=== PATIENT | female | born 1960 | race Caucasian/White ===

== ENCOUNTER 2018-09-04 11:23 | Outpatient (REF) | payer MEDICAID, SELFPAY ==
[2018-09-04 20:59] LABS: HCT 41.3 % (36.0-46.0); HGB 12.7 g/dL (12.0-15.5); Mean Corp. HGB Concentration 30.8 g/dL (32.0-36.0); Mean Corpuscular Hemoglobin 24.8 pg (27.0-33.0); Mean Corpuscular Volume 80.5 fL (80-95); Mean Platelet Volume 10.6 fL (8.0-11.0); Platelet Count 243 x1000/uL (130-400); RBC 5.13 m/cumm (4.00-5.20); White Blood Cell Count 7.07 k/cumm (4.4-10.8)
[2018-09-04 21:29] LABS: ALT 27 U/L (12-78); AST 23 U/L (15-37); Albumin 3.4 g/dL (3.4-5.0); Alkaline Phosphatase 137 U/L (46-116); Anion Gap 7.7 mmol/L (3-11); BUN 14 mg/dL (7-18); Bilirubin, Total 0.5 mg/dL (0.2-1.0); CO2 30.3 mmol/L (21.0-32.0); CREATININE 1.01 mg/dL (0.55-1.02); Calcium 8.6 mg/dL (8.5-10.1); Chloride 106 mmol/L (98-107); Glucose 94 mg/dL (70-100); Potassium 3.5 mmol/L (3.5-5.1); Sodium 144 mmol/L (136-145); TSH 2.97 uIU/mL (0.358-3.74); Total Protein 6.7 g/dL (6.4-8.2)
== END 2018-09-04 11:43 ==
LOC: NCHCN 11:23
PROVIDERS: PCP Internal Medicine; Visit Provider Physician Assistant Medical
DX: R53.83 Other fatigue (principal)
CPT/HCPCS: 80053; 85027; 84443

== ENCOUNTER 2020-08-18 14:42 | Outpatient (REF) | payer MEDICAID, SELFPAY ==
[2020-08-18 20:51] LABS: HCT 41.3 % (36.0-46.0); HGB 12.5 g/dL (11.2-15.7); MCH 23.4 pg (27.0-33.0); MCHC 30.3 % (32.0-36.0); MCV 77.3 fL (80-95); Platelet Count 284 10^3/uL (130-400); RBC 5.34 10^6/uL (3.93-5.22); RDW 17.2 % (11.7-14.6); WBC 8.24 10^3/uL (4.4-10.8)
[2020-08-18 21:44] LABS: Anion Gap 9.9 mmol/L (3-11); BUN 20 mg/dL (7-18); CO2 26.1 mmol/L (21.0-32.0); CREATININE 1.1 mg/dL (0.55-1.02); Calcium 9.1 mg/dL (8.5-10.1); Chloride 105 mmol/L (98-107); Estimated GFR 51.02 (mL/min/1.73m2); Glucose 95 mg/dL (74-106); Potassium 3.8 mmol/L (3.5-5.1); Sodium 141 mmol/L (136-145)
[2020-08-18 21:47] LABS: Hemoglobin A1C 5.2 % (<5.7)
[2020-08-18 22:13] LABS: Iron 29 ug/dL (50-170); Total Iron Binding Capacity 342 ug/dL (250-450); Transferrin Sat 8 % (15-50)
[2020-08-18 22:25] LABS: Ferritin 28 ng/mL (8-252); TSH 1.71 uIU/mL (0.36-3.74)
== END 2020-08-18 14:43 | disposition home or self-care (01) ==
LOC: NCHCN 14:42
PROVIDERS: PCP Internal Medicine; Visit Provider Internal Medicine
DX: D64.9 Anemia, unspecified (principal); R73.9 Hyperglycemia, unspecified
CPT/HCPCS: 80048; 85027; 82728; 83036; 83540; 83550; 84443

== ENCOUNTER 2020-11-02 17:15 | Outpatient (REF) | payer MEDICAID, SELFPAY ==
[2020-11-02 18:46] LABS: Iron 27 ug/dL (50-170); Total Iron Binding Capacity 327 ug/dL (250-450); Transferrin Sat 8 % (15-50)
[2020-11-02 18:59] LABS: ALT 19 U/L (14-59); AST 22 U/L (15-37); Albumin 3.4 g/dL (3.4-5.0); Alkaline Phosphatase 146 U/L (46-116); BUN 13 mg/dL (7-18); Bilirubin, Total 0.5 mg/dL (0.2-1.0); CREATININE 1.1 mg/dL (0.55-1.02); Calcium 8.6 mg/dL (8.5-10.1); Chloride 108 mmol/L (98-107); Estimated GFR 51.02 (mL/min/1.73m2); Ferritin 24 ng/mL (8-252); Glucose 90 mg/dL (74-106); Potassium 3.5 mmol/L (3.5-5.1); Sodium 144 mmol/L (136-145); Total Protein 6.8 g/dL (6.4-8.2)
[2020-11-02 19:11] LABS: Abs Immature Grans 0.05 10^3/uL (0.0-0.06); Absolute Basophil Count 0.08 10^3/uL (0.0-0.2); Absolute Lymphocyte Count 2.28 10^3/uL (1.2-3.4); Absolute Monocyte Count 0.51 10^3/uL (0.1-0.8); Absolute Neutrophil Count 4.85 10^3/uL (1.2-6.7); Eosinophils % 3.7; HCT 41.9 % (36.0-46.0); HGB 12.4 g/dL (11.2-15.7); Immature Grans % 0.6; Lymphocytes % 28.3; MCH 23.5 pg (27.0-33.0); MCHC 29.6 % (32.0-36.0); MCV 79.5 fL (80-95); MPV 10.2 fL (8.0-11.0); Monocytes % 6.3; Neutrophils % 60.1; Nucleated RBC 0 %; Platelet Count 242 10^3/uL (130-400); RBC 5.27 10^6/uL (3.93-5.22); RDW 16.8 % (11.7-14.6); WBC 8.07 10^3/uL (4.4-10.8)
== END 2020-11-02 17:16 | disposition home or self-care (01) ==
LOC: NCHCN 17:15
PROVIDERS: PCP Internal Medicine; Visit Provider Physician Assistant
DX: D64.9 Anemia, unspecified (principal); R11.0 Nausea
CPT/HCPCS: 80053; 82728; 83540; 83550; 85025

== ENCOUNTER 2022-05-10 17:09 | Outpatient (REF) | payer MEDICAID, SELFPAY ==
[2022-05-10 21:48] LABS: Abs Immature Grans 0.06 10^3/uL (0.0-0.06); Absolute Basophil Count 0.08 10^3/uL (0.0-0.2); Absolute Eosinophil Count 0.54 10^3/uL (0.0-0.7); Absolute Lymphocyte Count 1.54 10^3/uL (1.2-3.4); Absolute Monocyte Count 0.42 10^3/uL (0.1-0.8); Absolute Neutrophil Count 4.55 10^3/uL (1.2-6.7); Basophils % 1.1; Eosinophils % 7.5; HCT 40.7 % (36.0-46.0); HGB 12.5 g/dL (11.2-15.7); Immature Grans % 0.8; Lymphocytes % 21.4; MCH 24.8 pg (27.0-33.0); MCHC 30.7 % (32.0-36.0); MCV 81 fL (80-95); MPV 11.1 fL (8.0-11.0); Monocytes % 5.8; Neutrophils % 63.4; Platelet Count 210 10^3/uL (130-400); RBC 5.05 10^6/uL (3.93-5.22); RDW 20.4 % (11.7-14.6); RDW-SD 59.5 fL; WBC 7.19 10^3/uL (4.4-10.8)
[2022-05-10 21:52] LABS: Bilirubin Large (Negative); Blood Negative (Negative); Clarity Turbid (Clear); Glucose 100 mg/dL (Negative); Ketones Trace mg/dL (Negative); Leukocyte Esterase Negative (Negative); Nitrite Negative (Negative); Specific Gravity >= 1.030 (1.005-1.025)
[2022-05-10 21:59] LABS: ALT 349 U/L (14-59); AST 414 U/L (15-37); Albumin 3.3 g/dL (3.4-5.0); Alkaline Phosphatase 1986 U/L (46-116); Anion Gap 6.5 mmol/L (3-11); BUN 18 mg/dL (7-18); Bilirubin, Total 4.3 mg/dL (0.2-1.0); CO2 30.5 mmol/L (21.0-32.0); Calcium 9.1 mg/dL (8.5-10.1); Chloride 106 mmol/L (98-107); Creatine Kinase 59 U/L (26-192); Estimated GFR 64.49 (mL/min/1.73m2); GGT 802 U/L (5-55); Glucose 106 mg/dL (74-106); Potassium 3.3 mmol/L (3.5-5.1); Sodium 143 mmol/L (136-145); Total Protein 7.4 g/dL (6.4-8.2)
[2022-05-10 22:03] LABS: C & S Indicated? C&S Done As Ordered; Crystals Many Amorphous HPF (Negative)
[2022-05-10 22:51] LABS: Diff Comment RBC Morph Reviewed
[2022-05-10 22:52] LABS: Anisocytosis 2+
== END 2022-05-10 17:10 | disposition home or self-care (01) ==
LOC: NCHCN 17:09
PROVIDERS: PCP Internal Medicine; Visit Provider Physician Assistant
DX: R10.9 Unspecified abdominal pain (principal); R39.89 Other symptoms and signs involving the genitourinary system; R74.8 Abnormal levels of other serum enzymes; R82.998 Other abnormal findings in urine
CPT/HCPCS: 80053; 82550; 81003; 81015; 82977; 85025; 87086

== ENCOUNTER 2022-06-11 | Outpatient (RCR) | payer MEDICAID, SELFPAY ==
[2022-06-09] MEDS: Normal Saline Flush 10 ML SYR IVP (07:59)
[2022-06-09 08:27] LABS: Abs Immature Grans 0.04 10^3/uL (0.0-0.06); Absolute Basophil Count 0.06 10^3/uL (0.0-0.2); Absolute Eosinophil Count 0.27 10^3/uL (0.0-0.7); Absolute Lymphocyte Count 1.78 10^3/uL (1.2-3.4); Absolute Monocyte Count 0.53 10^3/uL (0.1-0.8); Absolute Neutrophil Count 4.97 10^3/uL (1.2-6.7); Basophils % 0.8; Eosinophils % 3.5; HCT 40.5 % (36.0-46.0); HGB 12.4 g/dL (11.2-15.7); Immature Grans % 0.5; Lymphocytes % 23.3; MCH 25.8 pg (27.0-33.0); MCHC 30.6 % (32.0-36.0); MCV 84 fL (80-95); MPV 10.2 fL (8.0-11.0); Monocytes % 6.9; Platelet Count 181 10^3/uL (130-400); RBC 4.81 10^6/uL (3.93-5.22); RDW-SD 55.8 fL; WBC 7.65 10^3/uL (4.4-10.8)
[2022-06-09 08:44] LABS: ALT 19 U/L (14-59); AST 19 U/L (15-37); Albumin 3.1 g/dL (3.4-5.0); Alkaline Phosphatase 282 U/L (46-116); Anion Gap 5.8 mmol/L (3-11); BUN 17 mg/dL (7-18); Bilirubin, Total 1.3 mg/dL (0.2-1.0); CO2 30.2 mmol/L (21.0-32.0); CREATININE 0.9 mg/dL (0.55-1.02); Calcium 8.9 mg/dL (8.5-10.1); Chloride 106 mmol/L (98-107); Estimated GFR 73.19 (mL/min/1.73m2); Glucose 115 mg/dL (74-106); Potassium 3.8 mmol/L (3.5-5.1); Sodium 142 mmol/L (136-145); Total Protein 6.8 g/dL (6.4-8.2)
[2022-06-12 11:36] LABS: CA 19-9 1420 U/mL (<35)
== END 2022-06-13 23:59 | disposition home or self-care (01) ==
LOC: INF
PROVIDERS: PCP Internal Medicine; Visit Provider Internal Medicine Hematology & Oncology
DX: Z45.2 Encounter for adjustment and management of vascular access device (principal); C25.0 Malignant neoplasm of head of pancreas
CPT/HCPCS: 36591; 80053; 85025; 86301

== ENCOUNTER 2022-07-14 01:19 | Outpatient (RCR) | payer MEDICAID, SELFPAY ==
[2022-06-23] MEDS: Normal Saline Flush 10 ML SYR IVP (07:41)
[2022-06-23 07:56] LABS: Abs Immature Grans 0.04 10^3/uL (0.0-0.06); Absolute Basophil Count 0.07 10^3/uL (0.0-0.2); Absolute Eosinophil Count 0.32 10^3/uL (0.0-0.7); Absolute Lymphocyte Count 1.74 10^3/uL (1.2-3.4); Basophils % 1.1; Eosinophils % 4.9; HGB 12.7 g/dL (11.2-15.7); Immature Grans % 0.6; Lymphocytes % 26.9; MCH 26.2 pg (27.0-33.0); MCHC 33.4 % (32.0-36.0); MCV 79 fL (80-95); MPV 9.8 fL (8.0-11.0); Monocytes % 12.4; Neutrophils % 54.1; Platelet Count 208 10^3/uL (130-400); RBC 4.84 10^6/uL (3.93-5.22); RDW 16.3 % (11.7-14.6); RDW-SD 46.1 fL; WBC 6.47 10^3/uL (4.4-10.8)
[2022-06-23 08:14] LABS: ALT 33 U/L (14-59); AST 19 U/L (15-37); Albumin 2.9 g/dL (3.4-5.0); Alkaline Phosphatase 164 U/L (46-116); Anion Gap 11.8 mmol/L (3-11); BUN 8 mg/dL (7-18); Bilirubin, Total 0.8 mg/dL (0.2-1.0); CO2 27.2 mmol/L (21.0-32.0); CREATININE 0.9 mg/dL (0.55-1.02); Calcium 8.1 mg/dL (8.5-10.1); Chloride 103 mmol/L (98-107); Estimated GFR 73.19 (mL/min/1.73m2); Glucose 113 mg/dL (74-106); Sodium 142 mmol/L (136-145); Total Protein 6.6 g/dL (6.4-8.2)
[2022-06-23 08:23] LABS: Potassium 2.2 mmol/L (3.5-5.1)
[2022-06-26 10:59] LABS: CA 19-9 1434 U/mL (<35)
[2022-06-30] MEDS: Normal Saline Flush 10 ML SYR IVP (08:42)
[2022-06-30 09:00] LABS: Abs Immature Grans 0.11 10^3/uL (0.0-0.06); Absolute Basophil Count 0.06 10^3/uL (0.0-0.2); Absolute Eosinophil Count 0.21 10^3/uL (0.0-0.7); Absolute Monocyte Count 0.61 10^3/uL (0.1-0.8); Absolute Neutrophil Count 2.61 10^3/uL (1.2-6.7); Basophils % 1.2; HCT 37.7 % (36.0-46.0); HGB 11.9 g/dL (11.2-15.7); Immature Grans % 2.1; Lymphocytes % 30.8; MCH 25.8 pg (27.0-33.0); MCHC 31.6 % (32.0-36.0); MCV 82 fL (80-95); MPV 9.3 fL (8.0-11.0); Monocytes % 11.7; Neutrophils % 50.2; Platelet Count 159 10^3/uL (130-400); RBC 4.62 10^6/uL (3.93-5.22); RDW 16.7 % (11.7-14.6); RDW-SD 49.8 fL
[2022-06-30 09:17] LABS: ALT 21 U/L (14-59); AST 23 U/L (15-37); Albumin 2.7 g/dL (3.4-5.0); Alkaline Phosphatase 152 U/L (46-116); Anion Gap 4.3 mmol/L (3-11); BUN 12 mg/dL (7-18); Bilirubin, Total 0.5 mg/dL (0.2-1.0); CO2 29.7 mmol/L (21.0-32.0); CREATININE 0.8 mg/dL (0.55-1.02); Calcium 8.3 mg/dL (8.5-10.1); Chloride 106 mmol/L (98-107); Glucose 100 mg/dL (74-106); Potassium 3.6 mmol/L (3.5-5.1); Sodium 140 mmol/L (136-145); Total Protein 5.9 g/dL (6.4-8.2)
[2022-07-03 12:38] LABS: CA 19-9 1584 U/mL (<35)
[2022-07-14] MEDS: Normal Saline Flush 10 ML SYR IVP (12:28)
[2022-07-14 12:37] LABS: Abs Immature Grans 0.07 10^3/uL (0.0-0.06); Absolute Eosinophil Count 0.45 10^3/uL (0.0-0.7); Absolute Lymphocyte Count 1.99 10^3/uL (1.2-3.4); Absolute Monocyte Count 0.85 10^3/uL (0.1-0.8); Absolute Neutrophil Count 4.18 10^3/uL (1.2-6.7); Basophils % 1.3; Eosinophils % 5.9; HCT 38.2 % (36.0-46.0); Immature Grans % 0.9; MCH 25.2 pg (27.0-33.0); MCHC 31.4 % (32.0-36.0); MCV 80 fL (80-95); MPV 9.8 fL (8.0-11.0); Monocytes % 11.1; Neutrophils % 54.8; Platelet Count 261 10^3/uL (130-400); RBC 4.77 10^6/uL (3.93-5.22); RDW 16.4 % (11.7-14.6); RDW-SD 47.8 fL; WBC 7.64 10^3/uL (4.4-10.8)
[2022-07-14 13:02] LABS: ALT 25 U/L (14-59); AST 23 U/L (15-37); Albumin 3.1 g/dL (3.4-5.0); Alkaline Phosphatase 163 U/L (46-116); Anion Gap 6.9 mmol/L (3-11); BUN 5 mg/dL (7-18); Bilirubin, Total 0.6 mg/dL (0.2-1.0); CO2 28.1 mmol/L (21.0-32.0); CREATININE 0.8 mg/dL (0.55-1.02); Calcium 9.2 mg/dL (8.5-10.1); Chloride 105 mmol/L (98-107); Glucose 102 mg/dL (74-106); Potassium 3.7 mmol/L (3.5-5.1); Sodium 140 mmol/L (136-145)
[2022-07-14 13:37] LABS: Magnesium 1.4 mg/dL (1.8-2.4)
[2022-07-17 13:07] LABS: CA 19-9 1387 U/mL (<35)
== END 2022-07-14 23:59 | disposition home or self-care (01) ==
LOC: INF 01:19
PROVIDERS: PCP Internal Medicine; Visit Provider Internal Medicine Hematology & Oncology
DX: Z45.2 Encounter for adjustment and management of vascular access device (principal); K52.1 Toxic gastroenteritis and colitis; T45.1X5A Adverse effect of antineoplastic and immunosuppressive drugs, initial encounter
CPT/HCPCS: 36415; 36591; 80053; 96523; 83735; 85025; 86301

== ENCOUNTER 2022-08-02 02:31 | Outpatient (RCR) | payer MEDICAID, SELFPAY ==
[2022-08-02] MEDS: Normal Saline Flush 10 ML SYR IVP (08:13)
[2022-08-02 08:38] LABS: Abs Immature Grans 0.03 10^3/uL (0.0-0.06); Absolute Basophil Count 0.04 10^3/uL (0.0-0.2); Absolute Eosinophil Count 0.19 10^3/uL (0.0-0.7); Absolute Lymphocyte Count 1.59 10^3/uL (1.2-3.4); Absolute Monocyte Count 0.63 10^3/uL (0.1-0.8); Absolute Neutrophil Count 1.74 10^3/uL (1.2-6.7); Basophils % 0.9; Eosinophils % 4.5; HCT 37.4 % (36.0-46.0); HGB 11.7 g/dL (11.2-15.7); Immature Grans % 0.7; Lymphocytes % 37.7; MCH 24.6 pg (27.0-33.0); MCHC 31.3 % (32.0-36.0); MCV 79 fL (80-95); MPV 9.9 fL (8.0-11.0); Monocytes % 14.9; Neutrophils % 41.3; Platelet Count 168 10^3/uL (130-400); RBC 4.75 10^6/uL (3.93-5.22); RDW 16.8 % (11.7-14.6); RDW-SD 47.3 fL; WBC 4.22 10^3/uL (4.4-10.8)
[2022-08-02 08:59] LABS: ALT 68 U/L (14-59); AST 43 U/L (15-37); Albumin 2.9 g/dL (3.4-5.0); Alkaline Phosphatase 201 U/L (46-116); Anion Gap 9.6 mmol/L (3-11); BUN 11 mg/dL (7-18); Bilirubin, Total 0.4 mg/dL (0.2-1.0); CO2 27.4 mmol/L (21.0-32.0); CREATININE 0.8 mg/dL (0.55-1.02); Calcium 8.3 mg/dL (8.5-10.1); Chloride 108 mmol/L (98-107); Glucose 100 mg/dL (74-106); Sodium 145 mmol/L (136-145); Total Protein 6.4 g/dL (6.4-8.2)
[2022-08-02 09:05] LABS: Potassium 2.8 mmol/L (3.5-5.1)
[2022-08-04 12:28] LABS: CA 19-9 1509 U/mL (<35)
== END 2022-08-13 23:59 | disposition home or self-care (01) ==
LOC: INF 02:31
PROVIDERS: PCP Internal Medicine; Visit Provider Internal Medicine Hematology & Oncology
DX: Z45.2 Encounter for adjustment and management of vascular access device (principal); C25.0 Malignant neoplasm of head of pancreas
CPT/HCPCS: 36591; 80053; 85025; 86301

== ENCOUNTER 2022-09-01 14:46 | Outpatient (CLI) | payer MEDICAID, SELFPAY ==
--- NOTE | 2022-09-01 15:07 | DI.RAD_ITS ---
Exam(s) RF CATHETER PATENCY CHECK W EXAM: RF CATHETER PATENCY CHECK W CLINICAL HISTORY: MEDIPORT DOES NOT DRAW BLOOD,CHECK FOR PATENCY,POSITION,Z45.2. TECHNIQUE: 2D and realtime digital imaging was performed. CONTRAST MATERIAL: Iodinated contrast was administered via the MediPort. COMPARISON: DX XR CHEST ONE VIEW from 06/02/2022 FINDINGS: The proximal catheter now appears smoothly coiled proximally. The tip of the catheter now lies withi n the right brachiocephalic vein. There is flow of contrast away from the tip of the catheter. IMPRESSION: 1. Change in the position of the MediPort. The proximal catheter is smoothly coiled. The tip of the catheter is retracted somewhat and now lies within the right brachiocephalic vein. 2. Free flow of contrast from the tip of the catheter. 3. Findings were discussed with Dr. Johnson at 4 p.m. on 09/01/2022. RADIATION DOSE DELIVERED: morelia Coker=6.34mGy
[2022-09-01] MEDS: Omnipaque 350 MG/ML 50 ML BTL IJ (15:18)
[2022-09-01] MEDS: Normal Saline Flush 10 ML SYR IVP (15:20)
== END 2022-09-01 15:06 ==
LOC: DI 14:46
PROVIDERS: PCP Internal Medicine; Visit Provider Internal Medicine Hematology & Oncology
DX: Z45.2 Encounter for adjustment and management of vascular access device (principal)
CPT/HCPCS: 76000; Q9967

== ENCOUNTER 2022-09-09 00:20 | Outpatient (RCR) | payer MEDICAID, SELFPAY ==
[2022-08-18] MEDS: Normal Saline Flush 10 ML SYR IVP (07:38)
[2022-08-18 07:46] LABS: Abs Immature Grans 0.04 10^3/uL (0.0-0.06); Absolute Basophil Count 0.05 10^3/uL (0.0-0.2); Absolute Eosinophil Count 0.13 10^3/uL (0.0-0.7); Basophils % 1.3; Eosinophils % 3.4; HCT 37.9 % (36.0-46.0); HGB 11.5 g/dL (11.2-15.7); Lymphocytes % 31.4; MCH 24.6 pg (27.0-33.0); MCHC 30.3 % (32.0-36.0); MCV 81 fL (80-95); MPV 10.6 fL (8.0-11.0); Monocytes % 18.3; Neutrophils % 44.6; Platelet Count 150 10^3/uL (130-400); RBC 4.67 10^6/uL (3.93-5.22); RDW 17.9 % (11.7-14.6); RDW-SD 51.7 fL; WBC 3.82 10^3/uL (4.4-10.8)
[2022-08-18 08:01] LABS: ALT 36 U/L (14-59); AST 30 U/L (15-37); Alkaline Phosphatase 185 U/L (46-116); Anion Gap 6.4 mmol/L (3-11); BUN 13 mg/dL (7-18); Bilirubin, Total 0.4 mg/dL (0.2-1.0); CO2 27.6 mmol/L (21.0-32.0); CREATININE 0.7 mg/dL (0.55-1.02); Chloride 108 mmol/L (98-107); Estimated GFR 98.95 (mL/min/1.73m2); Glucose 107 mg/dL (74-106); Potassium 3.5 mmol/L (3.5-5.1); Sodium 142 mmol/L (136-145); Total Protein 6.4 g/dL (6.4-8.2)
[2022-08-18 09:20] LABS: Magnesium 0.8 mg/dL (1.8-2.4)
[2022-08-20] MEDS: Normal Saline Flush 10 ML SYR IVP (13:01)
[2022-08-20] MEDS: Heparin 500 UNITS/5 ML SYRINGE IV (13:01)
[2022-08-21 12:07] LABS: CA 19-9 1441 U/mL (<35)
[2022-09-01] MEDS: Normal Saline Flush 10 ML SYR IVP (08:13)
[2022-09-01 08:24] LABS: Abs Immature Grans 0.03 10^3/uL (0.0-0.06); Absolute Basophil Count 0.04 10^3/uL (0.0-0.2); Absolute Eosinophil Count 0.11 10^3/uL (0.0-0.7); Absolute Lymphocyte Count 1.32 10^3/uL (1.2-3.4); Absolute Monocyte Count 0.63 10^3/uL (0.1-0.8); Absolute Neutrophil Count 2.36 10^3/uL (1.2-6.7); Basophils % 0.9; Eosinophils % 2.4; HCT 36.9 % (36.0-46.0); HGB 11.5 g/dL (11.2-15.7); Immature Grans % 0.7; Lymphocytes % 29.4; MCH 24.8 pg (27.0-33.0); MCHC 31.2 % (32.0-36.0); MCV 80 fL (80-95); MPV 9.7 fL (8.0-11.0); Neutrophils % 52.6; Platelet Count 138 10^3/uL (130-400); RBC 4.63 10^6/uL (3.93-5.22); RDW 18.6 % (11.7-14.6); RDW-SD 53.1 fL; WBC 4.49 10^3/uL (4.4-10.8)
[2022-09-01 08:41] LABS: ALT 50 U/L (14-59); AST 37 U/L (15-37); Alkaline Phosphatase 229 U/L (46-116); Anion Gap 8.3 mmol/L (3-11); BUN 9 mg/dL (7-18); Bilirubin, Total 0.4 mg/dL (0.2-1.0); CO2 26.7 mmol/L (21.0-32.0); CREATININE 0.8 mg/dL (0.55-1.02); Calcium 8.7 mg/dL (8.5-10.1); Chloride 109 mmol/L (98-107); Glucose 112 mg/dL (74-106); Potassium 3.2 mmol/L (3.5-5.1); Sodium 144 mmol/L (136-145); Total Protein 6.4 g/dL (6.4-8.2)
[2022-09-01 10:27] LABS: Magnesium 1.4 mg/dL (1.8-2.4)
[2022-09-04 13:13] LABS: CA 19-9 1420 U/mL (<35)
[2022-09-07] MEDS: Normal Saline Flush 10 ML SYR IVP (08:00)
[2022-09-07 08:24] LABS: Abs Immature Grans 0.12 10^3/uL (0.0-0.06); Absolute Basophil Count 0.07 10^3/uL (0.0-0.2); Absolute Eosinophil Count 0.21 10^3/uL (0.0-0.7); Absolute Lymphocyte Count 1.69 10^3/uL (1.2-3.4); Absolute Monocyte Count 1.11 10^3/uL (0.1-0.8); Absolute Neutrophil Count 3.14 10^3/uL (1.2-6.7); Basophils % 1.1; Eosinophils % 3.3; HCT 40.5 % (36.0-46.0); HGB 12.3 g/dL (11.2-15.7); Immature Grans % 1.9; Lymphocytes % 26.7; MCH 24.6 pg (27.0-33.0); MCHC 30.4 % (32.0-36.0); MCV 81 fL (80-95); MPV 9.8 fL (8.0-11.0); Monocytes % 17.5; Neutrophils % 49.5; Platelet Count 177 10^3/uL (130-400); RBC 5.01 10^6/uL (3.93-5.22); RDW 19.9 % (11.7-14.6); RDW-SD 57.8 fL; WBC 6.34 10^3/uL (4.4-10.8)
[2022-09-07 08:45] LABS: ALT 38 U/L (14-59); AST 28 U/L (15-37); Albumin 3.1 g/dL (3.4-5.0); Alkaline Phosphatase 236 U/L (46-116); Anion Gap 5.5 mmol/L (3-11); BUN 12 mg/dL (7-18); Bilirubin, Total 0.4 mg/dL (0.2-1.0); CO2 29.5 mmol/L (21.0-32.0); Calcium 8.8 mg/dL (8.5-10.1); Chloride 106 mmol/L (98-107); Estimated GFR 64.49 (mL/min/1.73m2); Glucose 111 mg/dL (74-106); Magnesium 1.6 mg/dL (1.8-2.4); Potassium 4.2 mmol/L (3.5-5.1); Sodium 141 mmol/L (136-145); Total Protein 6.6 g/dL (6.4-8.2)
[2022-09-08 09:30] LABS: CA 19-9 1553 U/mL (<35)
[2022-09-09] MEDS: Heparin 500 UNITS/5 ML SYRINGE IV (12:50)
[2022-09-09] MEDS: Normal Saline Flush 10 ML SYR IVP (12:51)
== END 2022-09-13 23:59 | disposition home or self-care (01) ==
LOC: INF 00:20
PROVIDERS: PCP Internal Medicine; Visit Provider Internal Medicine Hematology & Oncology
DX: C25.0 Malignant neoplasm of head of pancreas (principal); K52.1 Toxic gastroenteritis and colitis; T45.1X5A Adverse effect of antineoplastic and immunosuppressive drugs, initial encounter; Z45.2 Encounter for adjustment and management of vascular access device
CPT/HCPCS: 36415; 36591; 80053; 96523; 83735; 85025; 86301

== ENCOUNTER 2022-09-29 10:35 | Observation (INO) | payer MEDICAID, SELFPAY ==
[2022-09-29] VITALS (30 sets, daily range): BP systolic 121–138; BP diastolic 67–84; PULSE 56–88; RESP 10–20; TEMP 36.2–36.8; O2SAT 96–100
--- NOTE | 2022-09-29 11:00 | DI.CT_ITS ---
Exam(s) CT ABDOMEN PELVIS W EXAM: CT ABDOMEN PELVIS W CLINICAL HISTORY: pain rlq 2 days, h/o pancreatic CA on chemo. TECHNIQUE: Imaging Protocol: Axial computed tomography images with coronal and sagittal reformatted images were created and reviewed CONTRAST MATERIAL: Intravenous: Omnipaque-350 100cc Oral: None COMPARISON: No exams were available for comparison FINDINGS: VISUALIZED LUNG BASES: No nodules nor pleural effusions evident. ABDOMEN: There is a small amount of ascites in the dependent aspect pelvis. BILIARY/STENT: There is a self expanding-type stent in the CBD in good position and not occluded. Pn eumobilia is seen, as expected. Gallbladder is not seen and presumed to be surgically absent. PANCREAS: The entire pancreas somewhat hypodense implying an element of gland edema-probable element of pancreatitis. There is no peripancreatic streaking nor peripancreatic fluid collection. Pancreat ic head appears slightly prominent. LIVER: Liver is hypodense implying steatosis. There is a single lesion in the right hepatic lobe whi ch measures 7 x 7 mm, possibly significant. Pneumobilia evident in the left lobe. SPLEEN: Mild splenomegaly (13.5 cm). No splenic lesions evident. Splenic and portal veins are paten t. Splenic vein is patent. There is in case mint of the superior mesenteric vein at the portal veno us confluence level. ADRENALS: There are no significant adrenal masses. KIDNEYS:No cysts evident. No solid renal masses. No calculi nor hydronephrosis.. ABDOMINAL AORTA: Abdominal aorta is not enlarged. LYMPH NODES:There is no retroperitoneal nor paraaortic adenopathy. ABDOMINAL WALL: No evidence of significant anterior abdominal wall nor inguinal hernia. GI: There densities consistent with probable undigested pills in the cecum below the ileocecal valve. Appendix is short. Slightly prominent diameter 7 mm. Small amount of fluid noted in the dependent aspect of the pelvis right side. PELVIS: GI: Colon is filled with fluid such as diarrhea state. No evidence of small-bowel obstruction. LYMPH NODES: There is no intrapelvic nor inguinal adenopathy. REPRODUCTIVE: Uterus size is age-appropriate. No abnormal adnexal masses noted. Small cyst in left ovary measuring 8 millimeters noted URINARY BLADDER: Right ovary not identified. OSSEOUS: No fractures and no significant osseous lesions. Chronic advanced disc space narrowing at L4-5 level. IMPRESSION: 1. CBD stent in place which appears to be in good position and without obvious obstruction. There is pneumobilia, as expected. 2. Pancreatic head mass is noted to in case the superior mesenteric vein. Probably thrombosed. Ther e is no thrombosis of these splenic and portal veins although there is significant narrowing of kavitha l venous confluence which appears to be encased. The superior mesenteric artery is not encased. 3. Pancreas appears hypodense implying gland edema-probable element of pancreatitis. There is no per ipancreatic fluid evident 4. Mild splenomegaly. 5. Short but slightly prominent diameter appendix. Small amount of free fluid in the right-side of the pelvis below this level. Cannot exclude early appendicitis here. RADIATION DOSE DELIVERED: 1,837.96mGy.cm Total DLP DATA REPOSITORY: All CT scans at this facility are submitted to the National Radiology Data Registry (NRDR) Dose Index Registry (DIR) with the [employer] (ACR). RADIATION OPTIMIZATION: All CT scans at this facility use at least one of these dose optimization te chniques: automated exposure control; mA and/or kV adjustment per patient size (includes targeted exa ms where dose is matched to clinical indication); or iterative reconstruction.
--- NOTE | 2022-09-29 11:11 | W.ED.GENAD ---
Discharge Plan Discharge Details Chief Complaint: Abd Prob Primary Care Provider: Sid Rubio ED Provider: Colby Ford Home Meds and New Rx's Prescriptions: No Action loperamide 2 mg capsule 2 mg PO PRN PRN Patient Comments: TAKE TWO CAPSULES BY MOUTH EVERY 6 HOURS NEEDED ondansetron HCl 8 mg tablet 8 mg PO PRN PRN Patient Comments: TAKE ONE TABLET BY MOUTH EVERY 8 HOURS NEEDED FOR NAUSEA potassium chloride 10 mEq tablet extended release 20 meq PO BID Patient Comments: TAKE TWO TABLETS BY MOUTH TWICE A DAY prochlorperazine maleate [Compazine] 10 mg tablet 10 mg PO PRN PRN Patient Comments: Take 1 tablet by mouth every six hours as needed for dry heaves, nausea, vomiting. acetaminophen 500 mg tablet 1,000 mg PO PRN PRN Patient Comments: Take 2 tablet by mouth every six hours as needed for pain citalopram 20 mg tablet 20 mg PO DAILY Patient Comments: TAKE ONE TABLET BY MOUTH EVERY DAY magnesium oxide 400 mg (241.3 mg magnesium) tablet 400 mg PO DAILY Patient Comments: TAKE ONE TABLET BY MOUTH TWICE A DAY pantoprazole 40 mg tablet,delayed release (DR/EC) 40 mg PO DAILY Patient Comments: TAKE ONE TABLET BY MOUTH EVERY DAY nitroglycerin [Nitrostat] 0.4 mg tablet, sublingual 0.4 mg sublingual PRN PRN Patient Comments: Place 1 tablet under tongue as directed Take every 5 mins x3 as needed for chest pain. If no relief call 911. oxycodone 5 mg tablet 5 mg PO PRN PRN (Reason: Moderate Pain (Scale Score 5-6)) Patient Comments: TAKE ONE TABLET BY MOUTH EVERY 4 HOURS NEEDED FOR MODERATE PAIN Creon 24,000-76,000 -120,000 unit capsule,delayed release(DR/EC) 3 cap PO 5X/DAY Patient Comments: TAKE 3 CAPSULES BY MOUTH PER MEAL AND 2 CAPSULES BY MOUTH PER SNACK (12 CAPSULES PER DAY) Eliquis 5 mg tablet 5 mg PO BID Patient Comments: TAKE ONE TABLET BY MOUTH TWICE A DAY Medical Decision Making 1113??61-year-old female with history of pancreatic cancer, on chemotherapy, here with right lower quadrant abdominal pain for the past 2 days. Patient is focally tender in her right lower quadrant. No hernia appreciated. Concern for acute surgical process including acute appendicitis. Plan to obtain CT of the abdomen pelvis. -- CT abdomen pelvis was interpreted by radiology: No definite acute appendicitis, unable to visualize appendix clearly, recommend repeat CT with oral contrast. 1. CBD stent in place which appears to be in good position and without obvious obstruction.? There is pneumobilia, as expected. 2. Pancreatic head mass is noted to in case the superior mesenteric vein.? Probably thrombosed.? There is no thrombosis of these splenic and portal veins although there is significant narrowing of portal venous confluence which appears to be encased.? The superior mesenteric artery is not encased. 3. Pancreas appears hypodense implying gland edema-probable element of pancreatitis.? There is no peripancreatic fluid evident 4. Mild splenomegaly. 5.? Short but slightly prominent diameter appendix.? Small amount of free fluid in the right-side of the pelvis below this level.? Cannot exclude early appendicitis here. Plan to repeat CT. Lab Data Lab results reviewed: Yes I reviewed the patient's lab results. Labs: Laboratory Tests Range/Units 09/29/22 09/29/22 09/29/22 11:27 11:27 13:45 WBC (4.4-10.8) 10^3/uL 5.26 RBC (3.93-5.22) 10^6/uL 4.46 Hgb (11.2-15.7) g/dL 10.9 L Hct (36.0-46.0) % 35.9 L MCV (80-95) fL 81 MCH (27.0-33.0) pg 24.4 L MCHC (32.0-36.0) % 30.4 L RDW (11.7-14.6) % 20.3 H Plt Count (130-400) 10^3/uL 121 L MPV (8.0-11.0) fL 10.1 Immature Gran % 1.7 Neutrophils % 56.6 Lymphocytes % 29.7 Monocytes % 8.0 Eosinophils % 3.2 Basophils % 0.8 Nucleated RBC % (0.0-0.3) % 0.0 Absolute Neutrophils (1.2-6.7) 10^3/uL 2.98 Absolute Lymphocytes (1.2-3.4) 10^3/uL 1.56 Absolute Monocytes (0.1-0.8) 10^3/uL 0.42 Absolute Eosinophils (0.0-0.7) 10^3/uL 0.17 Absolute Basophils (0.0-0.2) 10^3/uL 0.04 RBC Morphology See Below Polychromasia Present Poikilocytosis 1+ Anisocytosis 2+ Sodium (136-145) mmol/L 143 Potassium (3.5-5.1) mmol/L 3.9 Chloride (98-107) mmol/L 107 Carbon Dioxide (21.0-32.0) mmol/L 27.3 Anion Gap (3-11) mmol/L 8.7 BUN (7-18) mg/dL 11 Creatinine (0.55-1.02) mg/dL 0.8 Est GFR (CKD-EPI 2020) (mL/min/1.73m2) 84.30 Glucose (74-106) mg/dL 85 Calcium (8.5-10.1) mg/dL 8.6 Total Bilirubin (0.2-1.0) mg/dL 0.5 AST (15-37) U/L 69 H ALT (14-59) U/L 72 H Alkaline Phosphatase (46-116) U/L 222 H Total Protein (6.4-8.2) g/dL 6.5 Albumin (3.4-5.0) g/dL 3.0 L Lipase (16-77) U/L 13 L Urine Color (Yellow) Yellow Urine Clarity (Clear) Clear Urine pH (5-8) 5.0 Ur Specific [place] (1.005-1.025) 1.010 Urine Protein (Negative) mg/dL Negative Urine Ketones (Negative) mg/dL 15 H Urine Blood (Negative) Negative Urine Nitrite (Negative) Negative Urine Bilirubin (Negative) Negative Urine Urobilinogen (Up to 0.2) mg/dL 0.2 Ur Leukocyte Esterase (Negative) Negative Urine Glucose (Negative) mg/dL Negative HPI General Mode of arrival: ambulatory. Date/Time Provider Initiated Documentation: 09/29/22 10:48. Limitations to Documentation: no limitations. Information obtained by: patient. HPI Narrative: 61-year-old female with history of pancreatic cancer, actively on chemotherapy, here with chief complaint of abdominal pain. Patient notes right lower quadrant abdominal pain that started 2 days ago and has been persistent. Pain is moderate to severe. She has some mild associated nausea. She notes chronic diarrhea on chemotherapy. Related Data Home Medications Medication Instructions Recorded Confirmed acetaminophen 500 mg tablet 1,000 mg PO PRN PRN 09/29/22 09/29/22 apixaban 5 mg tablet (Eliquis) 5 mg PO BID 09/29/22 09/29/22 citalopram 20 mg tablet 20 mg PO DAILY 09/29/22 09/29/22 [id number] 3 cap PO 5X/DAY 09/29/22 09/29/22 24,000-76,000-120,000 unit capsule,delayed rel (Creon) loperamide 2 mg capsule 2 mg PO PRN PRN 09/29/22 09/29/22 magnesium oxide 400 mg (241.3 mg 400 mg PO DAILY 09/29/22 09/29/22 magnesium) tablet nitroglycerin 0.4 mg sublingual 0.4 mg sublingual PRN PRN 09/29/22 09/29/22 tablet (Nitrostat) ondansetron HCl 8 mg tablet 8 mg PO PRN PRN 09/29/22 09/29/22 oxycodone 5 mg tablet 5 mg PO PRN PRN Moderate Pain 09/29/22 09/29/22 (Scale Score 5-6) pantoprazole 40 mg tablet,delayed 40 mg PO DAILY 09/29/22 09/29/22 release potassium chloride 10 mEq 20 meq PO BID 09/29/22 09/29/22 tablet,extended release prochlorperazine maleate 10 mg 10 mg PO PRN PRN 09/29/22 09/29/22 tablet (Compazine) Allergies Allergy/AdvReac Type Severity Reaction Status Date / Time ibuprofen AdvReac Nausea Unverified 09/29/22 10:45 Penicillins AdvReac Hives Unverified 09/29/22 10:45 Sulfa (Sulfonamide AdvReac Hives Unverified 09/29/22 10:45 Antibiotics) topiramate [From Topamax] AdvReac Dizziness/L Unverified 09/29/22 10:45 ighthead General Stated Complaint: Abd Prob ILEANA: 3 Review of Systems All systems reviewed & are unremarkable except as noted in HPI and below Constitutional Constitutional: Denies fever(s) Gastrointestinal Gastrointestinal: Reports as per HPI PFSH Social History Smoking/Tobacco Use Status: Never Smoking risk assessment performed?: Yes Alcohol Intake: former Drug use: Never Substance use type: does not use Do you feel safe at home: Yes Do you feel safe in your relationship?: Yes Exam Const General: cooperative and no acute distress HENMT Mouth: moist mucous membranes Eyes Conjunctivae: normal conjunctivae Sclera: normal sclerae Resp Auscultation: clear to auscultation bilaterally, no rales, no rhonchi and no wheezes Cardio Rate: regular rate and not tachycardic Rhythm: regular rhythm GI Palpation: soft, not firm, no guarding, no masses, not rigid and tender in the RLQ Skin General skin exam: no rashes or lesions noted Neuro General: patient alert, patient awake, patient oriented x3 and tone normal Course Vital Signs Vital signs: Vital Signs Temperature 36.8 C 09/29/22 10:40 Pulse 88 09/29/22 10:40 Respiratory Rate 16 09/29/22 10:40 Blood Pressure 124/67 09/29/22 10:40 Pulse Oximetry 97 09/29/22 10:40 Temperature 36.8 C 09/29/22 10:40 Temperature Source Tympanic 09/29/22 10:40 Pulse 88 09/29/22 10:40 Respiratory Rate 16 09/29/22 10:40 Respiratory Effort Normal, Non-Labored 09/29/22 10:53 Blood Pressure 124/67 09/29/22 10:40 Blood Pressure Position Supine 09/29/22 10:40 Pulse Oximetry 97 09/29/22 10:40 Pain Level 8 09/29/22 10:53
--- NOTE | 2022-09-29 11:11 | NUR.NOTE ---
Nursing Note: patient provided this nurse with documentation card of her having a Vaccess CT Power- injectable implantable Port that was place by DR Wetzel at [facility] on 09/06/22 in right chest
[2022-09-29 11:41] LABS: Abs Immature Grans 0.09 10^3/uL (0.0-0.06); Absolute Basophil Count 0.04 10^3/uL (0.0-0.2); Absolute Eosinophil Count 0.17 10^3/uL (0.0-0.7); Absolute Lymphocyte Count 1.56 10^3/uL (1.2-3.4); Absolute Monocyte Count 0.42 10^3/uL (0.1-0.8); Absolute Neutrophil Count 2.98 10^3/uL (1.2-6.7); Basophils % 0.8; Eosinophils % 3.2; HCT 35.9 % (36.0-46.0); HGB 10.9 g/dL (11.2-15.7); Immature Grans % 1.7; Lymphocytes % 29.7; MCH 24.4 pg (27.0-33.0); MCHC 30.4 % (32.0-36.0); MCV 81 fL (80-95); MPV 10.1 fL (8.0-11.0); Neutrophils % 56.6; Platelet Count 121 10^3/uL (130-400); RBC 4.46 10^6/uL (3.93-5.22); RDW 20.3 % (11.7-14.6); RDW-SD 58.2 fL; WBC 5.26 10^3/uL (4.4-10.8)
[2022-09-29 11:58] LABS: AST 69 U/L (15-37); Alkaline Phosphatase 222 U/L (46-116); Anion Gap 8.7 mmol/L (3-11); BUN 11 mg/dL (7-18); Bilirubin, Total 0.5 mg/dL (0.2-1.0); CO2 27.3 mmol/L (21.0-32.0); CREATININE 0.8 mg/dL (0.55-1.02); Calcium 8.6 mg/dL (8.5-10.1); Chloride 107 mmol/L (98-107); Glucose 85 mg/dL (74-106); Lipase 13 U/L (16-77); Potassium 3.9 mmol/L (3.5-5.1); Sodium 143 mmol/L (136-145); Total Protein 6.5 g/dL (6.4-8.2)
[2022-09-29 12:03] LABS: Anisocytosis 2+; Diff Comment RBC Morph Reviewed; Polychromasia Present
[2022-09-29 12:04] LABS: Poikilocytes 1+
[2022-09-29 12:10] LABS: ALT 72 U/L (14-59)
[2022-09-29] MEDS: Omnipaque 350 MG/ML 500 ML BTL-Imaging package IJ (12:12)
[2022-09-29] MEDS: Normal Saline - Diluent 50 ML VIAL IJ (12:13)
--- NOTE | 2022-09-29 13:30 | DI.CT_ITS ---
Exam(s) CT ABDOMEN PELVIS WO EXAM: CT ABDOMEN PELVIS WO CLINICAL HISTORY: repeat per radiology. pain. TECHNIQUE: Imaging Protocol: Axial computed tomography images with coronal and sagittal reformatted images were created and reviewed CONTRAST MATERIAL: Intravenous: none Oral: Yes. Oral contrast was administered for bowel opacification. COMPARISON: CT CT ABDOMEN PELVIS W from 09/29/2022 FINDINGS: VISUALIZED LUNG BASES: No nodules nor pleural effusions evident. ABDOMEN: There is no ascites. LIVER: There are no obvious focal hepatic lesions evident of this noninfused study. Pneumobilia rela geetha to the CBD stent noted. GALLBLADDER/BILIARY: None gallbladder not seen and presumed to be surgically absent. CBD stent in pl sadiq. PANCREAS: Pancreas is hypodense which is probably a combination gland edema dilatation of the entire length of the duct. SPLEEN: Splenomegaly again noted. ADRENALS: There are no significant adrenal masses. KIDNEYS:No cysts evident. No solid renal masses. No calculi nor hydronephrosis. . ABDOMINAL AORTA: Abdominal aorta is not enlarged. LYMPH NODES: There is no retroperitoneal nor paraaortic adenopathy. ABDOMINAL WALL: No evidence of significant anterior abdominal wall nor inguinal hernia. GI: No evidence of bowel obstruction. The oral contrast has progressed into the colon. PELVIS: LYMPH NODES: There is no intrapelvic nor inguinal adenopathy. GI: No evidence of obvious appendicitis.No evidence of sigmoid diverticulitis. URINARY BLADDER: No calculi nor obvious masses evident REPRODUCTIVE: Unremarkable OSSEOUS: No significant osseous lesions. IMPRESSION: 1. This scan was repeated head the appendix. There does not appear to be obvious acute appendicitis. 2. Other findings as discussed on the IV contrast infused study performed earlier today. Discussed with ER provider RADIATION DOSE DELIVERED: 1,349.79mGy.cm Total DLP DATA REPOSITORY: All CT scans at this facility are submitted to the National Radiology Data Registry (NRDR) Dose Index Registry (DIR) with the [employer] (ACR). RADIATION OPTIMIZATION: All CT scans at this facility use at least one of these dose optimization te chniques: automated exposure control; mA and/or kV adjustment per patient size (includes targeted exa ms where dose is matched to clinical indication); or iterative reconstruction.
[2022-09-29 14:01] LABS: Bilirubin Negative (Negative); Blood Negative (Negative); Clarity Clear (Clear); Glucose Negative (Negative); Ketones 15 mg/dL (Negative); Leukocyte Esterase Negative (Negative); Nitrite Negative (Negative); Urobilinogen 0.2 mg/dL (Up to 0.2)
[2022-09-29] MEDS: Breeza Beverage 473 ML BTL 900 ML PO (14:04)
[2022-09-29] MEDS: Omnipaque 350 MG/ML 50 ML BTL PO (14:05)
--- NOTE | 2022-09-29 18:07 | HPE_ITS ---
Date of service: 09/29/22 Time of Service: 18:07 Assessment and Plan Assessment and plan (1) Primary pancreatic cancer : Status: Acute Assessment and plan: Most likely nausea vomiting diarrhea and abdominal pain are due to her chemotherapeutic agents. I do not see any sign of acute infection and see no need for antibiotics at this point. we will do stool cultures and C. difficile. There does not appear to be signs of colitis associated with the chemotherapeutic agents that would require steroids. hydration Replace magnesium Antiemetics DVT and GI prophylaxis And monitor for any continued signs of infection. -I did personally review all her labs and CTs. I did review her oncology notes from [facility]. 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 She received her last chemo on September 22. It is 5 out of 6 cycles of 5-FU/leucovorin/[employer] can/and a [place] based therapy. She has had problems with chronic diarrhea since she h as been on chemo. She takes Imodium daily. Today she woke up and had an episode of nausea and vomiting. She is not currently nauseated. She has been keeping water down since she has been in the ER. She has had no fever or chills. She has no chest pain or shortness of breath. Her diarrhea is no worse than it normally has been. She has had 2 liquid bowel movements today with no blood. She denies any pain or swelling in her legs. She denies any pain or burning with urination. She is not jaundiced. The pain is isolated to actually of the right upper quadrant. It is in the area of her previous open cholecystectomy scar. She has never had bowel obstructions before. She has normal bowel sounds and is passing gas. Labs and CT scans were reviewed by myself. She has had nausea/vomiting/diarrhea with her chemo. She has never had abdominal pain before. This is a new finding. There was concern for acute appendicitis-. This is there are no signs of bowel obstruction. There is no thickening of the bowel wall or indication of colitis. This is not seen on the contrast CT scan. Her stent appears to be in good position. Her bilirubin is normal. There is no signs of expansion of the tumor or bleeding. There are no portal blood clots noted. At this time I am not finding any source for acute infection Review of Systems All systems reviewed & are unremarkable except as noted in HPI and below PFSH All Active Problems (Updated 09/29/22 @ 21:33 by Carol Ann Bennett DO) Hypoalbuminemia due to protein-calorie malnutrition (Acute) Hypomagnesemia (Acute) Anemia (Chronic) Basic learning disability, reading (Acute) Immunosuppression due to drug therapy (Acute) 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) Port-A-Cath in place (Acute) Depression (Chronic) Multiple sclerosis (Chronic) Chronic GERD (Acute) Chemotherapy induced diarrhea (Acute) Intractable nausea and vomiting (Acute) Primary pancreatic cancer (Acute) Encasement of the SMV and local lymphadenopathy stage II-currently unresectable Medical History (Updated 09/29/22 @ 21:33 by Carol Ann Bennett DO) History of biliary stent insertion Surgical History (Updated 09/29/22 @ 18:15 by Carol Ann Bennett DO) S/P cholecystectomy Open cholecystectomy S/P laparoscopy Diagnostic laparoscopy for staging of pancreatic cancer Social History Smoking/Tobacco Use Status: Never Smoking risk assessment performed?: Yes Alcohol Intake: former Drug use: Never Substance use type: does not use Do you feel safe at home: Yes Do you feel safe in your relationship?: Yes Meds Allergies and Home Medications Allergies Allergy/AdvReac Type Severity Reaction Status Date / Time ibuprofen AdvReac Nausea Unverified 09/29/22 18:49 Penicillins AdvReac Hives Unverified 09/29/22 18:49 Sulfa (Sulfonamide AdvReac Hives Unverified 09/29/22 18:49 Antibiotics) topiramate [From Topamax] AdvReac Dizziness/L Unverified 09/29/22 18:49 ighthead Home Medications Medication Instructions Recorded Confirmed Type acetaminophen 500 mg tablet 1,000 mg PO PRN PRN 09/29/22 09/29/22 History apixaban 5 mg tablet (Eliquis) 5 mg PO BID 09/29/22 09/29/22 History citalopram 20 mg tablet 20 mg PO DAILY 09/29/22 09/29/22 History dqlnuv-mkphxibm-hlxwkwy 3 cap PO 5X/DAY 09/29/22 09/29/22 History 24,000-76,000-120,000 unit capsule,delayed rel (Creon) loperamide 2 mg capsule 2 mg PO PRN PRN 09/29/22 09/29/22 History magnesium oxide 400 mg (241.3 mg 400 mg PO DAILY 09/29/22 09/29/22 History magnesium) tablet nitroglycerin 0.4 mg sublingual 0.4 mg sublingual PRN PRN 09/29/22 09/29/22 History tablet (Nitrostat) ondansetron HCl 8 mg tablet 8 mg PO PRN PRN 09/29/22 09/29/22 History oxycodone 5 mg tablet 5 mg PO PRN PRN Moderate Pain 09/29/22 09/29/22 History (Scale Score 5-6) pantoprazole 40 mg tablet,delayed 40 mg PO DAILY 09/29/22 09/29/22 History release potassium chloride 10 mEq 20 meq PO BID 09/29/22 09/29/22 History tablet,extended release prochlorperazine maleate 10 mg 10 mg PO PRN PRN 09/29/22 09/29/22 History tablet (Compazine) Exam Resp Effort & Inspection: normal respiratory effort and able to speak in complete sen tences Auscultation: clear to auscultation bilaterally Cardio Rate: regular rate Rhythm: regular rhythm GI Other: She has a scar in the right upper quadrant from the previous open cholecystectomy. She is tender along the scar. I do not palpate any hernias. She does not have diffuse peritonitis. There is no rebound or guarding. She has good bowel sounds. She has no pain at McBurney's point Results Labs 09/29/22 11:27 09/29/22 11:27 Labs: Laboratory Results - last 24 hr 09/29/22 09/29/22 09/29/22 11:27 11:27 13:45 WBC 5.26 RBC 4.46 Hgb 10.9 L Hct 35.9 L MCV 81 MCH 24.4 L MCHC 30.4 L RDW 20.3 H Plt Count 121 L MPV 10.1 Immature Gran % 1.7 Neutrophils % 56.6 Lymphocytes % 29.7 Monocytes % 8.0 Eosinophils % 3.2 Basophils % 0.8 Nucleated RBC % 0.0 Absolute Neutrophils 2.98 Absolute Lymphocytes 1.56 Absolute Monocytes 0.42 Absolute Eosinophils 0.17 Absolute Basophils 0.04 RBC Morphology See Below Polychromasia Present Poikilocytosis 1+ Anisocytosis 2+ Sodium 143 Potassium 3.9 Chloride 107 Carbon Dioxide 27.3 Anion Gap 8.7 BUN 11 Creatinine 0.8 Est GFR (CKD-EPI 2020) 84.30 Glucose 85 Calcium 8.6 Total Bilirubin 0.5 AST 69 H ALT 72 H Alkaline Phosphatase 222 H Total Protein 6.5 Albumin 3.0 L Lipase 13 L Urine Color Yellow Urine Clarity Clear Urine pH 5.0 Ur Specific [place] 1.010 Urine Protein Negative Urine Ketones 15 H Urine Blood Negative Urine Nitrite Negative Urine Bilirubin Negative Urine Urobilinogen 0.2 Ur Leukocyte Esterase Negative Urine Glucose Negative Last Vital Signs Temp 36.8 C 09/29/22 10:40 Pulse 88 09/29/22 10:40 Resp 16 09/29/22 10:40 BP 124/67 09/29/22 10:40 Pulse Ox 97 09/29/22 10:40 Time Spent Time spent with Patient: 55-74 minutes Time was spent: preparing to see the patient(eg.review tests), obtaining and/or reviewing separately otained hiistory, ordering medications,tests, procedures, referring, communicating with other health pet care worker, indepentently interpreting results, counseling the patient, care coordination and other
--- NOTE | 2022-09-29 18:14 | ED.PROG_ITS ---
Date of service: 09/29/22 Time of Service: 18:14 Medical Decision Making Patient signed out to me pending repeat CT scan with oral contrast. Per radiology, Dr. Josue, repeat scan still not convincing for acute appendicitis. Patient discussed with surgery, Dr. Bennett. Patient evaluated by Dr. Bennett here in the ED. Patient will be admitted to her service overnight for observation. Patient is stable and aware of plan for admission overnight. I did discuss CODE STATUS with her and she is requesting full code at this time. Sign Out Sign Out Data: Sign Out Comment: followup repeat CT and discuss with gen surgery Last updated by Colby Ford MD at 09/29/22 16:09 Discharge Plan Disposition Patient Disposition: Admit to [facility] Discharge Details Clinical Impression: Abdominal pain, RLQ Primary Care Provider: Sid Rubio [facility] Prescriptions: No Action loperamide 2 mg capsule 2 mg PO PRN PRN Patient Comments: TAKE TWO CAPSULES BY MOUTH EVERY 6 HOURS NEEDED ondansetron HCl 8 mg tablet 8 mg PO PRN PRN Patient Comments: TAKE ONE TABLET BY MOUTH EVERY 8 HOURS NEEDED FOR NAUSEA potassium chloride 10 mEq tablet extended release 20 meq PO BID Patient Comments: TAKE TWO TABLETS BY MOUTH TWICE A DAY prochlorperazine maleate [Compazine] 10 mg tablet 10 mg PO PRN PRN Patient Comments: Take 1 tablet by mouth every six hours as needed for dry heaves, nausea, vomiting. acetaminophen 500 mg tablet 1,000 mg PO PRN PRN Patient Comments: Take 2 tablet by mouth every six hours as needed for pain citalopram 20 mg tablet 20 mg PO DAILY Patient Comments: TAKE ONE TABLET BY MOUTH EVERY DAY magnesium oxide 400 mg (241.3 mg magnesium) tablet 400 mg PO DAILY Patient Comments: TAKE ONE TABLET BY MOUTH TWICE A DAY pantoprazole 40 mg tablet,delayed release (DR/EC) 40 mg PO DAILY Patient Comments: TAKE ONE TABLET BY MOUTH EVERY DAY nitroglycerin [Nitrostat] 0.4 mg tablet, sublingual 0.4 mg sublingual PRN PRN Patient Comments: Place 1 tablet under tongue as directed Take every 5 mins x3 as needed for chest pain. If no relief call 911. oxycodone 5 mg tablet 5 mg PO PRN PRN (Reason: Moderate Pain (Scale Score 5-6)) Patient Comments: TAKE ONE TABLET BY MOUTH EVERY 4 HOURS NEEDED FOR MODERATE PAIN Creon 24,000-76,000 -120,000 unit capsule,delayed release(DR/EC) 3 cap PO 5X/DAY Patient Comments: TAKE 3 CAPSULES BY MOUTH PER MEAL AND 2 CAPSULES BY MOUTH PER SNACK (12 CAPSULES PER DAY) Eliquis 5 mg tablet 5 mg PO BID Patient Comments: TAKE ONE TABLET BY MOUTH TWICE A DAY
[2022-09-29 18:26] LABS: Lab Add On Test DONE
[2022-09-29 18:38] LABS: Magnesium 1.3 mg/dL (1.8-2.4)
[2022-09-29 18:40] LABS: C-Reactive Protein 0.31 mg/dL (0.0-0.3)
[2022-09-29] MEDS: Apixaban 5 MG TAB PO (20:55)
[2022-09-29] MEDS: Potassium Chloride 10 MEQ TABCR 20 MEQ PO (20:55)
[2022-09-29] MEDS: DEXTROSE 5%-0.45% SALINE 1,000 ML 75 ML IV (20:57)
[2022-09-29] MEDS: MAGNESIUM SULFATE 2 GM/50 ML BAG IVPB (22:22)
[2022-09-30 01:19] LABS: C Diff PCR Negative (Negative)
[2022-09-30 06:03] LABS: Abs Immature Grans 0.07 10^3/uL (0.0-0.06); Absolute Basophil Count 0.04 10^3/uL (0.0-0.2); Absolute Eosinophil Count 0.18 10^3/uL (0.0-0.7); Absolute Lymphocyte Count 1.28 10^3/uL (1.2-3.4); Absolute Monocyte Count 0.45 10^3/uL (0.1-0.8); Basophils % 0.9; Eosinophils % 4.1; HCT 35.4 % (36.0-46.0); Immature Grans % 1.6; MCH 24.8 pg (27.0-33.0); MCHC 31.1 % (32.0-36.0); MCV 80 fL (80-95); Monocytes % 10.2; Neutrophils % 54.2; Platelet Count 122 10^3/uL (130-400); RBC 4.43 10^6/uL (3.93-5.22); RDW-SD 57.7 fL; WBC 4.42 10^3/uL (4.4-10.8)
[2022-09-30 06:13] VITALS: BP 113/76; PULSE 70; RESP 16; TEMP 36.1; O2SAT 97
[2022-09-30 06:17] LABS: Lipase 12 U/L (16-77)
[2022-09-30 06:20] LABS: ALT 75 U/L (14-59); AST 61 U/L (15-37); Alkaline Phosphatase 232 U/L (46-116); Anion Gap 12.1 mmol/L (3-11); BUN 7 mg/dL (7-18); Bilirubin, Total 0.6 mg/dL (0.2-1.0); CO2 25.9 mmol/L (21.0-32.0); CREATININE 0.8 mg/dL (0.55-1.02); Calcium 8.7 mg/dL (8.5-10.1); Chloride 106 mmol/L (98-107); Glucose 98 mg/dL (74-106); Potassium 3.4 mmol/L (3.5-5.1); Sodium 144 mmol/L (136-145); Total Protein 6.5 g/dL (6.4-8.2)
--- NOTE | 2022-09-30 07:50 | PDOC.CMIN ---
Date of service: 09/30/22 Time of Service: 07:50 Care Management Initial Assmt Initial Assessment REASON FOR HOSPITALIZATION:: Primary pancreatic cancer, Intractable nausea and vomiting, Chemotherapy induced diarrhea PREVIOUS FUNCTIONAL STATUS/SOCIAL/FAMILY SUPPORTS:: Valeria lives in [place], [place] with her mother Tracie. She is disabled due to chronic medical issues. Valeria has no children. She has a brother Reg from [place], but the two are 8 years apart and not close. Valeria is independent at baseline and drives occasionally. Her mom is supportive and takes her to her appointments. Valeria is currently receiving treatment for pancreatic cancer at [facility]. CURRENT FUNCTIONAL STATUS:: Valeria is sitting up in bed, smiling and pleasant when CM met with her. She is awake and easily engages in conversation. Valeria sees Dr. Johnson for Pancreatic Cancer, and feels the treatment is going ok. Valeria advises that she has Adv. Directive paperwork at home, but hasn't filled them out due to difficulty reading. CM offered assistance with forms, but she opts to fill them out at home with her mom. ADVANCE DIRECTIVES:: None on file, CM will review and offer forms Has patient been provided with info about the portal/API?: Yes Did the patient sign up for the portal?: No CODE STATUS:: Full Code INSURANCE COVERAGE / FINANCIAL ISSUES:: Medicaid CURRENT HOME/COMMUNITY SERVICES/EQUIPMENT:: SSDI PRIMARY CARE PHYSICIAN:: Sid Rubio POTENTIAL DISCHARGE NEEDS:: Follow up with oncology, PCP, Inpt vs. outpt Palliative consult may be beneficial. PATIENT/FAMILY EDUCATION NEEDS:: Review discharge instructions, limitations, medications and plan to follow up with community providers. Discuss ask me three. ANTICIPATED BARRIERS TO DISCHARGE:: None identified at this time. TRANSPORTATION:: Via private vehicle with family PLAN:: Anticipate, Valeria will discharge home with New services through [facility] (if indicated). She will follow up with community providers and discharge plan of care as instructed. CM will continue to follow. PFSH All Active Problems (Updated 09/29/22 @ 21:33 by Carol Ann Bennett DO) Hypoalbuminemia due to protein-calorie malnutrition (Acute) Hypomagnesemia (Acute) Anemia (Chronic) Basic learning disability, reading (Acute) Immunosuppression due to drug therapy (Acute) 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) Port-A-Cath in place (Acute) Depression (Chronic) Multiple sclerosis (Chronic) Chronic GERD (Acute) Chemotherapy induced diarrhea (Acute) Intractable nausea and vomiting (Acute) Primary pancreatic cancer (Acute) Encasement of the SMV and local lymphadenopathy stage II-currently unresectable Medical History (Updated 09/29/22 @ 21:33 by Carol Ann Bennett DO) History of biliary stent insertion Surgical History (Updated 09/29/22 @ 18:15 by Carol Ann Bennett DO) S/P cholecystectomy Open cholecystectomy S/P laparoscopy Diagnostic laparoscopy for staging of pancreatic cancer Social History Smoking/Tobacco Use Status: Never Smoking risk assessment performed?: Yes Alcohol Intake: former Drug use: Never Substance use type: does not use Do you feel safe at home: Yes Do you feel safe in your relationship?: Yes
[2022-09-30] MEDS: Apixaban 5 MG TAB PO (09:12)
[2022-09-30] MEDS: Potassium Chloride 10 MEQ TABCR 20 MEQ PO (09:12)
[2022-09-30] MEDS: Pantoprazole 40 MG TABCR PO (09:12)
[2022-09-30] MEDS: Citalopram 20 MG TAB PO (09:12)
[2022-09-30] MEDS: Magnesium Oxide 400 MG TAB PO (10:05)
--- NOTE | 2022-09-30 11:53 | DSE_ITS ---
Date of service: 09/30/22 Time of Service: 11:53 DS: Diagnosis Discharge Diagnosis (1) Primary pancreatic cancer : Status: Acute (2) Intractable nausea and vomiting: Status: Acute (3) Chemotherapy induced diarrhea: Status: Acute (4) Chronic GERD: Status: Acute (5) Multiple sclerosis: Status: Chronic (6) Depression: Status: Chronic (7) Port-A-Cath in place: Status: Acute (8) S/P laparoscopy: (9) S/P cholecystectomy: (10) Peripheral neuropathy due to chemotherapy: Status: Acute (11) Immunosuppression due to drug therapy: Status: Acute (12) History of biliary stent insertion: (13) Basic learning disability, reading: Status: Acute (14) Anemia: Status: Chronic (15) Hypomagnesemia: Status: Acute (16) Hypoalbuminemia due to protein-calorie malnutrition: Status: Acute Discharge Plan Disposition Patient Disposition: Home Condition: Improving Discharge Details Reason For Visit: RLQ Pain Admit Date/Time: 09/29/22 17:57 Admit Provider: Carol Ann Bennett Attending Provider: Carol Ann Bennett Primary Care Provider: Sid Rubio [facility] Hospital Course: Patient has pancreatic cancer and is currently undergoing chemotherapy regimen. This regimen was reviewed in her notes in [facility]. She is at 5 out of 6 treatments. Her last chemo regimen was 6 9. Since Sunday she has been having some right upper quadrant abdominal pain since September 27. She does have a history of pancreatic cancer and has a stent in place in her common bile duct. She also has a history of portal vein thrombosis both of these conditions are stable on CT scan. She has not had a fever or white count. She did have some isolated nausea /vomiting. She does have chronic diarrhea, from pancreatic insufficiency as well as chemotherapy. Today she has no pain or nausea. She is able to tolerate a regular diet. Her labs are stable. She will be discharged home. She has medication for nausea and diarrhea. She can resume regular diet. Minimal activities over the weekend. And follow-up with her oncology team as previously prescribed. No changes in her medication regimen. If the abdominal pain or nausea and vomiting persist, she should return to the ER. Home Meds and New Rx's Prescriptions: No Action loperamide 2 mg capsule 2 mg PO PRN PRN Patient Comments: TAKE TWO CAPSULES BY MOUTH EVERY 6 HOURS NEEDED ondansetron HCl 8 mg tablet 8 mg PO PRN PRN Patient Comments: TAKE ONE TABLET BY MOUTH EVERY 8 HOURS NEEDED FOR NAUSEA potassium chloride 10 mEq tablet extended release 20 meq PO BID Patient Comments: TAKE TWO TABLETS BY MOUTH TWICE A DAY prochlorperazine maleate [Compazine] 10 mg tablet 10 mg PO PRN PRN Patient Comments: Take 1 tablet by mouth every six hours as needed for dry heaves, nausea, vomiting. acetaminophen 500 mg tablet 1,000 mg PO PRN PRN Patient Comments: Take 2 tablet by mouth every six hours as needed for pain citalopram 20 mg tablet 20 mg PO DAILY Patient Comments: TAKE ONE TABLET BY MOUTH EVERY DAY magnesium oxide 400 mg (241.3 mg magnesium) tablet 400 mg PO DAILY Patient Comments: TAKE ONE TABLET BY MOUTH TWICE A DAY pantoprazole 40 mg tablet,delayed release (DR/EC) 40 mg PO DAILY Patient Comments: TAKE ONE TABLET BY MOUTH EVERY DAY nitroglycerin [Nitrostat] 0.4 mg tablet, sublingual 0.4 mg sublingual PRN PRN Patient Comments: Place 1 tablet under tongue as directed Take every 5 mins x3 as needed for chest pain. If no relief call 911. oxycodone 5 mg tablet 5 mg PO PRN PRN (Reason: Moderate Pain (Scale Score 5-6)) Patient Comments: TAKE ONE TABLET BY MOUTH EVERY 4 HOURS NEEDED FOR MODERATE PAIN Creon 24,000-76,000 -120,000 unit capsule,delayed release(DR/EC) 3 cap PO 5X/DAY Patient Comments: TAKE 3 CAPSULES BY MOUTH PER MEAL AND 2 CAPSULES BY MOUTH PER SNACK (12 CAPSULES PER DAY) Eliquis 5 mg tablet 5 mg PO BID Patient Comments: TAKE ONE TABLET BY MOUTH TWICE A DAY Discharge Instructions Additional Instructions: - Rest this weekend. Avoid any strenuous activity or heavy lifting (over 20 pounds) -Continue regular diet -Continue same medications -Follow-up with oncology team Activity:: Minimal activity over the Equipment/Supplies:: No Equipment Needed Diet:: As Tolerated DS: Summary Time Spent with Patient providing and/or coordinating discharge services: Greater than 30 minutes Status at Discharge Functional status at discharge: independent ambulation Overall status at discharge: patient is back to baseline Mental Status: mental status grossly normal Speech and Movement: speech and movement normal Mood: congruent mood Affect: normal affect Exam Psych Mental Status: mental status grossly normal Speech and Movement: speech and movement normal Mood: congruent mood Affect: normal affect DS: Data Vitals/I&O Vitals and I&O: Vital Signs Temperature 36.1 C L 09/30/22 06:13 Temperature Source Tympanic 09/30/22 06:13 Pulse 70 09/30/22 06:13 Pulse Rhythm Irregular 09/29/22 20:00 Pulse 64 09/29/22 18:32 Respiratory Rate 16 09/30/22 06:13 Respiratory Effort Normal, Non-Labored 09/29/22 20:00 Respiratory Depth Normal 09/29/22 20:00 Respiratory Pattern Normal 09/29/22 20:00 Blood Pressure 113/76 09/30/22 06:13 Blood Pressure Mean 84 09/29/22 18:32 Blood Pressure Position Supine 09/29/22 10:40 Pulse Oximetry 97 09/30/22 06:13 Oxygen Delivery Method Room Air 09/30/22 06:13 Oxygen Flow Rate 0 09/30/22 06:13 Pain Level 0 09/30/22 06:13 Intake & Output 09/29/22 09/29/22 09/30/22 11:59 23:59 11:59 Output Total 300 / 300 Balance -300 / -300 Weight 84.64 kg Output: Stool 300 / 300 Other: Comment unwitnessed void Stool Size Moderate Stool Characteristics Liquid Brown Voiding Methods Toilet Data Completed and Pending Labs on day of discharge: Labs from last 24 hours 09/30/22 09/30/22 09/30/22 05:20 05:20 05:20 WBC 4.42 RBC 4.43 Hgb 11.0 L Hct 35.4 L MCV 80 MCH 24.8 L MCHC 31.1 L RDW 20.0 H Plt Count 122 L MPV 10.0 Immature Gran % 1.6 Neutrophils % 54.2 Lymphocytes % 29.0 Monocytes % 10.2 Eosinophils % 4.1 Basophils % 0.9 Nucleated RBC % 0.0 Absolute Neutrophils 2.40 Absolute Lymphocytes 1.28 Absolute Monocytes 0.45 Absolute Eosinophils 0.18 Absolute Basophils 0.04 RBC Morphology Polychromasia Poikilocytosis Anisocytosis Sodium 144 Potassium 3.4 L Chloride 106 Carbon Dioxide 25.9 Anion Gap 12.1 H BUN 7 Creatinine 0.8 Est GFR (CKD-EPI 2021) 84.30 Glucose 98 Calcium 8.7 Magnesium 2.0 Total Bilirubin 0.6 AST 61 H ALT 75 H Alkaline Phosphatase 232 H C-Reactive Protein Total Protein 6.5 Albumin 3.0 L Lipase 12 L Urine Color Urine Clarity Urine pH Ur Specific [place] Urine Protein Urine Ketones Urine Blood Urine Nitrite Urine Bilirubin Urine Urobilinogen Ur Leukocyte Esterase Urine Glucose Stool Calprotectin Stool Campylobacter PCR Stl C.difficile Tox PCR Stool Salmonella PCR Stool Shigella PCR Shiga Toxin (PCR) Add-On Test Request 09/30/22 09/30/22 09/30/22 00:20 00:20 00:20 WBC RBC Hgb Hct MCV MCH MCHC RDW Plt Count MPV Immature Gran % Neutrophils % Lymphocytes % Monocytes % Eosinophils % Basophils % Nucleated RBC % Absolute Neutrophils Absolute Lymphocytes Absolute Monocytes Absolute Eosinophils Absolute Basophils RBC Morphology Polychromasia Poikilocytosis Anisocytosis Sodium Potassium Chloride Carbon Dioxide Anion Gap BUN Creatinine Est GFR (CKD-EPI 2020) Glucose Calcium Magnesium Total Bilirubin AST ALT Alkaline Phosphatase C-Reactive Protein Total Protein Albumin Lipase Urine Color Urine Clarity Urine pH Ur Specific [place] Urine Protein Urine Ketones Urine Blood Urine Nitrite Urine Bilirubin Urine Urobilinogen Ur Leukocyte Esterase Urine Glucose Stool Calprotectin Pending Stool Campylobacter PCR Pending Stl C.difficile Tox PCR Negative Stool Salmonella PCR Pending Stool Shigella PCR Pending Shiga Toxin (PCR) Pending Add-On Test Request 09/29/22 09/29/22 09/29/22 13:45 11:27 11:27 WBC RBC Hgb Hct MCV MCH MCHC RDW Plt Count MPV Immature Gran % Neutrophils % Lymphocytes % Monocytes % Eosinophils % Basophils % Nucleated RBC % Absolute Neutrophils Absolute Lymphocytes Absolute Monocytes Absolute Eosinophils Absolute Basophils RBC Morphology Polychromasia Poikilocytosis Anisocytosis Sodium Potassium Chloride Carbon Dioxide Anion Gap BUN Creatinine Est GFR (CKD-EPI 2020) Glucose Calcium Magnesium 1.3 L Total Bilirubin AST ALT Alkaline Phosphatase C-Reactive Protein 0.31 H Total Protein Albumin Lipase Urine Color Yellow Urine Clarity Clear Urine pH 5.0 Ur Specific [place] 1.010 Urine Protein Negative Urine Ketones 15 H Urine Blood Negative Urine Nitrite Negative Urine Bilirubin Negative Urine Urobilinogen 0.2 Ur Leukocyte Esterase Negative Urine Glucose Negative Stool Calprotectin Stool Campylobacter PCR Stl C.difficile Tox PCR Stool Salmonella PCR Stool Shigella PCR Shiga Toxin (PCR) Add-On Test Request 09/29/22 09/29/22 09/29/22 11:27 11:27 11:27 WBC 5.26 RBC 4.46 Hgb 10.9 L Hct 35.9 L MCV 81 MCH 24.4 L MCHC 30.4 L RDW 20.3 H Plt Count 121 L MPV 10.1 Immature Gran % 1.7 Neutrophils % 56.6 Lymphocytes % 29.7 Monocytes % 8.0 Eosinophils % 3.2 Basophils % 0.8 Nucleated RBC % 0.0 Absolute Neutrophils 2.98 Absolute Lymphocytes 1.56 Absolute Monocytes 0.42 Absolute Eosinophils 0.17 Absolute Basophils 0.04 RBC Morphology See Below Polychromasia Present Poikilocytosis 1+ Anisocytosis 2+ Sodium 143 Potassium 3.9 Chloride 107 Carbon Dioxide 27.3 Anion Gap 8.7 BUN 11 Creatinine 0.8 Est GFR (CKD-EPI 2020) 84.30 Glucose 85 Calcium 8.6 Magnesium Total Bilirubin 0.5 AST 69 H ALT 72 H Alkaline Phosphatase 222 H C-Reactive Protein Total Protein 6.5 Albumin 3.0 L Lipase 13 L Urine Color Urine Clarity Urine pH Ur Specific [place] Urine Protein Urine Ketones Urine Blood Urine Nitrite Urine Bilirubin Urine Urobilinogen Ur Leukocyte Esterase Urine Glucose Stool Calprotectin Stool Campylobacter PCR Stl C.difficile Tox PCR Stool Salmonella PCR Stool Shigella PCR Shiga Toxin (PCR) Add-On Test Request [facility] All Active Problems (Updated 09/29/22 @ 21:33 by Carol Ann Bennett DO) Hypoalbuminemia due to protein-calorie malnutrition (Acute) Hypomagnesemia (Acute) Anemia (Chronic) Basic learning disability, reading (Acute) Immunosuppression due to drug therapy (Acute) 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) Port-A-Cath in place (Acute) Depression (Chronic) Multiple sclerosis (Chronic) Chronic GERD (Acute) Chemotherapy induced diarrhea (Acute) Intractable nausea and vomiting (Acute) Primary pancreatic cancer (Acute) Encasement of the SMV and local lymphadenopathy stage II-currently unresectable Medical History (Updated 09/29/22 @ 21:33 by Carol Ann Bennett DO) History of biliary stent insertion Surgical History (Updated 09/29/22 @ 18:15 by Carol Ann Bennett DO) S/P cholecystectomy Open cholecystectomy S/P laparoscopy Diagnostic laparoscopy for staging of pancreatic cancer Social History Smoking/Tobacco Use Status: Never Smoking risk assessment performed?: Yes Alcohol Intake: former Drug use: Never Substance use type: does not use Do you feel safe at home: Yes Do you feel safe in your relationship?: Yes Time Spent with Patient Time Spent with Patient: 45-69 minutes Time was spent: preparing to see the patient(eg.review tests), obtaining and/or reviewing separately otained hiistory, ordering medications,tests, procedures, referring, communicating with other health post acute care nurse, indepentently interpreting results, counseling the patient and care coordination
[2022-09-30] MEDS: Heparin 500 UNITS/5 ML SYRINGE IVP (12:30)
--- NOTE | 2022-09-30 14:14 | PDOC.CMDIS ---
Date of service: 09/30/22 Time of Service: 14:14 LACE Index Scoring Tool Questions: Length of Stay (in days): 1 Was the patient admitted via the E.D.?: Yes Comorbidities: Metastatic Solid Tumor (Pancreatic Cancer) E.D. Visits: 1 Answers: Total Score: 10 Risk of Readmission: High Risk Care Management Discharge Plan Reason for Hospitalization: Primary pancreatic cancer, Intractable nausea and vomiting, Chemotherapy induced diarrhea Discharge Plan: Valeria is discharged home via private vehicle with mother. She will follow up with community providers and discharge plan of care as instructed. No new services are ordered. Patient/Family Education Needs: Review discharge instructions, limitations, medications and plan to follow up with PCP and Oncology Team. Discuss ask me three.
[2022-10-01 10:47] LABS: Campylobacter PCR Negative (Negative); Salmonella PCR Negative (Negative); Shiga Toxin PCR Negative (Negative); Shigella/Enteroinvasive Ecoli Negative (Negative)
[2022-10-03 17:26] LABS: Calprotectin <50.0 mcg/g
== END 2022-09-30 13:37 | disposition home or self-care (01) ==
LOC: ER 18:16 → MS 19:00
PROVIDERS: Student in an Organized Health Care Education/Training Program; Admitting Provider Surgery; Emergency Provider Emergency Medicine; PCP Internal Medicine; Visit Provider Surgery
DX: K52.1 Toxic gastroenteritis and colitis (principal); C25.9 Malignant neoplasm of pancreas, unspecified; R11.2 Nausea with vomiting, unspecified; R10.11 Right upper quadrant pain; K21.9 Gastro-esophageal reflux disease without esophagitis; G35 Multiple sclerosis; F32.A Depression, unspecified; Z95.828 Presence of other vascular implants and grafts; Z90.49 Acquired absence of other specified parts of digestive tract; G62.0 Drug-induced polyneuropathy; T45.1X5A Adverse effect of antineoplastic and immunosuppressive drugs, initial encounter; D84.821 Immunodeficiency due to drugs; Z79.899 Other long term (current) drug therapy; D64.9 Anemia, unspecified; E83.42 Hypomagnesemia; E88.09 Other disorders of plasma-protein metabolism, not elsewhere classified; E46 Unspecified protein-calorie malnutrition
CPT/HCPCS: 36415; 80053; 83690; 87493; 87505; 96365; 96372; 99285; 74176; 74177; 81003; 83735; 83993; 85025; 86140; G0378; Q9967

== ENCOUNTER 2022-10-08 00:01 | Outpatient (RCR) | payer MEDICAID, SELFPAY ==
[2022-09-22] MEDS: Normal Saline Flush 10 ML SYR IVP (08:21)
[2022-09-22 08:29] LABS: Abs Immature Grans 0.04 10^3/uL (0.0-0.06); Absolute Basophil Count 0.04 10^3/uL (0.0-0.2); Absolute Eosinophil Count 0.16 10^3/uL (0.0-0.7); Absolute Lymphocyte Count 1.04 10^3/uL (1.2-3.4); Absolute Neutrophil Count 1.33 10^3/uL (1.2-6.7); Basophils % 1.2; HCT 33.7 % (36.0-46.0); HGB 10.3 g/dL (11.2-15.7); Immature Grans % 1.2; Lymphocytes % 32.4; MCH 24.5 pg (27.0-33.0); MCHC 30.6 % (32.0-36.0); MCV 80 fL (80-95); MPV 9.5 fL (8.0-11.0); Monocytes % 18.7; Neutrophils % 41.5; Platelet Count 138 10^3/uL (130-400); RDW 20.2 % (11.7-14.6); RDW-SD 58.4 fL; WBC 3.21 10^3/uL (4.4-10.8)
[2022-09-22 08:47] LABS: ALT 32 U/L (14-59); AST 28 U/L (15-37); Albumin 2.8 g/dL (3.4-5.0); Alkaline Phosphatase 193 U/L (46-116); Anion Gap 6.9 mmol/L (3-11); BUN 15 mg/dL (7-18); Bilirubin, Total 0.4 mg/dL (0.2-1.0); CO2 28.1 mmol/L (21.0-32.0); CREATININE 0.7 mg/dL (0.55-1.02); Calcium 8.1 mg/dL (8.5-10.1); Chloride 110 mmol/L (98-107); Estimated GFR 98.95 (mL/min/1.73m2); Glucose 112 mg/dL (74-106); Magnesium 1.2 mg/dL (1.8-2.4); Potassium 3.1 mmol/L (3.5-5.1); Sodium 145 mmol/L (136-145); Total Protein 6.4 g/dL (6.4-8.2)
[2022-09-22 08:49] LABS: Anisocytosis 1+; Diff Comment RBC Morph Reviewed
[2022-09-24] MEDS: Heparin 500 UNITS/5 ML SYRINGE IV (12:36)
[2022-09-24] MEDS: Normal Saline Flush 10 ML SYR IVP (12:37)
[2022-09-25 12:03] LABS: CA 19-9 978 U/mL (<35)
[2022-10-08 12:10] VITALS: BP 101/62; PULSE 64; RESP 16; TEMP 36.7; O2SAT 97
[2022-10-08] MEDS: Heparin 500 UNITS/5 ML SYRINGE IV (12:14)
[2022-10-08] MEDS: Normal Saline Flush 10 ML SYR IVP (12:15)
== END 2022-10-13 23:59 | disposition home or self-care (01) ==
LOC: INF 00:01
PROVIDERS: PCP Internal Medicine; Visit Provider Internal Medicine Hematology & Oncology
DX: Z45.2 Encounter for adjustment and management of vascular access device (principal); K52.1 Toxic gastroenteritis and colitis; T45.1X5A Adverse effect of antineoplastic and immunosuppressive drugs, initial encounter
CPT/HCPCS: 36591; 80053; 96523; 83735; 85025; 86301

== ENCOUNTER 2022-10-20 08:16 | Outpatient (RCR) | payer MEDICAID, SELFPAY ==
[2022-10-14 00:18] VITALS: BP 101/62; PULSE 64; RESP 16; TEMP 36.7
[2022-10-20] MEDS: Normal Saline Flush 10 ML SYR IVP (09:00)
[2022-10-20 09:41] LABS: ALT 42 U/L (14-59); AST 35 U/L (15-37); Albumin 2.9 g/dL (3.4-5.0); Alkaline Phosphatase 231 U/L (46-116); Anion Gap 9.1 mmol/L (3-11); BUN 12 mg/dL (7-18); Bilirubin, Total 0.4 mg/dL (0.2-1.0); CO2 27.9 mmol/L (21.0-32.0); CREATININE 0.7 mg/dL (0.55-1.02); Calcium 8.3 mg/dL (8.5-10.1); Chloride 110 mmol/L (98-107); Estimated GFR 98.95 (mL/min/1.73m2); Glucose 115 mg/dL (74-106); Potassium 3.6 mmol/L (3.5-5.1); Sodium 147 mmol/L (136-145); Total Protein 6.2 g/dL (6.4-8.2)
== END 2022-11-13 23:59 | disposition home or self-care (01) ==
LOC: INF 08:16
PROVIDERS: PCP Internal Medicine; Visit Provider Internal Medicine Hematology & Oncology
DX: C25.0 Malignant neoplasm of head of pancreas (principal); Z45.2 Encounter for adjustment and management of vascular access device
CPT/HCPCS: 36591; 80053

== ENCOUNTER 2022-10-27 10:04 | Outpatient (CLI) | payer MEDICAID, SELFPAY ==
--- NOTE | 2022-10-27 10:00 | RT.EKG_ITS ---
APPROVED REPORT Exam: Resting ECG Reason for Exam: HYPOKALEMIA Patient Location: O HR:63 bpm ECG Measurements Heart Rate 63 AXIS ID 138 P 74 QRSd 106 QRS 136 QT 441 T 37 QTc 452 Conclusion Sinus rhythm...normal P axis, V-rate 50- 99 Right axis deviation...QRS axis ( 91,269) Low voltage, extremity and precordial leads...extremity<0.5mV, precordial<1.0mV
== END 2022-10-27 10:05 | disposition home or self-care (01) ==
LOC: CARDOPNVT 10:04
PROVIDERS: PCP Internal Medicine; Visit Provider Physician Assistant
DX: E87.6 Hypokalemia (principal)
CPT/HCPCS: 93005; 93010

== ENCOUNTER 2022-11-04 15:49 | Inpatient (IN) | payer MEDICAID, SELFPAY ==
[2022-11-04] VITALS (27 sets, daily range): BP systolic 96–127; BP diastolic 58–75; PULSE 83–108; RESP 12–25; TEMP 36.2–37.8; O2SAT 96–98
--- NOTE | 2022-11-04 15:51 | W.ED.GENAD ---
Discharge Plan Disposition Patient Disposition: Admit to [facility] Discharge Details Clinical Impression: Hypomagnesemia, Primary pancreatic cancer , Hypocalcemia, Elevated LFTs Admit Date/Time: 11/04/22 20:14 Admit Provider: Hair Lozada Attending Provider: Hair Lozada Primary Care Provider: Sid Rubio ED Provider: Loi Gibbs Medical Decision Making This is a tachycardic but normothermic 61-year-old female with unresectable pancreatic adenocarcinoma status post recent chemotherapy now with fevers and abdominal pain concerning for worsening malignancy versus SBO given prior bowel obstructions less likely SBP given no history of ascites. Given her history she could certainly have neutropenic fever. No pain out of proportion to suggest necrotizing soft tissue infection. No chest pain to suggest ACS. No dysuria no frequency to suggest UTI.No significant diarrhea and patient was C. difficile negative last month so my suspicion is low for C. difficile. Patient has recently undergone chemotherapy and is tachycardic with reported fevers at home so we will treat with ceftriaxone ordered 2 sets of blood cultures and order a lactate. Her QTc is within normal limits on her ECG. In the past this has reportedly been prolonged in setting of diarrhea and hypokalemia. I was going to use piperacillin/tazobactam however the patient has a penicillin allergy. Will obtain urinalysis and chest x-ray given concern for sepsis. She does have a right chest wall Port-A-Cath in place but no signs of superinfection patient no erythema nor tenderness. Will provide 1 L of crystalloid. We will repeat CT scan of abdomen with IV contrast. Mild lactic acidosis at 1.7 mmol/L. CBC with no leukocytosis nor leukopenia. No anemia. Mild thrombocytopenia slightly worse compared to prior. 5:04 PM Lipase undetectable. Mild hypomagnesemia for which patient will receive IV repletion. Negative troponin. Comprehensive metabolic panel significant for hypocalcemia similar to prior. No SHERRELL. Mild hyperglycemia no anion gap normal bicarbonate not consistent with DKA. Patient does have a significant bump in her LFTs compared to prior. 5:15 PM Nitrite and leukoesterase negative. Trace hematuria. Microscopy pending. Heart rate now improved to 90 bpm. 6:15 PM Microscopy negative for hematuria and bacteriuria. I [place] a consult with [place] [facility] her newly elevated LFTs. 6:40 PM I spoke to Dr. Saini from heme[place]c [place] [facility] She was concerned for the possibility of medication related hepatitis versus a sending cholangitis versus congestive hepatopathy. She advised treating for cholangitis. We will add on metronidazole plus ciprofl. She advised hospitalizing patient locally and oxacin trending LFTs. If bilirubin rises tomorrow she advised consulting GI for possible ERCP. She advised low threshold to reengage heme-onc. 7:21 PM I spoke with Dr. Lozada who agreed graciously to hospitalize the patient. Tachycardia resolved with fluids in the ED. Chronic conditions affecting the care of the patient: Pancreatic cancer History obtained from an outside historian: N/A External record review: [facility] [place] Diagnostic interpretations performed by me: [Per my independent interpretation chest x-ray shows:] No acute cardiopulmonary process Per my independent interpretation EKG shows: Normal sinus rhythm at a rate of 94. Low voltage. Poor R wave progression. No acute ST segment abnormalities. Voltage appears slower compared to prior. Prior dated last week. Medications: Antibiotics Social determinants of health affecting disposition: N/A Management discussed with: Dr. Lozada & hematology [place] [facility] Treatment/interventions considered: Discharge but deferred electing for hospitalization given fever and immunocompromised chemotherapy patient Response to therapies provided: Broad-spectrum antibiotics HPI General Date/Time Provider Initiated Documentation: 11/04/22 15:50. HPI Narrative: This is a 61-year-old female with pancreatic adenocarcinoma status post biliary stent with no metastatic disease and neoadjuvant chemotherapy now in the emergency department setting of abdominal pain. She has recently undergone chemotherapy. She is due to start radiation next week [place] [facility] Per chart review [facility] [place] tumor is considered unresectable. Patient reports this morning she developed abdominal pain chills and nausea. She had a fever up to 101 ?F. She says that her pain is in the upper part of her stomach. She has not taken any falls. She has been nauseous and vomiting. She denies dysuria frequency chest pain shortness of breath. She remotely has had cholecystectomy. She has a right chest wall Port-A-Cath in place. Related Data Home Medications Medication Instructions Recorded Confirmed acetaminophen 500 mg tablet 1,000 mg PO PRN PRN 09/29/22 11/04/22 apixaban 5 mg tablet (Eliquis) 5 mg PO BID 09/29/22 11/04/22 citalopram 20 mg tablet 20 mg PO DAILY 09/29/22 11/04/22 [id number] 3 cap PO 5X/DAY 09/29/22 11/04/22 24,000-76,000-120,000 unit capsule,delayed rel (Creon) loperamide 2 mg capsule 2 mg PO PRN PRN 09/29/22 11/04/22 magnesium oxide 400 mg (241.3 mg 400 mg PO DAILY 09/29/22 11/04/22 magnesium) tablet nitroglycerin 0.4 mg sublingual 0.4 mg sublingual PRN PRN 09/29/22 09/29/22 tablet (Nitrostat) ondansetron HCl 8 mg tablet 8 mg PO PRN PRN 09/29/22 11/04/22 oxycodone 5 mg tablet 5 mg PO PRN PRN Moderate Pain 09/29/22 09/29/22 (Scale Score 5-6) pantoprazole 40 mg tablet,delayed 40 mg PO DAILY 09/29/22 11/04/22 release potassium chloride 10 mEq 20 meq PO BID 09/29/22 11/04/22 tablet,extended release prochlorperazine maleate 10 mg 10 mg PO PRN PRN 09/29/22 11/04/22 tablet (Compazine) Allergies Allergy/AdvReac Type Severity Reaction Status Date / Time ibuprofen AdvReac Nausea Unverified 11/04/22 15:59 Penicillins AdvReac Hives Unverified 11/04/22 15:59 Sulfa (Sulfonamide AdvReac Hives Unverified 11/04/22 15:59 Antibiotics) topiramate [From Topamax] AdvReac Dizziness/L Unverified 11/04/22 15:59 ighthead General ILEANA: 3 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) Port-A-Cath in place (Acute) Depression (Chronic) Multiple sclerosis (Chronic) Chronic GERD (Acute) Chemotherapy induced diarrhea (Acute) Primary pancreatic cancer (Acute) Encasement of the SMV and local lymphadenopathy stage II-currently unresectable Medical History History of biliary stent insertion Surgical History S/P cholecystectomy Open cholecystectomy S/P laparoscopy Diagnostic laparoscopy for staging of pancreatic cancer Social History Smoking/Tobacco Use Status: Never Smoking risk assessment performed?: Yes Alcohol Intake: former Drug use: Never Substance use type: does not use Housing: other Do you feel safe at home: Yes Do you feel safe in your relationship?: Yes Additional Social history: lives with mother in mobile home Exam Narrative Exam Narrative: General: Well-appearing in no acute distress speaking in complete sentences. Head: Normocephalic, atraumatic. Eye: Extraocular eye movements intact. No conjunctival injection. No scleral icterus. Ear, nose, mouth, throat: Grossly normal inspection. Normal voice, handling secretions normally. Neck: Trachea midline. Cardiovascular: Well-perfused distal extremities. Rapid regular rate and rhythm. Chest wall: Right chest wall port in place. No signs of superinfection. No tenderness. Respiratory: Nonlabored respiration. Clear lungs bilaterally. Gastrointestinal: Nondistended abdomen. Epigastric tenderness. No rebound. No guarding. Right upper quadrant well-healed surgical scar. Musculoskeletal: No edema. Moving all 4 extremities spontaneously. Skin: Normal for age and race, grossly normal temperature and turgor. No acute rash. Neurologic: Alert and appropriate, no apparent acute deficits. Psychiatric: Mood and manner are appropriate. Grooming and personal hygiene are appropriate.
--- NOTE | 2022-11-04 16:00 | RT.EKG_ITS ---
APPROVED REPORT Exam: Resting ECG Reason for Exam: Tachycardia Patient Location: E HR:94 bpm ECG Measurements Heart Rate 94 AXIS IN 129 P 0 QRSd 110 QRS 269 QT 372 T 45 QTc 465 Conclusion Sinus rhythm...normal P axis, V-rate 60- 99 Left anterior fascicular block...axis(240,-40), init forces inf Low voltage, extremity and precordial leads...extremity<0.5mV, precordial<1.0mV Normal sinus rhythm at a rate of 94. Low voltage. Poor R wave progression. No acute ST segment abn ormalities. Voltage appears slower compared to prior. Prior dated last week.
--- NOTE | 2022-11-04 16:00 | DI.RAD_ITS ---
Exam(s) XR CHEST 2V PA LATERAL EXAM: XR CHEST 2V PA LATERAL CLINICAL HISTORY: Sepsis TECHNIQUE: 2D digital imaging was performed of the chest. Two images were obtained. PA and lateral views were obtained. COMPARISON: No exams were available for comparison FINDINGS: MEDIASTINUM: Normal. HEART: Normal. PULMONARY VASCULATURE: Normal. LUNGS: Clear. PLEURAL SPACE: No pleural effusion or pneumothorax. BONE:Within normal limits for the patient's age. OTHER FINDINGS:The tip of the right IJ catheter is in good position in the superior vena cava. There is a biliary stent seen in the abdomen. IMPRESSION: No acute pulmonary findings. DATA REPOSITORY: RADIATION DOSE DELIVERED:
--- NOTE | 2022-11-04 16:00 | DI.CT_ITS ---
Exam(s) CT ABDOMEN PELVIS W EXAM: CT ABDOMEN PELVIS W CLINICAL HISTORY: Epigastric pain status history of pancreatic adeno TECHNIQUE: Imaging Protocol: Axial computed tomography images with coronal and sagittal reformatted images were created and reviewed CONTRAST MATERIAL: Intravenous: Omnipaque 350 Contrast volume:99 mL Oral: No COMPARISON: CT RECIST 1.1 from 10/04/2022 FINDINGS: ABDOMEN: Lung Bases: There is a stable nodule in the right lung base. Liver: There is fatty infiltration of the liver. No measurable mass. Hepatomegaly. Portal, Superior Mesenteric, and Splenic Veins: Unremarkable. Gallbladder and Biliary Tract: The gallbladder is absent. There is a biliary stent in place. There is pneumobilia. Pancreas: The pancreatic head is enlarged and of decreased attenuation. This is unchanged compared t o the prior examination from 10/04/2022. There is atrophy and ductal dilatation in the body and tail of the pancreas. Spleen: Splenomegaly. There are varices seen adjacent to the spleen. Adrenals: No masses seen. Kidneys: Normal size, contour and axis. No radiodense stones or obstructive uropathy. No masses seen. Abdominal Aorta: Abdominal portion non-dilated. Bowel: No obstruction or bowel wall thickening. There is no evidence of appendicitis. Peritoneal Cavity: There is a small amount of abdominal pelvic ascites. No free air. Lymph Nodes: Within normal limits. Bones: Within normal limits for the patient's age. Soft Tissues: Unremarkable. PELVIS: Bladder: Symmetric distention, no gross wall thickening. Reproductive Organs: Unremarkable as visualized. Lymph Nodes: Within normal limits. Bones: Within normal limits for the patient's age. IMPRESSION: 1. No acute process in the abdomen or pelvis. 2. Stable appearance of the pancreas with pancreatic ductal dilatation and atrophy of the body and ta il. 3. Stable common bile duct stent with pneumobilia. Stable appearance of the pancreatic head. 4. Findings suggestive of portal hypertension with splenic varices. Hepatomegaly and splenomegaly wi th fatty infiltration of the liver. 5. Small amount of abdominal and pelvic ascites. RADIATION DOSE DELIVERED: 1,085.14mGy.cm Total DLP DATA REPOSITORY: All CT scans at this facility are submitted to the National Radiology Data Registry (NRDR) Dose Index Registry (DIR) with the [employer] (A[employer]). RADIATION OPTIMIZATION: All CT scans at this facility use at least one of these dose optimization te chniques: automated exposure control; mA and/or kV adjustment per patient size (includes targeted exa ms where dose is matched to clinical indication); or iterative reconstruction.
[2022-11-04 16:33] LABS: Lactate 1.7 mmol/L (0.6-1.4)
[2022-11-04 16:35] LABS: Abs Immature Grans 0.08 10^3/uL (0.0-0.06); Absolute Basophil Count 0.04 10^3/uL (0.0-0.2); Absolute Eosinophil Count 0.04 10^3/uL (0.0-0.7); Absolute Lymphocyte Count 0.51 10^3/uL (1.2-3.4); Absolute Monocyte Count 0.94 10^3/uL (0.1-0.8); Absolute Neutrophil Count 8.81 10^3/uL (1.2-6.7); Basophils % 0.4; Eosinophils % 0.4; HCT 37.8 % (36.0-46.0); HGB 11.5 g/dL (11.2-15.7); Immature Grans % 0.8; Lymphocytes % 4.9; MCH 24.8 pg (27.0-33.0); MCHC 30.4 % (32.0-36.0); MCV 82 fL (80-95); MPV 9.7 fL (8.0-11.0); Neutrophils % 84.5; Platelet Count 110 10^3/uL (130-400); RBC 4.63 10^6/uL (3.93-5.22); RDW 18.5 % (11.7-14.6); RDW-SD 54.8 fL; WBC 10.42 10^3/uL (4.4-10.8)
[2022-11-04] MEDS: cefTRIAXone 2 GM/50 ML BAG IVPB (16:52)
[2022-11-04 16:55] LABS: ALT 109 U/L (14-59); AST 235 U/L (15-37); Albumin 2.7 g/dL (3.4-5.0); Alkaline Phosphatase 551 U/L (46-116); Anion Gap 7.9 mmol/L (3-11); BUN 10 mg/dL (7-18); Bilirubin, Total 0.9 mg/dL (0.2-1.0); CO2 26.1 mmol/L (21.0-32.0); CREATININE 0.9 mg/dL (0.55-1.02); Calcium 8.3 mg/dL (8.5-10.1); Chloride 107 mmol/L (98-107); Estimated GFR 73.19 (mL/min/1.73m2); Glucose 129 mg/dL (74-106); Lipase < 10 U/L (16-77); Magnesium 1.5 mg/dL (1.8-2.4); Potassium 3.6 mmol/L (3.5-5.1); Sodium 141 mmol/L (136-145); Total Protein 6.2 g/dL (6.4-8.2); Troponin I < 50 ng/L (<or=60)
[2022-11-04 16:57] LABS: Troponin I < 50 ng/L (<or=60)
[2022-11-04 17:11] LABS: Bilirubin Negative (Negative); Blood Trace-intact (Negative); Clarity Clear (Clear); Glucose Negative (Negative); Ketones Negative (Negative); Leukocyte Esterase Negative (Negative); Nitrite Negative (Negative); Urobilinogen 0.2 mg/dL (Up to 0.2); pH 7.5 (5-8)
[2022-11-04 17:22] LABS: Bacteria Negative HPF (Negative); C & S Indicated? No; Casts Negative LPF (Negative); Crystals Negative HPF (Negative); Epithelial Cells Rare HPF (Negative); Mucus Negative (Negative); RBC 0-2 HPF (0-2); WBC Negative HPF (0-5)
[2022-11-04] MEDS: Omnipaque 350 MG/ML 100 ML BTL IJ (17:22)
[2022-11-04] MEDS: Normal Saline - Diluent 50 ML VIAL IJ (17:22)
--- NOTE | 2022-11-04 17:54 | DI.VRAD_ITS ---
PROCEDURE INFORMATION: Exam: CT Abdomen And Pelvis With Contrast Exam date and time: 11/04/2022 5:16 PM Age: 61 years old Clinical indication: Other: Epigastric pain status history of pancreatic adeno TECHNIQUE: Imaging protocol: Computed tomography of the abdomen and pelvis with contrast. Contrast material: 350; Contrast volume: 100 ml; Contrast route: INTRAVENOUS (IV); COMPARISON: CT ABDOMEN PELVIS WO 09/29/2022 3:43 PM FINDINGS: Liver: The liver is enlarged and of decreased attenuation. There are no cysts or masses. Unchanged since last month geographic area fatty sparing in the inferior posterior aspect of segment IV. Expected air in the biliary tree from the distal common bile duct stent. Gallbladder and bile ducts: There has been a cholecystectomy. Pancreas: Fairly lucent throughout.. There are likely areas of cystic change. No peripancreatic fat stranding to suggest acute pancreatitis. There are no calcifications. No dominant mass. Spleen: The spleen is enlarged. There are no cysts or masses. Adrenal glands: The adrenal glands are normal. Kidneys and ureters: Normal. No hydronephrosis. Stomach and bowel: Unremarkable. No obstruction. No mucosal thickening. Appendix: A normal appendix is identified. Intraperitoneal space: Unremarkable. No free air. No significant fluid collection. There is a small amount of free fluid within the pelvis Vasculature: There are varices adjacent to the spleen. No abdominal aortic aneurysm. Lymph nodes: Unremarkable. No enlarged lymph nodes. Urinary bladder: Unremarkable as visualized. Reproductive: Unremarkable as visualized. Bones/joints: The spine demonstrates mild degenerative changes at multiple levels. Soft tissues: Unremarkable. IMPRESSION: 1. Lucent pancreas. No dominant mass or peripancreatic inflammatory change. Pancreas is unchanged since last month. 2. Splenomegaly and hepatic enlargement that is fatty infiltrated some focal sparing of the inferior portion of the segment IVB. Evidence of portal hypertension with splenic varices. 3. Pneumobilia from common bile duct stent. Dictated and Authenticated by: Austin Wolf MD. Ordering:CAN Monsivais MD
--- NOTE | 2022-11-04 17:55 | DI.VRAD_ITS ---
PROCEDURE INFORMATION: Exam: XR Chest Exam date and time: 11/04/2022 5:29 PM Age: 61 years old Clinical indication: Other: Sepsis TECHNIQUE: Imaging protocol: Radiologic exam of the chest. Views: 2 views. COMPARISON: CT RT CHEST(Adult) 10/04/2022 2:07 PM FINDINGS: Tubes, catheters and devices: CT certified triangular port right chest wall with right internal jugular central venous catheter in the midportion of the superior vena cava. Lungs: Unremarkable. No consolidation. Pleural spaces: Unremarkable. No pleural effusion. No pneumothorax. Heart/Mediastinum: Unremarkable. No cardiomegaly. Bones/joints: Unremarkable. IMPRESSION: No acute findings. Dictated and Authenticated by: Austin Wolf MD. Ordering:CAN Monsivais MD
[2022-11-04] MEDS: MAGNESIUM SULFATE 2 GM/50 ML BAG IVPB (18:03)
[2022-11-04] MEDS: Calcium Gluconate 4.65 MEQ/10 ML VIAL 9.3 MG IVP (18:03)
[2022-11-04] MEDS: Normal Saline 1,000 ML 1000 ML IV (18:09)
[2022-11-04] MEDS: CIPROFLOXACIN 400 MG/200 ML BAG 200 MG IVPB (19:36)
--- NOTE | 2022-11-04 19:57 | HPE_ITS ---
Date of service: 11/04/22 Time of Service: 19:58 Assessment and Plan Assessment and plan (1) Abdominal pain: Status: Acute Assessment and plan: Abdominal pain, since resolved, with reported low grade fever at home. Absence of fever, otherwise benign exam and normal white count and unrevealing CT -- all reassuring. The only notable finding is modest elevations in TAs (with normal bili). Unclear if this is med related or perhaps non-specific relation to putative infection. Early ascending cholangitis is possible, but certainly patient does not at present fulfill Charcot's triad. Will plan on continuing triple antibiotics for now, at least until cultures out, and will trend liver studies. Reviewed ADs in detail, with mother in attendance. Patient requests DNR. History of Present Illness History of Present Illness Chief Complaint: fever, abdominal pain Narrative: 61 female with h/o pancreatic cancer, just completed final course of chemo last week, scheduled to begin XRT later this week, s/p biliary stent -- here with episode of nausea this morning, followed by epigastric pain (she thinks she may have pulled a muscle). This followed by chills and temp of 100.1 at home, so came to ER for evaluation. In ER findings of note for absence of fever, normal white count, modest el;evations in transaminases (AST>ALT) and alk phos, with normal TBili; and unremarkable CT save for (expected) pneumobilia from stent. Culture obtained and patient given dose Rocephin. Oncology consulted and advised expanded empiric antibiotic coverage with Flagyl and Cipro. I was asked to evaluate for admission. Pateint states she has had no further nausea and abdominal pain has essentially resolved. Indeed, she states that she feels more or less her usual self at present. 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) Port-A-Cath in place (Acute) Depression (Chronic) Multiple sclerosis (Chronic) Chronic GERD (Acute) Chemotherapy induced diarrhea (Acute) Primary pancreatic cancer (Acute) Encasement of the SMV and local lymphadenopathy stage II-currently unresectable Medical History History of biliary stent insertion Surgical History S/P cholecystectomy Open cholecystectomy S/P laparoscopy Diagnostic laparoscopy for staging of pancreatic cancer Social History Smoking/Tobacco Use Status: Never Smoking risk assessment performed?: Yes Alcohol Intake: former Drug use: Never Substance use type: does not use Housing: other Do you feel safe at home: Yes Do you feel safe in your relationship?: Yes Additional Social history: lives with mother in mobile home Meds Allergies and Home Medications Allergies Allergy/AdvReac Type Severity Reaction Status Date / Time ibuprofen AdvReac Nausea Unverified 11/04/22 15:59 Penicillins AdvReac Hives Unverified 11/04/22 15:59 Sulfa (Sulfonamide AdvReac Hives Unverified 11/04/22 15:59 Antibiotics) topiramate [From Topamax] AdvReac Dizziness/L Unverified 11/04/22 15:59 ighthead Home Medications Medication Instructions Recorded Confirmed Type acetaminophen 500 mg tablet 1,000 mg PO PRN PRN 09/29/22 09/29/22 History apixaban 5 mg tablet (Eliquis) 5 mg PO BID 09/29/22 09/29/22 History citalopram 20 mg tablet 20 mg PO DAILY 09/29/22 09/29/22 History [id number]-[id number] 3 cap PO 5X/DAY 09/29/22 09/29/22 History 24,000-76,000-120,000 unit capsule,delayed rel (Creon) loperamide 2 mg capsule 2 mg PO PRN PRN 09/29/22 09/29/22 History magnesium oxide 400 mg (241.3 mg 400 mg PO DAILY 09/29/22 09/29/22 History magnesium) tablet nitroglycerin 0.4 mg sublingual 0.4 mg sublingual PRN PRN 09/29/22 09/29/22 History tablet (Nitrostat) ondansetron HCl 8 mg tablet 8 mg PO PRN PRN 09/29/22 09/29/22 History oxycodone 5 mg tablet 5 mg PO PRN PRN Moderate Pain 09/29/22 09/29/22 History (Scale Score 5-6) pantoprazole 40 mg tablet,delayed 40 mg PO DAILY 09/29/22 09/29/22 History release potassium chloride 10 mEq 20 meq PO BID 09/29/22 09/29/22 History tablet,extended release prochlorperazine maleate 10 mg 10 mg PO PRN PRN 09/29/22 09/29/22 History tablet (Compazine) Exam Narrative Exam Narrative: 120/58, 89, 36.9, 21, 98% RA./ HEENT anicteric; neck supple; lungs clear; heart RRR w/o MRG; abdomen soft with minimal RUQ and epigastric tenderness, w/o rebound and negative Wray's; extremities w/o edema; neuro Ox3, lucid, moves all 4s Results Labs 11/04/22 16:25 11/04/22 16:25 Labs: Laboratory Results - last 24 hr 11/04/22 11/04/22 11/04/22 16:25 16:25 16:25 WBC 10.42 RBC 4.63 Hgb 11.5 Hct 37.8 MCV 82 MCH 24.8 L MCHC 30.4 L RDW 18.5 H Plt Count 110 L MPV 9.7 Immature Gran % 0.8 Neutrophils % 84.5 Lymphocytes % 4.9 Monocytes % 9.0 Eosinophils % 0.4 Basophils % 0.4 Nucleated RBC % 0.0 Absolute Neutrophils 8.81 H Absolute Lymphocytes 0.51 L Absolute Monocytes 0.94 H Absolute Eosinophils 0.04 Absolute Basophils 0.04 VBG Lactate 1.7 H Sodium 141 Potassium 3.6 Chloride 107 Carbon Dioxide 26.1 Anion Gap 7.9 BUN 10 Creatinine 0.9 Est GFR (CKD-EPI 2020) 73.19 Glucose 129 H Calcium 8.3 L Magnesium 1.5 L Total Bilirubin 0.9 AST 235 H ALT 109 H Alkaline Phosphatase 551 H Troponin I < 50 Total Protein 6.2 L Albumin 2.7 L Lipase < 10 L Urine Color Urine Clarity Urine pH Ur Specific [place] Urine Protein Urine Ketones Urine Blood Urine Nitrite Urine Bilirubin Urine Urobilinogen Ur Leukocyte Esterase Urine RBC Urine WBC Ur Epithelial Cells Urine Crystals Urine Bacteria Urine Casts Urine Mucus Ur Culture Indicated? Urine Glucose 11/04/22 11/04/22 16:25 17:05 WBC RBC Hgb Hct MCV MCH MCHC RDW Plt Count MPV Immature Gran % Neutrophils % Lymphocytes % Monocytes % Eosinophils % Basophils % Nucleated RBC % Absolute Neutrophils Absolute Lymphocytes Absolute Monocytes Absolute Eosinophils Absolute Basophils VBG Lactate Sodium Potassium Chloride Carbon Dioxide Anion Gap BUN Creatinine Est GFR (CKD-EPI 2020) Glucose Calcium Magnesium Total Bilirubin AST ALT Alkaline Phosphatase Troponin I < 50 Total Protein Albumin Lipase Urine Color Yellow Urine Clarity Clear Urine pH 7.5 Ur Specific [place] 1.020 Urine Protein Negative Urine Ketones Negative Urine Blood Trace-intact H Urine Nitrite Negative Urine Bilirubin Negative Urine Urobilinogen 0.2 Ur Leukocyte Esterase Negative Urine RBC 0-2 Urine WBC Negative Ur Epithelial Cells Rare Urine Crystals Negative Urine Bacteria Negative Urine Casts Negative Urine Mucus Negative Ur Culture Indicated? No Urine Glucose Negative Last Vital Signs Temp 36.9 C 11/04/22 15:54 Pulse 89 11/04/22 18:25 Resp 21 11/04/22 19:40 BP 120/58 L 11/04/22 18:25 Pulse Ox 98 11/04/22 18:25 Time Spent Time spent with Patient: 40-54 minutes Time was spent: preparing to see the patient(eg.review tests), obtaining and/or reviewing separately otained hiistory, ordering medications,tests, procedures, referring, communicating with other health care professional and indepentently interpreting results
[2022-11-04] MEDS: metroNIDAZOLE 500 MG/100 ML BAG 100 MG IVPB (20:25)
[2022-11-04] MEDS: Acetaminophen 325 MG TAB 650 MG PO (23:11)
[2022-11-05 00:11] VITALS: TEMP 37.9
[2022-11-05] MEDS: metroNIDAZOLE 500 MG/100 ML BAG 100 MG IVPB ×4 (01:35→20:28)
[2022-11-05 06:19] VITALS: BP 109/66; PULSE 70; RESP 18; TEMP 37; O2SAT 97
[2022-11-05] MEDS: Pantoprazole 40 MG TABCR PO (07:39)
[2022-11-05] MEDS: Magnesium Oxide 400 MG TAB PO (07:39)
[2022-11-05] MEDS: Potassium Chloride 20 MEQ TABCR PO ×2 (07:39→20:29)
[2022-11-05] MEDS: Apixaban 5 MG TAB PO (07:39)
[2022-11-05 08:47] LABS: HCT 35.1 % (36.0-46.0); HGB 10.9 g/dL (11.2-15.7); MCH 25.2 pg (27.0-33.0); MCHC 31.1 % (32.0-36.0); MCV 81 fL (80-95); MPV 10.4 fL (8.0-11.0); RBC 4.33 10^6/uL (3.93-5.22); RDW 18.5 % (11.7-14.6); RDW-SD 54.7 fL; WBC 7.65 10^3/uL (4.4-10.8)
[2022-11-05 09:15] LABS: Lab Add On Test DONE
[2022-11-05] MEDS: CIPROFLOXACIN 400 MG/200 ML BAG 200 MG IVPB (09:16)
[2022-11-05 09:23] LABS: ALT 114 U/L (14-59); AST 177 U/L (15-37); Alkaline Phosphatase 460 U/L (46-116); Bilirubin, Total 0.9 mg/dL (0.2-1.0)
[2022-11-05 09:28] LABS: BUN 6 mg/dL (7-18); Calcium 8.4 mg/dL (8.5-10.1); Glucose 110 mg/dL (74-106)
[2022-11-05 09:29] LABS: Anion Gap 7.2 mmol/L (3-11); CO2 26.8 mmol/L (21.0-32.0); CREATININE 0.8 mg/dL (0.55-1.02); Chloride 108 mmol/L (98-107); Magnesium 1.9 mg/dL (1.8-2.4); Potassium 3.3 mmol/L (3.5-5.1); Sodium 142 mmol/L (136-145)
[2022-11-05 09:36] LABS: Platelet Count 91 10^3/uL (130-400)
--- NOTE | 2022-11-05 10:36 | PDOC.CMIN ---
Date of service: 11/05/22 Time of Service: 10:36 Care Management Initial Assmt Initial Assessment REASON FOR HOSPITALIZATION:: Abdominal pain, fever PREVIOUS FUNCTIONAL STATUS/SOCIAL/FAMILY SUPPORTS:: Valeria lives in [place], [place] with her mother Tracie. She has MS and is disabled. Valeria never and has no children. She has a brother Reg from [place], but the two are not close. Valeria is independent at baseline and drives occasionally. Her mom is supportive and takes her to her appointments. Valeria is currently receiving treatment for pancreatic cancer through [facility] and is scheduled to start radiation on Sunday. CURRENT FUNCTIONAL STATUS:: Valeria was lying in bed when CM met with her. She is awake, pleasant and talkative. She recently finished chemo for pancreatic cancer and Sunday she is planning on going to [facility] for a 5 day treatment of radiation. ADVANCE DIRECTIVES:: None on file, pt has forms to complete at home. Has patient been provided with info about the portal/API?: Yes Did the patient sign up for the portal?: No CODE STATUS:: DNR/DNI INSURANCE COVERAGE / FINANCIAL ISSUES:: Medicaid CURRENT HOME/COMMUNITY SERVICES/EQUIPMENT:: [employer] CM is Amber Allan Uses RCT occasionally PRIMARY CARE PHYSICIAN:: Sid Rubio POTENTIAL DISCHARGE NEEDS:: Follow up with community providers; Oncology, PCP. Inpt vs. outpt Palliative consult may be beneficial. PATIENT/FAMILY EDUCATION NEEDS:: Review discharge instructions, limitations, medications and plan to follow up with community providers. Discuss ask me three. ANTICIPATED BARRIERS TO DISCHARGE:: None identified at this time. TRANSPORTATION:: Via private vehicle with family PLAN:: Anticipate, Valeria will discharge home with New services through [facility] (if indicated). She will follow up with outpatient providers and discharge plan of care as instructed. CM will continue to support patient and recommendations for further needs. 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) Port-A-Cath in place (Acute) Depression (Chronic) Multiple sclerosis (Chronic) Chronic GERD (Acute) Chemotherapy induced diarrhea (Acute) Primary pancreatic cancer (Acute) Encasement of the SMV and local lymphadenopathy stage II-currently unresectable Medical History History of biliary stent insertion Surgical History S/P cholecystectomy Open cholecystectomy S/P laparoscopy Diagnostic laparoscopy for staging of pancreatic cancer Social History Smoking/Tobacco Use Status: Never Smoking risk assessment performed?: Yes Alcohol Intake: former Drug use: Never Substance use type: does not use Housing: other Do you feel safe at home: Yes Do you feel safe in your relationship?: Yes Additional Social history: lives with mother in mobile home
[2022-11-05] MEDS: POTASSIUM CHLORIDE 20 MEQ/100 ML BAG 50 MEQ IVPB ×2 (10:50→12:57)
--- NOTE | 2022-11-05 10:52 | W.PM.PROGNOT ---
Date of Service Date of service: 11/05/22 Time of Service: 10:53 Assessment and Plan Assessment and plan (1) Gram-negative bacteremia: Status: Acute Assessment and plan: Present on admission. Cultures from both the port and the periphery are positive for GNR. Speciation/sensitivities are pending. Unclear if the source is intraabdominal and the infusaport infection is secondary. Discussed with [facility]: Given cholangitis pattern of LFTs, the billiary stent does need to be exchanged; this is being planned for Sunday vs Sunday. They will get back to us with that information tomorrow. Simplify abx to ceftriaxone/flagyl. Repeat blood cx in am. Removal of the infusaport is planned for tomorrow. Trend procalcitonin, CRP. (2) Ascending cholangitis: Status: Acute Assessment and plan: As above. Abx: ceftriaxone + flagyl. Plan for exchange of the biliary stent tomorrow or Sunday. (3) Central line-associated bloodstream infection: Status: Acute Assessment and plan: As above. Plan for infusaport removal tomorrow. Hold eliquis. NPO after midnight. (4) Primary pancreatic cancer : Status: Chronic Assessment and plan: S/p chemo, awaiting radiation. As above. The patient was advised to contact her radiation oncology team to let them know she is hospitalized. (5) Thrombocytopenia: Status: Chronic Assessment and plan: Suspect this is chemo related, though it could also be related to acute infection and/or antibiotics. Continue treatment of infection, monitor platelets. (6) Anemia: Status: Chronic Assessment and plan: Check anemia studies. (7) Hypokalemia: Status: Acute Assessment and plan: Replete (8) DVT prophylaxis: Status: Acute Assessment and plan: Eliquis currently on hold. Would not cover with short acting DVT ppx unless eliquis will be held for more than 48 hrs. (9) Discharge planning issues: Status: Acute Assessment and plan: DNR/DNI Will need a [id number] transfer to [facility] for exchange of the billiary stent. Continues to require hospitalization. Subjective Subjective Interval history since last seen: Ms Mota states she is having mild epigastric discomfort, but denies nausea, dizziness, CP, SOB. We discussed her positive blood cultures. She had not remembered if her port had gotten cultured, but ER nurse confirms that one set was obtained from the port. Discussed case with Dr Bennett: The plan is to take the port out tomorrow. Discussed with [facility] fellow: Plan for a [id number] exchange of the billiary stent tomorrow or Sunday; they will connect back with us. Recommendation is to d/c cipro; continue ceftriaxone/flagyl; NPO after midnight; hold eliquis. Exam Narrative Exam Narrative: General: Very pleasant middle-aged female who does not look ill; sitting up in bed, R subclavian infusaport is accessed HEENT: EOMI, dry MM Heart: RRR, no m/r/g Lungs: CTAB Abdomen: soft, tender in epigastrium, nondistended Extremities: no edema BLEs Objective Last Vital Signs Temp 37.0 C 11/05/22 06:19 Pulse 70 11/05/22 06:19 Resp 18 11/05/22 06:19 BP 109/66 11/05/22 06:19 Pulse Ox 97 11/05/22 06:19 Laboratory Results - last 24 hr 11/04/22 11/04/22 11/04/22 16:25 16:25 16:25 WBC 10.42 RBC 4.63 Hgb 11.5 Hct 37.8 MCV 82 MCH 24.8 L MCHC 30.4 L RDW 18.5 H Plt Count 110 L MPV 9.7 Immature Gran % 0.8 Neutrophils % 84.5 Lymphocytes % 4.9 Monocytes % 9.0 Eosinophils % 0.4 Basophils % 0.4 Nucleated RBC % 0.0 Absolute Neutrophils 8.81 H Absolute Lymphocytes 0.51 L Absolute Monocytes 0.94 H Absolute Eosinophils 0.04 Absolute Basophils 0.04 VBG Lactate 1.7 H Sodium 141 Potassium 3.6 Chloride 107 Carbon Dioxide 26.1 Anion Gap 7.9 BUN 10 Creatinine 0.9 Est GFR (CKD-EPI 2020) 73.19 Glucose 129 H Calcium 8.3 L Magnesium 1.5 L Total Bilirubin 0.9 AST 235 H ALT 109 H Alkaline Phosphatase 551 H Troponin I < 50 Total Protein 6.2 L Albumin 2.7 L Lipase < 10 L Urine Color Urine Clarity Urine pH Ur Specific [place] Urine Protein Urine Ketones Urine Blood Urine Nitrite Urine Bilirubin Urine Urobilinogen Ur Leukocyte Esterase Urine RBC Urine WBC Ur Epithelial Cells Urine Crystals Urine Bacteria Urine Casts Urine Mucus Ur Culture Indicated? Urine Glucose Add-On Test Request 11/04/22 11/04/22 11/05/22 16:25 17:05 07:55 WBC RBC Hgb Hct MCV MCH MCHC RDW Plt Count MPV Immature Gran % Neutrophils % Lymphocytes % Monocytes % Eosinophils % Basophils % Nucleated RBC % Absolute Neutrophils Absolute Lymphocytes Absolute Monocytes Absolute Eosinophils Absolute Basophils VBG Lactate Sodium Potassium Chloride Carbon Dioxide Anion Gap BUN Creatinine Est GFR (CKD-EPI 2020) Glucose Calcium Magnesium Total Bilirubin 0.9 AST 177 H ALT 114 H Alkaline Phosphatase 460 H Troponin I < 50 Total Protein Albumin Lipase Urine Color Yellow Urine Clarity Clear Urine pH 7.5 Ur Specific [place] 1.020 Urine Protein Negative Urine Ketones Negative Urine Blood Trace-intact H Urine Nitrite Negative Urine Bilirubin Negative Urine Urobilinogen 0.2 Ur Leukocyte Esterase Negative Urine RBC 0-2 Urine WBC Negative Ur Epithelial Cells Rare Urine Crystals Negative Urine Bacteria Negative Urine Casts Negative Urine Mucus Negative Ur Culture Indicated? No Urine Glucose Negative Add-On Test Request 11/05/22 11/05/22 11/05/22 07:55 07:55 07:55 WBC 7.65 RBC 4.33 Hgb 10.9 L Hct 35.1 L MCV 81 MCH 25.2 L MCHC 31.1 L RDW 18.5 H Plt Count 91 L MPV 10.4 Immature Gran % Neutrophils % Lymphocytes % Monocytes % Eosinophils % Basophils % Nucleated RBC % Absolute Neutrophils Absolute Lymphocytes Absolute Monocytes Absolute Eosinophils Absolute Basophils VBG Lactate Sodium 142 Potassium 3.3 L Chloride 108 H Carbon Dioxide 26.8 Anion Gap 7.2 BUN 6 L Creatinine 0.8 Est GFR (CKD-EPI 2020) 84.30 Glucose 110 H Calcium 8.4 L Magnesium 1.9 Total Bilirubin AST ALT Alkaline Phosphatase Troponin I Total Protein Albumin Lipase Urine Color Urine Clarity Urine pH Ur Specific [place] Urine Protein Urine Ketones Urine Blood Urine Nitrite Urine Bilirubin Urine Urobilinogen Ur Leukocyte Esterase Urine RBC Urine WBC Ur Epithelial Cells Urine Crystals Urine Bacteria Urine Casts Urine Mucus Ur Culture Indicated? Urine Glucose Add-On Test Request DONE Time Spent with Patient Time Spent with Patient: 35-49 minutes Time was spent: preparing to see the patient(eg.review tests), obtaining and/or reviewing separately otained hiistory, ordering medications,tests, procedures, referring, communicating with other health pet care technician, indepentently interpreting results, counseling the patient and care coordination
[2022-11-05 11:34] LABS: Lab Add On Test DONE
[2022-11-05 11:54] LABS: C-Reactive Protein 5.34 mg/dL (0.0-0.3)
[2022-11-05] MEDS: Loperamide 2 MG CAP PO (11:55)
[2022-11-05 12:22] LABS: Procalcitonin 0.9 ng/mL
--- NOTE | 2022-11-05 14:17 | W.PM.HP.N ---
Date of service: 11/05/22 Time of Service: 14:18 Assessment and Plan Assessment and plan (1) Thrombocytopenia: Status: Chronic (2) Central line-associated bloodstream infection: Status: Acute Assessment and plan: We reviewed removing the Mediport. Risks include: bleeding/ infection/ scarring/ and need to heal by secondary intent/anesthesia. She has completed her chemo so she does not need any further long-term access. She is due for radiation to start next Sunday. This may need to be delayed. (3) Gram-negative bacteremia: Status: Acute Assessment and plan: Removal of Mediport Sunday. Change stent at [facility] Sunday. Antibiotics per hospitalist (4) Primary pancreatic cancer : Status: Chronic Assessment and plan: - Completed chemo on November 06. No Biologics (5) Hypoalbuminemia due to protein-calorie malnutrition: Status: Acute Assessment and plan: Continue protein supplementation (6) Basic learning disability, reading: Status: Acute (7) Immunosuppression due to drug therapy: Status: Acute (8) Peripheral neuropathy due to chemotherapy: Status: Acute (9) Multiple sclerosis: Status: Chronic (10) Chronic GERD: Status: Acute (11) Chemotherapy induced diarrhea: Status: Acute (12) Primary pancreatic cancer : Status: Acute (13) History of biliary stent insertion: Assessment and plan: Change on Sunday done at [facility] (14) History of difficult venous access: Status: Acute Assessment and plan: We will have anesthesia place a midline while she is in the OR (15) Acute UTI (urinary tract infection): Status: Acute Assessment and plan: Ceftriaxone and Flagyl (16) Anticoagulant long-term use: Status: Acute Assessment and plan: Safe to hold for 24 hours. 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 This followed by chills and temp of 100.1 at home, so came to ER for evaluation. In ER findings of note for absence of fever, normal white count, modest el;evations in transaminases (AST>ALT) and alk phos, with normal TBili; and unremarkable CT save for (expected) pneumobilia from stent. Culture obtained and patient given dose Rocephin. Oncology consulted and advised expanded empiric antibiotic coverage with Flagyl and Cipro. I was asked to evaluate for admission. Today, patient is feeling better. She no longer has any nausea or any fever. She does have voluminous diarrhea and this is unchanged. She is on Creon for pancreatic insufficiency. She finished her last chemo a week ago from Sunday. She is supposed to start 5 cycles of radiation on Sunday. We may need to hold this. Unfortunately she has gram-negative rods growing in both her urine, her blood, and blood cultures taken from her port site. it is recommended that we take her port out. She also has a biliary stent in place this is going to need to be exchanged. This was her last dose of chemo so she does not need any further chemo agents. She does have extremely poor veins and has no vascular access. The port is still working and nursing is using it right now. If we will remove remove her port then we will need to place a midline or some type of temporary IV access. Nursing has tried multiple times and has not been successful with obtaining an peripheral IV. The port is functioning well. She is not having any fevers. They can use it for IV access for the next 12 hours. She is also on Eliquis and we will need to hold that. Her platelet count is down to 91 today and we will follow this closely. This may be reaction to the chemo she had 8 days ago. Currently she does not look nontoxic. The quality and quantity of her diarrhea remains unchanged. Part of that is due to her chemo medications and part of that is due to the disease process. She takes Creon and Imodium for the diarrhea. She does not have any breakdown. ER 09/29/22 levon is a 61-year-old female with known history of pancreatic cancer who presented to the ER today with right-sided abdominal pain.? She received her last chemo on September 22.? It is 5 out of 6 cycles of 5-FU/leucovorin/Irotecan/and a [place] based therapy.? She has had problems with chronic diarrhea since she has been on chemo.? She takes Imodium daily.? Today she woke up and had an episode of nausea and vomiting.? She is not currently nauseated.? She has been keeping water down since she has been in the ER.? She has had no fever or chills.? She has no chest pain or shortness of breath.? Her diarrhea is no worse than it normally has been.? She has had 2 liquid bowel movements today with no blood.? She denies any pain or swelling in her legs.? She denies any pain or burning with urination.? She is not jaundiced.? The pain is isolated to actually of the right upper quadrant.? It is in the area of her previous open cholecystectomy scar.? She has never had bowel obstructions before.? She has normal bowel sounds and is passing gas.? Labs? and CT scans were reviewed by myself. She has had nausea/vomiting/diarrhea with her chemo.? She has never had abdominal pain before. Review of Systems All systems reviewed & are unremarkable except as noted in HPI and below PFSH All Active Problems (Updated 11/05/22 @ 21:42 by Carol Ann Bennett DO) Superior mesenteric vein thrombosis (Acute) Anticoagulant long-term use (Acute) Acute UTI (urinary tract infection) (Acute) History of difficult venous access (Acute) Discharge planning issues (Acute) DVT prophylaxis (Acute) Hypokalemia (Acute) Thrombocytopenia (Chronic) Central line-associated bloodstream infection (Acute) Ascending cholangitis (Acute) Gram-negative bacteremia (Acute) Abdominal pain (Acute) Hypomagnesemia (Acute) Primary pancreatic cancer (Chronic) Hypocalcemia (Acute) Elevated LFTs (Acute) Hypoalbuminemia due to protein-calorie malnutrition (Acute) Anemia (Chronic) Basic learning disability, reading (Acute) Immunosuppression due to drug therapy (Acute) 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) Port-A-Cath in place (Acute) Depression (Chronic) Multiple sclerosis (Chronic) Chronic GERD (Acute) Chemotherapy induced diarrhea (Acute) Primary pancreatic cancer (Acute) Encasement of the SMV and local lymphadenopathy stage II-currently unresectable Medical History History of biliary stent insertion Surgical History S/P cholecystectomy Open cholecystectomy S/P laparoscopy Diagnostic laparoscopy for staging of pancreatic cancer Social History Smoking/Tobacco Use Status: Never Smoking risk assessment performed?: Yes Alcohol Intake: former Drug use: Never Substance use type: does not use Housing: other Do you feel safe at home: Yes Do you feel safe in your relationship?: Yes Additional Social history: lives with mother in mobile home Meds Allergies and Home Medications Allergies Allergy/AdvReac Type Severity Reaction Status Date / Time ibuprofen AdvReac Nausea Unverified 11/04/22 15:59 Penicillins AdvReac Hives Unverified 11/04/22 15:59 Sulfa (Sulfonamide AdvReac Hives Unverified 11/04/22 15:59 Antibiotics) topiramate [From Topamax] AdvReac Dizziness/L Unverified 11/04/22 15:59 ighthead Home Medications Medication Instructions Recorded Confirmed Type acetaminophen 500 mg tablet 1,000 mg PO PRN PRN 09/29/22 11/04/22 History apixaban 5 mg tablet (Eliquis) 5 mg PO BID 09/29/22 11/04/22 History citalopram 20 mg tablet 20 mg PO DAILY 09/29/22 11/04/22 History cslcfw-sqhxmeus-fjwhtra 3 cap PO 5X/DAY 09/29/22 11/04/22 History 24,000-76,000-120,000 unit capsule,delayed rel (Creon) loperamide 2 mg capsule 2 mg PO PRN PRN 09/29/22 11/04/22 History magnesium oxide 400 mg (241.3 mg 400 mg PO DAILY 09/29/22 11/04/22 History magnesium) tablet nitroglycerin 0.4 mg sublingual 0.4 mg sublingual PRN PRN 09/29/22 09/29/22 History tablet (Nitrostat) ondansetron HCl 8 mg tablet 8 mg PO PRN PRN 09/29/22 11/04/22 History oxycodone 5 mg tablet 5 mg PO PRN PRN Moderate Pain 09/29/22 09/29/22 History (Scale Score 5-6) pantoprazole 40 mg tablet,delayed 40 mg PO DAILY 09/29/22 11/04/22 History release potassium chloride 10 mEq 20 meq PO BID 09/29/22 11/04/22 History tablet,extended release prochlorperazine maleate 10 mg 10 mg PO PRN PRN 09/29/22 11/04/22 History tablet (Compazine) Results Labs 11/05/22 07:55 11/05/22 07:55 Labs: Laboratory Results - last 24 hr 11/04/22 11/04/22 11/04/22 16:25 16:25 16:25 WBC 10.42 RBC 4.63 Hgb 11.5 Hct 37.8 MCV 82 MCH 24.8 L MCHC 30.4 L RDW 18.5 H Plt Count 110 L MPV 9.7 Immature Gran % 0.8 Neutrophils % 84.5 Lymphocytes % 4.9 Monocytes % 9.0 Eosinophils % 0.4 Basophils % 0.4 Nucleated RBC % 0.0 Absolute Neutrophils 8.81 H Absolute Lymphocytes 0.51 L Absolute Monocytes 0.94 H Absolute Eosinophils 0.04 Absolute Basophils 0.04 VBG Lactate 1.7 H Sodium 141 Potassium 3.6 Chloride 107 Carbon Dioxide 26.1 Anion Gap 7.9 BUN 10 Creatinine 0.9 Est GFR (CKD-EPI 2020) 73.19 Glucose 129 H Calcium 8.3 L Magnesium 1.5 L Total Bilirubin 0.9 AST 235 H ALT 109 H Alkaline Phosphatase 551 H Troponin I < 50 C-Reactive Protein Total Protein 6.2 L Albumin 2.7 L Lipase < 10 L Procalcitonin Urine Color Urine Clarity Urine pH Ur Specific [place] Urine Protein Urine Ketones Urine Blood Urine Nitrite Urine Bilirubin Urine Urobilinogen Ur Leukocyte Esterase Urine RBC Urine WBC Ur Epithelial Cells Urine Crystals Urine Bacteria Urine Casts Urine Mucus Ur Culture Indicated? Urine Glucose Add-On Test Request 11/04/22 11/04/22 11/05/22 16:25 17:05 07:55 WBC RBC Hgb Hct MCV MCH MCHC RDW Plt Count MPV Immature Gran % Neutrophils % Lymphocytes % Monocytes % Eosinophils % Basophils % Nucleated RBC % Absolute Neutrophils Absolute Lymphocytes Absolute Monocytes Absolute Eosinophils Absolute Basophils VBG Lactate Sodium Potassium Chloride Carbon Dioxide Anion Gap BUN Creatinine Est GFR (CKD-EPI 2020) Glucose Calcium Magnesium Total Bilirubin 0.9 AST 177 H ALT 114 H Alkaline Phosphatase 460 H Troponin I < 50 C-Reactive Protein Total Protein Albumin Lipase Procalcitonin Urine Color Yellow Urine Clarity Clear Urine pH 7.5 Ur Specific [place] 1.020 Urine Protein Negative Urine Ketones Negative Urine Blood Trace-intact H Urine Nitrite Negative Urine Bilirubin Negative Urine Urobilinogen 0.2 Ur Leukocyte Esterase Negative Urine RBC 0-2 Urine WBC Negative Ur Epithelial Cells Rare Urine Crystals Negative Urine Bacteria Negative Urine Casts Negative Urine Mucus Negative Ur Culture Indicated? No Urine Glucose Negative Add-On Test Request 11/05/22 11/05/22 11/05/22 07:55 07:55 07:55 WBC 7.65 RBC 4.33 Hgb 10.9 L Hct 35.1 L MCV 81 MCH 25.2 L MCHC 31.1 L RDW 18.5 H Plt Count 91 L MPV 10.4 Immature Gran % Neutrophils % Lymphocytes % Monocytes % Eosinophils % Basophils % Nucleated RBC % Absolute Neutrophils Absolute Lymphocytes Absolute Monocytes Absolute Eosinophils Absolute Basophils VBG Lactate Sodium 142 Potassium 3.3 L Chloride 108 H Carbon Dioxide 26.8 Anion Gap 7.2 BUN 6 L Creatinine 0.8 Est GFR (CKD-EPI 2020) 84.30 Glucose 110 H Calcium 8.4 L Magnesium 1.9 Total Bilirubin AST ALT Alkaline Phosphatase Troponin I C-Reactive Protein Total Protein Albumin Lipase Procalcitonin Urine Color Urine Clarity Urine pH Ur Specific [place] Urine Protein Urine Ketones Urine Blood Urine Nitrite Urine Bilirubin Urine Urobilinogen Ur Leukocyte Esterase Urine RBC Urine WBC Ur Epithelial Cells Urine Crystals Urine Bacteria Urine Casts Urine Mucus Ur Culture Indicated? Urine Glucose Add-On Test Request DONE 11/05/22 11/05/22 11/05/22 07:55 07:55 07:55 WBC RBC Hgb Hct MCV MCH MCHC RDW Plt Count MPV Immature Gran % Neutrophils % Lymphocytes % Monocytes % Eosinophils % Basophils % Nucleated RBC % Absolute Neutrophils Absolute Lymphocytes Absolute Monocytes Absolute Eosinophils Absolute Basophils VBG Lactate Sodium Potassium Chloride Carbon Dioxide Anion Gap BUN Creatinine Est GFR (CKD-EPI 2020) Glucose Calcium Magnesium Total Bilirubin AST ALT Alkaline Phosphatase Troponin I C-Reactive Protein 5.34 H Total Protein Albumin Lipase Procalcitonin 0.9 Urine Color Urine Clarity Urine pH Ur Specific [place] Urine Protein Urine Ketones Urine Blood Urine Nitrite Urine Bilirubin Urine Urobilinogen Ur Leukocyte Esterase Urine RBC Urine WBC Ur Epithelial Cells Urine Crystals Urine Bacteria Urine Casts Urine Mucus Ur Culture Indicated? Urine Glucose Add-On Test Request DONE Last Vital Signs Temp 37.0 C 11/05/22 06:19 Pulse 70 11/05/22 06:19 Resp 18 11/05/22 06:19 BP 109/66 11/05/22 06:19 Pulse Ox 97 11/05/22 06:19 Time Spent Time spent with Patient: 55-74 minutes Time was spent: preparing to see the patient(eg.review tests), obtaining and/or reviewing separately otained hiistory, ordering medications,tests, procedures, referring, communicating with other health resident care aid, indepentently interpreting results, counseling the patient and care coordination
[2022-11-05 15:16] VITALS: BP 135/83; PULSE 77; RESP 17; TEMP 36.4; O2SAT 100
[2022-11-05] MEDS: cefTRIAXone 2 GM/50 ML BAG IVPB (16:42)
[2022-11-05 20:15] VITALS: BP 94/62; PULSE 93; RESP 16; TEMP 37.9; O2SAT 96
[2022-11-05 20:41] VITALS: TEMP 37.9
[2022-11-05] MEDS: Acetaminophen 325 MG TAB 650 MG PO (20:41)
[2022-11-06] MEDS: metroNIDAZOLE 500 MG/100 ML BAG 100 MG IVPB ×4 (02:23→20:44)
[2022-11-06] MEDS: Loperamide 2 MG CAP PO (05:47)
[2022-11-06 06:21] VITALS: BP 122/73; PULSE 70; RESP 18; TEMP 36.6; O2SAT 99
[2022-11-06 07:36] LABS: Abs Immature Grans 0.05 10^3/uL (0.0-0.06); Absolute Basophil Count 0.03 10^3/uL (0.0-0.2); Absolute Eosinophil Count 0.14 10^3/uL (0.0-0.7); Absolute Lymphocyte Count 0.36 10^3/uL (1.2-3.4); Absolute Monocyte Count 0.56 10^3/uL (0.1-0.8); Absolute Neutrophil Count 3.62 10^3/uL (1.2-6.7); Basophils % 0.6; Eosinophils % 2.9; HCT 36.3 % (36.0-46.0); HGB 11.2 g/dL (11.2-15.7); Immature Grans % 1.1; Lymphocytes % 7.6; MCH 25.1 pg (27.0-33.0); MCHC 30.9 % (32.0-36.0); MCV 81 fL (80-95); Monocytes % 11.8; RBC 4.47 10^6/uL (3.93-5.22); RDW 18.6 % (11.7-14.6); RDW-SD 55.5 fL; WBC 4.76 10^3/uL (4.4-10.8)
[2022-11-06] MEDS: Pantoprazole 40 MG TABCR PO (07:42)
[2022-11-06 07:47] LABS: Diff Comment Diff Reviewed; Platelet Count 85 10^3/uL (130-400); RBC Morphology Normal
[2022-11-06 07:54] LABS: C-Reactive Protein 7.45 mg/dL (0.0-0.3)
[2022-11-06 07:58] LABS: ALT 89 U/L (14-59); AST 109 U/L (15-37); Albumin 2.7 g/dL (3.4-5.0); Alkaline Phosphatase 423 U/L (46-116); BUN 8 mg/dL (7-18); Bilirubin, Direct 0.2 mg/dL (0.0-0.2); Bilirubin, Total 0.5 mg/dL (0.2-1.0); CREATININE 0.8 mg/dL (0.55-1.02); Calcium 8.4 mg/dL (8.5-10.1); Chloride 107 mmol/L (98-107); Glucose 121 mg/dL (74-106); Magnesium 1.8 mg/dL (1.8-2.4); Potassium 3.8 mmol/L (3.5-5.1); Sodium 140 mmol/L (136-145); Total Protein 6.2 g/dL (6.4-8.2)
[2022-11-06 08:18] LABS: Iron 18 ug/dL (50-170); Total Iron Binding Capacity 243 ug/dL (250-450); Transferrin Sat 7 % (15-50)
[2022-11-06 08:21] LABS: Ferritin 89 ng/mL (8-252)
[2022-11-06 08:45] LABS: Folate 17.4 ng/mL (8.6-20.0); Vitamin B12 550 pg/mL (193-986)
--- NOTE | 2022-11-06 09:51 | PDOC.CMPRO ---
Date of service: 11/06/22 Time of Service: 09:51 Care Management Progress Note Progress Note Text Progress Note Text: S/O: Valeria is receiving IV ABX and her labs are being closely monitored. Her infusaport is being removed today and a [id number] transfer to [facility] [place] billiary [place] is planned for tomorrow. Valeria is still planning on discharging home with [facility] services (if needed), when medically cleared by provider. Valeria may benefit from a palliative consult to discuss her goals of care, in the near future. She recently finished chemo and a 5 day course of radiation was planned before she developed this infection. A:61 year old female admitted to [facility] on 11/04/22 for Abdominal pain, fever P: Anticipate, Valeria will discharge home with New services through [facility] (if indicated). She will follow up with outpatient providers and discharge plan of care as instructed. CM will continue to support patient and recommendations for further needs.
--- NOTE | 2022-11-06 10:33 | ANES.PREOP_ITS ---
General Info Date of Service Date Performed: 11/06/22 Height: 5 ft Weight: 84.55 kg Body Mass Index (BMI): 36.3 Surgical Procedure: Operation Date: 11/06/22 13:10 Proposed Procedure Side Surgeon p Port-A-Cath Removal, midline placement Carol Ann Bennett, DO Meds Allergies and Home Medications Allergies Allergy/AdvReac Type Severity Reaction Status Date / Time ibuprofen AdvReac Nausea Unverified 11/04/22 15:59 Penicillins AdvReac Hives Unverified 11/04/22 15:59 Sulfa (Sulfonamide AdvReac Hives Unverified 11/04/22 15:59 Antibiotics) topiramate [From Topamax] AdvReac Dizziness/L Unverified 11/04/22 15:59 ighthead Home Medication Medication Instructions Recorded acetaminophen 500 mg tablet 1,000 mg PO PRN PRN 09/29/22 apixaban 5 mg tablet (Eliquis) 5 mg PO BID 09/29/22 citalopram 20 mg tablet 20 mg PO DAILY 09/29/22 kferjs-kjmcpuvc-fjtpbkh 3 cap PO 5X/DAY 09/29/22 24,000-76,000-120,000 unit capsule,delayed rel (Creon) loperamide 2 mg capsule 2 mg PO PRN PRN 09/29/22 magnesium oxide 400 mg (241.3 mg 400 mg PO DAILY 09/29/22 magnesium) tablet nitroglycerin 0.4 mg sublingual 0.4 mg sublingual PRN PRN 09/29/22 tablet (Nitrostat) ondansetron HCl 8 mg tablet 8 mg PO PRN PRN 09/29/22 oxycodone 5 mg tablet 5 mg PO PRN PRN Moderate Pain 09/29/22 (Scale Score 5-6) pantoprazole 40 mg tablet,delayed 40 mg PO DAILY 09/29/22 release potassium chloride 10 mEq 20 meq PO BID 09/29/22 tablet,extended release prochlorperazine maleate 10 mg 10 mg PO PRN PRN 09/29/22 tablet (Compazine) Current Visit Medications: Current Medications Generic Name Dose Route Start Last Admin Trade Name Freq PRN Reason Stop Dose Admin Acetaminophen 650 mg 11/04/22 20:13 11/05/22 20:41 Acetaminophen 325 Mg Tab PO 650 mg Q4H PRN PRN Administration Lipase/Protease/Amylase 6 cap 11/05/22 06:00 11/06/22 09:44 Creon, Lipase 12,000 Capcr PO Not Given 5X/DAY [facility] Apixaban 5 mg 11/05/22 08:30 11/05/22 07:39 Apixaban 5 Mg Tab PO 5 mg BID [facility] Administration Dimethicone/Zinc Oxide 0 gm 11/04/22 20:13 Brianna Protect Cream 142 Gm Tube TP PRN PRN Metronidazole 500 mg in 100 mls @ 100 mls/hr 11/05/22 02:00 11/06/22 07:43 Flagyl IVPB 100 mls/hr Q6H [facility] Administration Ceftriaxone Sodium/Dextrose 2 gm in 50 mls @ 100 mls/hr 11/05/22 16:00 11/05/22 17:55 Rocephin IVPB Infused Q24H [facility] Infusion Ringer's Solution 1,000 mls @ 125 mls/hr 11/05/22 12:45 IV 11/06/22 20:44 INFUSION [facility] Loperamide HCl 2 mg 11/05/22 11:11 11/06/22 05:47 Loperamide 2 Mg Cap PO 2 mg QLOOSE PRN Administration Magnesium Oxide 400 mg 11/05/22 08:30 11/06/22 08:08 Magnesium Oxide 400 Mg Tab PO Not Given DAILY [facility] Multi-Ingredient Supplement 1 ounce 11/06/22 08:30 11/06/22 08:08 Protein Nutritional Supplement 16 Gm 1 Ounce Packet PO Not Given TID [facility] Ondansetron HCl 8 mg 11/05/22 07:18 Ondansetron O.D.T. 4 Mg Tabef PO Q8H PRN PRN Oxycodone HCl 5 mg 11/04/22 22:48 Oxycodone 5 Mg Tab PO Q4H PRN PRN Moderate Pain (Scale Score 5-6) Pantoprazole Sodium 40 mg 11/05/22 07:30 11/06/22 07:42 Pantoprazole 40 Mg Tabcr PO 40 mg 0730 [facility] Administration Potassium Chloride 20 meq 11/05/22 08:30 11/06/22 08:08 Potassium Chloride 20 Meq Tabcr PO Not Given BID [facility] Prochlorperazine Edisylate 5 - 10 mg 11/05/22 07:21 Prochlorperazine 10 Mg/2 Ml Vial IVP Q6H PRN PRN Prochlorperazine Maleate 10 mg 11/04/22 22:48 Prochlorperazine 10 Mg Tab PO Q6H PRN PRN Zolpidem Tartrate 5 mg 11/04/22 20:13 Zolpidem 5 Mg Tab PO HS PRN MAY REPEAT X1 PRN PFSH Active Problems Active Problems: Problem Status Onset Code 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 Anticoagulant long-term use Z79.01 Acute UTI (urinary tract infection) N39.0 History of difficult venous access Z87.898 Discharge planning issues Z02.9 DVT prophylaxis Z29.9 Hypokalemia E87.6 Thrombocytopenia D69.6 Central line-associated bloodstream infection T80.211A Ascending cholangitis K83.09 Gram-negative bacteremia R78.81 Abdominal pain R10.9 Hypomagnesemia E83.42 Primary pancreatic cancer C25.9 Hypocalcemia E83.51 Elevated LFTs R79.89 Hypoalbuminemia due to protein-calorie malnutrition E88.09, E46 Anemia D64.9 Basic learning disability, 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 Immunosuppression due to drug therapy D84.821, Z79.899 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, T45.1X5A Port-A-Cath in place Z95.828 Depression F32.A Multiple sclerosis G35 Chronic GERD K21.9 Chemotherapy induced diarrhea K52.1, T45.1X5A Primary pancreatic cancer C25.9 Medical History Medical History History of biliary stent insertion Surgical History Surgical History S/P cholecystectomy Open cholecystectomy S/P laparoscopy Diagnostic laparoscopy for staging of pancreatic cancer Tobacco Smoking/Tobacco Use Status: Never Alcohol Alcohol Intake: former Substance Use Substance use: Never Substance use type: does not use Vital Signs and Lab Results Vital Signs Most Recent Vital Signs in EMR: Most Recent Vital Signs Temp Pulse Resp BP Pulse Ox 36.6 C 70 18 122/73 99 11/06/22 06:21 11/06/22 06:21 11/06/22 06:21 11/06/22 06:21 11/06/22 06:21 Lab Results 11/06/22 07:05 11/06/22 07:05 Blood Type / Crossmatch: No Data to Display Complete Blood Count: White Blood Count 4.76 10^3/uL (4.4-10.8) 11/06/22 07:05 Red Blood Count 4.47 10^6/uL (3.93-5.22) 11/06/22 07:05 Hemoglobin 11.2 g/dL (11.2-15.7) 11/06/22 07:05 Hematocrit 36.3 % (36.0-46.0) 11/06/22 07:05 Platelet Count 85 10^3/uL (130-400) L 11/06/22 07:05 Venous Blood Lactate 1.7 mmol/L (0.6-1.4) H 11/04/22 16:25 Complete Metabolic Panel: Sodium 140 mmol/L (136-145) 11/06/22 07:05 Potassium 3.8 mmol/L (3.5-5.1) 11/06/22 07:05 Chloride 107 mmol/L (98-107) 11/06/22 07:05 Carbon Dioxide 24.0 mmol/L (21.0-32.0) 11/06/22 07:05 BUN 8 mg/dL (7-18) 11/06/22 07:05 Creatinine 0.8 mg/dL (0.55-1.02) 11/06/22 07:05 Est GFR (CKD-EPI 2020) 84.30 (mL/min/1.73m2) 11/06/22 07:05 Magnesium 1.8 mg/dL (1.8-2.4) 11/06/22 07:05 Calcium 8.4 mg/dL (8.5-10.1) L 11/06/22 07:05 Albumin 2.7 g/dL (3.4-5.0) L 11/06/22 07:05 Glucose 121 mg/dL (74-106) H 11/06/22 07:05 C-Reactive Protein 7.45 mg/dL (0.0-0.3) H 11/06/22 07:05 Liver Function Panel: Alanine Aminotransferase (ALT/SGPT) 89 U/L (14-59) H 11/06/22 0 7:05 Aspartate Amino Transf (AST/SGOT) 109 U/L (15-37) H 11/06/22 07 :05 Coagulation Panel: No Data to Display Cardiac Panel: Troponin I < 50 ng/L (<or=60) 11/04/22 Arterial Blood Gas: No Data to Display Venous Blood Gas: No Data to Display Pancreas Panel: Lipase < 10 U/L (16-77) L 11/04/22 16:25 Thyroid Panel: No Data to Display Infectious Disease: No Data to Display Blood Cultures: No Data to Display Toxicology Panel: No Data to Display Imaging and Studies Imaging and Studies Study information below may be from another EMR and interpreted by another provider. Please see original notes in EMR for more complete details. EKG Summary: DATE/TIME OF SERVICE: 11/04/221626 : 1960ERFORMING LOCATION: [place] APPROVED RE[place] Exam: Resting ECG Reason for Exam: Tachycardia Patient Location: E HR:94 bpm ECG Measurements Heart Rate [address] 129 P 0 QRSd 110 QRS 269 QT 372 T45 QTc 465 Conclusion Sinus rhythm...normal P axis, V-rate 60- 99 Left anterior fascicular block...axis(240,-40), init forces inf Low voltage, extremity and precordial leads...extremity<0.5mV, precordial<1.0mV Normal sinus rhythm at a rate of 94. Low voltage. Poor R wave progression. No acute ST segment abnormalities. Voltage appears slower compared to prior. Prior dated last week. Stress Test Summary: 02/01/2022: Low normal EF 50-55%, No ischemia. Date of Exam: 09/04/14Sex: F : 1960ge: 53 Exam(s) [id number] NM:MPI Resting & Stress GRP *[facility]* [address] [place] [address] Myocardial Perfusion Imaging - SPECT Regadenoson Date of study: 09/04/2014 *PATIENT PRESENTATION* Height: 157.5cm (62in ) Blood Pressure: Weight: 100.9kg (222lb ) BSA: 2.16m^2 Ordering physician: Dakota Barragan MD Impressions: Technically problematic study due mainly to intense subdiaphragmatic uptake of tracer, resulting in poor myocardial definition. There is no evidence of ischemia today. The measured LVEF on this study (only 35%) is very likely to spuriously low. Summary: Myocardial perfusion imaging: There is a moderate sized, mildly intense, fixed defect involving the inferior wall(s). . Cardiac Catheterization Summary: 10/03/2014: Normal Cath Anesthesia Assessment and Plan Anesthesia History Personal History: PONV Family History: No Family History of Anesthesia Complications Exercise Tolerance Exercise Tolerance: Metabolic Equivalents>4 Pertinent Negatives Pertinent Negatives: No Symptoms of GERD and No Major Pulmonary Symptoms or Complaints Cardiac & Pulmonary Exam Cardiac Exam: Normal S1/S2 Heart Sounds Pulmonary Exam: Clear Bilateral Breath Sounds Implantable Cardiac Device Does patient have a Pacemaker or an ICD?: No Airway Exam Known Difficult Airway: No Mallampati Class: 2 Mouth Opening: Normal (> 3cm) Thyromental Distance: Less than 3 cm Neck Range of Motion: Full ROM Neck Circumference: Normal Teeth Condition: Normal Dentition ASA Classification ASA Score: ASA 3 Emergency Case?: No NPO Status NPO Status: NPO Clears >2 hours, Solids >8 hours Anesthesia Plan Resuscitation Status: Full Code Anesthesia Technique: General Anesthesia Airway Planned: Natural Airway Monitors Used: Standard Monitors
[2022-11-06 10:36] VITALS: BMI 36.3
[2022-11-06 11:03] VITALS: RESP 17; O2SAT 99
--- NOTE | 2022-11-06 11:31 | W.ANESVAS ---
Midline Placement Date Performed: 11/06/22 Procedure Time: 11:10 Requesting Provider: Carol Ann Bennett Procedure Location: Med/Surg Sedation Given (Indicate Dose Given): No Sedation given Patient Mental Status: Awake Sterility: Hand Hygiene, Surgical Cap, Sterile Gloves and Chlorhexidine Laterality: Left Insertion Site: Brachial Midline Device: PowerGlide Pro 18G Catheter Length: 10 cm Midline Procedure Procedure: 1% Lidocaine to skin and subcutaneous tissue with 25g needle, Vessel accessed with catheter over needle, Guidewire placed with ease, Catheter placed without resistance and Guidewire removed Dressing: Tegaderm Applied and Statlock Applied Blood Return: Present Flushes: Easily Ultrasound: Sterile probe cover and gel used Ultrasound Image Saved?: Yes Number of Attempts (See previous attempts in note section): 2 Procedure Tolerated: No Complications and Patient tolerated well Procedure Outcome: Successful Procedure Comment:: 1st attempt left basilic with good blood return but when advancing failed due to tissue elasticity. Pressure held on site given elaquis history until not bleeding. 2nd attempt with good tissue tension maintained went well. Performed By: Zia Toro
--- NOTE | 2022-11-06 13:18 | W.PM.PROGNOT ---
Date of Service Date of service: 11/06/22 Time of Service: 13:18 Assessment and Plan Assessment and plan (1) Gram-negative bacteremia: Status: Acute Assessment and plan: Present on admission. Cultures from both the port and the periphery are positive for GNR. Speciation/sensitivities are pending. Unclear if the source is intraabdominal and the infusaport infection is secondary. Discussed with [facility]: Given cholangitis pattern of LFTs, the billiary stent does need to be exchanged; this is being planned for 11/07. Continue ceftriaxone/flagyl. Repeated peripheral blood cultures today. Removal of the infusaport today. CRP has increased. Procal in AM (2) Ascending cholangitis: Status: Acute Assessment and plan: As above. Abx: ceftriaxone + flagyl. Plan for exchange of the biliary stent tomorrow 11/07. Hold Eliquis. NPO after MN (3) Central line-associated bloodstream infection: Status: Acute Assessment and plan: As above. INfusaport removal today. Hold eliquis. (4) Primary pancreatic cancer : Status: Chronic Assessment and plan: S/p chemo, awaiting radiation. As above. The patient was advised to contact her radiation oncology team to let them know she is hospitalized. (5) Thrombocytopenia: Status: Chronic Assessment and plan: Suspect this is chemo related, though it could also be related to acute infection and/or antibiotics. Continue treatment of infection, monitor platelets. (6) Anemia: Status: Chronic Assessment and plan: Check anemia studies. (7) Hypokalemia: Status: Acute Assessment and plan: Replete (8) DVT prophylaxis: Status: Acute Assessment and plan: Eliquis currently on hold. Would not cover with short acting DVT ppx unless eliquis will be held for more than 48 hrs. (9) Discharge planning issues: Status: Acute Assessment and plan: DNR/DNI Will need a [id number] transfer [place] [facility] [place] of the billiary stent. Continues to require hospitalization. Subjective Subjective Patient reports: no new complaints and afebrile; denies nausea, vomiting or shortness of breath Exam Narrative Exam Narrative: General: Pleasant and cooperative middle-aged female who does not look ill; sitting up in bed. HEENT: Sclera clear. MMM Heart: RRR, no murmur Lungs: CTAB Abdomen: soft, mildly tender in epigastrium, nondistended Extremities: no edema BLEs Objective Last Vital Signs Temp 36.6 C 11/06/22 06:21 Pulse 70 11/06/22 06:21 Resp 17 11/06/22 11:03 BP 122/73 11/06/22 06:21 Pulse Ox 99 11/06/22 11:03 Laboratory Results - last 24 hr 11/06/22 11/06/22 11/06/22 07:05 07:05 07:05 WBC 4.76 RBC 4.47 Hgb 11.2 Hct 36.3 MCV 81 MCH 25.1 L MCHC 30.9 L RDW 18.6 H Plt Count 85 L MPV Immature Gran % 1.1 Neutrophils % 76.0 Lymphocytes % 7.6 Monocytes % 11.8 Eosinophils % 2.9 Basophils % 0.6 Nucleated RBC % 0.0 Absolute Neutrophils 3.62 Absolute Lymphocytes 0.36 L Absolute Monocytes 0.56 Absolute Eosinophils 0.14 Absolute Basophils 0.03 RBC Morphology Normal Sodium 140 Potassium 3.8 Chloride 107 Carbon Dioxide 24.0 Anion Gap 9.0 BUN 8 Creatinine 0.8 Est GFR (CKD-EPI 2020) 84.30 Glucose 121 H Calcium 8.4 L Magnesium 1.8 Iron TIBC Transferrin % Sat Ferritin 89 Total Bilirubin 0.5 Conjugated Bilirubin 0.2 AST 109 H ALT 89 H Alkaline Phosphatase 423 H C-Reactive Protein 7.45 H Total Protein 6.2 L Albumin 2.7 L Vitamin B12 Folate 11/06/22 11/06/22 07:05 07:05 WBC RBC Hgb Hct MCV MCH MCHC RDW Plt Count MPV Immature Gran % Neutrophils % Lymphocytes % Monocytes % Eosinophils % Basophils % Nucleated RBC % Absolute Neutrophils Absolute Lymphocytes Absolute Monocytes Absolute Eosinophils Absolute Basophils RBC Morphology Sodium Potassium Chloride Carbon Dioxide Anion Gap BUN Creatinine Est GFR (CKD-EPI 2020) Glucose Calcium Magnesium Iron 18 L TIBC 243 L Transferrin % Sat 7 L Ferritin Total Bilirubin Conjugated Bilirubin AST ALT Alkaline Phosphatase C-Reactive Protein Total Protein Albumin Vitamin B12 550 Folate 17.4 Time Spent with Patient Time Spent with Patient: 25-34 minutes Time was spent: preparing to see the patient(eg.review tests), obtaining and/or reviewing separately otained hiistory, ordering medications,tests, procedures, referring, communicating with other health career orientation teacher, indepentently interpreting results and care coordination
--- NOTE | 2022-11-06 13:59 | CHAPLAIN ---
Valeria was resting in bed when I visited. She is from the [facility]. Valeria explained that she's finished her chemo treatments for pancreatic cancer and is here to get the port out. She begins a five-day course of radiation tomorrow. Valeria said she will drive to [facility] each day with her mom, because they have a cat at home. Her mom is 88 [address] She visited Valeria yesterday and Valeria suggested she stay home today. Valeria named her mom as her main support. I will continue to visit if Valeria returns to [facility].
[2022-11-06] MEDS: Lactated Ringers 1,000 ML 30 ML IV (14:00)
[2022-11-06] MEDS: Lidocaine 1% Pres-Free W/EPI 1/200,000 30 ML VIAL (14:22)
[2022-11-06] MEDS: Protein Nutritional Supplement 16 GM 1 OUNCE PACKET PO ×2 (14:58→20:47)
[2022-11-06] MEDS: Normal Saline Flush 10 ML SYR IVP (14:58)
--- NOTE | 2022-11-06 15:12 | W.PM.OP ---
Date of service: 11/06/22 Time of Service: 15:12 Operative Note Operative Note DATE OF PROCEDURE: 11/06/22 PRE-OP DIAGNOSIS: Infected right IJ Mediport/gram-negative bacteremia and positive cultures from port POST-OP DIAGNOSIS: same PROCEDURE: Removal of right chest buried reservoir IJ port SURGEON: Carol Ann Bennett ANESTHESIA TYPE: Local By Surgeon and MAC Refer to Anesthesia Record ESTIMATED BLOOD LOSS: 3 PATHOLOGY: other COMPLICATIONS: None Patient was transported to: floor Patient's condition: stable Procedure Description: Patient had a right IJ port placed for chemo. She has developed gram-negative sepsis and bacteremia and positive blood cultures from this port. The port does need to be removed. Midline IV access was established prior to port removal. She is inpatient and is on antibiotics already. Informed consent was obtained explaining risks and benefits of procedure including but not limited to: Bleeding, infection, scarring, bleeding, complications from anesthesia. The site was marked. Patient is brought to the operative room suite and placed in the supine position. All bony surfaces are padded. Titered out is performed. Patient is prepped and draped in the usual sterile fashion using a ChloraPrep scrub solution. 30 cc 1% lidocaine with epi is used for local anesthetization. The old scar on the right chest wall is excised elliptically. Sharp scissors are used to open the subcutaneous tissue. The reservoir was then dissected out there is no stitch of his seeing it to the chest wall. The catheter then slides out from the IJ very easily there is no epithelialization around the catheter that is attached to the port. There was good epithelialization around the hub itself. Pressure is held. the pocket itself does not appear to be grossly infected. It was irrigated with 50 cc fluid. There is no bleeding noted. The skin is loosely approximated with terrie and Betadine soaked pledgets were left in place sterile compression dressings are applied. Patient tolerated the procedure well without complication and return to the [facility]. This document was created with voice activated software and may contain errors.
[2022-11-06 15:20] VITALS: BP 101/68; PULSE 82; RESP 14; TEMP 36.7; O2SAT 99
[2022-11-06] MEDS: cefTRIAXone 2 GM/50 ML BAG IVPB (17:08)
[2022-11-06] MEDS: IRON SUCROSE COMPLEX 300 MG in Normal Saline 250 ML 167 MG IVPB (18:31)
[2022-11-06 18:33] VITALS: BP 103/70; PULSE 88; RESP 16; O2SAT 96
[2022-11-06] MEDS: Potassium Chloride 20 MEQ TABCR PO (20:46)
[2022-11-06 20:52] VITALS: BP 109/71; PULSE 82; RESP 18; TEMP 37.6; O2SAT 96
[2022-11-07] MEDS: Lactated Ringers 1,000 ML 101 ML IV (00:05)
[2022-11-07] MEDS: metroNIDAZOLE 500 MG/100 ML BAG 100 MG IVPB ×3 (02:30→20:01)
[2022-11-07] MEDS: Loperamide 2 MG CAP PO ×3 (02:50→07:58)
--- NOTE | 2022-11-07 06:22 | W.ANESPOSTOP ---
Postoperative Evaluation Date, Time and Location Date Performed: 11/06/22 Time Performed: 14:30 Patient Location: Med/Surg Vital Signs Most Recent Imported Vital Signs: Most Recent Vital Signs Temp Pulse Resp BP Pulse Ox 37.6 C H 82 18 109/71 96 11/06/22 20:52 11/06/22 20:52 11/06/22 20:52 11/06/22 20:52 11/06/22 20:52 Pain Score Most Recent Pain Score: Most Recent Pain Score Pain Level [Right Upper 2 11/06/22 19:41 Anterior Chest] Pain Level [Abdomen] 2 11/05/22 19:30 Pain Level [Generalized] 0 11/05/22 07:30 Pain Level 0 11/06/22 20:52 Assessment Mental Status: Awake (Alert & Oriented to Patient Baseline) Airway and Respiratory Function: Patent airway with normal (patient baseline) respiratory exam Cardiovascular Function: Hemodynamically Stable Hydration Status: Adequately Hydrated Nausea & Vomiting: No Nausea or Vomiting Pain: Pt. Denies Any Pain Peripheral Nerve Block: Patient did not receive a nerve block
[2022-11-07 07:48] VITALS: BP 122/77; PULSE 74; RESP 17; TEMP 36.4; O2SAT 95
[2022-11-07 07:57] LABS: ALT 62 U/L (14-59); AST 65 U/L (15-37); Albumin 2.4 g/dL (3.4-5.0); Alkaline Phosphatase 350 U/L (46-116); BUN 13 mg/dL (7-18); Bilirubin, Total 0.4 mg/dL (0.2-1.0); CREATININE 0.7 mg/dL (0.55-1.02); Calcium 8.1 mg/dL (8.5-10.1); Chloride 108 mmol/L (98-107); Estimated GFR 98.95 (mL/min/1.73m2); Glucose 103 mg/dL (74-106); Potassium 3.4 mmol/L (3.5-5.1); Sodium 142 mmol/L (136-145); Total Protein 5.6 g/dL (6.4-8.2)
[2022-11-07] MEDS: Normal Saline Flush 10 ML SYR IVP ×2 (07:57→09:17)
[2022-11-07 09:42] LABS: Transferrin 204 mg/dL (201-352)
--- NOTE | 2022-11-07 09:44 | NUR.NOTE ---
Nursing Note: At approximately 0815 on 11/07/22, this RN returned a call from Thelma (nurse at [facility] in endoscopy) to give a nurse to nurse report on the pt. Pt. being transported down and back to [facility] for exchange of a biliary stent. Nurse to nurse to report was given. [facility] nurse verbalized understanding of nurse to nurse report and presented with a few questions that were answered. RN informed [facility] nurse that the pt. would be leaving [facility] at approximately 0930 to head to [facility].
[2022-11-07 14:23] VITALS: BP 128/75; PULSE 75; RESP 18; TEMP 36.1; O2SAT 98
--- NOTE | 2022-11-07 14:34 | NUR.NOTE ---
Received call from [facility] EV[facility] Thompson advising procedure complete, no new report to give, no exchange of stent only cleaning of old stent, pt tolerated procedure well per RN, EMS crew to be leaving in 15 min to return pt, no additional information provided, RN advised we could call back with any questions at [phone] C Curt ALTAMIRANO
--- NOTE | 2022-11-07 15:09 | PGE_ITS ---
Date of Service Date of service: 11/07/22 Time of Service: 15:09 Assessment and Plan Assessment and plan (1) Gram-negative bacteremia: Status: Acute Assessment and plan: Present on admission. Cultures from both the port and the periphery are positive for Klebsiella pneumoniae; continue ceftriaxone and flagyl Infusaport culture pending. She was transported down and back to [facility] for GI evaluation of her biliary stent. Debris in the stent was removed; stent did not require replacement. Repeated peripheral blood cultures on 11/06 pending. CRP has increased; trend Procal in AM (2) Ascending cholangitis: Status: Acute Assessment and plan: As above. Abx: ceftriaxone + flagyl. Biliary stent freed of debris by [facility]. Resume Eliquis. (3) Central line-associated bloodstream infection: Status: Acute Assessment and plan: As above. INfusaport removed and tip culture is pending. (4) Primary pancreatic cancer : Status: Chronic Assessment and plan: S/p chemo, awaiting radiation. As above. The patient was advised to contact her radiation oncology team to let them know she is hospitalized. (5) Thrombocytopenia: Status: Chronic Assessment and plan: Suspect this is chemo related, though it could also be related to acute infection and/or antibiotics. Continue treatment of infection, monitor platelets. (6) Anemia: Status: Chronic Assessment and plan: Fe low at 18. Transferrin saturation low at 7% Given venofer 300mg IV on 11/06; repeat on 11/08. (7) Hypokalemia: Status: Acute Assessment and plan: Replete and monitor. (8) DVT prophylaxis: Status: Acute Assessment and plan: Eliquis. (9) Discharge planning issues: Status: Acute Assessment and plan: DNR/DNI Awaiting repeat blood culture results. If they are negative can d/c home on oral antibiotic. Subjective Subjective Patient reports: no new complaints and afebrile; denies nausea, vomiting or shortness of breath Exam Narrative Exam Narrative: General: Pleasant and cooperative middle-aged female who does not look ill; lying in bed. HEENT: Sclera clear/nonicteric. MMM Heart: RRR, no murmur Lungs: CTAB Abdomen: soft, mildly tender in epigastrium, nondistended Extremities: no edema BLEs Objective Last Vital Signs Temp 36.1 C L 11/07/22 14:23 Pulse 75 07/25/23 14:23 Resp 18 11/07/22 14:23 BP 128/75 11/07/22 14:23 Pulse Ox 98 11/07/22 14:23 Laboratory Results - last 24 hr 11/06/22 11/07/22 07:05 07:20 Sodium 142 Potassium 3.4 L Chloride 108 H Carbon Dioxide 24.0 Anion Gap 10.0 BUN 13 Creatinine 0.7 Est GFR (CKD-EPI 2020) 98.95 Glucose 103 Calcium 8.1 L Transferrin 204 Total Bilirubin 0.4 AST 65 H ALT 62 H Alkaline Phosphatase 350 H Total Protein 5.6 L Albumin 2.4 L Time Spent with Patient Time Spent with Patient: 25-34 minutes Time was spent: preparing to see the patient(eg.review tests), obtaining and/or reviewing separately otained hiistory, ordering medications,tests, procedures, referring, communicating with other health child care attendant school and indepentently interpreting results
[2022-11-07 15:13] VITALS: BP 111/72; PULSE 76; RESP 16; TEMP 36.9; O2SAT 99
[2022-11-07] MEDS: cefTRIAXone 2 GM/50 ML BAG IVPB (16:35)
[2022-11-07] MEDS: Potassium Chloride 20 MEQ TABCR PO (20:00)
[2022-11-07] MEDS: Protein Nutritional Supplement 16 GM 1 OUNCE PACKET PO (20:02)
[2022-11-07 23:34] VITALS: BP 95/63; PULSE 86; RESP 19; TEMP 36.4; O2SAT 95
[2022-11-08] MEDS: metroNIDAZOLE 500 MG/100 ML BAG 100 MG IVPB ×2 (03:09→07:36)
[2022-11-08 07:04] LABS: Abs Immature Grans 0.05 10^3/uL (0.0-0.06); Absolute Basophil Count 0.04 10^3/uL (0.0-0.2); Absolute Lymphocyte Count 0.84 10^3/uL (1.2-3.4); Absolute Monocyte Count 0.64 10^3/uL (0.1-0.8); Absolute Neutrophil Count 3.61 10^3/uL (1.2-6.7); Basophils % 0.7; Eosinophils % 3.7; HCT 35.4 % (36.0-46.0); HGB 10.7 g/dL (11.2-15.7); Immature Grans % 0.9; Lymphocytes % 15.6; MCH 24.9 pg (27.0-33.0); MCHC 30.2 % (32.0-36.0); MCV 82 fL (80-95); MPV 9.8 fL (8.0-11.0); Monocytes % 11.9; Neutrophils % 67.2; Platelet Count 122 10^3/uL (130-400); RDW 18.8 % (11.7-14.6); RDW-SD 56.5 fL; WBC 5.38 10^3/uL (4.4-10.8)
[2022-11-08 07:21] VITALS: BP 107/73; PULSE 78; RESP 17; TEMP 36.4; O2SAT 97
[2022-11-08] MEDS: Apixaban 5 MG TAB PO (07:36)
[2022-11-08] MEDS: Magnesium Oxide 400 MG TAB PO (07:36)
[2022-11-08] MEDS: Pantoprazole 40 MG TABCR PO (07:36)
[2022-11-08] MEDS: Protein Nutritional Supplement 16 GM 1 OUNCE PACKET PO (07:36)
[2022-11-08] MEDS: Potassium Chloride 20 MEQ TABCR PO (07:36)
[2022-11-08 07:44] LABS: Anion Gap 9.6 mmol/L (3-11); BUN 10 mg/dL (7-18); CO2 25.4 mmol/L (21.0-32.0); CREATININE 0.7 mg/dL (0.55-1.02); Calcium 8.6 mg/dL (8.5-10.1); Chloride 109 mmol/L (98-107); Estimated GFR 98.95 (mL/min/1.73m2); Glucose 116 mg/dL (74-106); Potassium 3.7 mmol/L (3.5-5.1); Sodium 144 mmol/L (136-145)
[2022-11-08 07:50] LABS: C-Reactive Protein 2.86 mg/dL (0.0-0.3)
[2022-11-08 07:59] LABS: Procalcitonin 0.2 ng/mL
[2022-11-08] MEDS: Loperamide 2 MG CAP PO (08:41)
[2022-11-08] MEDS: IRON SUCROSE COMPLEX 300 MG in Normal Saline 250 ML 167 MG IVPB (09:06)
--- NOTE | 2022-11-08 12:44 | W.PM.DS.N ---
Date of service: 11/08/22 Time of Service: 12:45 DS: Diagnosis Discharge Diagnosis (1) Gram-negative bacteremia: Status: Acute Asessment and Plan: Blood cultures grew Klebsiella pneumoniae. She continued on Ceftriaxone and Flagyl. Repeat blood cultures were negative. Home on Flagyl 325 TID, Levofloxacin 750mg daily. (2) Ascending cholangitis: Status: Acute Asessment and Plan: Antibiotics as above. On 11/07 she was transferred down and back to [facility] for evaluation of her biliary stent. It was found to be plugged with debris. The stent was cleared. She had no post-procedure complications. (3) Primary pancreatic cancer : Status: Chronic Asessment and Plan: Continue to f/u with oncology; radiation tx delayed d/t hospitalization. (4) Thrombocytopenia: Status: Chronic Asessment and Plan: Stable w/o bleeding. Likely chemotx related but may also be at least partially secondary to infectious process. (5) Anemia: Status: Chronic Asessment and Plan: Hgb stable. Discharge Plan Disposition Patient Disposition: Home Condition: Improving Discharge Details Reason For Visit: Abdominal Pain, Fever Admit Date/Time: 11/06/22 16:38 Admit Provider: Hair Lozada Attending Provider: Hair Lozada [facility] Hospital Course: This is a 61 yo female with h/o pancreatic cancer, just completed final course of chemo last week, scheduled to begin XRT later this week, s/p biliary stent -- here with episode of nausea this morning, followed by epigastric pain (she thinks she may have pulled a muscle). This followed by chills and temp of 100.1 at home, so came to ER for evaluation. In ER findings of note for absence of fever, normal white count, modest elevations in transaminases (AST>ALT) and alk phos, with normal TBili; and unremarkable CT save for (expected) pneumobilia from stent. Culture obtained and patient given dose of Rocephin. Oncology consulted and advised expanded empiric antibiotic coverage with Flagyl and Cipro. At time of hospitalists evaluation pateint stated she had no further nausea and abdominal pain had essentially resolved. Indeed, she states that she feels more or less her usual self at that time. See Diagnosis Contact oncology regarding rescheduling radiation treatments. PCP f/u in 1-2 weeks. Home Meds and New Rx's Prescriptions: New levofloxacin 750 mg tablet 750 mg PO DAILY Qty: 3 0RF Rx Instructions: First dose on , 11/09/22 metronidazole 375 mg capsule 375 mg PO TID Qty: 10 0RF Rx Instructions: First dose ton, 11/08/22. Continued loperamide 2 mg capsule 2 mg PO PRN PRN Patient Comments: TAKE TWO CAPSULES BY MOUTH EVERY 6 HOURS NEEDED ondansetron HCl 8 mg tablet 8 mg PO PRN PRN Patient Comments: TAKE ONE TABLET BY MOUTH EVERY 8 HOURS NEEDED FOR NAUSEA potassium chloride 10 mEq tablet extended release 20 meq PO BID Patient Comments: TAKE TWO TABLETS BY MOUTH TWICE A DAY prochlorperazine maleate [Compazine] 10 mg tablet 10 mg PO PRN PRN Patient Comments: Take 1 tablet by mouth every six hours as needed for dry heaves, nausea, vomiting. acetaminophen 500 mg tablet 1,000 mg PO PRN PRN Patient Comments: Take 2 tablet by mouth every six hours as needed for pain citalopram 20 mg tablet 20 mg PO DAILY Patient Comments: TAKE ONE TABLET BY MOUTH EVERY DAY magnesium oxide 400 mg (241.3 mg magnesium) tablet 400 mg PO DAILY Patient Comments: TAKE ONE TABLET BY MOUTH TWICE A DAY pantoprazole 40 mg tablet,delayed release (DR/EC) 40 mg PO DAILY Patient Comments: TAKE ONE TABLET BY MOUTH EVERY DAY nitroglycerin [Nitrostat] 0.4 mg tablet, sublingual 0.4 mg sublingual PRN PRN Patient Comments: Place 1 tablet under tongue as directed Take every 5 mins x3 as needed for chest pain. If no relief call 911. oxycodone 5 mg tablet 5 mg PO PRN PRN (Reason: Moderate Pain (Scale Score 5-6)) Patient Comments: TAKE ONE TABLET BY MOUTH EVERY 4 HOURS NEEDED FOR MODERATE PAIN Creon 24,000-76,000 -120,000 unit capsule,delayed release(DR/EC) 3 cap PO 5X/DAY Patient Comments: TAKE 3 CAPSULES BY MOUTH PER MEAL AND 2 CAPSULES BY MOUTH PER SNACK (12 CAPSULES PER DAY) Eliquis 5 mg tablet 5 mg PO BID Patient Comments: TAKE ONE TABLET BY MOUTH TWICE A DAY Discharge Instructions Stand Alone Forms: Nursing Discharge Form Referrals: Sid Rubio [Primary Care Provider] - 11/24/22 3:30 pm Activity:: Activity as Tolerated Equipment/Supplies:: No Equipment Needed Diet:: As Tolerated Discharge Orders Discharge Orders: Discharge Order (Routine); Ordered 11/08/22 Ordered By: Christopher Morales DS: Summary Time Spent with Patient providing and/or coordinating discharge services: Greater than 30 minutes Status at Discharge Functional status at discharge: independent ambulation Overall status at discharge: patient is progressing back to baseline Mental Status: mental status grossly normal Speech and Movement: speech and movement normal Mood: congruent mood Affect: normal affect Exam Narrative Exam Narrative: General: Pleasant and cooperative middle-aged female who does not look ill; lying in bed. Smiling/interactive. HEENT: Sclera clear/nonicteric. MMM Heart: RRR, no murmur Lungs: CTAB Abdomen: soft, mildly tender in epigastrium, nondistended Extremities: no edema BLEs Psych Mental Status: mental status grossly normal Speech and Movement: speech and movement normal Mood: congruent mood Affect: normal affect DS: Data Vitals/I&O Vitals and I&O: Vital Signs Temperature 36.4 C L 11/08/22 07:21 Temperature Source Tympanic 11/08/22 07:21 Pulse 78 11/08/22 07:21 Pulse Rhythm Regular 11/08/22 08:00 Pulse 102 H 11/04/22 20:30 Respiratory Rate 17 11/08/22 07:21 Respiratory Effort Normal, Non-Labored 11/08/22 08:00 Respiratory Depth Normal 11/08/22 08:00 Respiratory Pattern Normal 11/08/22 08:00 Blood Pressure 107/73 11/08/22 07:21 Pulse Oximetry 97 11/08/22 07:21 Oxygen Delivery Method Room Air 11/08/22 07:21 Oxygen Flow Rate 0 11/08/22 07:21 Pain Level 0 11/08/22 07:21 Comment Pt. denies pain at this time. 11/07/22 14:23 Intake & Output 11/07/22 11/08/22 11/08/22 23:59 11:59 23:59 Intake Total 120 / 1198.200 470 / 570 100 / 570 Output Total 500 / 1750 1100 / 1100 Balance -380 / -551.800 -630 / -530 100 / -530 Intake: IV 120 / 1198.200 100 / 100 Oral 370 / 470 100 / 470 Output: Urine 500 / 1250 900 / 900 Stool 200 / 200 Other: Urine Color Yellow Light [place] Urine Appearance Clear Cloudy Urine Odor Normal Comment Void x1 in the toilet. Stool Size Small Moderate Smear Stool Characteristics Liquid Soft Soft Brown Voiding Methods Toilet Toilet Data Completed and Pending Labs on day of discharge: Labs from last 24 hours 11/08/22 11/08/22 11/08/22 06:54 06:54 06:54 WBC 5.38 RBC 4.30 Hgb 10.7 L Hct 35.4 L MCV 82 MCH 24.9 L MCHC 30.2 L RDW 18.8 H Plt Count 122 L MPV 9.8 Immature Gran % 0.9 Neutrophils % 67.2 Lymphocytes % 15.6 Monocytes % 11.9 Eosinophils % 3.7 Basophils % 0.7 Nucleated RBC % 0.0 Absolute Neutrophils 3.61 Absolute Lymphocytes 0.84 L Absolute Monocytes 0.64 Absolute Eosinophils 0.20 Absolute Basophils 0.04 Sodium 144 Potassium 3.7 Chloride 109 H Carbon Dioxide 25.4 Anion Gap 9.6 BUN 10 Creatinine 0.7 Est GFR (CKD-EPI 2020) 98.95 Glucose 116 H Calcium 8.6 Transferrin C-Reactive Protein Procalcitonin 0.2 11/08/22 11/06/22 06:54 07:05 WBC RBC Hgb Hct MCV MCH MCHC RDW Plt Count MPV Immature Gran % Neutrophils % Lymphocytes % Monocytes % Eosinophils % Basophils % Nucleated RBC % Absolute Neutrophils Absolute Lymphocytes Absolute Monocytes Absolute Eosinophils Absolute Basophils Sodium Potassium Chloride Carbon Dioxide Anion Gap BUN Creatinine Est GFR (CKD-EPI 2020) Glucose Calcium Transferrin 204 C-Reactive Protein 2.86 H Procalcitonin Preliminary micro results at discharge 11/06/22 14:14 Anaerobic Culture - Preliminary Chest - Right Upper 11/06/22 14:14 Surgical Culture - Preliminary Chest - Right Upper 11/06/22 07:20 Blood Culture - Preliminary Blood NO GROWTH 48 HOURS 11/06/22 07:05 Blood Culture - Preliminary Blood NO GROWTH 48 HOURS 11/04/22 16:42 Blood Culture - Preliminary Blood Klebsiella pneumoniae PFSH All Active Problems Superior mesenteric vein thrombosis (Acute) Anticoagulant long-term use (Acute) Acute UTI (urinary tract infection) (Acute) History of difficult venous access (Acute) Discharge planning issues (Acute) DVT prophylaxis (Acute) Hypokalemia (Acute) Thrombocytopenia (Chronic) Central line-associated bloodstream infection (Acute) Ascending cholangitis (Acute) Gram-negative bacteremia (Acute) Abdominal pain (Acute) Hypomagnesemia (Acute) Primary pancreatic cancer (Chronic) Hypocalcemia (Acute) Elevated LFTs (Acute) Hypoalbuminemia due to protein-calorie malnutrition (Acute) Anemia (Chronic) Basic learning disability, reading (Acute) Immunosuppression due to drug therapy (Acute) 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) Port-A-Cath in place (Acute) Depression (Chronic) Multiple sclerosis (Chronic) Chronic GERD (Acute) Chemotherapy induced diarrhea (Acute) Primary pancreatic cancer (Acute) Encasement of the SMV and local lymphadenopathy stage II-currently unresectable Medical History History of biliary stent insertion Surgical History S/P cholecystectomy Open cholecystectomy S/P laparoscopy Diagnostic laparoscopy for staging of pancreatic cancer Social History Smoking/Tobacco Use Status: Never Smoking risk assessment performed?: Yes Alcohol Intake: former Drug use: Never Substance use type: does not use Housing: other Do you feel safe at home: Yes Do you feel safe in your relationship?: Yes Additional Social history: lives with mother in mobile home Time Spent with Patient Time Spent with Patient: 45-69 minutes Time was spent: preparing to see the patient(eg.review tests), obtaining and/or reviewing separately otained hiistory, referring, communicating with other health human services care specialist, indepentently interpreting results, counseling the patient and care coordination
--- NOTE | 2022-11-08 14:49 | PDOC.CMDIS ---
Date of service: 11/08/22 Time of Service: 14:49 LACE Index Scoring Tool Questions: Length of Stay (in days): 2 Was the patient admitted via the E.D.?: Yes Comorbidities: Metastatic Solid Tumor (Pancreatic cancer) E.D. Visits: 2 Answers: Total Score: 12 Risk of Readmission: High Risk Care Management Discharge Plan Reason for Hospitalization: Abdominal pain, fever Discharge Plan: Valeria is discharged home via private vehicle with family. Pt will follow up with community providers and her discharge plan of care as instructed. PCP follow up is recommended in 1-2 weeks and follow up with her Oncology as discussed. No new VNA services are indicated at this time. Patient/Family Education Needs: Review discharge instructions, limitations, medications and plan to follow up with community providers. Discuss ask me three and goals of self care.
== END 2022-11-08 13:53 | disposition home or self-care (01) | DRG 314 ==
LOC: ER 20:32 → MS 20:53
PROVIDERS: Family Medicine; Internal Medicine; Surgery; Admitting Provider General Practice; Emergency Provider Emergency Medicine; PCP Internal Medicine; Visit Provider General Practice
PROC: 0JPT0WZ Removal of Totally Implantable Vascular Access Device from Trunk Subcutaneous Tissue and Fascia, Open Approach (ICD-10-PCS; CPT 36590; principal; 2022-11-06 13:00)
DX: T80.211A Bloodstream infection due to central venous catheter, initial encounter (principal); A41.4 Sepsis due to anaerobes; C25.9 Malignant neoplasm of pancreas, unspecified; E46 Unspecified protein-calorie malnutrition; D84.821 Immunodeficiency due to drugs; K52.1 Toxic gastroenteritis and colitis; K83.09 Other cholangitis; N39.0 Urinary tract infection, site not specified; T85.590A Other mechanical complication of bile duct prosthesis, initial encounter; R74.01 Elevation of levels of liver transaminase levels; E83.42 Hypomagnesemia; E83.51 Hypocalcemia; D64.9 Anemia, unspecified; Z68.36 Body mass index [BMI] 36.0-36.9, adult; F32.A Depression, unspecified; G35 Multiple sclerosis; K21.9 Gastro-esophageal reflux disease without esophagitis; G62.0 Drug-induced polyneuropathy; T45.1X5A Adverse effect of antineoplastic and immunosuppressive drugs, initial encounter; F81.0 Specific reading disorder; D69.6 Thrombocytopenia, unspecified; E87.6 Hypokalemia; Z79.01 Long term (current) use of anticoagulants; Z66 Do not resuscitate
CPT/HCPCS: 36590; 36410; 36415; 43260; 76942; 80048; 80053; 80076; 83690; 84145; 85027; 87040; 87077; 93005; 96365; 96367; 96375; 99285; 71046; 74177; 81003; 81015; 82247; 82607; 82728; 82746; 83540; 83550; 83605; 83735; 84075; 84450; 84460; 84466; 84484; 85025; 86140; 87070; 87075; 87186; 87205; 93010; 99222; 99232; 99233; 99239; A0420; A0425; A0428; G0378; J0612; J0744; J1756; J2250; J3480; J3490

== ENCOUNTER 2022-11-17 08:10 | Outpatient (CLI) | payer MEDICAID, SELFPAY ==
[2022-11-17 08:17] LABS: Magnesium 1.9 mg/dL (1.8-2.4)
[2022-11-17 09:50] LABS: Abs Immature Grans 0.09 10^3/uL (0.0-0.06); Absolute Eosinophil Count 0.21 10^3/uL (0.0-0.7); Absolute Lymphocyte Count 1.27 10^3/uL (1.2-3.4); Absolute Monocyte Count 0.56 10^3/uL (0.1-0.8); Absolute Neutrophil Count 4.54 10^3/uL (1.2-6.7); Basophils % 1.5; Eosinophils % 3.1; HCT 39.1 % (36.0-46.0); HGB 11.7 g/dL (11.2-15.7); Immature Grans % 1.3; Lymphocytes % 18.8; MCH 24.8 pg (27.0-33.0); MCHC 29.9 % (32.0-36.0); MCV 83 fL (80-95); MPV 9.4 fL (8.0-11.0); Monocytes % 8.3; Platelet Count 251 10^3/uL (130-400); RBC 4.72 10^6/uL (3.93-5.22); RDW 18.9 % (11.7-14.6); RDW-SD 57.1 fL; WBC 6.77 10^3/uL (4.4-10.8)
[2022-11-17 10:00] LABS: ALT 15 U/L (14-59); AST 28 U/L (15-37); Albumin 3.1 g/dL (3.4-5.0); Alkaline Phosphatase 223 U/L (46-116); Anion Gap 9.3 mmol/L (3-11); BUN 17 mg/dL (7-18); Bilirubin, Total 0.4 mg/dL (0.2-1.0); CO2 25.7 mmol/L (21.0-32.0); CREATININE 0.8 mg/dL (0.55-1.02); Chloride 104 mmol/L (98-107); Glucose 81 mg/dL (74-106); Potassium 4.3 mmol/L (3.5-5.1); Sodium 139 mmol/L (136-145); Total Protein 7.4 g/dL (6.4-8.2)
[2022-11-21 08:17] LABS: CA 19-9 979 U/mL (<35)
== END 2022-11-17 08:11 | disposition home or self-care (01) ==
LOC: LBO 08:10
PROVIDERS: PCP Internal Medicine; Visit Provider Nurse Practitioner Family
DX: C25.0 Malignant neoplasm of head of pancreas (principal); K52.1 Toxic gastroenteritis and colitis; T45.1X5A Adverse effect of antineoplastic and immunosuppressive drugs, initial encounter
CPT/HCPCS: 36415; 80053; 83735; 85025; 86301

== ENCOUNTER 2023-02-27 11:24 | Emergency (ER) | payer MEDICAID, SELFPAY ==
[2023-02-27 11:36] VITALS: BP 120/75; PULSE 91; RESP 18; TEMP 36.7; O2SAT 99
--- NOTE | 2023-02-27 11:45 | DI.CT_ITS ---
Exam(s) CT ABDOMEN PELVIS W EXAM: CT ABDOMEN PELVIS W CLINICAL HISTORY: pancreas: restented 1 wk/ CA , now pain/vomiting. TECHNIQUE: Imaging Protocol: Axial computed tomography images with coronal and sagittal reformatted images were created and reviewed CONTRAST MATERIAL: Intravenous: Omnipaque 350 Contrast volume:100 ml Oral: yes / no COMPARISON: CT CT ABDOMEN PELVIS W from 11/04/2022 FINDINGS: ABDOMEN and PELVIS: Lung Bases: No acute findings. Liver: Hepatic steatosis with some improvement when compared to prior exam. No measurable mass. Gallbladder and biliary tract: Biliary air again noted. Stent in common bile duct. The new stent po sitioned within the old stent with further extension into the bile ducts. Pancreas: No change in appearance of pancreas with enlargement and low attenuation in the area of the pancreatic head and atrophy the tail and dilatation of the pancreatic duct. Stable dilatation of the portal veins with narrowing within the pancreatic mass. Spleen: Enlarged. Splenic vein is patent. Varices noted. Kidneys: Normal size, contour and axis. No radiodense stones. No obstructive uropathy. No suspicious masses seen. Adrenal glands: No masses seen. Vasculature: Abdominal aorta non-dilated. Soft tissues: Unremarkable. Bladder: No gross wall thickening. No calculi.No focal mass. Bowel: Mild inflammation at the duodenal sweep. No obstruction. No bowel wall thickening. Mild div erticulosis. Normal quantity of stool. Peritoneal cavity: No ascites. No focal collection or mesenteric inflammatory response. Bones: Unremarkable for age. Reproductive organs: Within normal limits. Lymph nodes: Unremarkable. IMPRESSION:: New biliary stent placed within previously existing stent. Biliary air again noted. N o change in appearance of mass in the head of the pancreas. Question mild inflammation of the duoden um adjacent to the pancreatic head. Findings called to Mary Scott, emergency department provider. RADIATION DOSE DELIVERED: Total DLP DATA REPOSITORY: All CT scans at this facility are submitted to the National Radiology Data Registry (NRDR) Dose Index Registry (DIR) with the [employer] (ACR). RADIATION OPTIMIZATION: All CT scans at this facility use at least one of these dose optimization te chniques: automated exposure control; mA and/or kV adjustment per patient size (includes targeted exa ms where dose is matched to clinical indication); or iterative reconstruction.
--- NOTE | 2023-02-27 11:45 | RT.EKG_ITS ---
APPROVED REPORT Exam: Resting ECG Reason for Exam: upper abd pain Patient Location: E HR:75 bpm ECG Measurements Heart Rate 75 AXIS GA 140 P 55 QRSd 108 QRS 120 QT 420 T 13 QTc 470 Conclusion Sinus rhythm...normal P axis, V-rate 60- 99 Right axis deviation...QRS axis ( 91,269) Low voltage, precordial leads...precordial leads <1.0mV Sinus rhythm with right axis deviation, when compared to 11/04/22 HR has decreased. WD
[2023-02-27 12:16] LABS: Abs Immature Grans 0.17 10^3/uL (0.0-0.06); Absolute Basophil Count 0.05 10^3/uL (0.0-0.2); Absolute Eosinophil Count 0.23 10^3/uL (0.0-0.7); Absolute Lymphocyte Count 0.99 10^3/uL (1.2-3.4); Absolute Neutrophil Count 6.77 10^3/uL (1.2-6.7); Basophils % 0.6; Eosinophils % 2.6; HCT 38.5 % (36.0-46.0); HGB 11.8 g/dL (11.2-15.7); Immature Grans % 1.9; Lymphocytes % 11.1; MCH 24.9 pg (27.0-33.0); MCHC 30.6 % (32.0-36.0); MCV 81 fL (80-95); MPV 8.7 fL (8.0-11.0); Monocytes % 7.9; Neutrophils % 75.9; Platelet Count 245 10^3/uL (130-400); RBC 4.74 10^6/uL (3.93-5.22); RDW 17.9 % (11.7-14.6); RDW-SD 53.4 fL; WBC 8.91 10^3/uL (4.4-10.8)
[2023-02-27] MEDS: Normal Saline 1,000 ML 1000 ML IV (12:19)
[2023-02-27] MEDS: ACETAMINOPHEN 1,000 MG/100 ML BTL 400 MG IVPB (12:19)
[2023-02-27 12:35] LABS: ALT 46 U/L (14-59); AST 25 U/L (15-37); Albumin 2.7 g/dL (3.4-5.0); Alkaline Phosphatase 584 U/L (46-116); Anion Gap 8.2 mmol/L (3-11); BUN 11 mg/dL (7-18); Bilirubin, Total 0.9 mg/dL (0.2-1.0); CO2 25.8 mmol/L (21.0-32.0); CREATININE 0.9 mg/dL (0.55-1.02); Calcium 9.1 mg/dL (8.5-10.1); Chloride 104 mmol/L (98-107); Estimated GFR 72.73 (mL/min/1.73m2); Glucose 132 mg/dL (74-106); Potassium 3.8 mmol/L (3.5-5.1); Sodium 138 mmol/L (136-145); Total Protein 7.5 g/dL (6.4-8.2)
[2023-02-27 12:42] LABS: Amylase < 13 U/L (25-115); Lipase < 10 U/L (16-77)
[2023-02-27] MEDS: Omnipaque 350 MG/ML 100 ML BTL IJ (12:57)
[2023-02-27] MEDS: Normal Saline - Diluent 50 ML VIAL IJ (13:07)
[2023-02-27 13:50] LABS: Bilirubin Negative (Negative); Blood Negative (Negative); Clarity Clear (Clear); Glucose Negative (Negative); Ketones Negative (Negative); Leukocyte Esterase Negative (Negative); Nitrite Negative (Negative); Specific Gravity 1.015 (1.005-1.025); Urobilinogen 0.2 mg/dL (Up to 0.2); pH 6.5 (5-8)
--- NOTE | 2023-03-01 08:10 | W.ED.GENAD ---
Discharge Plan Disposition Patient Disposition: Home Discharge Details Clinical Impression: Nausea & vomiting, Abdominal pain Primary Care Provider: Sid Rubio ED Provider: Mary Scott Home Meds and New Rx's Prescriptions: New metoclopramide HCl [Reglan] 10 mg tablet 10 mg PO Q6H PRNQty: 10 0RF Continued loperamide 2 mg capsule 2 mg PO PRN PRN Patient Comments: TAKE TWO CAPSULES BY MOUTH EVERY 6 HOURS NEEDED ondansetron HCl 8 mg tablet 8 mg PO PRN PRN Patient Comments: TAKE ONE TABLET BY MOUTH EVERY 8 HOURS NEEDED FOR NAUSEA potassium chloride 10 mEq tablet extended release 20 meq PO BID Patient Comments: TAKE TWO TABLETS BY MOUTH TWICE A DAY prochlorperazine maleate [Compazine] 10 mg tablet 10 mg PO PRN PRN Patient Comments: Take 1 tablet by mouth every six hours as needed for dry heaves, nausea, vomiting. acetaminophen 500 mg tablet 1,000 mg PO PRN PRN Patient Comments: Take 2 tablet by mouth every six hours as needed for pain citalopram 20 mg tablet 20 mg PO DAILY Patient Comments: TAKE ONE TABLET BY MOUTH EVERY DAY magnesium oxide 400 mg (241.3 mg magnesium) tablet 400 mg PO DAILY Patient Comments: TAKE ONE TABLET BY MOUTH TWICE A DAY pantoprazole 40 mg tablet,delayed release (DR/EC) 40 mg PO DAILY Patient Comments: TAKE ONE TABLET BY MOUTH EVERY DAY nitroglycerin [Nitrostat] 0.4 mg tablet, sublingual 0.4 mg sublingual PRN PRN Patient Comments: Place 1 tablet under tongue as directed Take every 5 mins x3 as needed for chest pain. If no relief call 911. oxycodone 5 mg tablet 5 mg PO PRN PRN (Reason: Moderate Pain (Scale Score 5-6)) Patient Comments: TAKE ONE TABLET BY MOUTH EVERY 4 HOURS NEEDED FOR MODERATE PAIN Creon 24,000-76,000 -120,000 unit capsule,delayed release(DR/EC) 3 cap PO 5X/DAY Patient Comments: TAKE 3 CAPSULES BY MOUTH PER MEAL AND 2 CAPSULES BY MOUTH PER SNACK (12 CAPSULES PER DAY) Eliquis 5 mg tablet 5 mg PO BID Patient Comments: TAKE ONE TABLET BY MOUTH TWICE A DAY clindamycin HCl 300 mg capsule 600 mg PO DIRECTED Patient Comments: TAKE 2 CAPSULES BY MOUTH 1 HOUR PRIOR TO PROCEDURE Discharge Instructions Instructions: Acute Nausea and Vomiting (ED), Abdominal Pain (ED) Additional Instructions: Take Reglan as needed for nausea and vomiting Recommendation to call primary care physician or oncology for reassessment in 1 to 2 days Do not take Reglan with Compazine if he still have this medication Keep yourself hydrated Take Tylenol as needed for discomfort, do not exceed 3 g daily Please return with fever, worsening pain, uncontrolled nausea or vomiting Recommend bland diet for the next several days Referrals: Sid Rubio [Primary Care Provider] - Collin Johnson MD [ CONSULTING PHYSICIAN] - 2 days Discharge Data Discharge Date/Time-TO BE ENTERED AT DEPARTURE: 02/27/23 14:32 Medical Decision Making This 62-year-old female presenting with abdominal pain, nausea, vomiting with recent pancreatic stent placed and history of pancreatic cancer presents for assessment, given comorbidities and presentation, CT abdomen pelvis was ordered for further differentiation of pathology, CT actually is reassuring, there is some possible duodenitis Lipase and LFTs are within normal limits, no significant leukocytosis, patient overall feels well No rebound or guarding, mild right upper quadrant tenderness, afebrile, nontoxic, pale, no active vomiting in the emergency department, tolerating p.o., lungs clear to auscultation, no hypoxia, vitals reviewed and stable No other acute abnormalities noted, patient is resting comfortably in room, she will need close outpatient follow-up, she is encouraged to call her oncologist or PCP for reassessment in 24 to 48 hours She has Compazine at home which she will take as needed Return precautions reviewed and patient expressed understanding HPI General Date/Time Provider Initiated Documentation: 02/27/23 11:25. HPI Narrative: This 62-year-old female with history of pancreatic cancer, stent placed last week presents with abdominal pain and vomiting that started last evening. Denies any chest pain or shortness of breath. States she just feels tired and experiencing malaise. Denies any blood in vomitus. Said 1 episode of vomiting. Reports some right upper quadrant pain, she is experienced this pain previously per patient. Denies known exacerbating or alleviating factors. Last chemotherapy was in November per patient. Related Data Home Medications Medication Instructions Recorded Confirmed acetaminophen 500 mg tablet 1,000 mg PO PRN PRN 09/29/22 02/27/23 apixaban 5 mg tablet (Eliquis) 5 mg PO BID 09/29/22 02/27/23 citalopram 20 mg tablet 20 mg PO DAILY 09/29/22 02/27/23 fzyrkq-zhtedodo-irueqbe 3 cap PO 5X/DAY 09/29/22 02/27/23 24,000-76,000-120,000 unit capsule,delayed rel (Creon) loperamide 2 mg capsule 2 mg PO PRN PRN 09/29/22 02/27/23 magnesium oxide 400 mg (241.3 mg 400 mg PO DAILY 09/29/22 02/27/23 magnesium) tablet nitroglycerin 0.4 mg sublingual 0.4 mg sublingual PRN PRN 09/29/22 02/27/23 tablet (Nitrostat) ondansetron HCl 8 mg tablet 8 mg PO PRN PRN 09/29/22 02/27/23 oxycodone 5 mg tablet 5 mg PO PRN PRN Moderate Pain 09/29/22 02/27/23 (Scale Score 5-6) pantoprazole 40 mg tablet,delayed 40 mg PO DAILY 09/29/22 02/27/23 release potassium chloride 10 mEq 20 meq PO BID 09/29/22 02/27/23 tablet,extended release prochlorperazine maleate 10 mg 10 mg PO PRN PRN 09/29/22 02/27/23 tablet (Compazine) clindamycin HCl 300 mg capsule 600 mg PO DIRECTED 02/27/23 02/27/23 metoclopramide HCl 10 mg tablet 10 mg PO Q6H PRN #10 tabs 02/27/23 (Reglan) Previous Rx's Medication Instructions Recorded metoclopramide HCl 10 mg tablet 10 mg PO Q6H PRN #10 tabs 02/27/23 (Reglan) Allergies Allergy/AdvReac Type Severity Reaction Status Date / Time ibuprofen AdvReac Nausea Unverified 02/27/23 11:38 Penicillins AdvReac Hives Unverified 02/27/23 11:38 Sulfa (Sulfonamide AdvReac Hives Unverified 02/27/23 11:38 Antibiotics) topiramate [From Topamax] AdvReac Dizziness/L Unverified 02/27/23 11:38 ighthead General Stated Complaint: Abd Prob ILEANA: 3 PFSH All Active Problems (Updated 02/27/23 @ 14:19 by MAURICE Castro) Abdominal pain (Acute) Nausea & vomiting (Acute) Superior mesenteric vein thrombosis (Acute) Anticoagulant long-term use (Acute) Thrombocytopenia (Chronic) Ascending cholangitis (Acute) Gram-negative bacteremia (Acute) Primary pancreatic cancer (Chronic) Elevated LFTs (Acute) Hypoalbuminemia due to protein-calorie malnutrition (Acute) Anemia (Chronic) Basic learning disability, reading (Acute) Immunosuppression due to drug therapy (Acute) 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) Port-A-Cath in place (Acute) Depression (Chronic) Multiple sclerosis (Chronic) Chronic GERD (Acute) Medical History History of biliary stent insertion Surgical History S/P cholecystectomy Open cholecystectomy S/P laparoscopy Diagnostic laparoscopy for staging of pancreatic cancer Social History Smoking/Tobacco Use Status: Never Smoking risk assessment performed?: Yes Alcohol Intake: former Drug use: Never Substance use type: does not use Housing: other Do you feel safe at home: Yes Do you feel safe in your relationship?: Yes Additional Social history: lives with mother in mobile home Course Vital Signs Vital signs: Vital Signs Temperature 36.7 C 02/27/23 11:36 Pulse 91 H 02/27/23 11:36 Respiratory Rate 18 02/27/23 11:36 Blood Pressure 120/75 02/27/23 11:36 Pulse Oximetry 99 02/27/23 11:36 Temperature 36.7 C 02/27/23 11:36 Temperature Source Skin 02/27/23 11:36 Pulse 91 H 02/27/23 11:36 Respiratory Rate 18 02/27/23 11:36 Respiratory Effort Normal, Non-Labored 02/27/23 11:37 Blood Pressure 120/75 02/27/23 11:36 Blood Pressure Position Sitting 02/27/23 11:36 Pulse Oximetry 99 02/27/23 11:36 Oxygen Delivery Method Room Air 02/27/23 11:36 Oxygen Flow Rate 0 02/27/23 11:36 Pain Level 5 02/27/23 11:36 Lab/Test Results Lab/Test Results: Laboratory Tests Range/Units 02/27/23 02/27/23 12:11 13:38 WBC (4.4-10.8) 10^3/uL 8.91 RBC (3.93-5.22) 10^6/uL 4.74 Hgb (11.2-15.7) g/dL 11.8 Hct (36.0-46.0) % 38.5 MCV (80-95) fL 81 MCH (27.0-33.0) pg 24.9 L MCHC (32.0-36.0) % 30.6 L RDW (11.7-14.6) % 17.9 H Plt Count (130-400) 10^3/uL 245 MPV (8.0-11.0) fL 8.7 Immature Gran % 1.9 Neutrophils % 75.9 Lymphocytes % 11.1 Monocytes % 7.9 Eosinophils % 2.6 Basophils % 0.6 Nucleated RBC % (0.0-0.3) % 0.0 Absolute Neutrophils (1.2-6.7) 10^3/uL 6.77 H Absolute Lymphocytes (1.2-3.4) 10^3/uL 0.99 L Absolute Monocytes (0.1-0.8) 10^3/uL 0.70 Absolute Eosinophils (0.0-0.7) 10^3/uL 0.23 Absolute Basophils (0.0-0.2) 10^3/uL 0.05 Sodium (136-145) mmol/L 138 Potassium (3.5-5.1) mmol/L 3.8 Chloride (98-107) mmol/L 104 Carbon Dioxide (21.0-32.0) mmol/L 25.8 Anion Gap (3-11) mmol/L 8.2 BUN (7-18) mg/dL 11 Creatinine (0.55-1.02) mg/dL 0.9 Est GFR (CKD-EPI 2020) (mL/min/1.73m2) 72.73 Glucose (74-106) mg/dL 132 H Calcium (8.5-10.1) mg/dL 9.1 Magnesium (1.8-2.4) mg/dL 2.0 Total Bilirubin (0.2-1.0) mg/dL 0.9 AST (15-37) U/L 25 ALT (14-59) U/L 46 Alkaline Phosphatase (46-116) U/L 584 H Total Protein (6.4-8.2) g/dL 7.5 Albumin (3.4-5.0) g/dL 2.7 L Amylase (25-115) U/L < 13 L Lipase (16-77) U/L < 10 L Urine Color (Yellow) Yellow Urine Clarity (Clear) Clear Urine pH (5-8) 6.5 Ur Specific [place] (1.005-1.025) 1.015 Urine Protein (Negative) mg/dL Negative Urine Ketones (Negative) mg/dL Negative Urine Blood (Negative) Negative Urine Nitrite (Negative) Negative Urine Bilirubin (Negative) Negative Urine Urobilinogen (Up to 0.2) mg/dL 0.2 Ur Leukocyte Esterase (Negative) Negative Urine Glucose (Negative) mg/dL Negative
== END 2023-02-27 14:32 | disposition home or self-care (01) ==
PROVIDERS: Emergency Provider Physician Assistant; PCP Internal Medicine
DX: R11.2 Nausea with vomiting, unspecified; Z79.01 Long term (current) use of anticoagulants; Z79.899 Other long term (current) drug therapy; R10.11 Right upper quadrant pain; G35 Multiple sclerosis
CPT/HCPCS: 80053; 83690; 93005; 96365; 99285; 74177; 81003; 82150; 83735; 85025; 93010; J0131; J3490

== ENCOUNTER → 2023-03-06 02:18 | Outpatient (CLI) | payer MEDICAID, SELFPAY ==
[2023-03-06] MEDS: Normal Saline Flush 10 ML SYR IVP (10:15)
[2023-03-06] MEDS: Normal Saline - Diluent 50 ML VIAL IJ (10:16)
[2023-03-06] MEDS: Omnipaque 350 MG/ML 100 ML BTL IJ (10:16)
--- NOTE | 2023-03-06 10:29 | DI.CT_ITS ---
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 COMPARISON: CT RT CHEST(Adult) from 10/04/2022 CT RECIST 1.1 from 10/04/2022 FINDINGS: The examination is limited due to patient motion artifact. Tracheobronchial tree: Patent where visualized. Pulmonary parenchyma: No consolidation or dominant measurable mass. No architectural distortion. Ther e are calcified granuloma present. There is a stable 5 mm noncalcified pulmonary nodule in the media l aspect of the right lower lobe. No new pulmonary nodules are seen. Mediastinum and Arcelia: No dominant adenopathy or fluid collection. The esophagus is unremarkable. Thyroid gland: Unremarkable. Pleura: No effusion or pneumothorax. Heart: The heart is not dilated. Coronary artery calcification is present. No pericardial effusion. Aorta: Thoracic aorta non-dilated. Pulmonary arteries: Pulmonary arteries are not adequately opacified for evaluation of peripheral pulm onary emboli. No large central pulmonary embolus is seen. Upper abdomen: There is a biliary stent in place with resultant pneumobilia. Persistent pancreatic head mass with pancreatic tail and body atrophy and pancreatic ductal dilatation. There is again see n occlusion of the superior mesenteric vein. Lymph nodes: Stable appearance of the previously noted left supraclavicular and left axillary lymph n odes. Bones: Within normal limits for the patient's age. No aggressive osseous lesions are identified. Soft tissues: Unremarkable. IMPRESSION: 1. Stable right lower lobe pulmonary nodule. No new pulmonary nodules. 2. Stable previously mentioned left supraclavicular and left axillary lymph nodes. No new or suspici ous adenopathy. RADIATION DOSE DELIVERED: Total DLP DATA REPOSITORY: All CT scans at this facility are submitted to the National Radiology Data Registry (NRDR) Dose Index Registry (DIR) with the [employer] (ACR). RADIATION OPTIMIZATION: All CT scans at this facility use at least one of these dose optimization te chniques: automated exposure control; mA and/or kV adjustment per patient size (includes targeted exa ms where dose is matched to clinical indication); or iterative reconstruction.
== END ==
PROVIDERS: PCP Internal Medicine; Visit Provider Nurse Practitioner Family
DX: R91.1 Solitary pulmonary nodule (principal); C25.0 Malignant neoplasm of head of pancreas; R59.0 Localized enlarged lymph nodes
CPT/HCPCS: 71260; J3490

== ENCOUNTER 2023-04-27 13:00 | Outpatient (CLI) | payer MEDICAID, SELFPAY ==
[2023-04-27 12:55] LABS: Abs Immature Grans 0.05 10^3/uL (0.0-0.06); Absolute Basophil Count 0.06 10^3/uL (0.0-0.2); Absolute Eosinophil Count 0.23 10^3/uL (0.0-0.7); Absolute Lymphocyte Count 1.28 10^3/uL (1.2-3.4); Absolute Monocyte Count 0.61 10^3/uL (0.1-0.8); Absolute Neutrophil Count 5.35 10^3/uL (1.2-6.7); Basophils % 0.8; HGB 11.6 g/dL (11.2-15.7); Immature Grans % 0.7; Lymphocytes % 16.9; MCH 23.8 pg (27.0-33.0); MCHC 29.7 % (32.0-36.0); MCV 80 fL (80-95); MPV 8.8 fL (8.0-11.0); Neutrophils % 70.6; Platelet Count 209 10^3/uL (130-400); RBC 4.87 10^6/uL (3.93-5.22); RDW 17.7 % (11.7-14.6); RDW-SD 51.7 fL; WBC 7.58 10^3/uL (4.4-10.8)
[2023-04-27 13:13] LABS: ALT 22 U/L (14-59); AST 36 U/L (15-37); Albumin 2.9 g/dL (3.4-5.0); Alkaline Phosphatase 255 U/L (46-116); Anion Gap 7.5 mmol/L (3-11); BUN 10 mg/dL (7-18); Bilirubin, Total 0.5 mg/dL (0.2-1.0); CO2 28.5 mmol/L (21.0-32.0); Chloride 104 mmol/L (98-107); Estimated GFR 64.09 (mL/min/1.73m2); Glucose 154 mg/dL (74-106); Potassium 3.8 mmol/L (3.5-5.1); Sodium 140 mmol/L (136-145); Total Protein 7.3 g/dL (6.4-8.2)
[2023-04-30 12:00] LABS: CA 19-9 2200 U/mL (<35)
== END 2023-04-27 13:01 | disposition home or self-care (01) ==
LOC: LBO 13:00
PROVIDERS: PCP Internal Medicine; Visit Provider Nurse Practitioner Family
DX: C25.0 Malignant neoplasm of head of pancreas (principal)
CPT/HCPCS: 36415; 80053; 85025; 86301

== ENCOUNTER 2023-05-03 09:00 | Day surgery (SDC) | payer MEDICAID, SELFPAY ==
--- NOTE | 2023-05-02 21:54 | W.PREOPHP ---
Assessment and Plan Assessment and plan (1) Encounter for infusaport central venous catheter insertion: Status: Acute Assessment and plan: We reviewed the plan for insertion of implanted and tunnelled central venous catheter today. We talked about the risks and the benefits of the procedure, especially in light of the redo nature of this case. I think she understands the risks and she is able to provide informed consent. History of Present Illness History of Present Illness Chief Complaint: Pancreatic cancer Narrative: Mercedes is 62 years old. She has a history of pancreatic cancer. She had been undergoing chemotherapy by way of a right chest wall Mediport. Unfortunately, she developed a line related bloodstream infection, and had to have the port removed. Since then, she has been feeling pretty well. She has restarted her chemotherapy by way of some peripheral IVs, and now needs implantation of a new Mediport for more durable central venous access. 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) Port-A-Cath in place (Acute) Depression (Chronic) Multiple sclerosis (Chronic) Chronic GERD (Acute) Medical History History of difficult venous access History of biliary stent insertion Surgical History S/P cholecystectomy Open cholecystectomy S/P laparoscopy Diagnostic laparoscopy for staging of pancreatic cancer Social History Smoking/Tobacco Use Status: Never Smoking risk assessment performed?: Yes Alcohol Intake: former Drug use: Never Substance use type: does not use Housing: house Do you feel safe at home: Yes Do you feel safe in your relationship?: Yes Additional Social history: lives with mother in mobile home Meds Allergies and Home Medications Allergies Allergy/AdvReac Type Severity Reaction Status Date / Time bupropion [From Wellbutrin] AdvReac Verified 05/03/23 10:23 codeine AdvReac Verified 05/03/23 10:23 ibuprofen AdvReac Nausea Verified 05/03/23 10:23 Penicillins AdvReac Hives Verified 05/03/23 10:23 Sulfa (Sulfonamide AdvReac Hives Verified 05/03/23 10:23 Antibiotics) topiramate [From Topamax] AdvReac Dizziness/L Verified 05/03/23 10:23 ighthead Home Medications Medication Instructions Recorded Confirmed Type acetaminophen 500 mg tablet 1,000 mg PO PRN PRN 09/29/22 05/03/23 History apixaban 5 mg tablet (Eliquis) 5 mg PO BID 09/29/22 05/01/23 History citalopram 20 mg tablet 20 mg PO DAILY 09/29/22 05/03/23 History [id number]-[id number] 3 cap PO 5X/DAY 09/29/22 05/03/23 History 24,000-76,000-120,000 unit capsule,delayed rel (Creon) loperamide 2 mg capsule 2 mg PO PRN PRN 09/29/22 05/03/23 History magnesium oxide 400 mg (241.3 mg 400 mg PO DAILY 09/29/22 05/03/23 History magnesium) tablet nitroglycerin 0.4 mg sublingual 0.4 mg sublingual PRN PRN 09/29/22 05/03/23 History tablet (Nitrostat) ondansetron HCl 8 mg tablet 8 mg PO PRN PRN 09/29/22 05/03/23 History oxycodone 5 mg tablet 5 mg PO PRN PRN Moderate Pain 09/29/22 05/03/23 History (Scale Score 5-6) pantoprazole 40 mg tablet,delayed 40 mg PO DAILY 09/29/22 05/03/23 History release potassium chloride 10 mEq 20 meq PO BID 09/29/22 05/03/23 History tablet,extended release prochlorperazine maleate 10 mg 10 mg PO PRN PRN 09/29/22 05/03/23 History tablet (Compazine) metoclopramide HCl 10 mg tablet 10 mg PO Q6H PRN #10 tabs 02/27/23 05/03/23 Rx (Reglan) fentanyl 12 mcg/hr transdermal 1 patch transdermal Q72H 05/01/23 05/03/23 History patch Exam Const General: cooperative, healthy appearing and not in acute distress Neck Neck: normal visual inspection, no lymphadenopathy and supple Thyroid: thyroid normal Chest Other: Healed right chest wall Mediport explantation site. No erythema or fluctuance. Resp Effort & Inspection: normal respiratory effort Auscultation: clear to auscultation bilaterally Cardio Jugular venous pressure: no JVD Rate: regular rate Rhythm: regular rhythm Heart Sounds: S1 normal and S2 normal GI Inspection: normal to inspection Palpation: soft, no guarding, no hernias and nontender Percussion: normal to percussion Auscultation: normal bowel sounds Neuro General: patient alert, patient awake and patient oriented x3 Psych Appearance: grossly normal
--- NOTE | 2023-05-02 21:58 | W.PM.DSUDISC ---
Date of service: 05/03/23 Time of Service: 11:11 Discharge Plan Disposition Patient Disposition: Home Condition: Good Discharge Details Reason For Visit: insertion of port a cath Attending Provider: Jose Guadalupe Ahn Primary Care Provider: Sid Rubio Meds and New Rx's Prescriptions: Continued loperamide 2 mg capsule 2 mg PO PRN PRN Patient Comments: TAKE TWO CAPSULES BY MOUTH EVERY 6 HOURS NEEDED ondansetron HCl 8 mg tablet 8 mg PO PRN PRN Patient Comments: TAKE ONE TABLET BY MOUTH EVERY 8 HOURS NEEDED FOR NAUSEA potassium chloride 10 mEq tablet extended release 20 meq PO BID Patient Comments: TAKE TWO TABLETS BY MOUTH TWICE A DAY prochlorperazine maleate [Compazine] 10 mg tablet 10 mg PO PRN PRN Patient Comments: Take 1 tablet by mouth every six hours as needed for dry heaves, nausea, vomiting. acetaminophen 500 mg tablet 1,000 mg PO PRN PRN Patient Comments: Take 2 tablet by mouth every six hours as needed for pain citalopram 20 mg tablet 20 mg PO DAILY Patient Comments: TAKE ONE TABLET BY MOUTH EVERY DAY magnesium oxide 400 mg (241.3 mg magnesium) tablet 400 mg PO DAILY Patient Comments: TAKE ONE TABLET BY MOUTH TWICE A DAY pantoprazole 40 mg tablet,delayed release (DR/EC) 40 mg PO DAILY Patient Comments: TAKE ONE TABLET BY MOUTH EVERY DAY nitroglycerin [Nitrostat] 0.4 mg tablet, sublingual 0.4 mg sublingual PRN PRN Patient Comments: Place 1 tablet under tongue as directed Take every 5 mins x3 as needed for chest pain. If no relief call 911. oxycodone 5 mg tablet 5 mg PO PRN PRN (Reason: Moderate Pain (Scale Score 5-6)) Patient Comments: TAKE ONE TABLET BY MOUTH EVERY 4 HOURS NEEDED FOR MODERATE PAIN Creon 24,000-76,000 -120,000 unit capsule,delayed release(DR/EC) 3 cap PO 5X/DAY Patient Comments: TAKE 3 CAPSULES BY MOUTH PER MEAL AND 2 CAPSULES BY MOUTH PER SNACK (12 CAPSULES PER DAY) metoclopramide HCl [Reglan] 10 mg tablet 10 mg PO Q6H PRNQty: 10 0RF fentanyl 12 mcg/hr patch 72 hour 1 patch transdermal Q72H Patient Comments: APPLY 1 PATCH TO CLEAN, DRY SKIN FOR 72 HOURS THEN REMOVE, DISPOSE OF PROPERLY AND APPLY A NEW PATCH ON A DIFFERENT, CLEAN DRY SKIN SITE Held Eliquis 5 mg tablet 5 mg PO BID Hold Instructions: Resume on 05/04/23. Patient Comments: TAKE ONE TABLET BY MOUTH TWICE A DAY Discontinued clindamycin HCl 300 mg capsule 600 mg PO DIRECTED Patient Comments: TAKE 2 CAPSULES BY MOUTH 1 HOUR PRIOR TO PROCEDURE Discharge Instructions Additional Instructions: Valeria, we were able to place the port on your left shoulder like we talked about today. Everything went very smoothly. Expect to have some bruising around the incision sites over the next few days. It might also be quite sore. Hopefully, however, you will make a quick recovery. The incision sites can be washed with warm soapy water as soon as tomorrow. And you are welcome to access the port as soon as you need it. If you have any questions at all, please do not hesitate to call the office at [phone]. 1. Hold eliquis until tomorrow, then resume at your usual dose 2. Okay to use heating pads or ice packs as needed to help with pain. 3. Okay to use tylenol and ibuprofen over the counter as needed. 4. Call the office (or go directly to the emergency room after hours) if you notice any of the following: Develop chills (warm to touch), or if you have a thermometer and your temperature is above 101 Difficulty breathing or difficultly swallowing Persistent vomiting Any bleeding ? exceeding one tablespoon 5. Call your physician if the site where your intravenous was started becomes red, swollen, painful, and warm to touch. Stand Alone Forms: Anesthesia Discharge InstMike Day (DSU) Activity:: Activity as Tolerated Remove Dressings/Wound Care:: 24 hours Shower/Bathe:: 24 hours Diet:: As Tolerated Discharge Orders Discharge Orders: Discharge Order (Routine); Ordered 05/02/23 Ordered By: Jose Guadalupe Ahn DS: Diagnosis Discharge Diagnosis (1) Encounter for infusaport central venous catheter insertion: Status: Acute Asessment and Plan: Insertion of new left subclavian Mediport catheter. Okay to use in the next 48 hours. No specific follow-up needed.
[2023-05-03 10:24] VITALS: BP 122/81; PULSE 100; RESP 20; TEMP 36.6; O2SAT 100
--- NOTE | 2023-05-03 10:47 | ANES.PREOP_ITS ---
General Info Date of Service Date Performed: 05/03/23 Height: 5 ft Weight: 76.7 kg Body Mass Index (BMI): 33.0 Surgical Procedure: Operation Date: 05/03/23 11:25 Proposed Procedure Side Surgeon p Medi Port Placement Left Jose Guadalupe Ahn MD Meds Allergies and Home Medications Allergies Allergy/AdvReac Type Severity Reaction Status Date / Time bupropion [From Wellbutrin] AdvReac Verified 05/03/23 10:23 codeine AdvReac Verified 05/03/23 10:23 ibuprofen AdvReac Nausea Verified 05/03/23 10:23 Penicillins AdvReac Hives Verified 05/03/23 10:23 Sulfa (Sulfonamide AdvReac Hives Verified 05/03/23 10:23 Antibiotics) topiramate [From Topamax] AdvReac Dizziness/L Verified 05/03/23 10:23 ighthead Home Medication Medication Instructions Recorded acetaminophen 500 mg tablet 1,000 mg PO PRN PRN 09/29/22 apixaban 5 mg tablet (Eliquis) 5 mg PO BID 09/29/22 citalopram 20 mg tablet 20 mg PO DAILY 09/29/22 [id number]-[id number]-vrymjml 3 cap PO 5X/DAY 09/29/22 24,000-76,000-120,000 unit capsule,delayed rel (Creon) loperamide 2 mg capsule 2 mg PO PRN PRN 09/29/22 magnesium oxide 400 mg (241.3 mg 400 mg PO DAILY 09/29/22 magnesium) tablet nitroglycerin 0.4 mg sublingual 0.4 mg sublingual PRN PRN 09/29/22 tablet (Nitrostat) ondansetron HCl 8 mg tablet 8 mg PO PRN PRN 09/29/22 oxycodone 5 mg tablet 5 mg PO PRN PRN Moderate Pain 09/29/22 (Scale Score 5-6) pantoprazole 40 mg tablet,delayed 40 mg PO DAILY 09/29/22 release potassium chloride 10 mEq 20 meq PO BID 09/29/22 tablet,extended release prochlorperazine maleate 10 mg 10 mg PO PRN PRN 09/29/22 tablet (Compazine) metoclopramide HCl 10 mg tablet 10 mg PO Q6H PRN #10 tabs 02/27/23 (Reglan) fentanyl 12 mcg/hr transdermal 1 patch transdermal Q72H 05/01/23 patch Current Visit Medications: Current Medications Generic Name Dose Route Start Last Admin Trade Name Freq PRN Reason Stop Dose Admin Acetaminophen 1,000 mg 05/03/23 06:00 Acetaminophen 500 Mg Tab PO 05/03/23 23:59 PREOP [facility] Gabapentin 600 mg 05/03/23 06:00 Gabapentin 300 Mg Cap PO 05/03/23 23:59 PREOP [facility] Ringer's Solution 1,000 mls @ 80 mls/hr 05/03/23 06:00 IV 05/03/23 23:59 INFUSION [facility] Clindamycin Phosphate/Dextrose 600 mg in 50 mls @ 100 mls/hr 05/03/23 06:00 Cleocin In D5w IVPB 05/03/23 16:00 PREOP [facility] IV Miscellaneous Supplies 1 each 05/03/23 06:00 Iv Access IV 05/03/23 23:59 DIRECTED [facility] Morphine Sulfate 2 mg 05/02/23 22:00 Morphine 4 Mg/Ml Syr IVP 06/01/23 21:59 Q1H PRN PRN Sodium Chloride 0 ml 05/03/23 06:00 Normal Saline Flush 10 Ml Syr IV 05/03/23 23:59 PRN PRN Sodium Chloride 0 ml 05/03/23 06:00 Normal Saline 10 Ml Vial IJ 05/03/23 23:59 DIRECTED PRN Sterile Water 0 ml 05/03/23 06:00 Water,Injection,Sterile 10 Ml Vial IJ 05/03/23 23:59 DIRECTED PRN PFSH Active Problems Active Problems: Problem Status Onset Code Encounter for infusaport central venous catheter insertion Z45.2 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 Anticoagulant long-term use Z79.01 Thrombocytopenia D69.6 Ascending cholangitis K83.09 Gram-negative bacteremia R78.81 Primary pancreatic cancer C25.9 Elevated LFTs R79.89 Hypoalbuminemia due to protein-calorie malnutrition E88.09, E46 Anemia D64.9 Basic learning disability, 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 Immunosuppression due to drug therapy D84.821, Z79.899 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, T45.1X5A Port-A-Cath in place Z95.828 Depression F32.A Multiple sclerosis G35 Chronic GERD K21.9 Medical History Medical History History of biliary stent insertion Surgical History Surgical History S/P cholecystectomy Open cholecystectomy S/P laparoscopy Diagnostic laparoscopy for staging of pancreatic cancer Tobacco Smoking/Tobacco Use Status: Never Alcohol Alcohol Intake: former Substance Use Substance use: Never Substance use type: does not use Vital Signs and Lab Results Vital Signs Most Recent Vital Signs in EMR: Most Recent Vital Signs Temp Pulse Resp BP Pulse Ox 36.6 C 100 H 20 122/81 100 05/03/23 10:24 05/03/23 10:24 05/03/23 10:24 05/03/23 10:24 05/03/23 10:24 Lab Results Blood Type / Crossmatch: No Data to Display Complete Blood Count: White Blood Count 7.58 10^3/uL (4.4-10.8) 04/27/23 12:48 Red Blood Count 4.87 10^6/uL (3.93-5.22) 04/27/23 12:48 Hemoglobin 11.6 g/dL (11.2-15.7) 04/27/23 12:48 Hematocrit 39.0 % (36.0-46.0) 04/27/23 12:48 Platelet Count 209 10^3/uL (130-400) 04/27/23 12:48 Complete Metabolic Panel: Sodium 140 mmol/L (136-145) 04/27/23 12:48 Potassium 3.8 mmol/L (3.5-5.1) 04/27/23 12:48 Chloride 104 mmol/L (98-107) 04/27/23 12:48 Carbon Dioxide 28.5 mmol/L (21.0-32.0) 04/27/23 12:48 BUN 10 mg/dL (7-18) 04/27/23 12:48 Creatinine 1.0 mg/dL (0.55-1.02) 04/27/23 12:48 Est GFR (CKD-EPI 2020) 64.09 (mL/min/1.73m2) 04/27/23 12:48 Calcium 9.0 mg/dL (8.5-10.1) 04/27/23 12:48 Albumin 2.9 g/dL (3.4-5.0) L 04/27/23 12:48 Glucose 154 mg/dL (74-106) H 04/27/23 12:48 Liver Function Panel: Alanine Aminotransferase (ALT/SGPT) 22 U/L (14-59) 04/27/23 12: 48 Aspartate Amino Transf (AST/SGOT) 36 U/L (15-37) 04/27/23 12:48 Coagulation Panel: No Data to Display Cardiac Panel: No Data to Display Arterial Blood Gas: No Data to Display Venous Blood Gas: No Data to Display Pancreas Panel: No Data to Display Thyroid Panel: No Data to Display Infectious Disease: No Data to Display Blood Cultures: No Data to Display Toxicology Panel: No Data to Display Imaging and Studies Imaging and Studies Study information below may be from another EMR and interpreted by another provider. Please see original notes in EMR for more complete details. EKG Summary: DATE/TIME OF SERVICE: 11/04/22 1627 : 1960ERFORMING LOCATION: [place] APPROVED REPORT Exam: Resting ECG Reason for Exam: Tachycardia Patient Location: E HR:94 bpm ECG Measurements Heart Rate 94 AXIS WY 129 P 0 QRSd 110 QRS 269 QT 372 T45 QTc 465 Conclusion Sinus rhythm...normal P axis, V-rate 60- 99 Left anterior fascicular block...axis(240,-40), init forces inf Low voltage, extremity and precordial leads...extremity<0.5mV, precordial<1.0mV Normal sinus rhythm at a rate of 94. Low voltage. Poor R wave progression. No acute ST segment abnormalities. Voltage appears slower compared to prior. Prior dated last week. Stress Test Summary: 02/01/2022: Low normal EF 50-55%, No ischemia. Date of Exam: 09/04/14Sex: F : 1960ge: 53 Exam(s) [id number] NM:MPI Resting & Stress GRP *[facility]* *[facility]* [address] [place] [address] Myocardial Perfusion Imaging - SPECT Regadenoson Date of study: 09/04/2014 *PATIENT PRESENTATION* Height: 157.5cm (62in ) Blood Pressure: Weight: 100.9kg (222lb ) BSA: 2.16m^2 Ordering physician: Dakota Barragan MD Impressions: Technically problematic study due mainly to intense subdiaphragmatic uptake of tracer, resulting in poor myocardial definition. There is no evidence of ischemia today. The measured LVEF on this study (only 35%) is very likely to spuriously low. Summary: Myocardial perfusion imaging: There is a moderate sized, mildly intense, fixed defect involving the inferior wall(s). . Cardiac Catheterization Summary: 10/03/2014: Normal Cath Anesthesia Assessment and Plan Anesthesia History Personal History: PONV Family History: No Family History of Anesthesia Complications Exercise Tolerance Exercise Tolerance: Metabolic Equivalents>4 Pertinent Negatives Pertinent Negatives: No Major Cardiovascular Symptoms or Complaints and No Major Pulmonary Symptoms or Complaints Cardiac & Pulmonary Exam Cardiac Exam: Normal S1/S2 Heart Sounds Pulmonary Exam: Clear Bilateral Breath Sounds Implantable Cardiac Device Does patient have a Pacemaker or an ICD?: No Airway Exam Known Difficult Airway: No Mallampati Class: 2 Mouth Opening: Normal (> 3cm) Thyromental Distance: Less than 3 cm Neck Range of Motion: Full ROM Neck Circumference: Normal Teeth Condition: Normal Dentition ASA Classification ASA Score: ASA 3 Emergency Case?: No NPO Status NPO Status: NPO Clears >2 hours, Solids >8 hours Anesthesia Plan Resuscitation Status: Full Code Anesthesia Technique: MAC Anesthesia Airway Planned: Natural Airway Monitors Used: Standard Monitors
[2023-05-03 10:50] VITALS: BMI 33.0
[2023-05-03] MEDS: Lactated Ringers 1,000 ML 80 ML IV (11:16)
[2023-05-03 11:17] VITALS: PULSE 98; RESP 16; TEMP 36.6; O2SAT 99
[2023-05-03] MEDS: CLINDAMYCIN 600 MG/50 ML BAG 100 MG IVPB (11:28)
[2023-05-03] MEDS: Omnipaque 300 MG/ML 50 ML BTL (12:00)
[2023-05-03] MEDS: Normal Saline 50 ML (12:00)
--- NOTE | 2023-05-03 12:00 | DI.RAD_ITS ---
Exam(s) XR FLOURO OR C-ARM <1 HR EXAM: XR FLOURO OR C-ARM <1 HR CLINICAL HISTORY: REPEAT NEEDED; PORT PLACEMENT IN OR. TECHNIQUE: 2D and realtime digital imaging was performed. COMPARISON: XR FLOURO OR C-ARM <1 HR from 05/03/2023 FINDINGS: Proximally was provided for Dr. Ahn for guidance with placing a port. The tip of the port lies in the low SVC. Please see procedure note for details. Fluoro time: 26.4seconds RADIATION DOSE DELIVERED: morelia Coker=2.33 mGy
--- NOTE | 2023-05-03 12:01 | DI.RAD_ITS ---
Exam(s) XR FLOURO OR C-ARM <1 HR EXAM: XR FLOURO OR C-ARM <1 HR CLINICAL HISTORY: MediPort placement in OR. TECHNIQUE: 2D and realtime digital imaging was performed. COMPARISON: CR,XR XR CHEST 2V PA LATERAL from 11/04/2022 FINDINGS: Muscular it was provided for guidance with placing MediPort. Please see procedure note for details. Fluoro time: 4.2seconds RADIATION DOSE DELIVERED: morelia Coker=0.53 mGy
--- NOTE | 2023-05-03 12:02 | NUR.NOTE ---
PreOp oral medication not administered per Anesthesia/HUNTER SKIN DIVER. Due to patient nausea symptoms. Patient was adminstered MKO melt prior to procedure in PreOp area by HUNTER SKIN DIVER. Iv insertion performed in PreOp areas by HUNTER SKIN DIVER. IV PreOp antibiotics and IV fluids started administered per MD orders PreOp by RN. Alfonso Swann RN Nursing Note:
[2023-05-03] MEDS: Heparin 500 UNITS/5 ML SYRINGE (12:30)
[2023-05-03 12:41] VITALS: BP 119/80; PULSE 84; RESP 16; TEMP 36.5; O2SAT 99
[2023-05-03] MEDS: Acetaminophen 500 MG TAB 1000 MG PO (12:43)
[2023-05-03 13:04] VITALS: BP 116/77; PULSE 77; RESP 16; TEMP 36.6; O2SAT 100
--- NOTE | 2023-05-03 13:12 | W.ANESPOSTOP ---
Postoperative Evaluation Date, Time and Location Date Performed: 05/03/23 Time Performed: 13:12 Patient Location: Day Surgery Unit Vital Signs Most Recent Imported Vital Signs: Most Recent Vital Signs Temp Pulse Resp BP Pulse Ox 36.6 C 77 16 116/77 100 05/03/23 13:04 05/03/23 13:04 05/03/23 13:04 05/03/23 13:04 05/03/23 13:04 Pain Score Most Recent Pain Score: Most Recent Pain Score Pain Level 0 05/03/23 13:04 Assessment Mental Status: Awake (Alert & Oriented to Patient Baseline) Airway and Respiratory Function: Patent airway with normal (patient baseline) respiratory exam Cardiovascular Function: Hemodynamically Stable Hydration Status: Adequately Hydrated Nausea & Vomiting: No Nausea or Vomiting Pain: Pt. Denies Any Pain Peripheral Nerve Block: Patient did not receive a nerve block
--- NOTE | 2023-05-03 13:16 | W.PM.OP ---
Date of service: 05/04/23 Time of Service: 13:17 Operative Note Operative Note DATE OF PROCEDURE: 05/03/23 PRE-OP DIAGNOSIS: Pancreatic cancer POST-OP DIAGNOSIS: same PROCEDURE: Insertion of left chest wall 20 guage Bard power port by a left subclavian approach. SURGEON: Jose Guadalupe Ahn ANESTHESIA TYPE: Local By Surgeon and MAC Refer to Anesthesia Record ESTIMATED BLOOD LOSS: 10 PATHOLOGY: none sent COMPLICATIONS: None Patient was transported to: same day Patient's condition: stable Implants: 20 guage bard power port Indications: Valeria is a 62 year old woman undergoing chemotherapy for pancreatic cancer. She needs a port for therapeutic IV access Procedure Description: After the initiation of monitored anesthetic care, I prepped and draped the left chest wall in the usual fashion. Then, with real time ultrasound guidance, I established a small field block along the planned trajectory for IV access. Next, using the packaged Barrd kit, I accesses the left axillary vein at the the axillo-subclavian junction. This was done under the direct vision of the ultrasound. I established guidewire control. Correct positioning was confirmed with fluoroscopy. Next, I advanced the Bard peel-away introducer over the guidewire. I then estimated an appropriate position into the pocket the port within the subcutaneous tissue. I anesthetized this field. I incised the skin, and bluntly dissected a pocket. Site was hemostatic. I then measured the catheter to length. It was trimmed, secured to the port, and the tunneling device was affixed to the end of the catheter. Next, in an antegrade fashion, I delivered the end of the port through the subcutaneous tunnel up to the introducer. The tunneler was removed. Port and catheter were flushed. Taking great care to avoid kinking the catheter, I then advanced it into the peel-away introducer. It advanced without any resistance. Catheter was held and held in place, and the peel-away introducer was removed. Next, I accessed the port with the Moura needle. I was able to withdrawal a small amount of blood, but blood flow was insufficient. I manipulated the catheter carefully. Despite a few attempts, I was never able to successfully withdraw blood in a satisfactory flow rate. Therefore, I examined the length of the catheter with fluoroscopy. Catheter had gentle curve, and there do not appear to be any obstruction. It did appear, however, that the catheter may be a little bit long past the atriocaval junction. Under real-time fluoroscopy, I backed the catheter out a bit. At that point, I was able to easily withdrawal and aspirate blood without any difficulty. After aspiration, the catheter was flushed with saline. Next, I clamped the catheter, and removed the excess portion of catheter length before we affixing it to the port. The port was aspirated again with beautiful return of blood flow. I flushed the port again with saline solution. Next, I affixed the port to the deep subcutaneous tissues. Because of the thickness of the soft tissue on the chest wall, I did not fix it all the way down onto the pectoralis fashion, which I think with a bit too deep. I did use 3 point suture fixation to ensure that the port would remain stable. The site was examined again and appeared hemostatic. The port was accessed again, easily aspirated, and then flushed before filling it with the appropriate heparin solution. I then closed the skin over the pocket site with interrupted Vicryl stitches, and I used skin affix over the incision site for the pocket, as well as the access site for the knee. Patient was then allowed awaken from the MAC, and transferred back to the recovery unit.
== END 2023-05-03 13:30 | disposition home or self-care (01) ==
LOC: SUR 09:00
PROVIDERS: PCP Internal Medicine; Visit Provider Surgery
PROC: (CPT 36561; principal; 2023-05-03 11:15)
DX: Z45.2 Encounter for adjustment and management of vascular access device (principal); C25.9 Malignant neoplasm of pancreas, unspecified
CPT/HCPCS: 36561; 77001; 76000; C1788; J0737; J1642; J2001; J2405; J2704; J3010; Q9967

== ENCOUNTER 2023-05-29 13:24 | Inpatient (IN) | payer MEDICAID, SELFPAY ==
[2023-05-29] VITALS (189 sets, daily range): BP systolic 116–162; BP diastolic 48–84; PULSE 52–91; RESP 11–41; TEMP 36.5–37; O2SAT 99–100
--- NOTE | 2023-05-29 13:30 | RT.EKG_ITS ---
APPROVED REPORT Exam: Resting ECG Reason for Exam: sob Patient Location: E HR:104 bpm ECG Measurements Heart Rate 104 AXIS SC 150 P 58 QRSd 133 QRS 140 QT 381 T 14 QTc 503 Conclusion Sinus tachycardia...rate> 99 Ventricular bigeminy...bigeminy string>4 w/ V complexes Right bundle branch block...QRSd>120, terminal axis(90,270) sinus rhythm, ventricular bigeminy
--- NOTE | 2023-05-29 14:00 | DI.RAD_ITS ---
Exam(s) XR CHEST 2V PA LATERAL EXAM: XR CHEST 2V PA LATERAL CLINICAL HISTORY: weakness, ca hx TECHNIQUE: 2D digital imaging was performed. COMPARISON: CT CT CHEST W from 03/06/2023 FINDINGS: Port over chest. HEART: Normal size. Aorta: Not dilated. PULMONARY VASCULATURE: Normal. LUNGS: Clear. PLEURAL SPACE: No pleural effusion or pneumothorax. BONE:Unremarkable for age. Soft tissues: Unremarkable. IMPRESSION: No acute abnormality. DATA REPOSITORY: RADIATION DOSE DELIVERED:
--- NOTE | 2023-05-29 14:00 | DI.CT_ITS ---
Exam(s) CT ABDOMEN PELVIS W EXAM: CT ABDOMEN PELVIS W CLINICAL HISTORY: abdominal pain, hx of pancreatic cancer. TECHNIQUE: Imaging Protocol: Axial computed tomography images with coronal and sagittal reformatted images were created and reviewed CONTRAST MATERIAL: Intravenous: Omnipaque 350 Contrast volume:100 ml Oral: no COMPARISON: CT CT ABDOMEN PELVIS W from 02/27/2023 FINDINGS: ABDOMEN and PELVIS: Lung Bases: No acute findings. Liver: Enlarged. Hepatic steatosis. No measurable mass. Ascites around liver. Gallbladder and biliary tract: Status post cholecystectomy. Biliary stents again noted. Air within biliary tree no change from prior.. Pancreas: Low-density mass in the pancreatic head but no significant change. Pancreatic tail atrophy . Narrowing of the portal vein in the head of the pancreas with dilatation distally. The On Spleen: Norm enlarged, unchanged. Stable dilatation of splenic vein. Ascites around spleen. Kidneys: Normal size, contour and axis. No radiodense stones. No obstructive uropathy. No suspicious masses seen. Adrenal glands: No masses seen. Vasculature: Abdominal aorta non-dilated. Soft tissues: Unremarkable. Bladder: No gross wall thickening. No calculi.No focal mass. Bowel: No obstruction. No bowel wall thickening. Appendix normal. Very little stool. Peritoneal cavity: Moderate quantity of ascites now seen, greatest in pelvis. No focal collection or mesenteric inflammatory response. Bones: Unremarkable for age. Reproductive organs: Within normal limits. Lymph nodes: Unremarkable. IMPRESSION:: Moderate quantity of ascites now present, new since prior exam. Stable appearance of pancreatic mass and biliary stent. RADIATION DOSE DELIVERED: 1,111.77mGy.cm Total DLP DATA REPOSITORY: All CT scans at this facility are submitted to the National Radiology Data Registry (NRDR) Dose Index Registry (DIR) with the [employer] (A[employer]). RADIATION OPTIMIZATION: All CT scans at this facility use at least one of these dose optimization te chniques: automated exposure control; mA and/or kV adjustment per patient size (includes targeted exa ms where dose is matched to clinical indication); or iterative reconstruction.
[2023-05-29 14:45] LABS: Lactate 1.7 mmol/L (0.6-1.4)
--- NOTE | 2023-05-29 14:45 | RT.EKG_ITS ---
APPROVED REPORT Exam: Resting ECG Reason for Exam: rhythm change Patient Location: E HR:95 bpm ECG Measurements Heart Rate 95 AXIS VT 138 P 61 QRSd 135 QRS -156 QT 418 T -13 QTc 527 Conclusion Sinus rhythm...normal P axis, V-rate 60- 99 RBBB and LPFB...QRSd >120mS, axis(90,210) sinus rhythm, RBBB
[2023-05-29 14:53] LABS: Bilirubin Negative (Negative); Blood Negative (Negative); Clarity Clear (Clear); Glucose Negative (Negative); Ketones Trace mg/dL (Negative); Leukocyte Esterase Negative (Negative); Nitrite Negative (Negative); Urobilinogen 0.2 mg/dL (Up to 0.2); pH 6.5 (5-8)
[2023-05-29 14:54] LABS: Abs Immature Grans 0.12 10^3/uL (0.0-0.06); Absolute Basophil Count 0.05 10^3/uL (0.0-0.2); Absolute Eosinophil Count 0.04 10^3/uL (0.0-0.7); Absolute Lymphocyte Count 0.72 10^3/uL (1.2-3.4); Absolute Monocyte Count 0.64 10^3/uL (0.1-0.8); Absolute Neutrophil Count 3.99 10^3/uL (1.2-6.7); Basophils % 0.9; Eosinophils % 0.7; HCT 32.2 % (36.0-46.0); HGB 10.1 g/dL (11.2-15.7); Immature Grans % 2.2; Lymphocytes % 12.9; MCHC 31.4 % (32.0-36.0); MCV 77 fL (80-95); MPV 9.6 fL (8.0-11.0); Monocytes % 11.5; Neutrophils % 71.8; Platelet Count 210 10^3/uL (130-400); RBC 4.21 10^6/uL (3.93-5.22); RDW 20.5 % (11.7-14.6); RDW-SD 55.9 fL; WBC 5.56 10^3/uL (4.4-10.8)
[2023-05-29 14:59] LABS: Lipase < 10 U/L (16-77)
--- NOTE | 2023-05-29 15:13 | ED.GENADUL_ITS ---
HPI General Date/Time Provider Initiated Documentation: 05/29/23 13:29 . 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 difficile colitis and gram-negative bacteremia presents with report of shortness of breath, chest pressure, weakness, abdominal pain. She states she was evaluated for diarrhea and shortness of breath on the sixth and was notified that her blood cultures were positive and she was subsequently started on Levaquin She returned to the emergency department yesterday and had CTA performed secondary to acute onset of shortness of breath and chest pressure, she had a CT at that time which was reportedly negative for blood clot and she had a repeat set of blood cultures and subsequently sent home She presents today secondary to worsening symptoms. Related Data Home Medications Medication Instructions Recorded Confirmed acetaminophen 500 mg tablet 1,000 mg PO PRN PRN 09/29/22 05/29/23 apixaban 5 mg tablet (Eliquis) 5 mg PO BID 09/29/22 05/29/23 citalopram 20 mg tablet 20 mg PO DAILY 09/29/22 05/29/23 [id number] 3 cap PO 5X/DAY 09/29/22 05/29/23 24,000-76,000-120,000 unit capsule,delayed rel (Creon) loperamide 2 mg capsule 2 mg PO PRN PRN 09/29/22 05/29/23 magnesium oxide 400 mg (241.3 mg 400 mg PO DAILY 09/29/22 05/29/23 magnesium) tablet nitroglycerin 0.4 mg sublingual 0.4 mg sublingual PRN PRN 09/29/22 05/29/23 tablet (Nitrostat) ondansetron HCl 8 mg tablet 8 mg PO PRN PRN 09/29/22 05/29/23 oxycodone 5 mg tablet 5 mg PO PRN PRN Moderate Pain 09/29/22 05/29/23 (Scale Score 5-6) pantoprazole 40 mg tablet,delayed 40 mg PO DAILY 09/29/22 05/29/23 release potassium chloride 10 mEq 20 meq PO BID 09/29/22 05/29/23 tablet,extended release prochlorperazine maleate 10 mg 10 mg PO PRN PRN 09/29/22 05/29/23 tablet (Compazine) metoclopramide HCl 10 mg tablet 10 mg PO Q6H PRN #10 tabs 02/27/23 05/29/23 (Reglan) fentanyl 12 mcg/hr transdermal 1 patch transdermal Q72H 05/01/23 05/29/23 patch levofloxacin 750 mg tablet 750 mg PO DAILY 05/29/23 05/29/23 vancomycin 125 mg capsule 125 mg PO QID 05/29/23 05/29/23 Previous Rx's Medication Instructions Recorded metoclopramide HCl 10 mg tablet 10 mg PO Q6H PRN #10 tabs 02/27/23 (Reglan) Allergies Allergy/AdvReac Type Severity Reaction Status Date / Time bupropion [From Wellbutrin] AdvReac Diarrhea Verified 05/29/23 13:34 codeine AdvReac Diarrhea Verified 05/29/23 13:34 ibuprofen AdvReac Nausea Verified 05/29/23 13:34 Penicillins AdvReac Hives Verified 05/29/23 13:34 Sulfa (Sulfonamide AdvReac Hives Verified 05/29/23 13:34 Antibiotics) topiramate [From Topamax] AdvReac Dizziness/L Verified 05/29/23 13:34 ighthead General Stated Complaint: [facility] ILEANA: 3 Course Vital Signs Vital signs: Vital Signs Temperature 36.5 C 05/29/23 13:29 Pulse 58 L 05/29/23 13:29 Respiratory Rate 28 H 05/29/23 13:29 Blood Pressure 148/62 H 05/29/23 13:29 Pulse Oximetry 99 05/29/23 13:29 Temperature 36.5 C 05/29/23 13:29 Temperature Source Skin 05/29/23 13:29 Pulse 52 L 05/29/23 13:55 Respiratory Rate 14 05/29/23 15:08 Respiratory Effort Normal, Short of Breath 05/29/23 14:01 Respiratory Depth Normal 05/29/23 14:01 Respiratory Pattern Tachypnea 05/29/23 14:01 Blood Pressure 124/48 L 05/29/23 13:55 Blood Pressure Position Sitting 05/29/23 13:29 Pulse Oximetry 99 05/29/23 13:29 Oxygen Delivery Method Room Air 05/29/23 13:29 Oxygen Flow Rate 0 05/29/23 13:29 Lab/Test Results Lab/Test Results: 05/29/23 14:54 Blood Blood Culture - Pending 05/29/23 14:33 Blood Blood Culture - Pending Laboratory Tests Range/Units 05/29/23 14:33 WBC (4.4-10.8) 10^3/uL 5.56 RBC (3.93-5.22) 10^6/uL 4.21 Hgb (11.2-15.7) g/dL 10.1 L Hct (36.0-46.0) % 32.2 L MCV (80-95) fL 77 L MCH (27.0-33.0) pg 24.0 L MCHC (32.0-36.0) % 31.4 L RDW (11.7-14.6) % 20.5 H Plt Count (130-400) 10^3/uL 210 MPV (8.0-11.0) fL 9.6 Immature Gran % 2.2 Neutrophils % 71.8 Lymphocytes % 12.9 Monocytes % 11.5 Eosinophils % 0.7 Basophils % 0.9 Nucleated RBC % (0.0-0.3) % 0.0 Absolute Neutrophils (1.2-6.7) 10^3/uL 3.99 Absolute Lymphocytes (1.2-3.4) 10^3/uL 0.72 L Absolute Monocytes (0.1-0.8) 10^3/uL 0.64 Absolute Eosinophils (0.0-0.7) 10^3/uL 0.04 Absolute Basophils (0.0-0.2) 10^3/uL 0.05 VBG Lactate (0.6-1.4) mmol/L 1.7 H Lipase (16-77) U/L < 10 L Urine Color (Yellow) Yellow Urine Clarity (Clear) Clear Urine pH (5-8) 6.5 Ur Specific [place] (1.005-1.025) 1.010 Urine Protein (Neg-Trace) mg/dL Negative Urine Ketones (Negative) mg/dL Trace H Urine Blood (Negative) Negative Urine Nitrite (Negative) Negative Urine Bilirubin (Negative) Negative Urine Urobilinogen (Up to 0.2) mg/dL 0.2 Ur Leukocyte Esterase (Negative) Negative Urine Glucose (Negative) mg/dL Negative Medical Decision Making This 62-year-old female is presenting with shortness of breath, chest pressure, and abdominal pain, she had a CTA chest yesterday that did not show evidence of pulmonary embolism She states she has had recurrent episodes of what feel like anxiety or she feels restless and has chest pressure and shortness of breath but she has no history of anxiety and her symptoms only began yesterday of this week Patient denies any falls or injuries. She is taking Levaquin for bacteremia reportedly for the past 2 days and vancomycin for C. difficile On presentation, she is in ventricular bigeminy and has a new right bundle bran ch block It is a possibility that the Levaquin is contributing to dysrhythmia, she had a subsequent episode in the emergency department CMP has returned and patient has a potassium of 2.3 and a magnesium of 1.3, potassium and magnesium initiated, 2 g of mag IV, 40 mEq of potassium orally and 20 mill equivalents of potassium IV, patient is on telemetry monitoring I started ceftriaxone 2 g for patient's gram-negative bacteremia Secondary to patient's abdominal pain or biliary stent, CT was ordered for further evaluation, no clinical evidence of SBP Patient remains alert and oriented, wishes to be full CODE STATUS Gap of 14 likely consistent with dehydration, receiving 1 L of NS Pending CT abdomen and pelvis and chest x-ray, will transition care to [facility] pending imaging, hospitalist JUNIOR ACCOUNTING CLERK aware Quality:SDOH Health Related Social Needs: No Data to Display PFSH All Active Problems (Updated 05/30/23 @ 13:52 by Lisette Lawson NP) Discharge planning issues (Acute) Hypomagnesemia (Acute) Hypokalemia (Acute) Bacteremia (Acute) C. 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) Port-A-Cath in place (Acute) Depression (Chronic) Multiple sclerosis (Chronic) Chronic GERD (Acute) Medical History (Updated 05/30/23 @ 13:52 by Lisette Lawson NP) History of difficult venous access History of biliary stent insertion Surgical History (Updated 05/08/23 @ 13:39 by Megha Dupree) History of insertion of tunneled central venous catheter (CVC) with port (~04/2023) S/P cholecystectomy Open cholecystectomy S/P laparoscopy Diagnostic laparoscopy for staging of pancreatic cancer Social History Smoking/Tobacco Use Status: Never Smoking risk assessment performed?: Yes Alcohol Intake: former Drug use: Never Substance use type: does not use Housing: house Do you feel safe at home: Yes Do you feel safe in your relationship?: Yes Additional Social history: lives with mother in mobile home Sign Out Sign Out Data: Sign Out Comment: pending ct, cxr, and admission for dysrhythmia, K and Mg abnl Last updated by Mary Scott PA at 05/29/23 15:55 Discharge Plan Disposition Patient Disposition: Admit to [facility] Condition: Stable Discharge Details Clinical Impression: Ascites, C. difficile diarrhea, Bacteremia, Hypokalemia, Hypomagnesemia Admit Date/Time: 05/29/23 17:20 Admit Provider: Seb Mcmahon Attending Provider: Seb Mcmahon Primary Care Provider: Sid Rubio ED Provider: Lalit Jack Discharge Data Discharge Date/Time-TO BE ENTERED AT DEPARTURE: 05/29/23 18:43
[2023-05-29 15:20] LABS: ALT 19 U/L (14-59); AST 38 U/L (15-37); Albumin 2.6 g/dL (3.4-5.0); Alkaline Phosphatase 368 U/L (46-116); Anion Gap 14.4 mmol/L (3-11); BUN 4 mg/dL (7-18); Bilirubin, Total 0.8 mg/dL (0.2-1.0); CO2 20.6 mmol/L (21.0-32.0); Calcium 8.3 mg/dL (8.5-10.1); Chloride 108 mmol/L (98-107); Estimated GFR 64.09 (mL/min/1.73m2); Glucose 116 mg/dL (74-106); Magnesium 1.3 mg/dL (1.8-2.4); NT-proBNP 469 pg/mL (<300); Sodium 143 mmol/L (136-145); TSH (W/Ref FT4) 4.32 uIU/mL (0.36-3.74); Total Protein 6.5 g/dL (6.4-8.2)
[2023-05-29 15:21] LABS: Potassium 2.3 mmol/L (3.5-5.1)
[2023-05-29] MEDS: POTASSIUM CHLORIDE 20 MEQ/100 ML BAG 50 MEQ IVPB (15:34)
[2023-05-29] MEDS: Potassium Chloride 20 MEQ TABCR 40 MEQ PO (15:35)
[2023-05-29 15:37] LABS: Procalcitonin < 0.1 ng/mL
[2023-05-29 15:38] LABS: FREE T4 1.52 ng/dL (0.76-1.46)
[2023-05-29] MEDS: MAGNESIUM SULFATE 2 GM/50 ML BAG IVPB ×2 (15:40→17:47)
--- NOTE | 2023-05-29 16:05 | W.EDPROG ---
Date of service: 05/29/23 Time of Service: 16:06 Medical Decision Making This dictation utilizes [id number] dictation software and may contain unedited grammatical errors. Patient seen in sign-out from Mary Scott PA-C, please see her complete note. Essentially this is a 62 y/o F, seen twice at [facility] with ultimate disposition of gram negative bacteremia and C. difficile, sent home on levofloxacin, presenting with worsening profound weakness, palpitations, shortness of breath, and abdominal pain- has a stent in biliary tree due to pancreatic CA, and is a full code. Signed out to me pending CT ABD/Pelvis for ruleout of surgical possible intervention for which she may need transfer, vs admission for severe hypokalemia and significant hypomagnesemia, given IV ceftriaxone for her bacteremia here, Hospitalist team aware and awaiting CT results. Diagnostic studies of: -(see below). -admittable hypokalemia of 2.3 -hypomagnesemia of 1.3 -chornically elevated LFTs -has prolonged QT to 500 on monitor -CXR no pathology -CTAP shows new ascites, stable appearance of stent, nothing surgical Interventions of: -IVF for anion gap, IV ceftriaxone for known bacteremia ED Course/Assessment/Plan: Patient awaiting admission for hypokalemia, hypomagnesemia, known bacteremia and C. difficile diarrhea with new ascites on CT, I did update the hospitalist team on a nonsurgical CT result with some new ascites but do not suspect SBP at this time, she is likely potassium losses from diarrhea, she is being repleted by IV and p.o., received 2 g of IV ceftriaxone and was excepted for telemetry admission by Dr. Mcmahon. Disposition of Hypokalemia, Bacteremia, C. Difficile Diarrhea, Hypomagnesemia, Ascites. Patient verbalized understanding of the plan and return to ED criteria and engaged in shared decision making. Medical Records Medical records reviewed: Yes I reviewed the patient's medical records. Imaging Data Radiologic Study: Attestation: I personally reviewed and interpreted this imaging study as follows: Imaging: CT Scan Radiologist's impression: EXAM: CT ABDOMEN PELVIS W CLINICAL HISTORY: abdominal pain, hx of pancreatic cancer. TECHNIQUE: Imaging Protocol: Axial computed tomography images with coronal and sagittal reformatted images were created and reviewed CONTRAST MATERIAL: Intravenous: Omnipaque 350 Contrast volume:100 ml Oral: no COMPARISON: CT CT ABDOMEN PELVIS W from 02/27/2023 FINDINGS: ABDOMEN and PELVIS: Lung Bases: No acute findings. Liver: Enlarged. Hepatic steatosis. No measurable mass. Ascites around liver. Gallbladder and biliary tract: Status post cholecystectomy. Biliary stents again noted. Air within biliary tree no change from prior.. Pancreas: Low-density mass in the pancreatic head but no significant change. Pancreatic tail atrophy. Narrowing of the portal vein in the head of the pancreas with dilatation distally. The On Spleen: Norm enlarged, unchanged. Stable dilatation of splenic vein. Ascites around spleen. Kidneys: Normal size, contour and axis. No radiodense stones. No obstructive uropathy. No suspicious masses seen. Adrenal glands: No masses seen. Vasculature: Abdominal aorta non-dilated. Soft tissues: Unremarkable. Bladder: No gross wall thickening. No calculi.No focal mass. Bowel: No obstruction. No bowel wall thickening. Appendix normal. Very little stool. Peritoneal cavity: Moderate quantity of ascites now seen, greatest in pelvis. No focal collection or mesenteric inflammatory response. Bones: Unremarkable for age. Reproductive organs: Within normal limits. Lymph nodes: Unremarkable. IMPRESSION:: Moderate quantity of ascites now present, new since prior exam. Stable appearance of pancreatic mass and biliary stent. Radiologic Study #2: Attestation: I personally reviewed and interpreted this imaging study as follows: Imaging: X-Ray Radiologist's impression: EXAM: XR CHEST 2V PA LATERAL CLINICAL HISTORY: weakness, ca hx TECHNIQUE: 2D digital imaging was performed. COMPARISON: CT CT CHEST W from 03/06/2023 FINDINGS: Port over chest. HEART: Normal size. Aorta: Not dilated. PULMONARY VASCULATURE: Normal. LUNGS: Clear. PLEURAL SPACE: No pleural effusion or pneumothorax. BONE:Unremarkable for age. Soft tissues: Unremarkable. IMPRESSION: No acute abnormality. Lab Data Lab results reviewed: Yes I reviewed the patient's lab results. Labs: 05/29/23 14:54 Blood Blood Culture - Pending 05/29/23 14:33 Blood Blood Culture - Pending Laboratory Tests Range/Units 05/29/23 14:33 WBC (4.4-10.8) 10^3/uL 5.56 RBC (3.93-5.22) 10^6/uL 4.21 Hgb (11.2-15.7) g/dL 10.1 L Hct (36.0-46.0) % 32.2 L MCV (80-95) fL 77 L MCH (27.0-33.0) pg 24.0 L MCHC (32.0-36.0) % 31.4 L RDW (11.7-14.6) % 20.5 H Plt Count (130-400) 10^3/uL 210 MPV (8.0-11.0) fL 9.6 Immature Gran % 2.2 Neutrophils % 71.8 Lymphocytes % 12.9 Monocytes % 11.5 Eosinophils % 0.7 Basophils % 0.9 Nucleated RBC % (0.0-0.3) % 0.0 Absolute Neutrophils (1.2-6.7) 10^3/uL 3.99 Absolute Lymphocytes (1.2-3.4) 10^3/uL 0.72 L Absolute Monocytes (0.1-0.8) 10^3/uL 0.64 Absolute Eosinophils (0.0-0.7) 10^3/uL 0.04 Absolute Basophils (0.0-0.2) 10^3/uL 0.05 VBG Lactate (0.6-1.4) mmol/L 1.7 H Sodium (136-145) mmol/L 143 Potassium (3.5-5.1) mmol/L 2.3 L* Chloride (98-107) mmol/L 108 H Carbon Dioxide (21.0-32.0) mmol/L 20.6 L Anion Gap (3-11) mmol/L 14.4 H BUN (7-18) mg/dL 4 L Creatinine (0.55-1.02) mg/dL 1.0 Est GFR (CKD-EPI 2020) (mL/min/1.73m2) 64.09 Glucose (74-106) mg/dL 116 H Calcium (8.5-10.1) mg/dL 8.3 L Magnesium (1.8-2.4) mg/dL 1.3 L Total Bilirubin (0.2-1.0) mg/dL 0.8 AST (15-37) U/L 38 H ALT (14-59) U/L 19 Alkaline Phosphatase (46-116) U/L 368 H NT-Pro-B Natriuret Pep (<300) pg/mL 469 H Total Protein (6.4-8.2) g/dL 6.5 Albumin (3.4-5.0) g/dL 2.6 L Lipase (16-77) U/L < 10 L Procalcitonin ng/mL < 0.1 TSH (0.36-3.74) uIU/mL 4.32 H Free T4 (0.76-1.46) ng/dL 1.52 H Urine Color (Yellow) Yellow Urine Clarity (Clear) Clear Urine pH (5-8) 6.5 Ur Specific [place] (1.005-1.025) 1.010 Urine Protein (Neg-Trace) mg/dL Negative Urine Ketones (Negative) mg/dL Trace H Urine Blood (Negative) Negative Urine Nitrite (Negative) Negative Urine Bilirubin (Negative) Negative Urine Urobilinogen (Up to 0.2) mg/dL 0.2 Ur Leukocyte Esterase (Negative) Negative Urine Glucose (Negative) mg/dL Negative Quality:SDOH Health Related Social Needs: No Data to Display Sign Out Sign Out Data: Sign Out Comment: pending ct, cxr, and admission for dysrhythmia, K and Mg abnl Last updated by Mary Scott PA at 05/29/23 15:55 Discharge Plan Disposition Patient Disposition: Admit to [facility] Condition: Stable Discharge Details Clinical Impression: Ascites, C. difficile diarrhea, Bacteremia, Hypokalemia, Hypomagnesemia Primary Care Provider: Sid Rubio ED Provider: Lalit Jack Home Meds and New Rx's Prescriptions: No Action loperamide 2 mg capsule 2 mg PO PRN PRN Patient Comments: TAKE TWO CAPSULES BY MOUTH EVERY 6 HOURS NEEDED ondansetron HCl 8 mg tablet 8 mg PO PRN PRN Patient Comments: TAKE ONE TABLET BY MOUTH EVERY 8 HOURS NEEDED FOR NAUSEA potassium chloride 10 mEq tablet extended release 20 meq PO BID Patient Comments: TAKE TWO TABLETS BY MOUTH TWICE A DAY prochlorperazine maleate [Compazine] 10 mg tablet 10 mg PO PRN PRN Patient Comments: Take 1 tablet by mouth every six hours as needed for dry heaves, nausea, vomiting. acetaminophen 500 mg tablet 1,000 mg PO PRN PRN Patient Comments: Take 2 tablet by mouth every six hours as needed for pain citalopram 20 mg tablet 20 mg PO DAILY Patient Comments: TAKE ONE TABLET BY MOUTH EVERY DAY magnesium oxide 400 mg (241.3 mg magnesium) tablet 400 mg PO DAILY Patient Comments: TAKE ONE TABLET BY MOUTH TWICE A DAY pantoprazole 40 mg tablet,delayed release (DR/EC) 40 mg PO DAILY Patient Comments: TAKE ONE TABLET BY MOUTH EVERY DAY nitroglycerin [Nitrostat] 0.4 mg tablet, sublingual 0.4 mg sublingual PRN PRN Patient Comments: Place 1 tablet under tongue as directed Take every 5 mins x3 as needed for chest pain. If no relief call 911. oxycodone 5 mg tablet 5 mg PO PRN PRN (Reason: Moderate Pain (Scale Score 5-6)) Patient Comments: TAKE ONE TABLET BY MOUTH EVERY 4 HOURS NEEDED FOR MODERATE PAIN Creon 24,000-76,000 -120,000 unit capsule,delayed release(DR/EC) 3 cap PO 5X/DAY Patient Comments: TAKE 3 CAPSULES BY MOUTH PER MEAL AND 2 CAPSULES BY MOUTH PER SNACK (12 CAPSULES PER DAY) Eliquis 5 mg tablet 5 mg PO BID Hold Instructions: Resume on 05/04/23. Patient Comments: TAKE ONE TABLET BY MOUTH TWICE A DAY metoclopramide HCl [Reglan] 10 mg tablet 10 mg PO Q6H PRNQty: 10 0RF fentanyl 12 mcg/hr patch 72 hour 1 patch transdermal Q72H Patient Comments: APPLY 1 PATCH TO CLEAN, DRY SKIN FOR 72 HOURS THEN REMOVE, DISPOSE OF PROPERLY AND APPLY A NEW PATCH ON A DIFFERENT, CLEAN DRY SKIN SITE vancomycin 125 mg capsule 125 mg PO QID Patient Comments: TAKE ONE CAPSULE BY MOUTH FOUR TIMES A DAY FOR 10 DAYS levofloxacin 750 mg tablet 750 mg PO DAILY Patient Comments: TAKE ONE TABLET BY MOUTH EVERY 24 HOURS FOR 10 DAYS
[2023-05-29] MEDS: Omnipaque 350 MG/ML 100 ML BTL IJ (16:10)
[2023-05-29] MEDS: Normal Saline - Diluent 50 ML VIAL IJ (16:13)
[2023-05-29] MEDS: Normal Saline 1,000 ML 1000 ML IV (16:45)
[2023-05-29 17:11] LABS: Troponin I < 50 ng/L (< or =60)
[2023-05-29] MEDS: cefTRIAXone 2 GM/50 ML BAG IVPB (17:17)
--- NOTE | 2023-05-29 17:21 | W.PM.HP.N ---
Date of service: 05/29/23 Time of Service: 17:22 Assessment and Plan Assessment and plan (1) Gram-negative bacteremia: Status: Acute Assessment and plan: Original cultures from outside hospital show gram-negative rods. Does have a history of Klebsiella pneumoniae bacteremia. Repeat blood cultures taken in our ED today are pending. Will continue ceftriaxone 2 g IV daily for now. Hemodynamically she has been stable, will closely monitor Does have biliary stent and Mediport (2) C. difficile diarrhea: Status: Acute Assessment and plan: Will continue vancomycin 125 mg 4 times daily for 10 days (3) Hypokalemia: Status: Acute Assessment and plan: Potassium 2.3 most likely due to ongoing diarrhea Will replete and follow (4) Hypomagnesemia: Status: Acute Assessment and plan: Again most likely due to GI losses will replete and follow Level 1.3 (5) Superior mesenteric vein thrombosis: Status: Acute Assessment and plan: Fully anticoagulated on apixaban, continue (6) Port-A-Cath in place: Status: Acute (7) Multiple sclerosis: Status: Chronic Assessment and plan: Stable (8) Primary pancreatic cancer : Status: Chronic History of Present Illness History of Present Illness Chief Complaint: diarrhea, weakness Narrative: This is a 62-year-old female patient history of multiple sclerosis superior mesenteric vein thrombosis ascending cholangitis, pancreatic cancer, with recent diagnosis of C. difficile colitis and a gram-negative bacteremia who presented to the emergency department with weakness and abdominal pain. She was seen at an outside hospital and was notified that blood cultures were positive with gram negative bacteria and that she also had C. difficile. She was treated with vancomycin orally and levofloxacin. She returns here as she feels her symptoms are worsening. She did have a CTA of the chest done secondary to acute shortness of breath which was negative for PE. She also had repeat blood cultures and was sent home. Of note she did have a previous gram-negative bacteremia in October 2022 that grew Klebsiella pneumonia which was sensitive to ceftriaxone which she did receive in the emergency department. She was also found to be hypokalemic with a potassium of 2.3 and magnesium of 1.3. Hospitalist services was contacted. She has received ceftriaxone 2 g IV piggyback in the emergency department, potassium 20 mEq IV piggyback and 40 mEq orally and 2 g of IV magnesium while pending admission. CAT scan of the abdomen and pelvis was obtained which did show no acute findings to explain her symptoms. Review of Systems All systems reviewed & are unremarkable except as noted in HPI and below PFSH All Active Problems (Updated 05/30/23 @ 13:52 by Lisette Lawson NP) Discharge planning issues (Acute) Hypomagnesemia (Acute) Hypokalemia (Acute) Bacteremia (Acute) C. 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) Port-A-Cath in place (Acute) Depression (Chronic) Multiple sclerosis (Chronic) Chronic GERD (Acute) Medical History (Updated 05/30/23 @ 13:52 by Lisette Lawson NP) History of difficult venous access History of biliary stent insertion Surgical History (Updated 05/08/23 @ 13:39 by Megha Dupree) History of insertion of tunneled central venous catheter (CVC) with port (~04/2023) S/P cholecystectomy Open cholecystectomy S/P laparoscopy Diagnostic laparoscopy for staging of pancreatic cancer Social History Smoking/Tobacco Use Status: Never Smoking risk assessment performed?: Yes Alcohol Intake: former Drug use: Never Substance use type: does not use Housing: house Do you feel safe at home: Yes Do you feel safe in your relationship?: Yes Additional Social history: lives with mother in mobile home Meds Allergies and Home Medications Allergies Allergy/AdvReac Type Severity Reaction Status Date / Time bupropion [From Wellbutrin] AdvReac Diarrhea Verified 05/29/23 13:34 codeine AdvReac Diarrhea Verified 05/29/23 13:34 ibuprofen AdvReac Nausea Verified 05/29/23 13:34 Penicillins AdvReac Hives Verified 05/29/23 13:34 Sulfa (Sulfonamide AdvReac Hives Verified 05/29/23 13:34 Antibiotics) topiramate [From Topamax] AdvReac Dizziness/L Verified 05/29/23 13:34 ighthead Home Medications Medication Instructions Recorded Confirmed Type acetaminophen 500 mg tablet 1,000 mg PO PRN PRN 09/29/22 05/29/23 History apixaban 5 mg tablet (Eliquis) 5 mg PO BID 09/29/22 05/29/23 History citalopram 20 mg tablet 20 mg PO DAILY 09/29/22 05/29/23 History [id number] 3 cap PO 5X/DAY 09/29/22 05/29/23 History 24,000-76,000-120,000 unit capsule,delayed rel (Creon) loperamide 2 mg capsule 2 mg PO PRN PRN 09/29/22 05/29/23 History magnesium oxide 400 mg (241.3 mg 400 mg PO DAILY 09/29/22 05/29/23 History magnesium) tablet nitroglycerin 0.4 mg sublingual 0.4 mg sublingual PRN PRN 09/29/22 05/29/23 History tablet (Nitrostat) ondansetron HCl 8 mg tablet 8 mg PO PRN PRN 09/29/22 05/29/23 History oxycodone 5 mg tablet 5 mg PO PRN PRN Moderate Pain 09/29/22 05/29/23 History (Scale Score 5-6) pantoprazole 40 mg tablet,delayed 40 mg PO DAILY 09/29/22 05/29/23 History release potassium chloride 10 mEq 20 meq PO BID 09/29/22 05/29/23 History tablet,extended release prochlorperazine maleate 10 mg 10 mg PO PRN PRN 09/29/22 05/29/23 History tablet (Compazine) metoclopramide HCl 10 mg tablet 10 mg PO Q6H PRN #10 tabs 02/27/23 05/29/23 Rx (Reglan) fentanyl 12 mcg/hr transdermal 1 patch transdermal Q72H 05/01/23 05/29/23 History patch levofloxacin 750 mg tablet 750 mg PO DAILY 05/29/23 05/29/23 History vancomycin 125 mg capsule 125 mg PO QID 05/29/23 05/29/23 History Exam Const General: cooperative, healthy appearing and not in acute distress Neck Neck: normal visual inspection and supple Resp Effort & Inspection: normal respiratory effort Auscultation: clear to auscultation bilaterally Cardio Jugular venous pressure: no JVD Rate: regular rate Rhythm: regular rhythm GI Inspection: normal to inspection Palpation: soft, no guarding and nontender Percussion: normal to percussion Auscultation: normal bowel sounds Neuro General: patient alert, patient awake and patient oriented x3 Psych Appearance: grossly normal Results Labs 05/30/23 05:45 05/30/23 05:45 Labs: Laboratory Results - last 24 hr 05/29/23 14:33 WBC 5.56 RBC 4.21 Hgb 10.1 L Hct 32.2 L MCV 77 L MCH 24.0 L MCHC 31.4 L RDW 20.5 H Plt Count 210 MPV 9.6 Immature Gran % 2.2 Neutrophils % 71.8 Lymphocytes % 12.9 Monocytes % 11.5 Eosinophils % 0.7 Basophils % 0.9 Nucleated RBC % 0.0 Absolute Neutrophils 3.99 Absolute Lymphocytes 0.72 L Absolute Monocytes 0.64 Absolute Eosinophils 0.04 Absolute Basophils 0.05 VBG Lactate 1.7 H Sodium 143 Potassium 2.3 L* Chloride 108 H Carbon Dioxide 20.6 L Anion Gap 14.4 H BUN 4 L Creatinine 1.0 Est GFR (CKD-EPI 2020) 64.09 Glucose 116 H Calcium 8.3 L Magnesium 1.3 L Total Bilirubin 0.8 AST 38 H ALT 19 Alkaline Phosphatase 368 H Troponin I < 50 NT-Pro-B Natriuret Pep 469 H Total Protein 6.5 Albumin 2.6 L Lipase < 10 L Procalcitonin < 0.1 TSH 4.32 H Free T4 1.52 H Urine Color Yellow Urine Clarity Clear Urine pH 6.5 Ur Specific [place] 1.010 Urine Protein Negative Urine Ketones Trace H Urine Blood Negative Urine Nitrite Negative Urine Bilirubin Negative Urine Urobilinogen 0.2 Ur Leukocyte Esterase Negative Urine Glucose Negative Last Vital Signs Temp 36.5 C 05/29/23 13:29 Pulse 87 05/29/23 16:38 Resp 14 05/29/23 16:44 BP 129/74 05/29/23 16:38 Pulse Ox 99 05/29/23 13:29 Time Spent Time spent with Patient: 40-54 minutes Time was spent: preparing to see the patient(eg.review tests), obtaining and/or reviewing separately otained hiistory, ordering medications,tests, procedures, indepentently interpreting results and counseling the patient
[2023-05-29] MEDS: Vancomycin 125 MG CAP PO (20:28)
[2023-05-29] MEDS: Creon, Lipase 24,000 CAPCR 3 CAP PO (20:28)
[2023-05-29] MEDS: Apixaban 5 MG TAB PO (20:28)
[2023-05-30 05:54] VITALS: BP 119/67; PULSE 75; RESP 18; TEMP 37; O2SAT 99
[2023-05-30] MEDS: Creon, Lipase 24,000 CAPCR 3 CAP PO ×5 (05:58→22:06)
[2023-05-30 06:36] LABS: Abs Immature Grans 0.06 10^3/uL (0.0-0.06); Absolute Basophil Count 0.03 10^3/uL (0.0-0.2); Absolute Lymphocyte Count 0.51 10^3/uL (1.2-3.4); Absolute Monocyte Count 0.39 10^3/uL (0.1-0.8); Absolute Neutrophil Count 1.73 10^3/uL (1.2-6.7); Basophils % 1.1; Eosinophils % 3.5; HCT 27.8 % (36.0-46.0); HGB 8.5 g/dL (11.2-15.7); Immature Grans % 2.1; Lymphocytes % 18.1; MCH 23.7 pg (27.0-33.0); MCHC 30.6 % (32.0-36.0); MCV 77 fL (80-95); Monocytes % 13.8; Neutrophils % 61.4; Platelet Count 140 10^3/uL (130-400); RBC 3.59 10^6/uL (3.93-5.22); RDW 20.6 % (11.7-14.6); RDW-SD 57.3 fL; WBC 2.82 10^3/uL (4.4-10.8)
[2023-05-30 07:06] LABS: Anisocytosis 2+; Diff Comment RBC Morph Reviewed
[2023-05-30 07:12] LABS: ALT 17 U/L (14-59); AST 29 U/L (15-37); Albumin 2.2 g/dL (3.4-5.0); Alkaline Phosphatase 294 U/L (46-116); Anion Gap 9.4 mmol/L (3-11); BUN 3 mg/dL (7-18); Bilirubin, Total 0.4 mg/dL (0.2-1.0); CO2 24.6 mmol/L (21.0-32.0); CREATININE 0.7 mg/dL (0.55-1.02); Calcium 7.8 mg/dL (8.5-10.1); Chloride 111 mmol/L (98-107); Estimated GFR 98.34 (mL/min/1.73m2); Glucose 92 mg/dL (74-106); Magnesium 2.2 mg/dL (1.8-2.4); Sodium 145 mmol/L (136-145); Total Protein 5.5 g/dL (6.4-8.2)
[2023-05-30 07:16] LABS: Potassium 2.9 mmol/L (3.5-5.1)
[2023-05-30] MEDS: POTASSIUM CHLORIDE 20 MEQ/100 ML BAG 50 MEQ IVPB (09:36)
[2023-05-30] MEDS: Vancomycin 125 MG CAP PO ×4 (09:36→20:35)
[2023-05-30] MEDS: Pantoprazole 40 MG TABCR PO (09:36)
[2023-05-30] MEDS: Magnesium Oxide 400 MG TAB PO (09:36)
[2023-05-30] MEDS: Apixaban 5 MG TAB PO ×2 (09:36→20:35)
[2023-05-30] MEDS: Potassium Chloride 20 MEQ TABCR PO ×4 (09:37→20:35)
[2023-05-30] MEDS: Citalopram 20 MG TAB PO (09:37)
[2023-05-30] MEDS: cefTRIAXone 2 GM/50 ML BAG IVPB (11:48)
--- NOTE | 2023-05-30 13:48 | W.PM.PROGNOT ---
Date of Service Date of service: 05/30/23 Time of Service: 13:48 Assessment and Plan Assessment and plan (1) Gram-negative bacteremia: Status: Acute Assessment and plan: Original cultures from outside hospital on 05/22 grew howe sensitive e coli, repeat cultures from outside hospital negative to date Repeat blood cultures taken in our ED today are pending. Will continue ceftriaxone 2 g IV daily for now. Hemodynamically she has been stable, will closely monitor Does have biliary stent and Mediport (2) C. difficile diarrhea: Status: Acute Assessment and plan: seems to be improving, Will continue vancomycin 125 mg 4 times daily for 10 days (3) Hypokalemia: Status: Acute Assessment and plan: Potassium 2.3 most likely due to ongoing diarrhea, still critically low this morning at 2.9 Will continue supplementation and follow (4) Hypomagnesemia: Status: Acute Assessment and plan: Again, most likely due to GI losses was repleted and normalized today at 2.0 (5) Superior mesenteric vein thrombosis: Status: Acute Assessment and plan: Fully anticoagulated on apixaban, continue (6) Port-A-Cath in place: Status: Acute (7) Multiple sclerosis: Status: Chronic Assessment and plan: Stable (8) Primary pancreatic cancer : Status: Chronic (9) Discharge planning issues: Status: Acute Assessment and plan: anticipate a discharge to home when electrolytes normalized. discussed with Dr Mcmahon Subjective Subjective Patient reports: no new complaints, tolerating liquids well, tolerating a regular diet, voiding w/o difficulty, diarrhea and afebrile; denies nausea, vomiting or shortness of breath Exam Const General: cooperative, healthy appearing and not in acute distress Neck Neck: normal visual inspection and supple Resp Effort & Inspection: normal respiratory effort Auscultation: clear to auscultation bilaterally Cardio Jugular venous pressure: no JVD Rate: regular rate Rhythm: regular rhythm GI Inspection: normal to inspection Palpation: soft, no guarding and nontender Percussion: normal to percussion Auscultation: normal bowel sounds Neuro General: patient alert, patient awake and patient oriented x3 Psych Appearance: grossly normal Objective Last Vital Signs Temp 37 C 05/30/23 05:54 Pulse 75 05/30/23 05:54 Resp 18 05/30/23 05:54 BP 119/67 05/30/23 05:54 Pulse Ox 99 05/30/23 05:54 Laboratory Results - last 24 hr 05/29/23 05/30/23 14:33 05:45 WBC 5.56 2.82 L RBC 4.21 3.59 L Hgb 10.1 L 8.5 L Hct 32.2 L 27.8 L MCV 77 L 77 L MCH 24.0 L 23.7 L MCHC 31.4 L 30.6 L RDW 20.5 H 20.6 H Plt Count 210 140 MPV 9.6 9.0 Immature Gran % 2.2 2.1 Neutrophils % 71.8 61.4 Lymphocytes % 12.9 18.1 Monocytes % 11.5 13.8 Eosinophils % 0.7 3.5 Basophils % 0.9 1.1 Nucleated RBC % 0.0 0.0 Absolute Neutrophils 3.99 1.73 Absolute Lymphocytes 0.72 L 0.51 L Absolute Monocytes 0.64 0.39 Absolute Eosinophils 0.04 0.10 Absolute Basophils 0.05 0.03 RBC Morphology See Below Anisocytosis 2+ VBG Lactate 1.7 H Sodium 143 145 Potassium 2.3 L* 2.9 L* Chloride 108 H 111 H Carbon Dioxide 20.6 L 24.6 Anion Gap 14.4 H 9.4 BUN 4 L 3 L Creatinine 1.0 0.7 Est GFR (CKD-EPI 2020) 64.09 98.34 Glucose 116 H 92 Calcium 8.3 L 7.8 L Magnesium 1.3 L 2.2 Total Bilirubin 0.8 0.4 AST 38 H 29 ALT 19 17 Alkaline Phosphatase 368 H 294 H Troponin I < 50 NT-Pro-B Natriuret Pep 469 H Total Protein 6.5 5.5 L Albumin 2.6 L 2.2 L Lipase < 10 L Procalcitonin < 0.1 TSH 4.32 H Free T4 1.52 H Urine Color Yellow Urine Clarity Clear Urine pH 6.5 Ur Specific [place] 1.010 Urine Protein Negative Urine Ketones Trace H Urine Blood Negative Urine Nitrite Negative Urine Bilirubin Negative Urine Urobilinogen 0.2 Ur Leukocyte Esterase Negative Urine Glucose Negative Time Spent with Patient Time Spent with Patient: 35-49 minutes Time was spent: preparing to see the patient(eg.review tests), obtaining and/or reviewing separately otained hiistory, ordering medications,tests, procedures, indepentently interpreting results and counseling the patient
[2023-05-30] MEDS: POTASSIUM CHLORIDE/D5-0.45NACL 1,000 ML 100 MEQ IV (14:09)
--- NOTE | 2023-05-30 16:35 | PDOC.CMIN ---
Date of service: 05/30/23 Time of Service: 16:35 Care Management Initial Assmt Initial Assessment REASON FOR HOSPITALIZATION:: Hypokalemia, Cdiff, gram negative bacteremia PREVIOUS FUNCTIONAL STATUS/SOCIAL/FAMILY SUPPORTS:: Resides in [place], with her mother, Tracie. Requires assistance with ambulation. CURRENT FUNCTIONAL STATUS:: Cdiff precautions. ADVANCE DIRECTIVES:: Not ready to complete form, Palliative consulted. Has patient been provided with info about the portal/API?: No Did the patient sign up for the portal?: No CODE STATUS:: DNR/DNI INSURANCE COVERAGE / FINANCIAL ISSUES:: [place] [employer] CURRENT HOME/COMMUNITY SERVICES/EQUIPMENT:: Grab bars, ramp, Appinions. PRIMARY CARE PHYSICIAN:: Sid Rubio POTENTIAL DISCHARGE NEEDS:: Follow up appointments, Palliative consult. PATIENT/FAMILY EDUCATION NEEDS:: Review discharge instructions, discuss Ask Me Three. ANTICIPATED BARRIERS TO DISCHARGE:: None identified. TRANSPORTATION:: Via private vehicle with family. PLAN:: Valeria will return home with no additional services anticipated, she will transport via private vehicle with family. CM following. [facility] All Active Problems (Updated 05/30/23 @ 13:52 by Lisette Lawson NP) Discharge planning issues (Acute) Hypomagnesemia (Acute) Hypokalemia (Acute) Bacteremia (Acute) C. 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) Port-A-Cath in place (Acute) Depression (Chronic) Multiple sclerosis (Chronic) Chronic GERD (Acute) Medical History (Updated 05/30/23 @ 13:52 by Lisette Lawson NP) History of difficult venous access History of biliary stent insertion Surgical History (Updated 05/08/23 @ 13:39 by Megha Dupree) History of insertion of tunneled central venous catheter (CVC) with port (~04/2023) S/P cholecystectomy Open cholecystectomy S/P laparoscopy Diagnostic laparoscopy for staging of pancreatic cancer Social History Smoking/Tobacco Use Status: Never Smoking risk assessment performed?: Yes Alcohol Intake: former Drug use: Never Substance use type: does not use Housing: house Do you feel safe at home: Yes Do you feel safe in your relationship?: Yes Additional Social history: lives with mother in mobile home SDOH(Care Management) Screening Will the Patient Participate in the Screening?: Yes Do you worry about having a steady place to live?: no Problems where you live: no known problems In the past 12 months, have you had to go without electric, gas, oil or water in your home?: no Have you or anyone in your house had to go without enough food to eat?: no Has lack of transportation kept you from medical appointments or from doing things needed for daily living?: no Has anyone in your support network made you feel unsafe for any reason?: no
--- NOTE | 2023-05-30 16:53 | CHAPLAIN ---
Valeria was resting in bed when I visited. She said she is comfortable resting and watching tv. When I asked if she had any family, she said her mom, but because of expected snow today, her mom wouldn't be traveling down from their home in [place] to visit. I explained my role and offered support. I will continue to visit.
[2023-05-30 22:19] VITALS: BP 101/68; PULSE 79; RESP 18; TEMP 36.8; O2SAT 100
[2023-05-31] MEDS: POTASSIUM CHLORIDE/D5-0.45NACL 1,000 ML 100 MEQ IV (02:20)
[2023-05-31] MEDS: Creon, Lipase 24,000 CAPCR 3 CAP PO ×3 (05:52→14:14)
[2023-05-31] MEDS: Normal Saline Flush 10 ML SYR IVP ×2 (06:05→14:14)
[2023-05-31 06:30] LABS: Absolute Basophil Count 0.07 10^3/uL (0.0-0.2); Absolute Eosinophil Count 0.17 10^3/uL (0.0-0.7); Absolute Lymphocyte Count 0.59 10^3/uL (1.2-3.4); Absolute Monocyte Count 0.65 10^3/uL (0.1-0.8); Absolute Neutrophil Count 2.94 10^3/uL (1.2-6.7); Basophils % 1.5; Eosinophils % 3.8; HCT 31.1 % (36.0-46.0); HGB 9.3 g/dL (11.2-15.7); Immature Grans % 2.2; Lymphocytes % 13.1; MCH 23.7 pg (27.0-33.0); MCHC 29.9 % (32.0-36.0); MCV 79 fL (80-95); MPV 9.5 fL (8.0-11.0); Monocytes % 14.4; Platelet Count 208 10^3/uL (130-400); RBC 3.92 10^6/uL (3.93-5.22); RDW 21.1 % (11.7-14.6); WBC 4.52 10^3/uL (4.4-10.8)
[2023-05-31] MEDS: Acetaminophen 500 MG TAB 650 MG PO (06:38)
[2023-05-31 06:44] LABS: BUN 5 mg/dL (7-18); CREATININE 0.8 mg/dL (0.55-1.02); Calcium 8.3 mg/dL (8.5-10.1); Chloride 111 mmol/L (98-107); Estimated GFR 83.78 (mL/min/1.73m2); Glucose 123 mg/dL (74-106); Potassium 4.5 mmol/L (3.5-5.1); Sodium 143 mmol/L (136-145)
[2023-05-31 06:46] LABS: Anisocytosis 1+; Diff Comment RBC Morph Reviewed
[2023-05-31 07:25] VITALS: BP 103/63; PULSE 69; RESP 16; TEMP 36.5; O2SAT 99
[2023-05-31] MEDS: Apixaban 5 MG TAB PO (08:57)
[2023-05-31] MEDS: Pantoprazole 40 MG TABCR PO (08:57)
[2023-05-31] MEDS: Citalopram 20 MG TAB PO (08:57)
[2023-05-31] MEDS: Magnesium Oxide 400 MG TAB PO (08:57)
[2023-05-31] MEDS: Vancomycin 125 MG CAP PO ×2 (08:57→12:03)
[2023-05-31] MEDS: cefTRIAXone 2 GM/50 ML BAG IVPB (08:58)
[2023-05-31 10:36] VITALS: BP 108/76; PULSE 76; RESP 17; TEMP 36.7; O2SAT 99
--- NOTE | 2023-05-31 11:30 | DSE_ITS ---
Date of service: 05/31/23 Time of Service: 11:30 DS: Diagnosis Discharge Diagnosis (1) Gram-negative bacteremia: Status: Acute (2) C. difficile diarrhea: Status: Acute (3) Hypokalemia: Status: Acute (4) Hypomagnesemia: Status: Acute (5) Superior mesenteric vein thrombosis: Status: Acute (6) Port-A-Cath in place: Status: Acute (7) Multiple sclerosis: Status: Chronic (8) Primary pancreatic cancer : Status: Chronic Discharge Plan Disposition Patient Disposition: Home Condition: Stable Discharge Details Reason For Visit: Hypokalemia, cdiff, gram neg bacteremia Admit Date/Time: 05/29/23 17:20 Admit Provider: Seb Mcmahon Attending Provider: Seb Mcmahon [facility] Hospital Course: This is a 62-year-old female patient history of multiple sclerosis superior mesenteric vein thrombosis ascending cholangitis, pancreatic cancer, with recent diagnosis of C. difficile colitis and a gram-negative bacteremia who presented to the emergency department with weakness and abdominal pain. She was seen at an outside hospital and was notified that blood cultures were positive with gram negative bacteria and that she also had C. difficile. She was treated with vancomycin orally and levofloxacin. She returns here as she feels her symptoms are worsening. She did have a CTA of the chest done secondary to acute shortness of breath which was negative for PE. She also had repeat blood cultures and was sent home. Of note she did have a previous gram-negative bacteremia in October 2022 that grew Klebsiella pneumonia which was sensitive to ceftriaxone which she did receive in the emergency department. She was also found to be hypokalemic with a potassium of 2.3 and magnesium of 1.3. Hospitalist services was contacted. She has received ceftriaxone 2 g IV piggyback in the emergency department, potassium 20 mEq IV piggyback and 40 mEq orally and 2 g of IV magnesium and was admitted to hospitalist services. She continued to receive oral vancomycin to treat her C. difficile. She remained hemodynamically stable tolerating a regular diet. Her diarrhea improved significantly. Her electrolytes were repleted and her potassium 4.5 on morning of discharge. She feels stronger and has been safely reambulated. She is in agreement with discharge to home. Repeat blood cultures at the outside facility and here have remained negative. She has been afebrile. She will be discharged with cefpodoxime 200 mg twice daily for 10 more days. She will also be provided vancomycin to complete a course of 7 days beyond the course of cefpodoxime. Of note blood cultures from the outside hospital did grow pansensitive E. coli. She is stable and ready for discharge to home and will be discharged by private vehicle. discharge discussed with Dr Ruelas [place] Meds and New Rx's Prescriptions: New cefpodoxime 200 mg tablet 200 mg PO BID Qty: 20 0RF Rx Instructions: must administer with a meal/food Continued loperamide 2 mg capsule 2 mg PO PRN PRN Patient Comments: TAKE TWO CAPSULES BY MOUTH EVERY 6 HOURS NEEDED ondansetron HCl 8 mg tablet 8 mg PO PRN PRN Patient Comments: TAKE ONE TABLET BY MOUTH EVERY 8 HOURS NEEDED FOR NAUSEA potassium chloride 10 mEq tablet extended release 20 meq PO BID Patient Comments: TAKE TWO TABLETS BY MOUTH TWICE A DAY prochlorperazine maleate [Compazine] 10 mg tablet 10 mg PO PRN PRN Patient Comments: Take 1 tablet by mouth every six hours as needed for dry heaves, nausea, vomiting. acetaminophen 500 mg tablet 1,000 mg PO PRN PRN Patient Comments: Take 2 tablet by mouth every six hours as needed for pain citalopram 20 mg tablet 20 mg PO DAILY Patient Comments: TAKE ONE TABLET BY MOUTH EVERY DAY magnesium oxide 400 mg (241.3 mg magnesium) tablet 400 mg PO DAILY Patient Comments: TAKE ONE TABLET BY MOUTH TWICE A DAY pantoprazole 40 mg tablet,delayed release (DR/EC) 40 mg PO DAILY Patient Comments: TAKE ONE TABLET BY MOUTH EVERY DAY nitroglycerin [Nitrostat] 0.4 mg tablet, sublingual 0.4 mg sublingual PRN PRN Patient Comments: Place 1 tablet under tongue as directed Take every 5 mins x3 as needed for chest pain. If no relief call 911. oxycodone 5 mg tablet 5 mg PO PRN PRN (Reason: Moderate Pain (Scale Score 5-6)) Patient Comments: TAKE ONE TABLET BY MOUTH EVERY 4 HOURS NEEDED FOR MODERATE PAIN Creon 24,000-76,000 -120,000 unit capsule,delayed release(DR/EC) 3 cap PO 5X/DAY Patient Comments: TAKE 3 CAPSULES BY MOUTH PER MEAL AND 2 CAPSULES BY MOUTH PER SNACK (12 CAPS ULES PER DAY) Eliquis 5 mg tablet 5 mg PO BID Hold Instructions: Resume on 05/04/23. Patient Comments: TAKE ONE TABLET BY MOUTH TWICE A DAY metoclopramide HCl [Reglan] 10 mg tablet 10 mg PO Q6H PRNQty: 10 0RF fentanyl 12 mcg/hr patch 72 hour 1 patch transdermal Q72H Patient Comments: APPLY 1 PATCH TO CLEAN, DRY SKIN FOR 72 HOURS THEN REMOVE, DISPOSE OF PROPERLY AND APPLY A NEW PATCH ON A DIFFERENT, CLEAN DRY SKIN SITE vancomycin 125 mg capsule 125 mg PO QID Qty: 34 0RF Discontinued levofloxacin 750 mg tablet 750 mg PO DAILY Patient Comments: TAKE ONE TABLET BY MOUTH EVERY 24 HOURS FOR 10 DAYS Discharge Instructions Instructions: C. Diff (Clostridioides Difficile) Infection (DC), Bacteremia (DC) Additional Instructions: push fluids drinking at least 6-8 glasses of water daily to stay well hydrated. Your repeat blood cultures have been negative to date please continue taking your antibiotic for 10 more days to complete the course. You will also need to continue taking your vancomycin for 1 week after you complete your antibiotics for your bacteremia. Stand Alone Forms: Nursing Discharge Form Referrals: Sid Rubio [Primary Care Provider] - 06/08/23 2:00 am Activity:: Activity as Tolerated Equipment/Supplies:: No Equipment Needed Diet:: As Tolerated Discharge Orders Discharge Orders: Discharge Order (Routine); Ordered 05/31/23 Ordered By: Lisette Lawson DS: Summary Time Spent with Patient providing and/or coordinating discharge services: Less than 30 minutes Status at Discharge Functional status at discharge: independent ambulation Overall status at discharge: patient is progressing back to baseline Mental Status: mental status grossly normal Speech and Movement: speech and movement normal Mood: congruent mood Affect: normal affect Quality:SDOH Health Related Social Needs: No Data to Display Exam Const General: cooperative, healthy appearing and not in acute distress Neck Neck: normal visual inspection and supple Resp Effort & Inspection: normal respiratory effort Auscultation: clear to auscultation bilaterally Cardio Jugular venous pressure: no JVD Rate: regular rate Rhythm: regular rhythm GI Inspection: normal to inspection Palpation: soft, no guarding and nontender Percussion: normal to percussion Auscultation: normal bowel sounds Neuro General: patient alert, patient awake and patient oriented x3 Psych Appearance: grossly normal Mental Status: mental status grossly normal Speech and Movement: speech and movement normal Mood: congruent mood Affect: normal affect DS: Data Vitals/I&O Vitals and I&O: Vital Signs Temperature 36.7 C 05/31/23 10:36 Temperature Source Tympanic 05/31/23 10:36 Pulse 76 05/31/23 10:36 Pulse Rhythm Regular 05/31/23 09:15 Respiratory Rate 17 05/31/23 10:36 Respiratory Effort Normal, Non-Labored 05/31/23 09:15 Respiratory Depth Normal 05/31/23 09:15 Respiratory Pattern Normal 05/31/23 09:15 Blood Pressure 108/76 05/31/23 10:36 Blood Pressure Position Sitting 05/29/23 13:29 Pulse Oximetry 99 05/31/23 10:36 Oxygen Delivery Method Room Air 05/31/23 10:36 Oxygen Flow Rate 0 05/31/23 10:36 Pain Level 0 05/31/23 10:36 Intake & Output 05/30/23 05/30/23 05/31/23 11:59 23:59 11:59 Intake Total 1000 / 1050 50 / 1050 1771.667 / 1771.667 Balance 1000 / 1050 50 / 1050 1771.667 / 1771.667 Intake: IV 1000 / 1050 50 / 1050 1591.667 / 1591.667 Oral 180 / 180 Other: Urine Color Yellow Urine Appearance Clear Clear Clear Stool Size Small Stool Characteristics Liquid Voiding Methods Toilet Toilet Data Completed and Pending Labs on day of discharge: Labs from last 24 hours 05/31/23 06:00 WBC 4.52 RBC 3.92 L Hgb 9.3 L Hct 31.1 L MCV 79 L MCH 23.7 L MCHC 29.9 L RDW 21.1 H Plt Count 208 MPV 9.5 Immature Gran % 2.2 Neutrophils % 65.0 Lymphocytes % 13.1 Monocytes % 14.4 Eosinophils % 3.8 Basophils % 1.5 Nucleated RBC % 0.0 Absolute Neutrophils 2.94 Absolute Lymphocytes 0.59 L Absolute Monocytes 0.65 Absolute Eosinophils 0.17 Absolute Basophils 0.07 RBC Morphology See Below Anisocytosis 1+ Sodium 143 Potassium 4.5 D Chloride 111 H Carbon Dioxide 25.0 Anion Gap 7.0 BUN 5 L Creatinine 0.8 Est GFR (CKD-EPI 2020) 83.78 Glucose 123 H Calcium 8.3 L Preliminary micro results at discharge 05/29/23 14:54 Blood Culture - Preliminary Blood NO GROWTH 24 HOURS 05/29/23 14:33 Blood Culture - Preliminary Blood NO GROWTH 24 HOURS PFSH All Active Problems (Updated 05/30/23 @ 13:52 by Lisette Lawson NP) Discharge planning issues (Acute) Hypomagnesemia (Acute) Hypokalemia (Acute) Bacteremia (Acute) C. 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) Port-A-Cath in place (Acute) Depression (Chronic) Multiple sclerosis (Chronic) Chronic GERD (Acute) Medical History (Updated 05/30/23 @ 13:52 by Lisette Lawson NP) History of difficult venous access History of biliary stent insertion Surgical History (Updated 05/08/23 @ 13:39 by Megha Dupree) History of insertion of tunneled central venous catheter (CVC) with port (~04/2023) S/P cholecystectomy Open cholecystectomy S/P laparoscopy Diagnostic laparoscopy for staging of pancreatic cancer Social History Smoking/Tobacco Use Status: Never Smoking risk assessment performed?: Yes Alcohol Intake: former Drug use: Never Substance use type: does not use Housing: house Do you feel safe at home: Yes Do you feel safe in your relationship?: Yes Additional Social history: lives with mother in mobile home Time Spent with Patient Time Spent with Patient: <45 minutes Time was spent: preparing to see the patient(eg.review tests), obtaining and/or reviewing separately otained hiistory, ordering medications,tests, procedures, indepentently interpreting results and counseling the patient
--- NOTE | 2023-05-31 16:29 | PDOC.CMDIS ---
Date of service: 05/31/23 Time of Service: 16:29 LACE Index Scoring Tool Questions: Length of Stay (in days): 2 Was the patient admitted via the E.D.?: Yes Comorbidities: Any Tumor and Liver or Renal Disease E.D. Visits: 1 Answers: Total Score: 11 Risk of Readmission: High Risk Care Management Discharge Plan Reason for Hospitalization: Hypokalemia, Cdiff, gram negative bacteremia Discharge Plan: Will return home with her mother, Tracie, resume community based supports, follow up with PCP and plan of care. Patient/Family Education Needs: Review discharge instructions, discuss Ask Me Three. SDOH Health Related Social Needs: No Data to Display
== END 2023-05-31 14:20 | disposition home or self-care (01) | DRG 372 ==
LOC: ER 17:06 → MS 18:46
PROVIDERS: Nurse Practitioner Acute Care; Physician Assistant; Admitting Provider Internal Medicine; Emergency Provider Physician Assistant; PCP Internal Medicine; Visit Provider Internal Medicine
DX: A04.72 Enterocolitis due to Clostridium difficile, not specified as recurrent (principal); C25.9 Malignant neoplasm of pancreas, unspecified; E46 Unspecified protein-calorie malnutrition; D84.821 Immunodeficiency due to drugs; R78.81 Bacteremia; R18.8 Other ascites; E83.42 Hypomagnesemia; E87.6 Hypokalemia; G35 Multiple sclerosis; Z95.828 Presence of other vascular implants and grafts; Z79.01 Long term (current) use of anticoagulants; R07.89 Other chest pain; R06.02 Shortness of breath; R53.1 Weakness; R00.8 Other abnormalities of heart beat; I45.10 Unspecified right bundle-branch block; Z96.89 Presence of other specified functional implants; D69.6 Thrombocytopenia, unspecified; F32.A Depression, unspecified; D64.9 Anemia, unspecified; G62.0 Drug-induced polyneuropathy; T45.1X5A Adverse effect of antineoplastic and immunosuppressive drugs, initial encounter; K21.9 Gastro-esophageal reflux disease without esophagitis; B96.20 Unspecified Escherichia coli [E. coli] as the cause of diseases classified elsewhere; Z86.718 Personal history of other venous thrombosis and embolism
CPT/HCPCS: 00123; 36415; 80048; 80053; 83690; 84145; 87040; 93005; 96365; 96366; 96367; 99285; 71046; 74177; 81003; 83605; 83735; 83880; 84439; 84443; 84484; 85025; 93010; 99223; 99233; 99238; J0696; J3475; J3480; J3490

== ENCOUNTER 2023-06-08 00:54 | Outpatient (RCR) | payer MEDICAID, SELFPAY ==
[2023-05-17] MEDS: Normal Saline Flush 10 ML SYR IVP (09:07)
[2023-05-17 09:21] LABS: Absolute Basophil Count 0.07 10^3/uL (0.0-0.2); Absolute Eosinophil Count 0.12 10^3/uL (0.0-0.7); Absolute Lymphocyte Count 0.89 10^3/uL (1.2-3.4); Absolute Monocyte Count 0.68 10^3/uL (0.1-0.8); Absolute Neutrophil Count 4.57 10^3/uL (1.2-6.7); Basophils % 1.1; Eosinophils % 1.9; HCT 36.3 % (36.0-46.0); Immature Grans % 1.6; Lymphocytes % 13.8; MCH 23.9 pg (27.0-33.0); MCHC 30.3 % (32.0-36.0); MCV 79 fL (80-95); MPV 9.3 fL (8.0-11.0); Monocytes % 10.6; Platelet Count 246 10^3/uL (130-400); RDW 18.7 % (11.7-14.6); RDW-SD 52.8 fL; WBC 6.43 10^3/uL (4.4-10.8)
[2023-05-17 09:47] LABS: ALT 26 U/L (14-59); AST 44 U/L (15-37); Albumin 2.6 g/dL (3.4-5.0); Alkaline Phosphatase 341 U/L (46-116); Anion Gap 8.9 mmol/L (3-11); BUN 13 mg/dL (7-18); Bilirubin, Total 0.5 mg/dL (0.2-1.0); CO2 27.1 mmol/L (21.0-32.0); CREATININE 0.8 mg/dL (0.55-1.02); Calcium 8.8 mg/dL (8.5-10.1); Chloride 104 mmol/L (98-107); Estimated GFR 83.78 (mL/min/1.73m2); Glucose 99 mg/dL (74-106); Potassium 4.1 mmol/L (3.5-5.1); Sodium 140 mmol/L (136-145)
[2023-05-18 13:17] LABS: CA 19-9 2449 U/mL (<35)
[2023-06-08] MEDS: Normal Saline Flush 10 ML SYR IVP (10:04)
[2023-06-08 10:20] LABS: Abs Immature Grans 0.07 10^3/uL (0.0-0.06); Absolute Basophil Count 0.09 10^3/uL (0.0-0.2); Absolute Eosinophil Count 0.15 10^3/uL (0.0-0.7); Absolute Neutrophil Count 4.89 10^3/uL (1.2-6.7); Basophils % 1.4; Eosinophils % 2.3; HCT 35.6 % (36.0-46.0); HGB 10.8 g/dL (11.2-15.7); Immature Grans % 1.1; Lymphocytes % 10.8; MCH 24.2 pg (27.0-33.0); MCHC 30.3 % (32.0-36.0); MCV 80 fL (80-95); MPV 9.6 fL (8.0-11.0); Monocytes % 9.2; Neutrophils % 75.2; Platelet Count 224 10^3/uL (130-400); RBC 4.46 10^6/uL (3.93-5.22); RDW-SD 59.9 fL
[2023-06-08 10:39] LABS: Anisocytosis 1+; Diff Comment RBC Morph Reviewed; Polychromasia Present
[2023-06-08 10:45] LABS: ALT 26 U/L (14-59); AST 72 U/L (15-37); Albumin 2.7 g/dL (3.4-5.0); Alkaline Phosphatase 362 U/L (46-116); Anion Gap 9.6 mmol/L (3-11); BUN 12 mg/dL (7-18); Bilirubin, Total 0.5 mg/dL (0.2-1.0); CO2 27.4 mmol/L (21.0-32.0); CREATININE 0.9 mg/dL (0.55-1.02); Calcium 8.7 mg/dL (8.5-10.1); Chloride 104 mmol/L (98-107); Estimated GFR 72.73 (mL/min/1.73m2); Glucose 144 mg/dL (74-106); Sodium 141 mmol/L (136-145); Total Protein 6.9 g/dL (6.4-8.2)
[2023-06-11 13:49] LABS: CA 19-9 2145 U/mL (<35)
== END 2023-06-14 23:59 | disposition home or self-care (01) ==
LOC: INF 00:54
PROVIDERS: PCP Internal Medicine; Visit Provider Internal Medicine Hematology & Oncology
DX: C25.0 Malignant neoplasm of head of pancreas (principal); Z45.2 Encounter for adjustment and management of vascular access device
CPT/HCPCS: 36591; 80053; 85025; 86301

== ENCOUNTER 2023-06-16 09:34 | Emergency (ER) | payer MEDICAID, SELFPAY ==
[2023-06-16 09:43] VITALS: BP 103/64; PULSE 83; RESP 16; TEMP 37; O2SAT 99
--- NOTE | 2023-06-16 09:54 | ED.GENADUL_ITS ---
Discharge Plan Disposition Patient Disposition: Home Condition: Improving Discharge Details Chief Complaint: Nausea/Vomit/Diar Clinical Impression: Bilirubinuria Primary Care Provider: Sid Rubio ED Provider: Christopher Guerrero Home Meds and New Rx's Prescriptions: No Action loperamide 2 mg capsule 2 mg PO PRN PRN Patient Comments: TAKE TWO CAPSULES BY MOUTH EVERY 6 HOURS NEEDED ondansetron HCl 8 mg tablet 8 mg PO PRN PRN Patient Comments: TAKE ONE TABLET BY MOUTH EVERY 8 HOURS NEEDED FOR NAUSEA potassium chloride 10 mEq tablet extended release 20 meq PO BID Patient Comments: TAKE TWO TABLETS BY MOUTH TWICE A DAY prochlorperazine maleate [Compazine] 10 mg tablet 10 mg PO PRN PRN Patient Comments: Take 1 tablet by mouth every six hours as needed for dry heaves, nausea, vomiting. acetaminophen 500 mg tablet 1,000 mg PO PRN PRN Patient Comments: Take 2 tablet by mouth every six hours as needed for pain citalopram 20 mg tablet 20 mg PO DAILY Patient Comments: TAKE ONE TABLET BY MOUTH EVERY DAY magnesium oxide 400 mg (241.3 mg magnesium) tablet 400 mg PO DAILY Patient Comments: TAKE ONE TABLET BY MOUTH TWICE A DAY pantoprazole 40 mg tablet,delayed release (DR/EC) 40 mg PO DAILY Patient Comments: TAKE ONE TABLET BY MOUTH EVERY DAY nitroglycerin [Nitrostat] 0.4 mg tablet, sublingual 0.4 mg sublingual PRN PRN Patient Comments: Place 1 tablet under tongue as directed Take every 5 mins x3 as needed for chest pain. If no relief call 911. oxycodone 5 mg tablet 5 mg PO PRN PRN (Reason: Moderate Pain (Scale Score 5-6)) Patient Comments: TAKE ONE TABLET BY MOUTH EVERY 4 HOURS NEEDED FOR MODERATE PAIN Creon 24,000-76,000 -120,000 unit capsule,delayed release(DR/EC) 3 cap PO 5X/DAY Patient Comments: TAKE 3 CAPSULES BY MOUTH PER MEAL AND 2 CAPSULES BY MOUTH PER SNACK (12 CAPSULES PER DAY) Eliquis 5 mg tablet 5 mg PO BID Hold Instructions: Resume on 05/04/23. Patient Comments: TAKE ONE TABLET BY MOUTH TWICE A DAY metoclopramide HCl [Reglan] 10 mg tablet 10 mg PO Q6H PRNQty: 10 0RF fentanyl 12 mcg/hr patch 72 hour 1 patch transdermal Q72H Patient Comments: APPLY 1 PATCH TO CLEAN, DRY SKIN FOR 72 HOURS THEN REMOVE, DISPOSE OF PROPERLY AND APPLY A NEW PATCH ON A DIFFERENT, CLEAN DRY SKIN SITE Discharge Instructions Instructions: Jaundice (ED) HPI General Date/Time Provider Initiated Documentation: 06/16/23 09:35 . HPI Narrative: 62-year-old female being treated for pancreatic cancer, recent UTI, completed course of cefpodoxime presents with dark urine and urinary frequency. Denies flank pain fevers chills nausea or vomiting. Related Data Home Medications Medication Instructions Recorded Confirmed acetaminophen 500 mg tablet 1,000 mg PO PRN PRN 09/29/22 06/16/23 apixaban 5 mg tablet (Eliquis) 5 mg PO BID 09/29/22 06/16/23 citalopram 20 mg tablet 20 mg PO DAILY 09/29/22 06/16/23 [id number] 3 cap PO 5X/DAY 09/29/22 06/16/23 24,000-76,000-120,000 unit capsule,delayed rel (Creon) loperamide 2 mg capsule 2 mg PO PRN PRN 09/29/22 06/16/23 magnesium oxide 400 mg (241.3 mg 400 mg PO DAILY 09/29/22 06/16/23 magnesium) tablet nitroglycerin 0.4 mg sublingual 0.4 mg sublingual PRN PRN 09/29/22 06/16/23 tablet (Nitrostat) ondansetron HCl 8 mg tablet 8 mg PO PRN PRN 09/29/22 06/16/23 oxycodone 5 mg tablet 5 mg PO PRN PRN Moderate Pain 09/29/22 06/16/23 (Scale Score 5-6) pantoprazole 40 mg tablet,delayed 40 mg PO DAILY 09/29/22 06/16/23 release potassium chloride 10 mEq 20 meq PO BID 09/29/22 06/16/23 tablet,extended release prochlorperazine maleate 10 mg 10 mg PO PRN PRN 09/29/22 06/16/23 tablet (Compazine) metoclopramide HCl 10 mg tablet 10 mg PO Q6H PRN #10 tabs 02/27/23 06/16/23 (Reglan) fentanyl 12 mcg/hr transdermal 1 patch transdermal Q72H 05/01/23 06/16/23 patch Previous Rx's Medication Instructions Recorded metoclopramide HCl 10 mg tablet 10 mg PO Q6H PRN #10 tabs 02/27/23 (Reglan) Allergies Allergy/AdvReac Type Severity Reaction Status Date / Time bupropion [From Wellbutrin] AdvReac Diarrhea Verified 06/16/23 09:47 codeine AdvReac Diarrhea Verified 06/16/23 09:47 ibuprofen AdvReac Nausea Verified 06/16/23 09:47 Penicillins AdvReac Hives Verified 06/16/23 09:47 Sulfa (Sulfonamide AdvReac Hives Verified 06/16/23 09:47 Antibiotics) topiramate [From Topamax] AdvReac Dizziness/L Verified 06/16/23 09:47 ighthead General Stated Complaint: Nausea/Vomit/Diar ILEANA: 3 Review of Systems Narrative: Review of Systems Constitutional: negative Eyes: negative ENT: negative Cardiovascular: negative Respiratory: negative Gastrointestinal: negative : Dark urine, urinary frequency Musculoskeletal: negative Skin: negative Neurologic: negative Psych: negative Exam Narrative Exam Narrative: Physical Examination General: alert, awake, cooperative, resting comfortably, no acute distress HEENT: normocephalic, atraumatic; PERRL, EOM intact, conjunctiva normal; no nasa l discharge; moist mucous membranes, oral and pharyngeal mucosa normal, tolerating secretions Neck: supple, trachea midline; full ROM Chest: normal to inspection Respiratory: normal respiratory effort, speaking in full sentences GI: abdomen soft, non-tender, non-distended; no palpable mass or hepatosplenomegaly Skin: Jaundice Neuro: AAOx3, normal speech, moving all extremities Psych: Appropriate mood and affect Course Vital Signs Vital signs: Vital Signs Temperature 37.0 C 06/16/23 09:43 Pulse 83 06/16/23 09:43 Respiratory Rate 16 06/16/23 09:43 Blood Pressure 103/64 06/16/23 09:43 Pulse Oximetry 99 06/16/23 09:43 Temperature 37.0 C 06/16/23 09:43 Temperature Source Temporal Artery Scan 06/16/23 09:43 Pulse 83 06/16/23 09:43 Respiratory Rate 16 06/16/23 09:43 Blood Pressure 103/64 06/16/23 09:43 Blood Pressure Position Sitting 06/16/23 09:43 Pulse Oximetry 99 06/16/23 09:43 Oxygen Delivery Method Room Air 06/16/23 09:43 Oxygen Flow Rate 0 06/16/23 09:43 Medical Decision Making 62-year-old female recent UTI completed course of cefpodoxime presents with dark urine and urinary frequency. No flank pain afebrile nontoxic. History of pancreatic cancer currently undergoing great treatment, history of C. difficile colitis completed course of vancomycin. Patient afebrile nontoxic no acute distress. Consider cystitis low suspicion for pyelonephritis. Screening UA, close reassessment disposition pending results 10: 25 patient resting comfortably no acute distress. Evidence of bilirubin and UA consistent with patient's pancreatic pathology. Patient will follow close with her primary oncology and primary team. Quality:SDOH Health Related Social Needs: No Data to Display PFSH All Active Problems (Updated 06/16/23 @ 10:26 by Christopher Guerrero MD) Bilirubinuria (Acute) Hypomagnesemia (Acute) Hypokalemia (Acute) Bacteremia (Acute) C. 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) Port-A-Cath in place (Acute) Depression (Chronic) Multiple sclerosis (Chronic) Chronic GERD (Acute) Medical History (Updated 06/16/23 @ 10:26 by Christopher Guerrero MD) History of difficult venous access History of biliary stent insertion Surgical History (Updated 05/08/23 @ 13:39 by Megha Dupree) History of insertion of tunneled central venous catheter (CVC) with port (~04/2023) S/P cholecystectomy Open cholecystectomy S/P laparoscopy Diagnostic laparoscopy for staging of pancreatic cancer Social History Smoking/Tobacco Use Status: Never Smoking risk assessment performed?: Yes Alcohol Intake: former Drug use: Never Substance use type: does not use Housing: house Do you feel safe at home: Yes Do you feel safe in your relationship?: Yes Additional Social history: lives with mother in mobile home
[2023-06-16 09:57] LABS: Bilirubin Large (Negative); Blood Negative (Negative); Clarity Clear (Clear); Glucose 100 mg/dL (Negative); Ketones Trace mg/dL (Negative); Leukocyte Esterase Negative (Negative); Nitrite Negative (Negative); Specific Gravity >= 1.030 (1.005-1.025); Urobilinogen 0.2 mg/dL (Up to 0.2)
[2023-06-16] MEDS: Acetaminophen 325 MG TAB 650 MG PO (10:01)
[2023-06-16 10:09] LABS: Bacteria Rare HPF (Negative); C & S Indicated? No/Sq. Contamination; Casts 3-5 Hyaline LPF (Negative); Crystals Negative HPF (Negative); Epithelial Cells Moderate HPF (Negative); Mucus Moderate (Negative); RBC 0-2 HPF (0-2)
== END 2023-06-16 10:31 | disposition home or self-care (01) ==
PROVIDERS: Emergency Provider Emergency Medicine; PCP Internal Medicine
DX: R35.0 Frequency of micturition (principal); R82.2 Biliuria; Z87.440 Personal history of urinary (tract) infections; Z85.07 Personal history of malignant neoplasm of pancreas
CPT/HCPCS: 99282; 81003; 81015

== ENCOUNTER 2023-07-10 11:08 | Observation (INO) | payer MEDICAID, SELFPAY ==
[2023-07-10] VITALS (10 sets, daily range): BP systolic 110–177; BP diastolic 64–98; PULSE 80–97; RESP 18–20; TEMP 36.4–37.5; O2SAT 98–99
[2023-07-10 11:53] LABS: Abs Immature Grans 0.02 10^3/uL (0.0-0.06); Absolute Basophil Count 0.03 10^3/uL (0.0-0.2); Absolute Eosinophil Count 0.09 10^3/uL (0.0-0.7); Absolute Lymphocyte Count 0.34 10^3/uL (1.2-3.4); Absolute Monocyte Count 0.05 10^3/uL (0.1-0.8); Absolute Neutrophil Count 2.65 10^3/uL (1.2-6.7); Basophils % 0.9; Eosinophils % 2.8; HCT 33.9 % (36.0-46.0); HGB 10.4 g/dL (11.2-15.7); Immature Grans % 0.6; Lymphocytes % 10.7; MCHC 30.7 % (32.0-36.0); MCV 78 fL (80-95); MPV 9.2 fL (8.0-11.0); Monocytes % 1.6; Neutrophils % 83.4; Platelet Count 148 10^3/uL (130-400); RBC 4.33 10^6/uL (3.93-5.22); RDW 17.7 % (11.7-14.6); RDW-SD 50.4 fL; WBC 3.18 10^3/uL (4.4-10.8)
[2023-07-10] MEDS: Metoclopramide 10 MG/2 ML VIAL IVP (12:10)
[2023-07-10] MEDS: Lactated Ringers 500 ML 1000 ML IV (12:15)
[2023-07-10 12:19] LABS: ALT 30 U/L (14-59); AST 77 U/L (15-37); Albumin 2.7 g/dL (3.4-5.0); Alkaline Phosphatase 574 U/L (46-116); Anion Gap 11.5 mmol/L (3-11); BUN 10 mg/dL (7-18); Bilirubin, Total 0.8 mg/dL (0.2-1.0); CO2 21.5 mmol/L (21.0-32.0); CREATININE 0.9 mg/dL (0.55-1.02); Calcium 8.4 mg/dL (8.5-10.1); Chloride 104 mmol/L (98-107); Estimated GFR 72.73 (mL/min/1.73m2); Glucose 125 mg/dL (74-106); Magnesium 1.9 mg/dL (1.8-2.4); Potassium 3.7 mmol/L (3.5-5.1); Sodium 137 mmol/L (136-145); Total Protein 7.3 g/dL (6.4-8.2); Troponin I < 50 ng/L (< or =60)
[2023-07-10 12:20] LABS: Lipase < 10 U/L (16-77)
--- NOTE | 2023-07-10 12:30 | DI.CT_ITS ---
Exam(s) CT HEAD WO EXAM: CT HEAD WO CLINICAL HISTORY: headache, pancreatic ca. TECHNIQUE: Imaging Protocol: Axial computed tomography images with coronal and sagittal reformatted images were created and reviewed COMPARISON: No exams were available for comparison FINDINGS: Ventricles and Extra axial spaces: Normal in size and morphology for the patient's age. Hemorrhage: None. Cerebral parenchyma: There are areas of decreased attenuation in the white matter likely reflecting s mall vessel ischemic disease. No mass effect is identified. No acute territorial infarct is identif ied at this time. Midline shift: None. Brainstem/Cerebellum: Normal. Calvarium: Normal. Visualized Paranasal sinuses/Mastoids: Clear. Soft Tissues: Unremarkable. IMPRESSION: 1. No acute intracranial process. 2. Follow-up as clinically appropriate. 3. Findings were discussed with the emergency department at 1:29 p.m. on 07/10/2023. RADIATION DOSE DELIVERED: Total DLP DATA REPOSITORY: All CT scans at this facility are submitted to the National Radiology Data Registry (NRDR) Dose Index Registry (DIR) with the [employer] ([employer]). RADIATION OPTIMIZATION: All CT scans at this facility use at least one of these dose optimization te chniques: automated exposure control; mA and/or kV adjustment per patient size (includes targeted exa ms where dose is matched to clinical indication); or iterative reconstruction.
[2023-07-10 13:42] LABS: Bilirubin Negative (Negative); Blood Negative (Negative); Clarity Clear (Clear); Glucose Negative (Negative); Ketones 15 mg/dL (Negative); Leukocyte Esterase Negative (Negative); Nitrite Negative (Negative); Urobilinogen 0.2 mg/dL (Up to 0.2); pH 7.5 (5-8)
[2023-07-10 13:48] LABS: Bacteria Negative HPF (Negative); C & S Indicated? No; Casts Negative LPF (Negative); Crystals Negative HPF (Negative); Epithelial Cells Few HPF (Negative); Mucus Negative (Negative); RBC 0-2 HPF (0-2); WBC 0-2 HPF (0-5)
[2023-07-10 14:04] LABS: C Diff PCR Positive (Negative)
--- NOTE | 2023-07-10 14:30 | DI.CT_ITS ---
Exam(s) CT ABDOMEN PELVIS W EXAM: CT ABDOMEN PELVIS W CLINICAL HISTORY: c.diff, vomiting, diarrhea, pancreatic ca TECHNIQUE: Imaging Protocol: Axial computed tomography images with coronal and sagittal reformatted images were created and reviewed. CONTRAST MATERIAL: Intravenous: Omnipaque 350 Contrast volume:100 mL Oral: No COMPARISON: CT CT ABDOMEN PELVIS WO from 09/29/[address] ABDOMEN PELVIS W from 09/29/2022 CT RECIST 1.1 from 10/04/[address] ABDOMEN PELVIS W from 11/04/[address] ABDOMEN PELVIS W from 02/27/[address] ABDOMEN PELVIS W from 05/29/2023 FINDINGS: ABDOMEN: Lung Bases: No acute pulmonary process. Stable pulmonary nodules. Liver: Fatty infiltration of the liver. No measurable mass. Portal, Superior Mesenteric, and Splenic Veins: There is again seen superior mesenteric vein occlusio n with collateral vessel seen in the left upper quadrant of the abdomen and within the mesentery. Gallbladder and Biliary Tract: The gallbladder is absent. There is a biliary stent with pneumobilia present. Pancreas: There is atrophy of the tail and body of the pancreas. There is no change in appearance of the pancreatic head mass. Spleen: Splenomegaly. Adrenals: No masses seen. Kidneys: Normal size, contour and axis. No radiodense stones or obstructive uropathy. No masses seen. Abdominal Aorta: Abdominal portion non-dilated. Bowel: Diverticulosis of the colon without evidence of acute diverticulitis. There is no evidence of bowel obstruction. The stomach is incompletely distended limiting evaluation. The head of the panc reas is indistinguishable from the adjacent duodenum and neoplastic infiltration should be considered . No evidence of appendicitis. Peritoneal Cavity: There is a small amount of perihepatic and perisplenic ascites. There is a small to moderate amount of pelvic ascites. No free air. Lymph Nodes: Mildly enlarged lymph nodes are seen in the upper abdomen. These are stable. Bones: Within normal limits for the patient's age. Soft Tissues: Unremarkable. PELVIS: Bladder: Symmetric distention, no gross wall thickening. Reproductive Organs: Unremarkable as visualized. Lymph Nodes: Within normal limits. Bones: Within normal limits for the patient's age. IMPRESSION: 1. There has been no significant change in appearance of the abdomen and pelvis compared to the prior examination. 2. Stable appearance of the pancreatic head mass. Stable enlarged upper abdominal lymph nodes. 3. Stable abdominal pelvic ascites. 4. Findings were discussed with Dr. Ford at 4 p.m. on 07/10/2023. RADIATION DOSE DELIVERED: Total DLP DATA REPOSITORY: All CT scans at this facility are submitted to the National Radiology Data Registry (NRDR) Dose Index Registry (DIR) with the [employer] (ACR). RADIATION OPTIMIZATION: All CT scans at this facility use at least one of these dose optimization te chniques: automated exposure control; mA and/or kV adjustment per patient size (includes targeted exa ms where dose is matched to clinical indication); or iterative reconstruction.
--- NOTE | 2023-07-10 14:39 | ED.GENADUL_ITS ---
Discharge Plan Disposition Patient Disposition: Admit to [facility] Condition: Serious Discharge Details Chief Complaint: Nausea/Vomit/Diar Clinical Impression: Nausea vomiting and diarrhea, C. difficile colitis Primary Care Provider: Sid Rubio ED Provider: Colby Ford [place] Meds and New Rx's Prescriptions: No Action Creon 36,000-114,000- 180,000 unit capsule,delayed release(DR/EC) See Rx Instructions PO .COMPLEX Patient Comments: TAKE 3 CAPSULES BY MOUTH DAILY PER MEAL, 1 PER SNACK, MAXIMUM DAILY DOSE = 12 CAPSULES Rx Instructions: 3 caps PO daily per meal, 1 cap/snack orally; max does 12 capsules/day loperamide 2 mg capsule 2 mg PO PRN PRN Patient Comments: TAKE TWO CAPSULES BY MOUTH EVERY 6 HOURS NEEDED ondansetron HCl 8 mg tablet 8 mg PO PRN PRN Patient Comments: TAKE ONE TABLET BY MOUTH EVERY 8 HOURS NEEDED FOR NAUSEA potassium chloride 10 mEq tablet extended release 20 meq PO BID Patient Comments: TAKE TWO TABLETS BY MOUTH TWICE A DAY prochlorperazine maleate [Compazine] 10 mg tablet 10 mg PO PRN PRN Patient Comments: Take 1 tablet by mouth every six hours as needed for dry heaves, nausea, vomiting. acetaminophen 500 mg tablet 1,000 mg PO PRN PRN Patient Comments: Take 2 tablet by mouth every six hours as needed for pain citalopram 20 mg tablet 20 mg PO DAILY Patient Comments: TAKE ONE TABLET BY MOUTH EVERY DAY magnesium oxide 400 mg (241.3 mg magnesium) tablet 400 mg PO DAILY Patient Comments: TAKE ONE TABLET BY MOUTH TWICE A DAY pantoprazole 40 mg tablet,delayed release (DR/EC) 40 mg PO DAILY Patient Comments: TAKE ONE TABLET BY MOUTH EVERY DAY nitroglycerin [Nitrostat] 0.4 mg tablet, sublingual 0.4 mg sublingual PRN PRN Patient Comments: Place 1 tablet under tongue as directed Take every 5 mins x3 as needed for chest pain. If no relief call 911. oxycodone 5 mg tablet 5 mg PO PRN PRN (Reason: Moderate Pain (Scale Score 5-6)) Patient Comments: TAKE ONE TABLET BY MOUTH EVERY 4 HOURS NEEDED FOR MODERATE PAIN Eliquis 5 mg tablet 5 mg PO BID Hold Instructions: Resume on 05/04/23. Patient Comments: TAKE ONE TABLET BY MOUTH TWICE A DAY metoclopramide HCl [Reglan] 10 mg tablet 10 mg PO Q6H PRNQty: 10 0RF fentanyl 12 mcg/hr patch 72 hour 1 patch transdermal Q72H Patient Comments: APPLY 1 PATCH TO CLEAN, DRY SKIN FOR 72 HOURS THEN REMOVE, DISPOSE OF PROPERLY AND APPLY A NEW PATCH ON A DIFFERENT, CLEAN DRY SKIN SITE HPI General Mode of arrival: ambulatory . Date/Time Provider Initiated Documentation: 07/10/23 11:17 . Limitations to Documentation: no limitations . Information obtained by: patient and family . HPI Narrative: 62-year-old female with history of inoperable pancreatic cancer, underwent initial round of chemotherapy and then radiation therapy, started second round of chemotherapy but was delayed as a result of gram-negative bacteremia, recently restarted chemotherapy last week, presents with chief complaint of nausea and vomiting. Patient notes persistent, severe nausea and vomiting since yesterday. She has associated headache that started last night. Related Data Home Medications Medication Instructions Recorded Confirmed acetaminophen 500 mg tablet 1,000 mg PO PRN PRN 09/29/22 07/10/23 apixaban 5 mg tablet (Eliquis) 5 mg PO BID 09/29/22 07/10/23 citalopram 20 mg tablet 20 mg PO DAILY 09/29/22 07/10/23 loperamide 2 mg capsule 2 mg PO PRN PRN 09/29/22 07/10/23 magnesium oxide 400 mg (241.3 mg 400 mg PO DAILY 09/29/22 07/10/23 magnesium) tablet nitroglycerin 0.4 mg sublingual 0.4 mg sublingual PRN PRN 09/29/22 07/10/23 tablet (Nitrostat) ondansetron HCl 8 mg tablet 8 mg PO PRN PRN 09/29/22 07/10/23 oxycodone 5 mg tablet 5 mg PO PRN PRN Moderate Pain 09/29/22 07/10/23 (Scale Score 5-6) pantoprazole 40 mg tablet,delayed 40 mg PO DAILY 09/29/22 07/10/23 release potassium chloride 10 mEq 20 meq PO BID 09/29/22 07/10/23 tablet,extended release prochlorperazine maleate 10 mg 10 mg PO PRN PRN 09/29/22 07/10/23 tablet (Compazine) metoclopramide HCl 10 mg tablet 10 mg PO Q6H PRN #10 tabs 11/14/23 03/26/24 (Reglan) fentanyl 12 mcg/hr transdermal 1 patch transdermal Q72H 05/01/23 07/10/23 patch [id number] See Rx Instructions PO .COMPLEX 07/10/23 07/10/23 36,000-114,000-180,000 unit capsule,delay rel (Creon) Previous Rx's Medication Instructions Recorded metoclopramide HCl 10 mg tablet 10 mg PO Q6H PRN #10 tabs 02/27/23 (Reglan) Allergies Allergy/AdvReac Type Severity Reaction Status Date / Time bupropion [From Wellbutrin] AdvReac Diarrhea Verified 07/10/23 11:18 codeine AdvReac Diarrhea Verified 07/10/23 11:18 ibuprofen AdvReac Nausea Verified 07/10/23 11:18 Penicillins AdvReac Hives Verified 07/10/23 11:18 Sulfa (Sulfonamide AdvReac Hives Verified 07/10/23 11:18 Antibiotics) topiramate [From Topamax] AdvReac Dizziness/L Verified 07/10/23 11:18 ighthead General Stated Complaint: Nausea/Vomit/Diar ILEANA: 3 Review of Systems Constitutional Constitutional: Denies fever(s) Gastrointestinal Gastrointestinal: Reports as per HPI, Reports nausea and Reports vomiting Exam Const General: cooperative and no acute distress HENMT Mouth: moist mucous membranes Eyes Conjunctivae: normal conjunctivae Sclera: normal sclerae Neck Neck: trachea midline and supple Resp Auscultation: clear to auscultation bilaterally, no rales, no rhonchi and no wheezes Cardio Rate: regular rate and not tachycardic Rhythm: regular rhythm GI Palpation: soft, not firm, no guarding, no masses, not rigid and nontender Skin General skin exam: no rashes or lesions noted Neuro General: patient alert, patient awake and tone normal Extrem General: no edema Psych Appearance: grossly normal Mental Status: mental status grossly normal Course Vital Signs Vital signs: Vital Signs Temperature 36.4 C 07/10/23 11:14 Pulse 97 H 07/10/23 11:14 Respiratory Rate 20 07/10/23 11:14 Blood Pressure 130/73 07/10/23 11:14 Pulse Oximetry 99 07/10/23 11:14 Temperature 36.4 C 07/10/23 11:14 Temperature Source Oral 07/10/23 11:14 Pulse 97 H 07/10/23 11:14 Respiratory Rate 20 07/10/23 11:14 Respiratory Effort Normal 07/10/23 11:17 Blood Pressure 130/73 07/10/23 11:14 Blood Pressure Position Sitting 07/10/23 11:14 Pulse Oximetry 99 07/10/23 11:14 Oxygen Delivery Method Room Air 07/10/23 11:14 Oxygen Flow Rate 0 07/10/23 11:14 Pain Level 7 07/10/23 12:57 Lab/Test Results Lab/Test Results: Laboratory Tests Range/Units 07/10/23 07/10/23 07/10/23 11:46 12:48 13:27 WBC (4.4-10.8) 10^3/uL 3.18 L RBC (3.93-5.22) 10^6/uL 4.33 Hgb (11.2-15.7) g/dL 10.4 L Hct (36.0-46.0) % 33.9 L MCV (80-95) fL 78 L MCH (27.0-33.0) pg 24.0 L MCHC (32.0-36.0) % 30.7 L RDW (11.7-14.6) % 17.7 H Plt Count (130-400) 10^3/uL 148 MPV (8.0-11.0) fL 9.2 Immature Gran % 0.6 Neutrophils % 83.4 Lymphocytes % 10.7 Monocytes % 1.6 Eosinophils % 2.8 Basophils % 0.9 Nucleated RBC % (0.0-0.3) % 0.0 Absolute Neutrophils (1.2-6.7) 10^3/uL 2.65 Absolute Lymphocytes (1.2-3.4) 10^3/uL 0.34 L Absolute Monocytes (0.1-0.8) 10^3/uL 0.05 L Absolute Eosinophils (0.0-0.7) 10^3/uL 0.09 Absolute Basophils (0.0-0.2) 10^3/uL 0.03 Sodium (136-145) mmol/L 137 Potassium (3.5-5.1) mmol/L 3.7 Chloride (98-107) mmol/L 104 Carbon Dioxide (21.0-32.0) mmol/L 21.5 Anion Gap (3-11) mmol/L 11.5 H BUN (7-18) mg/dL 10 Creatinine (0.55-1.02) mg/dL 0.9 Est GFR (CKD-EPI 2020) (mL/min/1.73m2) 72.73 Glucose (74-106) mg/dL 125 H Calcium (8.5-10.1) mg/dL 8.4 L Magnesium (1.8-2.4) mg/dL 1.9 Total Bilirubin (0.2-1.0) mg/dL 0.8 AST (15-37) U/L 77 H ALT (14-59) U/L 30 Alkaline Phosphatase (46-116) U/L 574 H Troponin I (< or =60) ng/L < 50 Total Protein (6.4-8.2) g/dL 7.3 Albumin (3.4-5.0) g/dL 2.7 L Lipase (16-77) U/L < 10 L Urine Color (Yellow) Yellow Urine Clarity (Clear) Clear Urine pH (5-8) 7.5 Ur Specific [place] (1.005-1.025) 1.020 Urine Protein (Neg-Trace) mg/dL 30 H Urine Ketones (Negative) mg/dL 15 H Urine Blood (Negative) Negative Urine Nitrite (Negative) Negative Urine Bilirubin (Negative) Negative Urine Urobilinogen (Up to 0.2) mg/dL 0.2 Ur Leukocyte Esterase (Negative) Negative Urine RBC (0-2) HPF 0-2 Urine WBC (0-5) HPF 0-2 Ur Epithelial Cells (Negative) HPF Few Urine Crystals (Negative) HPF Negative Urine Bacteria (Negative) HPF Negative Urine Casts (Negative) LPF Negative Urine Mucus (Negative) Negative Ur Culture Indicated? No Urine Glucose (Negative) mg/dL Negative Stl C.difficile Tox PCR (Negative) Positive A Medical Decision Making 1400??62-year-old female with history of inoperable pancreatic cancer, underwent initial round of chemotherapy and then radiation therapy, started second round of chemotherapy but was delayed as a result of gram-negative bacteremia, recently restarted chemotherapy last week, now with severe nausea and vomiting. Patient is dehydrated. Patient was treated with Reglan for her nausea and IV fluid bolus and had initial improvement. Considered biliary obstruction and pancreatitis. LFTs and lipase normal. Considered neutropenia: Absolute neutrophils within normal limit. 1500 -- Patient reassessed and nausea/vomiting has returned. She is now having frequent liquid bowel movements. Will give compazine. Patient testing positive for C. difficile. Concern for active C. difficile infection vs persistent false positive post treatment. Symptoms are concerning for active infection. Consider severe colitis given immunosuppression on chemotherapy. Plan to obtain CT of the abdomen pelvis. Will initiate treatment with metronidazole IV and fidaxomicin if patient will tolerate. Plan for admission to continue parenteral fluids, antiemetics and C. difficile treatment. 1610 -- CT of the abd and pelvis interpreted by radiology: 1. There has been no significant change in appearance of the abdomen and pelvis compared to the prior examination. 2. Stable appearance of the pancreatic head mass. Stable enlarged upper abdominal lymph nodes. 3. Stable abdominal pelvic ascites. 4. Findings were discussed with Dr. Ford at 4 p.m. on 07/10/2023. I called and spoke with Dr. Mcmahno, discussed ED presentation course, he will admit the patient. Lab Data Lab results reviewed: Yes I reviewed the patient's lab results. Labs: Laboratory Tests Range/Units 07/10/23 07/10/23 07/10/23 11:46 12:48 13:27 WBC (4.4-10.8) 10^3/uL 3.18 L RBC (3.93-5.22) 10^6/uL 4.33 Hgb (11.2-15.7) g/dL 10.4 L Hct (36.0-46.0) % 33.9 L MCV (80-95) fL 78 L MCH (27.0-33.0) pg 24.0 L MCHC (32.0-36.0) % 30.7 L RDW (11.7-14.6) % 17.7 H Plt Count (130-400) 10^3/uL 148 MPV (8.0-11.0) fL 9.2 Immature Gran % 0.6 Neutrophils % 83.4 Lymphocytes % 10.7 Monocytes % 1.6 Eosinophils % 2.8 Basophils % 0.9 Nucleated RBC % (0.0-0.3) % 0.0 Absolute Neutrophils (1.2-6.7) 10^3/uL 2.65 Absolute Lymphocytes (1.2-3.4) 10^3/uL 0.34 L Absolute Monocytes (0.1-0.8) 10^3/uL 0.05 L Absolute Eosinophils (0.0-0.7) 10^3/uL 0.09 Absolute Basophils (0.0-0.2) 10^3/uL 0.03 Sodium (136-145) mmol/L 137 Potassium (3.5-5.1) mmol/L 3.7 Chloride (98-107) mmol/L 104 Carbon Dioxide (21.0-32.0) mmol/L 21.5 Anion Gap (3-11) mmol/L 11.5 H BUN (7-18) mg/dL 10 Creatinine (0.55-1.02) mg/dL 0.9 Est GFR (CKD-EPI 2020) (mL/min/1.73m2) 72.73 Glucose (74-106) mg/dL 125 H Calcium (8.5-10.1) mg/dL 8.4 L Magnesium (1.8-2.4) mg/dL 1.9 Total Bilirubin (0.2-1.0) mg/dL 0.8 AST (15-37) U/L 77 H ALT (14-59) U/L 30 Alkaline Phosphatase (46-116) U/L 574 H Troponin I (< or =60) ng/L < 50 Total Protein (6.4-8.2) g/dL 7.3 Albumin (3.4-5.0) g/dL 2.7 L Lipase (16-77) U/L < 10 L Urine Color (Yellow) Yellow Urine Clarity (Clear) Clear Urine pH (5-8) 7.5 Ur Specific [place] (1.005-1.025) 1.020 Urine Protein (Neg-Trace) mg/dL 30 H Urine Ketones (Negative) mg/dL 15 H Urine Blood (Negative) Negative Urine Nitrite (Negative) Negative Urine Bilirubin (Negative) Negative Urine Urobilinogen (Up to 0.2) mg/dL 0.2 Ur Leukocyte Esterase (Negative) Negative Urine RBC (0-2) HPF 0-2 Urine WBC (0-5) HPF 0-2 Ur Epithelial Cells (Negative) HPF Few Urine Crystals (Negative) HPF Negative Urine Bacteria (Negative) HPF Negative Urine Casts (Negative) LPF Negative Urine Mucus (Negative) Negative Ur Culture Indicated? No Urine Glucose (Negative) mg/dL Negative Stl C.difficile Tox PCR (Negative) Positive A Quality:SDOH Health Related Social Needs: No Data to Display PFSH All Active Problems (Updated 07/10/23 @ 16:13 by Colby Ford MD) C. difficile colitis (Acute) Nausea vomiting and diarrhea (Acute) Bilirubinuria (Acute) Bacteremia (Acute) C. 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) Port-A-Cath in place (Acute) Depression (Chronic) Multiple sclerosis (Chronic) Chronic GERD (Acute) Medical History History of difficult venous access History of biliary stent insertion Surgical History History of insertion of tunneled central venous catheter (CVC) with port (~04/2023) S/P cholecystectomy Open cholecystectomy S/P laparoscopy Diagnostic laparoscopy for staging of pancreatic cancer Social History Smoking/Tobacco Use Status: Never Smoking risk assessment performed?: Yes Alcohol Intake: former Drug use: Never Substance use type: does not use Housing: house Do you feel safe at home: Yes Do you feel safe in your relationship?: Yes Additional Social history: lives with mother in mobile home
[2023-07-10] MEDS: Omnipaque 350 MG/ML 100 ML BTL IJ (15:00)
[2023-07-10] MEDS: Normal Saline - Diluent 50 ML VIAL IJ (15:01)
[2023-07-10] MEDS: metroNIDAZOLE 500 MG/100 ML BAG 100 MG IVPB ×2 (15:37→21:39)
[2023-07-10] MEDS: Prochlorperazine 10 MG/2 ML VIAL IVP (15:37)
[2023-07-10] MEDS: Fidaxomicin 200 MG TAB PO (15:38)
--- NOTE | 2023-07-10 17:05 | W.PM.HP.N ---
Date of service: 07/10/23 Time of Service: 17:05 Assessment and Plan Assessment and plan (1) C. difficile diarrhea: Status: Acute Assessment and plan: Previously treated with vancomycin 125 mg 4 times daily for 10 days now started on Flagyl and dificid continue IV hydration, antiemetics, and imodium Will send confirmatory cytotoxin antibody study which is a send out (2) Superior mesenteric vein thrombosis: Status: Acute Assessment and plan: Fully anticoagulated on apixaban, continue (3) Port-A-Cath in place: Status: Acute (4) Multiple sclerosis: Status: Chronic Assessment and plan: Stable (5) Primary pancreatic cancer : Status: Chronic (6) Discharge planning issues: Status: Resolved Assessment and plan: anticipate a discharge to home when able to take PO discussed with Dr Mcmahon History of Present Illness History of Present Illness Chief Complaint: nausea, vomiting and diarrhea Narrative: This is a 62-year-old female patient history of multiple sclerosis pancreatic cancer on chemotherapy history of superior mesenteric venous thrombus on anticoagulation Mediport in place who presents to the emergency department after a 1 day history of what she states started as constipation. She did take stool softeners and laxatives for her symptoms. In the evening she reported some dry heaves denies any abdominal pain today started having loose stool. She was evaluated in the emergency department and a CAT scan was unchanged from her previous with no evidence of obstruction colitis perforation or other pathology to explain her symptoms. Stool was checked and positive for C. difficile. She was given IV fluids antiemetics and hospitalist services was asked to admit her to [facility] for symptom management. On arrival to the [facility] department she denies abdominal pain nausea or vomiting and is agreeable to try oral intake. Review of Systems All systems reviewed & are unremarkable except as noted in HPI and below PFSH All Active Problems (Updated 07/10/23 @ 16:13 by Colby Ford MD) C. difficile colitis (Acute) Nausea vomiting and diarrhea (Acute) Bilirubinuria (Acute) Bacteremia (Acute) C. 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) Port-A-Cath in place (Acute) Depression (Chronic) Multiple sclerosis (Chronic) Chronic GERD (Acute) Medical History History of difficult venous access History of biliary stent insertion Surgical History History of insertion of tunneled central venous catheter (CVC) with port (~04/2023) S/P cholecystectomy Open cholecystectomy S/P laparoscopy Diagnostic laparoscopy for staging of pancreatic cancer Social History Smoking/Tobacco Use Status: Never Smoking risk assessment performed?: Yes Alcohol Intake: former Drug use: Never Substance use type: does not use Housing: house Do you feel safe at home: Yes Do you feel safe in your relationship?: Yes Additional Social history: lives with mother in mobile home Meds Allergies and Home Medications Allergies Allergy/AdvReac Type Severity Reaction Status Date / Time bupropion [From Wellbutrin] AdvReac Diarrhea Verified 07/10/23 11:18 codeine AdvReac Diarrhea Verified 07/10/23 11:18 ibuprofen AdvReac Nausea Verified 07/10/23 11:18 Penicillins AdvReac Hives Verified 07/10/23 11:18 Sulfa (Sulfonamide AdvReac Hives Verified 07/10/23 11:18 Antibiotics) topiramate [From Topamax] AdvReac Dizziness/L Verified 07/10/23 11:18 ighthead Home Medications Medication Instructions Recorded Confirmed Type acetaminophen 500 mg tablet 1,000 mg PO PRN PRN 09/29/22 07/10/23 History apixaban 5 mg tablet (Eliquis) 5 mg PO BID 09/29/22 07/10/23 History citalopram 20 mg tablet 20 mg PO DAILY 09/29/22 07/10/23 History loperamide 2 mg capsule 2 mg PO PRN PRN 09/29/22 07/10/23 History magnesium oxide 400 mg (241.3 mg 400 mg PO DAILY 09/29/22 07/10/23 History magnesium) tablet nitroglycerin 0.4 mg sublingual 0.4 mg sublingual PRN PRN 09/29/22 07/10/23 History tablet (Nitrostat) ondansetron HCl 8 mg tablet 8 mg PO PRN PRN 09/29/22 07/10/23 History oxycodone 5 mg tablet 5 mg PO PRN PRN Moderate Pain 09/29/22 07/10/23 History (Scale Score 5-6) pantoprazole 40 mg tablet,delayed 40 mg PO DAILY 09/29/22 07/10/23 History release potassium chloride 10 mEq 20 meq PO BID 09/29/22 07/10/23 History tablet,extended release prochlorperazine maleate 10 mg 10 mg PO PRN PRN 09/29/22 07/10/23 History tablet (Compazine) metoclopramide HCl 10 mg tablet 10 mg PO Q6H PRN #10 tabs 02/27/23 07/10/23 Rx (Reglan) fentanyl 12 mcg/hr transdermal 1 patch transdermal Q72H 05/01/23 07/10/23 History patch [id number] See Rx Instructions PO .COMPLEX 07/10/23 07/10/23 History 36,000-114,000-180,000 unit capsule,delay rel (Creon) Exam Const General: cooperative, comfortable, no acute distress and not in acute distress Nutritional Appearance: overweight Orientation: alert, awake and oriented x3 HENMT Head: normal to inspection and normocephalic Mouth: oral mucosae normal Neck Neck: normal visual inspection and full ROM Chest Chest: normal inspection of the chest Resp Effort & Inspection: normal respiratory effort Auscultation: clear to auscultation bilaterally Cardio Jugular venous pressure: no JVD Rate: regular rate Rhythm: regular rhythm GI Inspection: normal to inspection Palpation: soft, not firm, no guarding and not rigid Auscultation: normal bowel sounds Skin Rashes: no rashes Neuro General: patient alert, patient awake and patient oriented x3 Psych Appearance: grossly normal Mental Status: mental status grossly normal Speech and Movement: speech and movement normal Mood: congruent mood Affect: normal affect Results Labs 07/10/23 11:46 07/10/23 11:46 Labs: Laboratory Results - last 24 hr 07/10/23 07/10/23 07/10/23 11:46 12:48 13:27 WBC 3.18 L RBC 4.33 Hgb 10.4 L Hct 33.9 L MCV 78 L MCH 24.0 L MCHC 30.7 L RDW 17.7 H Plt Count 148 MPV 9.2 Immature Gran % 0.6 Neutrophils % 83.4 Lymphocytes % 10.7 Monocytes % 1.6 Eosinophils % 2.8 Basophils % 0.9 Nucleated RBC % 0.0 Absolute Neutrophils 2.65 Absolute Lymphocytes 0.34 L Absolute Monocytes 0.05 L Absolute Eosinophils 0.09 Absolute Basophils 0.03 Sodium 137 Potassium 3.7 Chloride 104 Carbon Dioxide 21.5 Anion Gap 11.5 H BUN 10 Creatinine 0.9 Est GFR (CKD-EPI 2020) 72.73 Glucose 125 H Calcium 8.4 L Magnesium 1.9 Total Bilirubin 0.8 AST 77 H ALT 30 Alkaline Phosphatase 574 H Troponin I < 50 Total Protein 7.3 Albumin 2.7 L Lipase < 10 L Urine Color Yellow Urine Clarity Clear Urine pH 7.5 Ur Specific [place] 1.020 Urine Protein 30 H Urine Ketones 15 H Urine Blood Negative Urine Nitrite Negative Urine Bilirubin Negative Urine Urobilinogen 0.2 Ur Leukocyte Esterase Negative Urine RBC 0-2 Urine WBC 0-2 Ur Epithelial Cells Few Urine Crystals Negative Urine Bacteria Negative Urine Casts Negative Urine Mucus Negative Ur Culture Indicated? No Urine Glucose Negative Stl C.difficile Tox PCR Positive A Last Vital Signs Temp 36.4 C 07/10/23 11:14 Pulse 97 H 07/10/23 11:14 Resp 20 07/10/23 11:14 BP 130/73 07/10/23 11:14 Pulse Ox 99 07/10/23 11:14 Time Spent Time spent with Patient: 40-54 minutes Time was spent: preparing to see the patient(eg.review tests), obtaining and/or reviewing separately otained hiistory, ordering medications,tests, procedures, indepentently interpreting results and counseling the patient
[2023-07-10] MEDS: Lactated Ringers 1,000 ML 150 ML IV (18:46)
[2023-07-10] MEDS: Apixaban 5 MG TAB PO (19:41)
[2023-07-10] MEDS: Potassium Chloride 20 MEQ TABCR PO (19:41)
[2023-07-10] MEDS: Normal Saline Flush 10 ML SYR IVP ×2 (19:41)
[2023-07-11] MEDS: Lactated Ringers 1,000 ML 150 ML IV ×4 (02:08→23:44)
[2023-07-11 03:16] VITALS: BP 126/72; PULSE 85; RESP 18; TEMP 37.2; O2SAT 98
[2023-07-11] MEDS: Loperamide 2 MG CAP PO ×3 (04:00→19:37)
[2023-07-11] MEDS: metroNIDAZOLE 500 MG/100 ML BAG 100 MG IVPB ×3 (05:08→21:46)
[2023-07-11 07:21] LABS: Abs Immature Grans 0.01 10^3/uL (0.0-0.06); HCT 29.5 % (36.0-46.0); HGB 8.9 g/dL (11.2-15.7); MCH 23.9 pg (27.0-33.0); MCHC 30.2 % (32.0-36.0); MCV 79 fL (80-95); MPV 9.6 fL (8.0-11.0); RBC 3.72 10^6/uL (3.93-5.22); RDW 18.2 % (11.7-14.6); RDW-SD 53.1 fL
[2023-07-11 07:27] LABS: Platelet Count 110 10^3/uL (130-400)
[2023-07-11 07:29] LABS: WBC 1.82 10^3/uL (4.4-10.8)
[2023-07-11 07:38] LABS: ALT 23 U/L (14-59); AST 57 U/L (15-37); Albumin 2.3 g/dL (3.4-5.0); Alkaline Phosphatase 455 U/L (46-116); Anion Gap 8.3 mmol/L (3-11); BUN 6 mg/dL (7-18); Bilirubin, Total 0.5 mg/dL (0.2-1.0); CO2 25.7 mmol/L (21.0-32.0); CREATININE 0.8 mg/dL (0.55-1.02); Calcium 8.4 mg/dL (8.5-10.1); Chloride 108 mmol/L (98-107); Estimated GFR 83.78 (mL/min/1.73m2); Glucose 98 mg/dL (74-106); Magnesium 1.9 mg/dL (1.8-2.4); Potassium 3.8 mmol/L (3.5-5.1); Sodium 142 mmol/L (136-145); Total Protein 6.1 g/dL (6.4-8.2)
[2023-07-11 07:42] VITALS: BP 124/72; PULSE 76; RESP 16; TEMP 37; O2SAT 98
[2023-07-11] MEDS: Normal Saline Flush 10 ML SYR IVP ×3 (07:51→19:37)
[2023-07-11] MEDS: Apixaban 5 MG TAB PO ×2 (08:02→19:37)
[2023-07-11] MEDS: Citalopram 20 MG TAB PO (08:03)
[2023-07-11] MEDS: Pantoprazole 40 MG TABCR PO (08:03)
[2023-07-11] MEDS: Magnesium Oxide 400 MG TAB PO (08:03)
[2023-07-11] MEDS: Potassium Chloride 20 MEQ TABCR PO ×2 (08:03→19:37)
[2023-07-11 08:16] LABS: Absolute Eosinophil Count 0.02 10^3/uL (0.0-0.7); Absolute Lymphocyte Count 0.36 10^3/uL (1.2-3.4); Absolute Monocyte Count 0.09 10^3/uL (0.1-0.8); Absolute Neutrophil Count 1.35 10^3/uL (1.2-6.7); Atypical Lymphocytes % 1; Bands % 2
[2023-07-11 08:17] LABS: Diff Comment Manual Differential; Hypochromasia 2+
[2023-07-11] MEDS: Fidaxomicin 200 MG TAB PO ×2 (09:14→19:37)
[2023-07-11] MEDS: Lactobacillus Acidophilus CAP 1 CAP PO (09:14)
--- NOTE | 2023-07-11 09:23 | INITIAL_ITS ---
Date of service: 07/11/23 Time of Service: 09:23 Care Management Initial Assmt Initial Assessment REASON FOR HOSPITALIZATION:: c.difficile colitis PREVIOUS FUNCTIONAL STATUS/SOCIAL/FAMILY SUPPORTS:: Valeria lives in a mobile home in [place], [place] with her mother Tracie. She does not have any children, Valeria is independent at baseline and does not receive any community services. CURRENT FUNCTIONAL STATUS:: Valeria was sitting up in a chair when CM met with her. She was pleasant and engaged easily in conversation. Valeria stated that she is feeling much better. She has been able to tolerate a liquid diet and anticipates a regular dinner tray. She informed CM that she believes she will be able to discharge home tomorrow. She denied the need for any services. ADVANCE DIRECTIVES:: has [facility] on file but no HCA identified Has patient been provided with info about the portal/API?: Yes Did the patient sign up for the portal?: No CODE STATUS:: DNR/DNI INSURANCE COVERAGE / FINANCIAL ISSUES:: Medicaid CURRENT HOME/COMMUNITY SERVICES/EQUIPMENT:: none PRIMARY CARE PHYSICIAN:: Sid Ruboi POTENTIAL DISCHARGE NEEDS:: follow up with community providers PATIENT/FAMILY EDUCATION NEEDS:: Review of discharge instructions, precautions, follow up plan, limitations, discuss [employer] Me [employer] TRANSPORTATION:: via private vehicle with family PLAN:: Anticipate Valeria will be discharged home when medically stable. She will follow up with her community providers and plan of care and transport with family. CM will continue to support Valeria and her discharge planning needs. PFSH All Active Problems (Updated 07/10/23 @ 16:13 by Colby Ford MD) C. difficile colitis (Acute) Nausea vomiting and diarrhea (Acute) Bilirubinuria (Acute) Bacteremia (Acute) C. 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) Port-A-Cath in place (Acute) Depression (Chronic) Multiple sclerosis (Chronic) Chronic GERD (Acute) Medical History History of difficult venous access History of biliary stent insertion Surgical History History of insertion of tunneled central venous catheter (CVC) with port (~04/2023) S/P cholecystectomy Open cholecystectomy S/P laparoscopy Diagnostic laparoscopy for staging of pancreatic cancer Social History Smoking/Tobacco Use Status: Never Smoking risk assessment performed?: Yes Alcohol Intake: former Drug use: Never Substance use type: does not use Housing: house Do you feel safe at home: Yes Do you feel safe in your relationship?: Yes Additional Social history: lives with mother in mobile home SDOH(Care Management) Screening Will the Patient Participate in the Screening?: Yes Do you worry about having a steady place to live?: no Problems where you live: no known problems In the past 12 months, have you had to go without electric, gas, oil or water in your home?: no Have you or anyone in your house had to go without enough food to eat?: no Has lack of transportation kept you from medical appointments or from doing things needed for daily living?: no Has anyone in your support network made you feel unsafe for any reason?: no
[2023-07-11 12:54] VITALS: BP 130/80; PULSE 89; RESP 16; TEMP 37.1; O2SAT 99
--- NOTE | 2023-07-11 16:43 | W.PM.PROGNOT ---
Date of Service Date of service: 07/11/23 Time of Service: 16:43 Assessment and Plan Assessment and plan (1) C. difficile diarrhea: Status: Acute Assessment and plan: Previously treated with vancomycin 125 mg 4 times daily for 10 days now started on Flagyl and dificid continue IV hydration, antiemetics, and imodium Will send confirmatory cytotoxin antibody study which is a send out (2) Superior mesenteric vein thrombosis: Status: Acute Assessment and plan: Fully anticoagulated on apixaban, continue (3) Port-A-Cath in place: Status: Acute (4) Multiple sclerosis: Status: Chronic Assessment and plan: Stable (5) Primary pancreatic cancer : Status: Chronic (6) Discharge planning issues: Status: Resolved Assessment and plan: anticipate a discharge to home tomorrow if remains improved. no services anticipated discussed with Dr Mcmahon Subjective Subjective Patient reports: pain is less, tolerating liquids well, tolerating a regular diet, voiding w/o difficulty, diarrhea (multiple episode this am, no blood) and afebrile; denies blood in stool Exam Const General: cooperative, comfortable, no acute distress and not in acute distress Nutritional Appearance: overweight Orientation: alert, awake and oriented x3 HENMT Head: normal to inspection and normocephalic Mouth: oral mucosae normal Neck Neck: normal visual inspection and full ROM Chest Chest: normal inspection of the chest Resp Effort & Inspection: normal respiratory effort Auscultation: clear to auscultation bilaterally Cardio Jugular venous pressure: no JVD Rate: regular rate Rhythm: regular rhythm GI Inspection: normal to inspection Palpation: soft, not firm, no guarding and not rigid Auscultation: normal bowel sounds Skin Rashes: no rashes Neuro General: patient alert, patient awake and patient oriented x3 Psych Appearance: grossly normal Mental Status: mental status grossly normal Speech and Movement: speech and movement normal Mood: congruent mood Affect: normal affect Objective Last Vital Signs Temp 37.1 C 07/11/23 12:54 Pulse 89 07/11/23 12:54 Resp 16 07/11/23 12:54 BP 130/80 07/11/23 12:54 Pulse Ox 99 07/11/23 12:54 Laboratory Results - last 24 hr 07/11/23 06:20 WBC 1.82 L* RBC 3.72 L Hgb 8.9 L Hct 29.5 L MCV 79 L MCH 23.9 L MCHC 30.2 L RDW 18.2 H Plt Count 110 L MPV 9.6 Immature Gran % See Differential Neutrophils % 72.0 Band Neutrophils % 2 Lymphocytes % 19.0 Atypical Lymphs % 1 Monocytes % 5.0 Eosinophils % 1.0 Basophils % 0.0 Nucleated RBC % 0.0 Absolute Neutrophils 1.35 Absolute Lymphocytes 0.36 L Absolute Monocytes 0.09 L Absolute Eosinophils 0.02 Absolute Basophils 0.00 RBC Morphology See Below Hypochromasia 2+ Sodium 142 Potassium 3.8 Chloride 108 H Carbon Dioxide 25.7 Anion Gap 8.3 BUN 6 L Creatinine 0.8 Est GFR (CKD-EPI 2020) 83.78 Glucose 98 Calcium 8.4 L Magnesium 1.9 Total Bilirubin 0.5 AST 57 H ALT 23 Alkaline Phosphatase 455 H Total Protein 6.1 L Albumin 2.3 L Time Spent with Patient Time Spent with Patient: 25-34 minutes Time was spent: preparing to see the patient(eg.review tests), obtaining and/or reviewing separately otained hiistory, ordering medications,tests, procedures, indepentently interpreting results and counseling the patient
[2023-07-11 19:33] VITALS: BP 127/76; PULSE 80; RESP 17; TEMP 37.9; O2SAT 99
[2023-07-11] MEDS: oxyCODONE 5 MG TAB PO (21:53)
[2023-07-11 23:10] VITALS: BP 119/83; PULSE 76; RESP 17; TEMP 37.3; O2SAT 98
[2023-07-12 03:44] VITALS: BP 115/79; PULSE 93; RESP 16; TEMP 36.8; O2SAT 98
[2023-07-12] MEDS: metroNIDAZOLE 500 MG/100 ML BAG 100 MG IVPB (05:31)
[2023-07-12] MEDS: Lactated Ringers 1,000 ML 150 ML IV (05:31)
[2023-07-12] MEDS: Loperamide 2 MG CAP PO (07:04)
[2023-07-12 07:26] VITALS: BP 118/77; PULSE 76; RESP 16; TEMP 36.9; O2SAT 99
[2023-07-12] MEDS: Normal Saline Flush 10 ML SYR IVP (07:47)
[2023-07-12] MEDS: Apixaban 5 MG TAB PO (07:48)
[2023-07-12] MEDS: Pantoprazole 40 MG TABCR PO (07:48)
[2023-07-12] MEDS: Potassium Chloride 20 MEQ TABCR PO (07:48)
[2023-07-12] MEDS: Citalopram 20 MG TAB PO (07:48)
[2023-07-12] MEDS: Fidaxomicin 200 MG TAB PO (07:48)
[2023-07-12] MEDS: Lactobacillus Acidophilus CAP 1 CAP PO (07:48)
[2023-07-12] MEDS: Magnesium Oxide 400 MG TAB PO (07:48)
[2023-07-12 07:50] LABS: Abs Immature Grans 0.02 10^3/uL (0.0-0.06); HCT 31.2 % (36.0-46.0); HGB 9.5 g/dL (11.2-15.7); MCH 23.8 pg (27.0-33.0); MCHC 30.4 % (32.0-36.0); MCV 78 fL (80-95); MPV 10.4 fL (8.0-11.0); Platelet Count 125 10^3/uL (130-400); RBC 3.99 10^6/uL (3.93-5.22); RDW 18.4 % (11.7-14.6); RDW-SD 52.4 fL
[2023-07-12 08:01] LABS: Anion Gap 9.4 mmol/L (3-11); BUN 6 mg/dL (7-18); CO2 25.6 mmol/L (21.0-32.0); CREATININE 0.9 mg/dL (0.55-1.02); Calcium 8.5 mg/dL (8.5-10.1); Chloride 106 mmol/L (98-107); Estimated GFR 72.73 (mL/min/1.73m2); Glucose 104 mg/dL (74-106); Potassium 3.6 mmol/L (3.5-5.1); Sodium 141 mmol/L (136-145)
[2023-07-12 08:08] LABS: WBC 1.98 10^3/uL (4.4-10.8)
[2023-07-12 08:18] LABS: Absolute Neutrophil Count 1.37 10^3/uL (1.2-6.7)
[2023-07-12 08:19] LABS: Absolute Basophil Count 0.02 10^3/uL (0.0-0.2); Absolute Eosinophil Count 0.08 10^3/uL (0.0-0.7); Absolute Monocyte Count 0.12 10^3/uL (0.1-0.8); Atypical Lymphocytes % 0
[2023-07-12 08:20] LABS: Diff Comment Manual Differential; RBC Morphology Normal
[2023-07-12 11:27] VITALS: BP 117/83; PULSE 88; RESP 16; TEMP 36.6; O2SAT 99
--- NOTE | 2023-07-12 11:40 | DSE_ITS ---
Date of service: 07/12/23 Time of Service: 11:40 DS: Diagnosis Discharge Diagnosis (1) C. difficile diarrhea: Status: Acute (2) Superior mesenteric vein thrombosis: Status: Acute (3) Port-A-Cath in place: Status: Acute (4) Multiple sclerosis: Status: Chronic (5) Primary pancreatic cancer : Status: Chronic Discharge Plan Disposition Patient Disposition: Home Condition: Stable Discharge Details Reason For Visit: C Difficile Colitis, Hyperemsis Admit Date/Time: 07/10/23 16:12 Admit Provider: Seb Mcmahon Attending Provider: Seb Mcmahon Primary Care Provider: [facility] Course Hospital Course: This is a 62-year-old female patient history of multiple sclerosis pancreatic cancer on chemotherapy history of superior mesenteric venous thrombus on anticoagulation Mediport in place who presents to the emergency department after a 1 day history of what she states started as constipation. She did take stool softeners and laxatives for her symptoms. In the evening she reported some dry heaves denies any abdominal pain today started having loose stool. She was evaluated in the emergency department and a CAT scan was unchanged from her previous with no evidence of obstruction colitis perforation or other pathology to explain her symptoms. Stool was checked and positive for C. difficile. She was given IV fluids antiemetics and hospitalist services was asked to admit her to [facility] for symptom management. On arrival to the [facility] department she denies abdominal pain nausea or vomiting and is agreeable to try oral intake. While on MedSur she remained medically stable with normal heart rate and blood pressure. She denied any abdominal pain. She continued to have frequent loose stooling day 1 but this slowly improved. There is no blood in her stool. She denied any abdominal pain and did not have any fever. Tolerated the oral fidaxomicin well. She is stable and ready for discharge to home. Will continue fidaxomicin outpatient to complete 10-day course there are no discharge needs or services required. Discharge home with close outpatient follow-up with primary care provider Home Meds and New Rx's Prescriptions: New Dificid 200 mg Tablet 200 mg PO BID Qty: 20 0RF Lactobacillus acidophilus 500 million cell Capsule 1 cell PO DAILY Qty: 30 0RF Continued Creon 36,000-114,000- 180,000 unit capsule,delayed release(DR/EC) See Rx Instructions PO .COMPLEX Patient Comments: TAKE 3 CAPSULES BY MOUTH DAILY PER MEAL, 1 PER SNACK, MAXIMUM DAILY DOSE = 12 CAPSULES Rx Instructions: 3 caps PO daily per meal, 1 cap/snack orally; max does 12 capsules/day potassium chloride 20 mEq tablet extended release 20 meq PO DAILY Patient Comments: TAKE ONE TABLET BY MOUTH EVERY MORNING loperamide 2 mg capsule 2 mg PO PRN PRN Patient Comments: TAKE TWO CAPSULES BY MOUTH EVERY 6 HOURS NEEDED ondansetron HCl 8 mg tablet 8 mg PO PRN PRN Patient Comments: TAKE ONE TABLET BY MOUTH EVERY 8 HOURS NEEDED FOR NAUSEA prochlorperazine maleate [Compazine] 10 mg tablet 10 mg PO PRN PRN Patient Comments: Take 1 tablet by mouth every six hours as needed for dry heaves, nausea, vomiting. acetaminophen 500 mg tablet 1,000 mg PO PRN PRN Patient Comments: Take 2 tablet by mouth every six hours as needed for pain citalopram 20 mg tablet 20 mg PO DAILY Patient Comments: TAKE ONE TABLET BY MOUTH EVERY DAY magnesium oxide 400 mg (241.3 mg magnesium) tablet 400 mg PO DAILY Patient Comments: TAKE ONE TABLET BY MOUTH TWICE A DAY pantoprazole 40 mg tablet,delayed release (DR/EC) 40 mg PO DAILY Patient Comments: TAKE ONE TABLET BY MOUTH EVERY DAY nitroglycerin [Nitrostat] 0.4 mg tablet, sublingual 0.4 mg sublingual PRN PRN Patient Comments: Place 1 tablet under tongue as directed Take every 5 mins x3 as needed for chest pain. If no relief call 911. oxycodone 5 mg tablet 5 mg PO PRN PRN (Reason: Moderate Pain (Scale Score 5-6)) Patient Comments: TAKE ONE TABLET BY MOUTH EVERY 4 HOURS NEEDED FOR MODERATE PAIN Eliquis 5 mg tablet 5 mg PO BID Hold Instructions: Resume on 05/04/23. Patient Comments: TAKE ONE TABLET BY MOUTH TWICE A DAY metoclopramide HCl [Reglan] 10 mg tablet 10 mg PO Q6H PRNQty: 10 0RF fentanyl 12 mcg/hr patch 72 hour 1 patch transdermal Q72H Patient Comments: APPLY 1 PATCH TO CLEAN, DRY SKIN FOR 72 HOURS THEN REMOVE, DISPOSE OF PROPERLY AND APPLY A NEW PATCH ON A DIFFERENT, CLEAN DRY SKIN SITE Discharge Instructions Instructions: C. Diff (Clostridioides Difficile) Infection (DC) Stand Alone Forms: Nursing Discharge Form Referrals: Sid Rubio [Primary Care Provider] - 08/24/23 3:00 pm Activity:: Activity as Tolerated Equipment/Supplies:: No Equipment Needed Diet:: As Tolerated Discharge Orders Discharge Orders: Discharge Order (Routine); Ordered 07/12/23 Ordered By: Lisette Lawson Discharge Data Discharge Date/Time-TO BE ENTERED AT DEPARTURE: 07/12/23 13:49 DS: Summary Time Spent with Patient providing and/or coordinating discharge services: Less than 30 minutes Status at Discharge Functional status at discharge: independent ambulation Overall status at discharge: patient is progressing back to baseline Mental Status: mental status grossly normal Speech and Movement: speech and movement normal Mood: congruent mood Affect: normal affect Quality:SDOH Health Related Social Needs: No Data to Display Exam Const General: cooperative, comfortable, no acute distress and not in acute distress Nutritional Appearance: overweight Orientation: alert, awake and oriented x3 HENMT Head: normal to inspection and normocephalic Mouth: oral mucosae normal Neck Neck: normal visual inspection and full ROM Chest Chest: normal inspection of the chest Resp Effort & Inspection: normal respiratory effort Auscultation: clear to auscultation bilaterally Cardio Jugular venous pressure: no JVD Rate: regular rate Rhythm: regular rhythm GI Inspection: normal to inspection Palpation: soft, not firm, no guarding and not rigid Auscultation: normal bowel sounds Skin Rashes: no rashes Neuro General: patient alert, patient awake and patient oriented x3 Psych Appearance: grossly normal Mental Status: mental status grossly normal Speech and Movement: speech and movement normal Mood: congruent mood Affect: normal affect DS: Data Vitals/I&O Vitals and I&O: Vital Signs Temperature 36.6 C 07/12/23 11:27 Temperature Source Tympanic 07/12/23 11:27 Pulse 88 07/12/23 11:27 Pulse Rhythm Regular 07/12/23 07:46 Respiratory Rate 16 07/12/23 11:27 Respiratory Effort Normal, Non-Labored 07/12/23 07:46 Respiratory Depth Normal 07/12/23 07:46 Respiratory Pattern Normal 07/12/23 07:46 Blood Pressure 117/83 07/12/23 11:27 Blood Pressure Mean 110 07/10/23 14:05 Blood Pressure Position Sitting 07/10/23 11:14 Pulse Oximetry 99 07/12/23 11:27 Oxygen Delivery Method Room Air 07/12/23 11:27 Oxygen Flow Rate 0 07/12/23 11:27 Pain Level 0 07/12/23 07:26 Intake & Output 07/11/23 07/11/23 07/12/23 11:59 23:59 11:59 Intake Total 2500 / 4700 2200 / 4700 1167.5 / 1167.5 Balance 2500 / 4700 2200 / 4700 1167.5 / 1167.5 Weight 71.6 kg 73.7 kg Intake: IV 2200 / 4400 2200 / 4400 867.5 / 867.5 Oral 300 / 300 300 / 300 Other: Urine Color Yellow Yellow Yellow Urine Appearance Clear Clear Clear Urine Odor None Comment unknown amount of urine, missed with stool pt voided, unknown amount pt voided very little Stool Size Moderate Moderate Moderate Stool Characteristics Soft Soft Soft Brown Voiding Methods Bedside Commode Bedside Commode Bedside Commode Data Completed and Pending Labs on day of discharge: Labs from last 24 hours 07/12/23 06:50 WBC 1.98 L* RBC 3.99 Hgb 9.5 L Hct 31.2 L MCV 78 L MCH 23.8 L MCHC 30.4 L RDW 18.4 H Plt Count 125 L MPV 10.4 Immature Gran % 0.0 Neutrophils % 69.0 Lymphocytes % 20.0 Atypical Lymphs % 0 Monocytes % 6.0 Eosinophils % 4.0 Basophils % 1.0 Nucleated RBC % 1.0 H Absolute Neutrophils 1.37 Absolute Lymphocytes 0.40 L Absolute Monocytes 0.12 Absolute Eosinophils 0.08 Absolute Basophils 0.02 RBC Morphology Normal Sodium 141 Potassium 3.6 Chloride 106 Carbon Dioxide 25.6 Anion Gap 9.4 BUN 6 L Creatinine 0.9 Est GFR (CKD-EPI 2020) 72.73 Glucose 104 Calcium 8.5 PFSH All Active Problems (Updated 07/10/23 @ 16:13 by Colby Ford MD) C. difficile colitis (Acute) Nausea vomiting and diarrhea (Acute) Bilirubinuria (Acute) Bacteremia (Acute) C. 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) Port-A-Cath in place (Acute) Depression (Chronic) Multiple sclerosis (Chronic) Chronic GERD (Acute) Medical History History of difficult venous access History of biliary stent insertion Surgical History History of insertion of tunneled central venous catheter (CVC) with port (~04/2023) S/P cholecystectomy Open cholecystectomy S/P laparoscopy Diagnostic laparoscopy for staging of pancreatic cancer Social History Smoking/Tobacco Use Status: Never Smoking risk assessment performed?: Yes Alcohol Intake: former Drug use: Never Substance use type: does not use Housing: house Do you feel safe at home: Yes Do you feel safe in your relationship?: Yes Additional Social history: lives with mother in mobile home Time Spent with Patient Time Spent with Patient: 45-69 minutes Time was spent: preparing to see the patient(eg.review tests), obtaining and/or reviewing separately otained hiistory, ordering medications,tests, procedures, indepentently interpreting results and counseling the patient
--- NOTE | 2023-07-12 16:25 | PDOC.CMDIS ---
Date of service: 07/12/23 Time of Service: 16:25 LACE Index Scoring Tool Questions: Length of Stay (in days): 2 Was the patient admitted via the E.D.?: Yes Comorbidities: Any Tumor and Liver or Renal Disease E.D. Visits: 3 Answers: Total Score: 13 Risk of Readmission: High Risk Care Management Discharge Plan Reason for Hospitalization: c.difficile colitis Discharge Plan: Valeria will be discharged home with no additional services. CM confirmed new medication was covered by Valeria's insurance, and would be available tomorrow after 1100; CM notified provider and RNCC of this information as well. Valeria will follow up with her community providers and plan of care and transport with family. SDOH Health Related Social Needs: No Data to Display
== END 2023-07-12 13:49 | disposition home or self-care (01) ==
LOC: ER 16:13 → MS 18:20
PROVIDERS: Nurse Practitioner Acute Care; Admitting Provider Internal Medicine; Emergency Provider Student in an Organized Health Care Education/Training Program; PCP Internal Medicine; Visit Provider Internal Medicine
DX: A04.72 Enterocolitis due to Clostridium difficile, not specified as recurrent (principal); Z95.828 Presence of other vascular implants and grafts; G35 Multiple sclerosis; C25.0 Malignant neoplasm of head of pancreas; R18.8 Other ascites; Z79.01 Long term (current) use of anticoagulants; Z79.899 Other long term (current) drug therapy; Z86.718 Personal history of other venous thrombosis and embolism
CPT/HCPCS: 00123; 36415; 80048; 80053; 83690; 87493; 96361; 96365; 96366; 96375; 99285; 70450; 74177; 81003; 81015; 83735; 84484; 85025; 87230; 99222; 99231; 99239; G0378; J0131; J0780; J1836; J2765; J3490

== ENCOUNTER 2023-08-17 15:51 | Inpatient (IN) | payer MEDICAID, SELFPAY ==
[2023-08-17] VITALS (62 sets, daily range): BP systolic 86–179; BP diastolic 52–160; PULSE 90–126; RESP 13–59; TEMP 36.9; O2SAT 97–98
--- NOTE | 2023-08-17 15:45 | RT.EKG_ITS ---
APPROVED REPORT Exam: Resting ECG Reason for Exam: SOB Patient Location: E HR:113 bpm ECG Measurements Heart Rate 113 AXIS WV 120 P 70 QRSd 126 QRS 104 QT 361 T 18 QTc 495 Conclusion Sinus tachycardia...rate> 99 Right bundle branch block...QRSd>120, terminal axis(90,270) There are no significant changes compared to prior EKG performed on 05/29/2023 at 13:41.
--- NOTE | 2023-08-17 15:55 | ED.GENADUL_ITS ---
Discharge Plan Disposition Patient Disposition: Admit to [facility] Condition: Stable Discharge Details Clinical Impression: Pancreatic cancer, Elevated LFTs, Ascites, Dyspnea Primary Care Provider: Sid Rubio ED Provider: Sid Garcia Callery Meds and New Rx's Prescriptions: Mona Willy Elias 36,000-114,000- 180,000 unit capsule,delayed release(DR/EC) See Rx Instructions PO .COMPLEX Patient Comments: TAKE 3 CAPSULES BY MOUTH DAILY PER MEAL, 1 PER SNACK, MAXIMUM DAILY DOSE = 12 CAPSULES Rx Instructions: 3 caps PO daily per meal, 1 cap/snack orally; max does 12 capsules/day potassium chloride 20 mEq tablet extended release 20 meq PO TID Patient Comments: TAKE ONE TABLET BY MOUTH EVERY MORNING Lactobacillus acidophilus 500 million cell Capsule 1 cell PO DAILY Qty: 30 0RF loperamide 2 mg capsule 2 mg PO PRN PRN Patient Comments: TAKE TWO CAPSULES BY MOUTH EVERY 6 HOURS NEEDED prochlorperazine maleate [Compazine] 10 mg tablet 10 mg PO PRN PRN Patient Comments: Take 1 tablet by mouth every six hours as needed for dry heaves, nausea, vomiting. acetaminophen 500 mg tablet 1,000 mg PO PRN PRN Patient Comments: Take 2 tablet by mouth every six hours as needed for pain magnesium oxide 400 mg (241.3 mg magnesium) tablet 400 mg PO DAILY Patient Comments: TAKE ONE TABLET BY MOUTH TWICE A DAY pantoprazole 40 mg tablet,delayed release (DR/EC) 40 mg PO DAILY Patient Comments: TAKE ONE TABLET BY MOUTH EVERY DAY oxycodone 5 mg tablet 5 mg PO PRN PRN (Reason: Moderate Pain (Scale Score 5-6)) Patient Comments: TAKE ONE TABLET BY MOUTH EVERY 4 HOURS NEEDED FOR MODERATE PAIN Eliquis 5 mg tablet 5 mg PO BID Hold Instructions: Resume on 05/04/23. Patient Comments: TAKE ONE TABLET BY MOUTH TWICE A DAY fentanyl 12 mcg/hr patch 72 hour 1 patch transdermal Q72H Patient Comments: APPLY 1 PATCH TO CLEAN, DRY SKIN FOR 72 HOURS THEN REMOVE, DISPOSE OF PROPERLY AND APPLY A NEW PATCH ON A DIFFERENT, CLEAN DRY SKIN SITE fentanyl 25 mcg/hr patch 72 hour 1 patch transdermal Q72H Patient Comments: APPLY 1 PATCH TO CLEAN, DRY SKIN FOR 72 HOURS THEN REMOVE, DISPOSE OF PROPERLY AND APPLY A NEW PATCH ON A DIFFERENT, CLEAN DRY SKIN SITE mirtazapine 15 mg tablet 15 mg PO ONCE Patient Comments: TAKE ONE TABLET BY MOUTH EVERY DAY vancomycin 125 mg capsule See Rx Instructions .ROUTE .COMPLEX Patient Comments: TAKE ONE CAPSULE BY MOUTH TWICE A DAY FOR 7 DAYS, THEN DECREASE TO TAKE ONE CAPSULE BY MOUTH EVERY DAY FOR 7 DAYS, THEN TAKE ONE CAPSULE BY Rx Instructions: view directions; oxycodone 10 mg tablet 10 mg PO Q4H PRN Patient Comments: TAKE ONE TABLET BY MOUTH EVERY 4 HOURS NEEDED FOR PAIN, MAX DAILY DOSE 50 MG lorazepam 0.5 mg tablet 0.5 mg PO Q8H Patient Comments: TAKE ONE TABLET BY MOUTH EVERY 8 HOURS NEEDED FOR ANXIETY Calcium 600 1 tab PO 1XD Patient Comments: one tab daily dronabinol 2.5 mg capsule 2.5 mg PO BID Rx Instructions: administer before lunch and evening meal/dinner multivitamin Tablet 1 tab PO DAILY HPI General Mode of arrival: ambulatory . Date/Time Provider Initiated Documentation: 08/17/23 15:55 . Limitations to Documentation: no limitations . Information obtained by: patient, RN notes reviewed and old records reviewed . HPI Narrative: Patient presents to the ED with complaint of acute onset of shortness of breath this afternoon. Patient denies having any type of chest pain or lightheadedness. She has a history of pancreatic cancer with biliary stents and superior mesenteric venous thrombosis and is on Eliquis. She has been having abdominal pain and was seen at [facility] on the for vomiting. At that time she was found to have elevated liver function more so than typical. She had a CT scan which did not show any acute changes. She had repeat labs done this morning through the cancer center. Liver function is improving. She continues to have intermittent abdominal pain and nausea not necessarily new or worse. Denies any leg pain or leg swelling. Denies any back pain or pleuritic pain. Has had no recent fever or cough. Related Data Home Medications Medication Instructions Recorded Confirmed acetaminophen 500 mg tablet 1,000 mg PO PRN PRN 09/29/22 08/17/23 apixaban 5 mg tablet (Eliquis) 5 mg PO BID 09/29/22 08/17/23 loperamide 2 mg capsule 2 mg PO PRN PRN 09/29/22 08/17/23 magnesium oxide 400 mg (241.3 mg 400 mg PO DAILY 09/29/22 08/17/23 magnesium) tablet oxycodone 5 mg tablet 5 mg PO PRN PRN Moderate Pain 09/29/22 08/17/23 (Scale Score 5-6) pantoprazole 40 mg tablet,delayed 40 mg PO DAILY 09/29/22 08/17/23 release prochlorperazine maleate 10 mg 10 mg PO PRN PRN 09/29/22 08/17/23 tablet (Compazine) fentanyl 12 mcg/hr transdermal 1 patch transdermal Q72H 05/01/23 08/17/23 patch [id number] See Rx Instructions PO .COMPLEX 07/10/23 08/17/23 36,000-114,000-180,000 unit capsule,delay rel (Creon) potassium chloride 20 mEq 20 meq PO TID 07/11/23 08/17/23 tablet,extended release Lactobacillus acidophilus 500 1 cell (0 x 500 million cell) PO 07/12/23 08/17/23 million cell capsule DAILY #30 caps Calcium 600 1 tab PO 1XD 08/17/23 08/17/23 dronabinol 2.5 mg capsule 2.5 mg PO BID 08/17/23 08/17/23 fentanyl 25 mcg/hr transdermal 1 patch transdermal Q72H 08/17/23 08/17/23 patch lorazepam 0.5 mg tablet 0.5 mg PO Q8H 08/17/23 08/17/23 mirtazapine 15 mg tablet 15 mg PO ONCE 08/17/23 08/17/23 multivitamin 1 tab PO DAILY 08/17/23 08/17/23 oxycodone 10 mg tablet 10 mg PO Q4H PRN 08/17/23 08/17/23 vancomycin 125 mg capsule See Rx Instructions .Route .COMPLEX 08/17/23 08/17/23 Previous Rx's Medication Instructions Recorded Lactobacillus acidophilus 500 1 cell (0 x 500 million cell) PO 07/12/23 million cell capsule DAILY #30 caps Allergies Allergy/AdvReac Type Severity Reaction Status Date / Time bupropion [From Wellbutrin] AdvReac Diarrhea Verified 08/17/23 16:43 codeine AdvReac Diarrhea Verified 08/17/23 16:43 ibuprofen AdvReac Nausea Verified 08/17/23 16:43 Penicillins AdvReac Hives Verified 07/10/23 11:18 Sulfa (Sulfonamide AdvReac Hives Verified 08/17/23 16:43 Antibiotics) topiramate [From Topamax] AdvReac Dizziness/L Verified 08/17/23 16:43 ighthead General ILEANA: 3 Review of Systems Narrative: Per HPI Exam Narrative Exam Narrative: Const: WDWN female appears anxious and tachypneic but not in distress. VS per triage. HEENT: NC/AT. Normal facial exam. Eyes: Normal conjunctiva and sclera. Neck: Supple. Trachea midline. Lungs: Tachypneic. Lungs are clear and equal. Cor: RRR without murmur. Tachycardic. Good radial pulses. GI: Soft. NT/ND. No guarding or rebound. Neuro: A+O x 3. Normal speech, mentation, gait. Cranial nerves II - XII grossly intact. No gross motor or sensory deficit. Ext: No C/C/E. No calf tenderness. Skin: Warm and dry without rash. Medical Decision Making Patient presenting to ED with sudden onset of shortness of breath this afternoon. She is on anticoagulation for superior mesenteric venous thrombosis and does have history of pancreatic cancer status post biliary stenting. She is having abdominal pain which has been a chronic intermittent problem. She has nausea but no vomiting. Denies any type of chest pain or upper back pain. Denies any recent fever or cough. Was seen at [facility] on August 02 with elevation of her liver function more so than usual. Repeat labs this morning that were done here show improvement. Saturations are normal here but she is very tachypneic and tachycardic. Despite being on Eliquis must consider PE. Her EKG is sinus tachycardia with right bundle branch block which is not new. There were no acute ST changes. We will access her port and obtain labs, CTA of the chest and CT of abdomen pelvis given complaint of some increased pain. CT done at [facility] relatively stable though some new ascites present. Patient's laboratory studies with a stable anemia and normal white count. Her lactate is slightly elevated at 2.4. Chemistries are unremarkable. Liver function test is in when at [facility] on the and unchanged from this morning. Some of the patient's tachypnea and tachycardia seem to be anxiety related. She received a total of 1.5 mg of lorazepam IV which did seem to help. Continued to complain of some generalized abdominal pain. Did not wish to give her narcotics on top of the benzodiazepine and cannot give acetaminophen due to liver function problems. [place] that a single dose of ketorolac reasonable for pain control and not significant risk even though she is on Eliquis. This combination seem to help significantly and CT scan was obtained. CTA of the chest without PE, dissection, edema, effusion, infiltrate. CT of the abdomen pelvis with no arterial occlusion. The superior mesenteric venous thrombus still present with good collaterals. Biliary stent remains in position. The only new and worsening finding is large volume ascites. This is likely contributing to her tachypnea. I called and spoke to Dr. Bennett covering for surgery. We discussed therapeutic paracentesis which she was willing to do here in the morning once her Eliquis has been held tonight and tomorrow morning. I have discussed this with the patient and her mother and they are in agreement. Discussed with hospitalist for admission, accepted to hospitalist service with surgical consult. Medical Records Medical records reviewed: Yes I reviewed the patient's medical records. Medical records narrative: Inpatient records from last month here, ED records from [facility]. Lab Data Lab results reviewed: Yes I reviewed the patient's lab results. ECG Data Attestation: I personally reviewed and interpreted this ECG (s) as follows: Prior ECG tracings: available for review Interpretation: see EKG Critical Care Time Critical Care Time Critical Care Time: Yes Total Critical Care Time: 40 Attestation: Upon my evaluation, this patient had a high probability of imminent or life- threatening deterioration, which required my direct attention, intervention, and personal management. I have personally provided 40 minutes of critical care time exclusive of time spent on separately billable procedures. Time includes review of laboratory data, radiology results, discussion with consultants, and mo nitoring for potential decompensation. Interventions were performed as documented above. [facility] All Active Problems (Updated 08/17/23 @ 22:07 by Sid Garcia MD) Dyspnea (Acute) Ascites (Acute) Pancreatic cancer (Acute) History of difficult venous access (Acute) C. difficile colitis (Acute) Nausea vomiting and diarrhea (Acute) Bilirubinuria (Acute) Bacteremia (Acute) C. 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) Medical History (Updated 08/17/23 @ 22:07 by Sid Garcia MD) Ascending cholangitis Gram-negative bacteremia Chronic GERD Multiple sclerosis Depression Port-A-Cath in place Primary pancreatic cancer Superior mesenteric vein thrombosis Surgical History History of biliary stent insertion History of insertion of tunneled central venous catheter (CVC) with port (~04/2023) S/P cholecystectomy Open cholecystectomy S/P laparoscopy Diagnostic laparoscopy for staging of pancreatic cancer Social History Smoking/Tobacco Use Status: Never Smoking risk assessment performed?: Yes Alcohol Intake: former Drug use: Never Substance use type: does not use Housing: house Do you feel safe at home: Yes Do you feel safe in your relationship?: Yes Additional Social history: lives with mother in mobile home
--- NOTE | 2023-08-17 16:00 | DI.CT_ITS ---
Exam(s) CT CHEST PE ABD PELVIS W EXAM: CT CHEST PE ABD PELVIS W CLINICAL HISTORY: acute onset SOB/Tacycardia; abd pain/pancreatic CA. TECHNIQUE: Imaging Protocol: Axial CT angiography was performed with multi-slice acquisition and mu lti-planar and/or 3D reconstructions. CONTRAST MATERIAL: Intravenous: Omnipaque 350 Contrast volume:100 ml COMPARISON: CT CT ABDOMEN PELVIS W from 07/10/2023 FINDINGS: CHEST: Pulmonary Arteries: No evidence of filling defects to suggest pulmonary emboli. Tracheobronchial tree: No bronchiectasis or mucus plugging. Mediastinum and [place]: No dominant adenopathy or fluid collection. Pulmonary parenchyma: No consolidation or dominant measurable mass. Small hiatal hernia. Pleura: No effusion. No pneumothorax. Heart: The heart is notdilated. No coronary artery calcifications are seen. Aorta: Thoracic aorta non-dilated. No dissection. Bones: Prominent endplate osteophytes. Tubes, Catheters, and Lines: Left subclavian port. Soft tissues: Unremarkable. ABDOMEN and PELVIS: Liver: Normal size. Normal density. No suspicious measurable mass. Gallbladder and Biliary Tract: Biliary stents again noted. The smaller, internal stent is positioned more distally when compared to prior. Biliary air again noted. Pancreas: Ill-defined pancreatic head mass again noted, not significantly changed. Body and tail are atrophic. Pancreatic duct is again noted to be dilated. Spleen: Mildly enlarged at 14 cm in length. Adrenals: No masses seen. Kidneys: Normal size, contour and axis. No radiodense stones. No obstructive uropathy. No masses seen . Vasculature: Abdominal aorta non-dilated. Celiac trunk and mesenteric arteries show no significant s tenosis. Renal arteries are patent. Small accessory right renal artery. Portal, Superior Mesenteric, and Splenic Veins: Superior mesenteric vein is again noted to be occlude d. Multiple collaterals again noted. Splenic vein is patent. Bowel: No obstruction. Mild nonspecific mildly dilated loops of small bowel.. Appendix is unremarka ble. Peritoneal Cavity: Moderate to large quantity ascites, significantly increasing from prior. Lymph Nodes: Mildly enlarged mesenteric lymph nodes. Soft Tissues: Unremarkable. Bladder: Symmetric distention, no gross wall thickening. Reproductive Organs: Unremarkable as visualized. Bones: Degenerative changes with prominent endplate osteophytes. No compression fracture, lytic or b lastic lesion. IMPRESSION: 1. No evidence of pulmonary embolism or other acute abnormality in the chest.. 2. Moderate to large quantity of ascites, increasing from prior exam. Stable appearance of pancreatic head mass. 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 Biliary stents again noted. 3. Mild nonspecific small bowel dilatation RADIATION DOSE DELIVERED: Total DLP Total DLP DATA REPOSITORY: All CT scans at this facility are submitted to the National Radiology Data Registry (NRDR) Dose Index Registry (DIR) with the [employer] ([employer]). RADIATION OPTIMIZATION: All CT scans at this facility use at least one of these dose optimization te chniques: automated exposure control; mA and/or kV adjustment per patient size (includes targeted exa ms where dose is matched to clinical indication); or iterative reconstruction.
[2023-08-17 16:36] LABS: Abs Immature Grans 0.07 10^3/uL (0.0-0.06); Absolute Eosinophil Count 0.14 10^3/uL (0.0-0.7); Absolute Lymphocyte Count 1.27 10^3/uL (1.2-3.4); Absolute Monocyte Count 0.76 10^3/uL (0.1-0.8); Absolute Neutrophil Count 5.47 10^3/uL (1.2-6.7); Basophils % 1.3 %; Eosinophils % 1.8 %; HGB 10.6 g/dL (11.2-15.7); Immature Grans % 0.9 %; Lymphocytes % 16.3 %; MCH 23.3 pg (27.0-33.0); MCHC 30.3 % (32.0-36.0); MCV 77 fL (80-95); MPV 9.7 fL (8.0-11.0); Monocytes % 9.7 %; Platelet Count 282 10^3/uL (130-400); RBC 4.55 10^6/uL (3.93-5.22); RDW 20.9 % (11.7-14.6); RDW-SD 57.6 fL; WBC 7.81 10^3/uL (4.4-10.8)
[2023-08-17 16:37] LABS: Lactate 2.4 mmol/L (0.6-1.4)
[2023-08-17 16:53] LABS: Anisocytosis 2+; Diff Comment RBC Morph Reviewed; Hypochromasia 1+; Microcytosis 1+
[2023-08-17 16:54] LABS: Poikilocytes 1+
[2023-08-17 17:01] LABS: ALT 52 U/L (14-59); AST 126 U/L (15-37); Albumin 2.4 g/dL (3.4-5.0); Anion Gap 11.3 mmol/L (3-11); BUN 9 mg/dL (7-18); Bilirubin, Total 1.5 mg/dL (0.2-1.0); CO2 22.7 mmol/L (21.0-32.0); Calcium 8.4 mg/dL (8.5-10.1); Chloride 104 mmol/L (98-107); Estimated GFR 64.09 (mL/min/1.73m2); Glucose 111 mg/dL (74-106); Magnesium 1.8 mg/dL (1.8-2.4); Potassium 3.9 mmol/L (3.5-5.1); Sodium 138 mmol/L (136-145); Total Protein 7.6 g/dL (6.4-8.2); Troponin I < 50 ng/L (< or =60)
[2023-08-17] MEDS: Lactated Ringers 1,000 ML 1000 ML IV (17:06)
[2023-08-17] MEDS: LORazepam 2 MG/ML VIAL 0.5 MG IVP (17:23)
[2023-08-17 17:50] LABS: Alkaline Phosphatase 1111 U/L (46-116)
[2023-08-17] MEDS: LORazepam 2 MG/ML VIAL 1 MG IVP (18:11)
[2023-08-17] MEDS: Ketorolac 15 MG/ML VIAL IVP (18:11)
[2023-08-17] MEDS: Omnipaque 350 MG/ML 100 ML BTL IJ (18:24)
[2023-08-17] MEDS: Normal Saline - Diluent 50 ML VIAL IJ (18:26)
[2023-08-17 19:39] LABS: Troponin I < 50 ng/L (< or =60)
--- NOTE | 2023-08-17 19:54 | DI.VRAD_ITS ---
PROCEDURE INFORMATION: Exam: CTA Chest With Contrast CTA Abdomen With Contrast Exam date and time: 08/17/2023 6:24 PM Age: 62 years old Clinical indication: Shortness of breath; Prior surgery; Surgery date: 1-6 months; Surgery type: Port placement; Patient HX: Acute onset sob/tacycardia; Abd pain/pancreatic cancer TECHNIQUE: Imaging protocol: Computed tomographic angiography of the chest with contrast. Exam focused on the arteries. Computed tomographic angiography of the abdomen with contrast. Exam focused on the arteries. 3D rendering (Not supervised by radiologist): MIP and/or 3D reconstructed images were created by the technologist. Radiation optimization: All CT scans at this facility use at least one of these dose optimization techniques: automated exposure control; mA and/or kV adjustment per patient size (includes targeted exams where dose is matched to clinical indication); or iterative reconstruction. Contrast material: [id number]; Contrast volume: 100 ml; Contrast route: INTRAVENOUS (IV); COMPARISON: CT CHEST W 03/06/2023 10:17 AM FINDINGS: Tubes, catheters and devices: A left subclavian Port-A-Cath is present, tip proximal superior vena cava. VASCULATURE: Pulmonary arteries: No pulmonary embolism. Aorta: No aneurysm. No dissection. No stenosis. Celiac trunk and mesenteric arteries: No occlusion. No stenosis. Renal arteries: No occlusion. No stenosis. A small accessory right renal artery is noted. Right iliac arteries: No occlusion. No stenosis. No aneurysm. No significant plaque. No dissection. Left iliac arteries: No occlusion. No stenosis. No aneurysm. No significant plaque. No dissection. Veins: No occlusion in the inferior vena cava. The superior mesenteric vein is occluded near the junction with the splenic vein. Large venous collaterals are present in the mesentery and omentum, and in the gastrohepatic ligament. There is no occlusion in the splenic vein. The most proximal portion of the main portal vein is narrow, however most of the portal vein is widely patent, supplied through collaterals. There is no portal venous gas observed. These findings are similar to the previous study. CHEST: Lungs: Normal lung architecture. No consolidation. No ground-glass opacity. No significant endobronchial mucus. Pleural spaces: No pleural effusion. No pneumothorax. Heart: No cardiomegaly. No pericardial effusion. No coronary artery calcifications. Esophagus: Mild wall thickening is noted in the esophagus. There is no abnormal distension. ABDOMEN AND PELVIS: Liver: Low-attenuation liver parenchyma noted. No suspicious liver mass. Gallbladder and bile ducts: Gallbladder is absent or collapsed. Metallic wall stent is present in the common bile duct, with another smaller stent position through the metallic stent. The metallic stent is unchanged in position. The smaller stent is in appropriate position, but has migrated approximately 1 cm distally. Moderate pneumobilia is present, with mild biliary ductal dilatation. Pancreas: A complex mass is present at the pancreatic head and uncinate process, approximately 3 x 5 cm on axial image 367 series 16. The pancreatic duct is grossly dilated, 11 mm at the pancreatic head, similar previous. Pancreatic parenchyma is thin. Mild fat stranding and fluid are present around the pancreas. Spleen: Spleen is large, 14.1 cm in length. Adrenal glands: Unremarkable. No mass. Kidneys and ureters: Normal symmetric renal enhancement. No hydronephrosis. The perinephric fat spaces are normal in preserved. The ureters are not dilated. Stomach and bowel: Moderate gastric wall thickening is noted throughout. Wall thickening is noted through the duodenum, and the duodenal gill are distinguishable from the pancreatic mass. Most of the small bowel shows mild wall thickening, with mild fluid and gas scattered in the small bowel. The terminal ileum is unremarkable. There are no focal inflammatory changes are in the colon. Diverticula are present in the descending and sigmoid colon. Appendix: The appendix is medial to the cecum and appears normal, although surrounded by ascites. Intraperitoneal space: A moderate-large volume of ascites is present, significantly increased from 07/10/2023. No intraperitoneal free air is observed. There are no abscesses or other loculated fluid collections observed. Retroperitoneal space: No retroperitoneal hematoma or fluid collection. Urinary bladder: Unremarkable. Reproductive: Small uterus. No ovarian/adnexal mass or cyst. Lymph nodes: Unremarkable. No enlarged lymph nodes. Bones/joints: Intact sternum. Unremarkable ribs. Negative for compression fracture in the thoracolumbar spine. Bulky anterior enthesophytes are noted at multiple levels. Multilevel degenerative disc disease and facet arthropathy are noted, greatest at L4-L5. Spinal canal stenosis and neural foraminal narrowing are present at L4-L5. There are no endplate erosions. The sacroiliac joints and symphysis pubis are normal. The pubic rami are intact. There is minimal narrowing in the hips. Soft tissues: No abnormal chest wall mass or fluid collection. No significant abdominal wall hernia. Mild subcutaneous fat stranding is noted across the anterior abdominal wall. There are no fluid collections. There is no abnormal gas. IMPRESSION: 1. No pulmonary embolism. 2. No aortic dissection. 3. No mesenteric arterial stenosis or occlusion. 4. 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 5. Complex mass at the pancreatic head/uncinate process, similar to previous. 6. Biliary stents and pneumobilia, similar to previous. 7. Moderate-large volume ascites, significantly increased from previous. 8. Generalized bowel wall thickening, likely from mesenteric venous congestion. Enteritis or gastroenteritis are not excluded. Dictated and Authenticated by: Dakota Lopez MD. Ordering:ALEXANDRO Lau MD
--- NOTE | 2023-08-17 21:31 | W.PM.HP.N ---
Date of service: 08/17/23 Time of Service: 21:32 Assessment and Plan Assessment and plan (1) Ascites: Start date: 08/17/23 Status: Acute Assessment and plan: This is a 62-year-old lady with advanced pancreatic cancer and obstruction. She has had a sudden change in her abdominal swelling causing dyspnea does have moderate to large amount of ascites which is progressed from previous imaging. She has complications of superior mesenteric vein occlusion with occlusion of collaterals on Eliquis was being held pending paracentesis of large volume in the morning with surgery consulted. She is considering stopping chemotherapy for her pancreatic cancer and going on to hospice. Her pain is adequately controlled with her outpatient medical therapy. She is a DNR/DNI. Qualifiers: Ascites type: malignant Qualified Code(s): R18.0 - Malignant ascites (2) Superior mesenteric vein thrombosis: Assessment and plan: Hold Eliquis pending procedure with reinitiation after procedure. Long-term this may need to be held if patient is on hospice and bleeding risk higher. (3) Primary pancreatic cancer : Assessment and plan: Progressing with patient was found to chemotherapy and considering hospice. She is a DNR/DNI. History of Present Illness History of Present Illness Chief Complaint: Increasing shortness of breath Narrative: This is a 62-year-old female patient who had a diagnosis pancreatic head cancer greater than 1 year ago presenting with painless jaundice. At that time evaluation of the tumor resulted in stenting for her obstructed ducts and initiation of chemotherapy. She was not a surgical candidate. She has had progressive disease and elevation of her liver function tests with jaundice since then with modification of her stent wants. She presented to the ED with increasing shortness of breath because of abdominal swelling which appeared rather abruptly. He did have nausea and vomiting with an ED visit August 02 at [facility] at which time she was found to have increasing liver function test. This appears to have progressed with increased side effects to chemotherapy and progression of disease with patient considering cessation of chemotherapy and going on hospice. She is on pain management with intermittent abdominal pain with less nausea presently. She does have leg swelling which is mild without change. She denies any chest pain or pleuritic pain and has no fever or chills. She is generally weak and has lost about 100 pounds over the last year. She does have a port over her left chest where she has IV access. She is on Eliquis for vascular obstruction intra-abdominal with venous thrombosis secondary to her cancer. Dr. Bennett, general surgery, was consulted by the ED physician and she does plan therapeutic paracentesis for large amount of ascites in the morning. Her Eliquis will be held. Long-term plan should be comfort measures. Patient is a DNR/DNI. Review of Systems Narrative: 13 point review of systems otherwise unrevealing or stable. Patient is very weak and moderately depressed. PFSH All Active Problems (Updated 08/18/23 @ 05:57 by Hair Rincon) Dyspnea (Acute) Ascites (Acute) Pancreatic cancer (Acute) History of difficult venous access (Acute) C. difficile colitis (Acute) Nausea vomiting and diarrhea (Acute) Bilirubinuria (Acute) Bacteremia (Acute) C. 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) Medical History Ascending cholangitis Gram-negative bacteremia Chronic GERD Multiple sclerosis Depression Port-A-Cath in place Primary pancreatic cancer Superior mesenteric vein thrombosis Surgical History History of biliary stent insertion History of insertion of tunneled central venous catheter (CVC) with port (~04/2023) S/P cholecystectomy Open cholecystectomy S/P laparoscopy Diagnostic laparoscopy for staging of pancreatic cancer Social History Smoking/Tobacco Use Status: Never Smoking risk assessment performed?: Yes Alcohol Intake: former Drug use: Never Substance use type: does not use Housing: house Do you feel safe at home: Yes Do you feel safe in your relationship?: Yes Additional Social history: lives with mother in mobile home Meds Allergies and Home Medications Allergies Allergy/AdvReac Type Severity Reaction Status Date / Time bupropion [From Wellbutrin] AdvReac Diarrhea Verified 08/17/23 16:43 codeine AdvReac Diarrhea Verified 08/17/23 16:43 ibuprofen AdvReac Nausea Verified 08/17/23 16:43 Penicillins AdvReac Hives Verified 07/10/23 11:18 Sulfa (Sulfonamide AdvReac Hives Verified 08/17/23 16:43 Antibiotics) topiramate [From Topamax] AdvReac Dizziness/L Verified 08/17/23 16:43 ighthead Home Medications Medication Instructions Recorded Confirmed Type acetaminophen 500 mg tablet 1,000 mg PO PRN PRN 09/29/22 08/17/23 History apixaban 5 mg tablet (Eliquis) 5 mg PO BID 09/29/22 08/17/23 History loperamide 2 mg capsule 2 mg PO PRN PRN 09/29/22 08/17/23 History magnesium oxide 400 mg (241.3 mg 400 mg PO DAILY 09/29/22 08/17/23 History magnesium) tablet oxycodone 5 mg tablet 5 mg PO PRN PRN Moderate Pain 09/29/22 08/17/23 History (Scale Score 5-6) pantoprazole 40 mg tablet,delayed 40 mg PO DAILY 09/29/22 08/17/23 History release prochlorperazine maleate 10 mg 10 mg PO PRN PRN 09/29/22 08/17/23 History tablet (Compazine) fentanyl 12 mcg/hr transdermal 1 patch transdermal Q72H 05/01/23 08/17/23 History patch [id number]-[id number] See Rx Instructions PO .COMPLEX 07/10/23 08/17/23 History 36,000-114,000-180,000 unit capsule,delay rel (Creon) potassium chloride 20 mEq 20 meq PO TID 07/11/23 08/17/23 History tablet,extended release Lactobacillus acidophilus 500 1 cell (0 x 500 million cell) PO 07/12/23 08/17/23 Rx million cell capsule DAILY #30 caps Calcium 600 1 tab PO 1XD 08/17/23 08/17/23 History dronabinol 2.5 mg capsule 2.5 mg PO BID 08/17/23 08/17/23 History fentanyl 25 mcg/hr transdermal 1 patch transdermal Q72H 08/17/23 08/17/23 History patch lorazepam 0.5 mg tablet 0.5 mg PO Q8H 08/17/23 08/17/23 History mirtazapine 15 mg tablet 15 mg PO ONCE 08/17/23 08/17/23 History multivitamin 1 tab PO DAILY 08/17/23 08/17/23 History oxycodone 10 mg tablet 10 mg PO Q4H PRN 08/17/23 08/17/23 History vancomycin 125 mg capsule See Rx Instructions .Route .COMPLEX 08/17/23 08/17/23 History Exam Narrative Exam Narrative: General: Patient appears older than stated age, cachectic close still having folds of fat over her trunk with weight loss, in no acute distress. She is alert and oriented x 3. HEENT: Normocephalic, coarsened, sunken facial features. Eyes with pupils equal and react to light symmetrically, extraocular movement intact and sclera icteric. Oropharynx with dry mucosa and poor dentition. Neck: Supple without JVD. Back: Kyphotic without CVA tenderness. Lungs: Fair aeration. Auscultation percussion. Breast: Exam deferred. Heart: Regular rate and rhythm with no murmurs or gallops appreciated. Abdomen: Obese with protuberant but soft to palpation and not tense. It is tender to palpation over the right mid and upper abdomen with palpable hepatomegaly. No hard masses palpated. No palpable thrills. Bowel sounds positive all quadrants. Genitalia/rectal: Exam deferred. Extremities: Nonpitting edema lower extremities with no cyanosis or clubbing. Fair capillary refill. Skin: Pale with jaundice, warm and dry. Neuro: Cranial nerves II through XII gross intact, no focal motor deficits and no tremor. Psych: Normal affect pleasant mood. No abnormal thought processes. Remote and recent memory grossly intact. Results Imaging Imaging Studies: Exam date and time: 08/17/2023 6:24 PM Age: 62 years old Clinical indication: Shortness of breath; Prior surgery; Surgery date: 1-6 months; Surgery type: Port placement; Patient HX: Acute onset sob/tacycardia; Abd pain/pancreatic cancer TECHNIQUE: Imaging protocol: Computed tomographic angiography of the chest with contrast. Exam focused on the arteries. Computed tomographic angiography of the abdomen with contrast. Exam focused on the arteries. 3D rendering (Not supervised by radiologist): MIP and/or 3D reconstructed images were created by the technologist. Radiation optimization: All CT scans at this facility use at least one of these dose optimization techniques: automated exposure control; mA and/or kV adjustment per patient size (includes targeted exams where dose is matched to clinical indication); or iterative reconstruction. Contrast material: [id number]; Contrast volume: 100 ml; Contrast route: INTRAVENOUS (IV); COMPARISON: CT CHEST W 03/06/2023 10:17 AM FINDINGS: Tubes, catheters and devices: A left subclavian Port-A-Cath is present, tip proximal superior vena cava. VASCULATURE: Pulmonary arteries: No pulmonary embolism. Aorta: No aneurysm. No dissection. No stenosis. Celiac trunk and mesenteric arteries: No occlusion. No stenosis. Renal arteries: No occlusion. No stenosis. A small accessory right renal artery is noted. Right iliac arteries: No occlusion. No stenosis. No aneurysm. No significant plaque. No dissection. Left iliac arteries: No occlusion. No stenosis. No aneurysm. No significant plaque. No dissection. Veins: No occlusion in the inferior vena cava. The superior mesenteric vein is occluded near the junction with the splenic vein. Large venous collaterals are present in the mesentery and omentum, and in the gastrohepatic ligament. There is no occlusion in the splenic vein. The most proximal portion of the main portal vein is narrow, however most of the portal vein is widely patent, supplied through collaterals. There is no portal venous gas observed. These findings are similar to the previous study. CHEST: Lungs: Normal lung architecture. No consolidation. No ground-glass opacity. No significant endobronchial mucus. Pleural spaces: No pleural effusion. No pneumothorax. Heart: No cardiomegaly. No pericardial effusion. No coronary artery calcifications. Esophagus: Mild wall thickening is noted in the esophagus. There is no abnormal distension. ABDOMEN AND PELVIS: Liver: Low-attenuation liver parenchyma noted. No suspicious liver mass. Gallbladder and bile ducts: Gallbladder is absent or collapsed. Metallic wall stent is present in the common bile duct, with another smaller stent position through the metallic stent. The metallic stent is unchanged in position. The smaller stent is in appropriate position, but has migrated approximately 1 cm distally. Moderate pneumobilia is present, with mild biliary ductal dilatation. Pancreas: A complex mass is present at the pancreatic head and uncinate process, approximately 3 x 5 cm on axial image 367 series 16. The pancreatic duct is grossly dilated, 11 mm at the pancreatic head, similar previous. Pancreatic parenchyma is thin. Mild fat stranding and fluid are present around the pancreas. Spleen: Spleen is large, 14.1 cm in length. Adrenal glands: Unremarkable. No mass. Kidneys and ureters: Normal symmetric renal enhancement. No hydronephrosis. The perinephric fat spaces are normal in preserved. The ureters are not dilated. Stomach and bowel: Moderate gastric wall thickening is noted throughout. Wall thickening is noted through the duodenum, and the duodenal gill are distinguishable from the pancreatic mass. Most of the small bowel shows mild wall thickening, with mild fluid and gas scattered in the small bowel. The terminal ileum is unremarkable. There are no focal inflammatory changes are in the colon. Diverticula are present in the descending and sigmoid colon. Appendix: The appendix is medial to the cecum and appears normal, although surrounded by ascites. Intraperitoneal space: A moderate-large volume of ascites is present, significantly increased from 07/10/2023. No intraperitoneal free air is observed. There are no abscesses or other loculated fluid collections observed. Retroperitoneal space: No retroperitoneal hematoma or fluid collection. Urinary bladder: Unremarkable. Reproductive: Small uterus. No ovarian/adnexal mass or cyst. Lymph nodes: Unremarkable. No enlarged lymph nodes. Bones/joints: Intact sternum. Unremarkable ribs. Negative for compression fracture in the thoracolumbar spine. Bulky anterior enthesophytes are noted at multiple levels. Multilevel degenerative disc disease and facet arthropathy are noted, greatest at L4-L5. Spinal canal stenosis and neural foraminal narrowing are present at L4-L5. There are no endplate erosions. The sacroiliac joints and symphysis pubis are normal. The pubic rami are intact. There is minimal narrowing in the hips. Soft tissues: No abnormal chest wall mass or fluid collection. No significant abdominal wall hernia. Mild subcutaneous fat stranding is noted across the anterior abdominal wall. There are no fluid collections. There is no abnormal gas. IMPRESSION: 1. No pulmonary embolism. 2. No aortic dissection. 3. No mesenteric arterial stenosis or occlusion. 4. 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 5. Complex mass at the pancreatic head/uncinate process, similar to previous. 6. Biliary stents and pneumobilia, similar to previous. 7. Moderate-large volume ascites, significantly increased from previous. 8. Generalized bowel wall thickening, likely from mesenteric venous congestion. Enteritis or gastroenteritis are not excluded. Labs 08/17/23 16:25 08/17/23 16:25 Labs: Laboratory Results - last 24 hr 08/17/23 08/17/23 16:25 19:14 WBC 7.81 RBC 4.55 Hgb 10.6 L Hct 35.0 L MCV 77 L MCH 23.3 L MCHC 30.3 L RDW 20.9 H Plt Count 282 MPV 9.7 Immature Gran % 0.9 Neutrophils % 70.0 Lymphocytes % 16.3 Monocytes % 9.7 Eosinophils % 1.8 Basophils % 1.3 Nucleated RBC % 0.0 Absolute Neutrophils 5.47 Absolute Lymphocytes 1.27 Absolute Monocytes 0.76 Absolute Eosinophils 0.14 Absolute Basophils 0.10 RBC Morphology See Below Hypochromasia 1+ Poikilocytosis 1+ Anisocytosis 2+ Microcytosis 1+ VBG Lactate 2.4 H* Sodium 138 Potassium 3.9 Chloride 104 Carbon Dioxide 22.7 Anion Gap 11.3 H BUN 9 Creatinine 1.0 Est GFR (CKD-EPI 2020) 64.09 Glucose 111 H Calcium 8.4 L Magnesium 1.8 Total Bilirubin 1.5 H AST 126 H ALT 52 Alkaline Phosphatase 1111 H Troponin I < 50 < 50 Total Protein 7.6 Albumin 2.4 L Last Vital Signs Temp 36.9 C 08/17/23 16:00 Pulse 101 H 08/17/23 20:16 Resp 16 08/17/23 20:20 BP 109/54 L 08/17/23 20:16 Pulse Ox 98 08/17/23 16:00 Time Spent Time spent with Patient: >75 minutes Time was spent: preparing to see the patient(eg.review tests), obtaining and/or reviewing separately otained hiistory, ordering medications,tests, procedures, referring, communicating with other health continuum of care manager, indepentently interpreting results, counseling the patient and care coordination
[2023-08-17 21:36] LABS: INR 1.3 (0.9-1.1); PTT Activated 31.3 sec (23.6-32.8); Prothrombin Time 12.9 sec (9.1-11.1)
--- NOTE | 2023-08-17 21:51 | W.SURGCON ---
Date of service: 08/17/23 Time of Service: 21:51 Assessment and Plan Assessment and plan (1) History of difficult venous access: (2) Thrombocytopenia: (3) Anticoagulant long-term use: Status: Acute (4) Elevated LFTs: Status: Acute (5) Ascites: Status: Acute Assessment and plan: Paracentesis to be performed today. We can place a Pleurx catheter for further evacuation of the ascites Also talked briefly about Hospice. Patient meets with Dr. Johnson later on next week. I did personally review her labs and CT This document was created with voice activated software and may contain errors. 40 mins spent in direct pt care and 20 in non face to face time (6) Bilirubinuria: (7) Anemia: Status: Chronic (8) C. difficile diarrhea: (9) Immunosuppression due to drug therapy: (10) Basic learning disability, reading: (11) Peripheral neuropathy due to chemotherapy: (12) Hypoalbuminemia due to protein-calorie malnutrition: (13) Chronic GERD: (14) Superior mesenteric vein thrombosis: (15) Primary pancreatic cancer : (16) Port-A-Cath in place: History of Present Illness Narrative: Patient is a 62-year-old female well-known to the surgical surgical service. She has had metastatic pancreatic cancer for some quite some time. She has had a Whipple in the past. She has had multiple rounds of chemo. She is currently on chemo. She is lost a dramatic amount of weight. Her tumor continues to grow. He has developed a significant amount of abdominal ascites and has abdominal paracentesis. We did discuss the procedure. Which she could expect during the procedure, and risks of the procedure including but not limited to: Bleeding, infection, damage to bowels or blood vessels, continued leaking, chronic pain or numbness, infections, and revision procedure. Patient is complaining of shortness of breath and abdominal. She does not have peritoneal signs. She does have good bowel sounds. She has a moderate amount of ascites. We did talk briefly about her options including hospice. We also talked briefly about placing a Pleurx catheter for continued relief of ascites Review of Systems All systems reviewed & are unremarkable except as noted in HPI and below PFSH All Active Problems Dyspnea (Acute) Ascites (Acute) Pancreatic cancer (Acute) C. difficile colitis (Acute) Nausea vomiting and diarrhea (Acute) Bacteremia (Acute) Ascites (Acute) Encounter for infusaport central venous catheter insertion (Acute) Anticoagulant long-term use (Acute) Elevated LFTs (Acute) Anemia (Chronic) Medical History Bilirubinuria C. difficile diarrhea History of difficult venous access Thrombocytopenia Hypoalbuminemia due to protein-calorie malnutrition Basic learning disability, reading Immunosuppression due to drug therapy Peripheral neuropathy due to chemotherapy Ascending cholangitis Gram-negative bacteremia Chronic GERD Multiple sclerosis Depression Port-A-Cath in place Primary pancreatic cancer Superior mesenteric vein thrombosis Surgical History History of biliary stent insertion History of insertion of tunneled central venous catheter (CVC) with port (~04/2023) S/P cholecystectomy Open cholecystectomy S/P laparoscopy Diagnostic laparoscopy for staging of pancreatic cancer Social History Smoking/Tobacco Use Status: Never Smoking risk assessment performed?: Yes Alcohol Intake: former Drug use: Never Substance use type: does not use Housing: house Do you feel safe at home: Yes Do you feel safe in your relationship?: Yes Additional Social history: lives with mother in mobile home Exam Narrative Exam Narrative: Heart is regular rate and rhythm Lungs are clear to auscultation Abdomen is soft there are no peritoneal signs. Post-op surgical changes from Whipple noted. Ultrasound was used to locate a pocket was localized to the left lateral abdomen and the procedure performed. Extremities edema and muscle wasting. No signs of acute DVT Results Last Vital Signs Temp 36.9 C 08/17/23 16:00 Pulse 102 H 08/17/23 21:46 Resp 16 08/17/23 21:46 BP 96/65 L 08/17/23 21:46 Pulse Ox 98 08/17/23 16:00 Labs 08/18/23 06:00 08/18/23 06:00 Labs: Laboratory Results - last 24 hr 08/17/23 08/17/23 08/17/23 16:25 19:14 21:13 WBC 7.81 RBC 4.55 Hgb 10.6 L Hct 35.0 L MCV 77 L MCH 23.3 L MCHC 30.3 L RDW 20.9 H Plt Count 282 MPV 9.7 Immature Gran % 0.9 Neutrophils % 70.0 Lymphocytes % 16.3 Monocytes % 9.7 Eosinophils % 1.8 Basophils % 1.3 Nucleated RBC % 0.0 Absolute Neutrophils 5.47 Absolute Lymphocytes 1.27 Absolute Monocytes 0.76 Absolute Eosinophils 0.14 Absolute Basophils 0.10 RBC Morphology See Below Hypochromasia 1+ Poikilocytosis 1+ Anisocytosis 2+ Microcytosis 1+ PT 12.9 H INR 1.3 H APTT 31.3 VBG Lactate 2.4 H* Sodium 138 Potassium 3.9 Chloride 104 Carbon Dioxide 22.7 Anion Gap 11.3 H BUN 9 Creatinine 1.0 Est GFR (CKD-EPI 2020) 64.09 Glucose 111 H Calcium 8.4 L Magnesium 1.8 Total Bilirubin 1.5 H AST 126 H ALT 52 Alkaline Phosphatase 1111 H Troponin I < 50 < 50 Total Protein 7.6 Albumin 2.4 L
[2023-08-17] MEDS: fentaNYL 25 MCG PATCH TD (22:51)
[2023-08-17] MEDS: Patch Removal 1 EACH TP (22:52)
[2023-08-18 03:43] VITALS: BP 90/65; PULSE 88; RESP 18; TEMP 37.1; O2SAT 98
[2023-08-18] MEDS: Normal Saline Flush 10 ML SYR IVP ×2 (06:07→08:39)
[2023-08-18 06:45] LABS: HCT 27.1 % (36.0-46.0); HGB 8.4 g/dL (11.2-15.7); MCH 23.9 pg (27.0-33.0); MCV 77 fL (80-95); MPV 10.2 fL (8.0-11.0); Platelet Count 171 10^3/uL (130-400); RBC 3.51 10^6/uL (3.93-5.22); RDW-SD 59.3 fL
[2023-08-18 06:57] LABS: INR 1.3 (0.9-1.1); Prothrombin Time 12.6 sec (9.1-11.1)
[2023-08-18 07:09] LABS: ALT 38 U/L (14-59); AST 92 U/L (15-37); Albumin 1.8 g/dL (3.4-5.0); Alkaline Phosphatase 808 U/L (46-116); Anion Gap 7.4 mmol/L (3-11); BUN 9 mg/dL (7-18); CO2 25.6 mmol/L (21.0-32.0); CREATININE 0.9 mg/dL (0.55-1.02); Calcium 7.8 mg/dL (8.5-10.1); Chloride 107 mmol/L (98-107); Estimated GFR 72.73 (mL/min/1.73m2); Glucose 75 mg/dL (74-106); Magnesium 1.9 mg/dL (1.8-2.4); Potassium 3.6 mmol/L (3.5-5.1); Sodium 140 mmol/L (136-145); Total Protein 6.1 g/dL (6.4-8.2)
[2023-08-18 07:34] VITALS: BP 83/59; PULSE 92; RESP 16; TEMP 36.5; O2SAT 96
[2023-08-18] MEDS: oxyCODONE 10 MG TAB PO (08:37)
[2023-08-18] MEDS: Magnesium Oxide 400 MG TAB PO (08:38)
[2023-08-18] MEDS: Multivitamin TAB 1 TAB PO (08:38)
[2023-08-18] MEDS: Mirtazapine 15 MG TAB PO (08:38)
[2023-08-18] MEDS: Lactobacillus Acidophilus CAP 1 CAP PO (08:38)
[2023-08-18] MEDS: Calcium Carbonate 1.5 GM TAB PO (08:38)
[2023-08-18] MEDS: Potassium Chloride 20 MEQ TABCR PO ×2 (08:38→14:19)
[2023-08-18] MEDS: Pantoprazole 40 MG TABCR PO (08:38)
--- NOTE | 2023-08-18 09:56 | PGE_ITS ---
Date of Service Date of service: 08/18/23 Time of Service: 14:40 Assessment and Plan Assessment and plan (1) Ascites: Start date: 08/17/23 Status: Acute Assessment and plan: Surgical consult for paracentesis today Resume Eliquis as per Dr. Bennett's order Qualifiers: Ascites type: malignant Qualified Code(s): R18.0 - Malignant ascites (2) Superior mesenteric vein thrombosis: Assessment and plan: As above (3) Primary pancreatic cancer : Assessment and plan: Progressing Considering hospice Palliative care referral made OPT DNR/DNI. (4) Discharge planning issues: Status: Resolved Assessment and plan: CM to f/u Discharge home when stable PT for discharge safety discussed with Dr. Ruelas Subjective Subjective Patient reports: no new complaints, feels better, pain is less, tolerating liquids well, tolerating a regular diet, voiding w/o difficulty, bowel movement and shortness of breath (on exertion but recovers rapidly with rest); denies diarrhea, blood in stool, nausea, vomiting or fever Exam Narrative Exam Narrative: Constitutional Frail appearing patient in bed comfortable and cooperative during the interview. Without acute distress HENMT: Facial structures intact with gaunted appearance Neuro:alert and oriented to self, person, place time and situation. No neurological focal deficit, PERRLA Chest:Chest is symmetrical and normal appearance Resp: Normal respiratory pattern, speaks in full sentences, unlabored breathing, clear lung bilaterally Cardio: regular rhythm, S1, S2, no murmur, capillary refill<3 sec., bilateral radial and dorsalis pedis pulses are positive, palpable GI: Abdomen is not distended, soft and non tender, bowel sounds are present : Negative Costovertebral angle tenderness, no bladder distension Back/spine/Pelvis: No back tenderness, normal alignment Integumentary: No skin lesions or rash Extremities: strength 5/5 to bilateral lower and upper extremities Psych: RASS 0, congruent mood and normal affect. Objective Last Vital Signs Temp 36.5 C 08/18/23 07:34 Pulse 92 H 08/18/23 07:34 Resp 16 08/18/23 07:34 BP 83/59 L 08/18/23 07:34 Pulse Ox 96 08/18/23 07:34 Laboratory Results - last 24 hr 08/17/23 08/17/23 08/17/23 16:25 19:14 21:13 WBC 7.81 RBC 4.55 Hgb 10.6 L Hct 35.0 L MCV 77 L MCH 23.3 L MCHC 30.3 L RDW 20.9 H Plt Count 282 MPV 9.7 Immature Gran % 0.9 Neutrophils % 70.0 Lymphocytes % 16.3 Monocytes % 9.7 Eosinophils % 1.8 Basophils % 1.3 Nucleated RBC % 0.0 Absolute Neutrophils 5.47 Absolute Lymphocytes 1.27 Absolute Monocytes 0.76 Absolute Eosinophils 0.14 Absolute Basophils 0.10 RBC Morphology See Below Hypochromasia 1+ Poikilocytosis 1+ Anisocytosis 2+ Microcytosis 1+ PT 12.9 H INR 1.3 H APTT 31.3 VBG Lactate 2.4 H* Sodium 138 Potassium 3.9 Chloride 104 Carbon Dioxide 22.7 Anion Gap 11.3 H BUN 9 Creatinine 1.0 Est GFR (CKD-EPI 2020) 64.09 Glucose 111 H Calcium 8.4 L Magnesium 1.8 Total Bilirubin 1.5 H AST 126 H ALT 52 Alkaline Phosphatase 1111 H Troponin I < 50 < 50 Total Protein 7.6 Albumin 2.4 L 05/04/24 06:00 WBC 4.00 L RBC 3.51 L Hgb 8.4 L D Hct 27.1 L MCV 77 L MCH 23.9 L MCHC 31.0 L RDW 21.0 H Plt Count 171 MPV 10.2 Immature Gran % Neutrophils % Lymphocytes % Monocytes % Eosinophils % Basophils % Nucleated RBC % Absolute Neutrophils Absolute Lymphocytes Absolute Monocytes Absolute Eosinophils Absolute Basophils RBC Morphology Hypochromasia Poikilocytosis Anisocytosis Microcytosis PT 12.6 H INR 1.3 H APTT VBG Lactate Sodium 140 Potassium 3.6 Chloride 107 Carbon Dioxide 25.6 Anion Gap 7.4 BUN 9 Creatinine 0.9 Est GFR (CKD-EPI 2020) 72.73 Glucose 75 Calcium 7.8 L Magnesium 1.9 Total Bilirubin 1.0 AST 92 H ALT 38 Alkaline Phosphatase 808 H Troponin I Total Protein 6.1 L Albumin 1.8 L Time Spent with Patient Time Spent with Patient: >50 minutes Time was spent: preparing to see the patient(eg.review tests), obtaining and/or reviewing separately otained hiistory, ordering medications,tests, procedures, referring, communicating with other health healthcare or medical, indepentently interpreting results, counseling the patient and care coordination
[2023-08-18 10:05] VITALS: BP 92/62
[2023-08-18] MEDS: Midodrine 2.5 MG TAB PO ×2 (10:35→14:19)
[2023-08-18 11:17] VITALS: BP 97/67; PULSE 95; RESP 18; TEMP 36.7; O2SAT 97
--- NOTE | 2023-08-18 11:59 | INITIAL_ITS ---
Date of service: 08/18/23 Time of Service: 11:59 Care Management Initial Assmt Initial Assessment REASON FOR HOSPITALIZATION:: ascites PREVIOUS FUNCTIONAL STATUS/SOCIAL/FAMILY SUPPORTS:: Valeria lives in a mobile home in [place], [place] near [place] with her mother Tracie. She does not have any children. Valeria stated that she has one brother but he is estranged from the family. Valeria is independent at baseline and does not receive any community services. CURRENT FUNCTIONAL STATUS:: Valeria was sitting up in bed when CM met with her. She had a paracentesis performed a short while earlier and stated that she felt much better. I don't feel like my ribs are caving in anymore. Valeria indicated that she was not sure whether or not she would be discharged later today or tomorrow. She stated that she was Ok with either plan. Her mother and a friend will transport her home when she is medically ready. ADVANCE DIRECTIVES:: [facility] on file but no HCA identified Has patient been provided with info about the portal/API?: Yes Did the patient sign up for the portal?: No CODE STATUS:: DNR/DNI INSURANCE COVERAGE / FINANCIAL ISSUES:: Medicaid CURRENT HOME/COMMUNITY SERVICES/EQUIPMENT:: has a case work aide through [email or web address] whose name is Amy. PRIMARY CARE PHYSICIAN:: Sid Rubio POTENTIAL DISCHARGE NEEDS:: follow up with PCP, oncologist and surgeon PATIENT/FAMILY EDUCATION NEEDS:: Review of discharge instructions, precautions, follow up plan, limitations, discuss Ask Me Three TRANSPORTATION:: via private vehicle with family PLAN:: Anticipate Valeria will be discharged home when medically stable. She will follow up with her community providers and plan of care and transport with family. CM will continue to support Valeria and her discharge planning needs. [facility] All Active Problems (Updated 08/18/23 @ 05:57 by Hair Rincon) Dyspnea (Acute) Ascites (Acute) Pancreatic cancer (Acute) History of difficult venous access (Acute) C. difficile colitis (Acute) Nausea vomiting and diarrhea (Acute) Bilirubinuria (Acute) Bacteremia (Acute) C. 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) Medical History Ascending cholangitis Gram-negative bacteremia Chronic GERD Multiple sclerosis Depression Port-A-Cath in place Primary pancreatic cancer Superior mesenteric vein thrombosis Surgical History History of biliary stent insertion History of insertion of tunneled central venous catheter (CVC) with port (~04/2023) S/P cholecystectomy Open cholecystectomy S/P laparoscopy Diagnostic laparoscopy for staging of pancreatic cancer Social History Smoking/Tobacco Use Status: Never Smoking risk assessment performed?: Yes Alcohol Intake: former Drug use: Never Substance use type: does not use Housing: house Do you feel safe at home: Yes Do you feel safe in your relationship?: Yes Additional Social history: lives with mother in mobile home SDOH(Care Management) Screening Will the Patient Participate in the Screening?: Yes Do you worry about having a steady place to live?: no In the past 12 months, have you had to go without electric, gas, oil or water in your home?: no Have you or anyone in your house had to go without enough food to eat?: no Has lack of transportation kept you from medical appointments or from doing things needed for daily living?: no Has anyone in your support network made you feel unsafe for any reason?: no
[2023-08-18] MEDS: Creon, Lipase 24,000 CAPCR 4 CAP PO (12:06)
--- NOTE | 2023-08-18 14:19 | W.PM.OP ---
Date of service: 08/18/23 Time of Service: 14:19 Operative Note Operative Note DATE OF PROCEDURE: 08/18/23 PRE-OP DIAGNOSIS: stage 4 pancreatic cancer POST-OP DIAGNOSIS: same PROCEDURE: paracentisis SURGEON: Carol Ann Bennett ANESTHESIA TYPE: Local By Surgeon Refer to Anesthesia Record ESTIMATED BLOOD LOSS: 1 PATHOLOGY: other Patient was transported to: no change Patient's condition: stable Findings: 2.7L cloudy- Procedure Description: Informed consent is obtained, explaining benefits and risks of the procedure including but not limited to: bleeding/infections/damage to bowels or blood vessels/chronic drainage or leakage/need for repeat procedure/reactions to anesthetics.?? The patient is brought to the procedure room and placed in the supine position.?? A time-out is done.? Ultrasound is used to localize the pocket of fluid.? The area is prepped and draped in the usual sterile fashion using a ChloraPrep scrub solution.? 10 cc's of 1% Lidocaine with epinephrine is used for local anesthetization.? The abdomen is punctured and the catheter is inserted.?2.7 liters of light yellow fluid is evacuated today.? The catheter is removed.? Pressure dressing is applied.? The patient tolerated the procedure well without complication and transferred to recovery in stable condition.?
[2023-08-18 14:22] VITALS: BP 102/71
[2023-08-18 15:35] VITALS: BP 103/62; PULSE 104; RESP 16; TEMP 37; O2SAT 96
--- NOTE | 2023-08-18 16:46 | W.PM.DS.N ---
Date of service: 08/18/23 Time of Service: 16:00 DS: Diagnosis Discharge Diagnosis (1) Ascites: Status: Acute (2) Superior mesenteric vein thrombosis: (3) Primary pancreatic cancer : (4) Discharge planning issues: Status: Resolved Discharge Plan Disposition Patient Disposition: Home Condition: Improving Discharge Details Reason For Visit: Dyspnea, Ascites, Pancreatic Cancer Admit Date/Time: 08/17/23 21:34 Admit Provider: Hair Rincon Attending Provider: Hair Rincon Primary Care Provider: Sid Rubio [facility] Course Hospital Course: This 62 years old female patient with a medical history of pancreatic head cancer with stenting of obstructed ducts, jaundice, progression of the disease while on chemo, presented to the ED at [facility] on 08/17/2023 for evaluation of increased shortness of breath due to abrupt abdominal swelling. The patient reported nausea vomiting with an emergency room visit on July 18 at [facility] at which time she was found to have increase in her liver function test. This condition appears to have progressed with increased side effect to chemotherapy and progression of disease with patient considering cessation of chemotherapy and going on hospice. The patient was also anticoagulated on Eliquis at home for intra-abdominal vascular obstruction with venous thrombosis secondary to her cancer. Surgery was consulted and and the patient was admitted by the hospitalist for paracentesis by Dr. Bennett on 08/18/2023. Eliquis was held until the procedure. The CT abdomen chest and pelvis completed in the ED was unremarkable except for showing the occlusion of the superior mesenteric vein with numerous portal venous collaterals similar to previous; complex mass at the pancreatic head using a process, biliary stent and pneumobilia are similar to what was seen previously. In addition moderate to large volume ascites was noted with significant increase from previously seen as well as generalized bowel wall thickening most likely from mesenteric venous congestion but enteritis or gastroenteritis could not be excluded. Labs in the ED were unremarkable except for an H&H of 10.6 and 35 with an MCV of 77. Paracentesis was completed today by Dr. Bennett with resumption of Eliquis 5 mg oral 2 times a day on 08/18/2023 at 2000. The fluid collection was sent to microbiology without bacteria seen in the Gram stain but final cultures are still pending. Blood cultures drawn on admission has not resulted at this point in time, but the patient remains afebrile without leukocytosis with WBC at 4.0. The patient will be discharged home today. S/p paracentesis the patient reports breathing better, walking without difficulty without gait unsteadiness. The patient will have a referral for follow-up with palliative care in the outpatient setting. The patient will need to follow-up with her primary care provider within the next 7 days. The patient will complete complete blood count on 08/21/2023 prior to seeing her PCP. Results of the CBC should be forwarded to the primary care practitioner. The patient did not verbalize any further needs for her discharge home. Discussed with Dr. Ruelas Home Meds and New Rx's Prescriptions: Continued Creon 36,000-114,000- 180,000 unit capsule,delayed release(DR/EC) See Rx Instructions PO .COMPLEX Patient Comments: TAKE 3 CAPSULES BY MOUTH DAILY PER MEAL, 1 PER SNACK, MAXIMUM DAILY DOSE = 12 CAPSULES Rx Instructions: 3 caps PO daily per meal, 1 cap/snack orally; max does 12 capsules/day potassium chloride 20 mEq tablet extended release 20 meq PO TID Patient Comments: TAKE ONE TABLET BY MOUTH EVERY MORNING Lactobacillus acidophilus 500 million cell Capsule 1 cell PO DAILY Qty: 30 0RF loperamide 2 mg capsule 2 mg PO PRN PRN Patient Comments: TAKE TWO CAPSULES BY MOUTH EVERY 6 HOURS NEEDED prochlorperazine maleate [Compazine] 10 mg tablet 10 mg PO PRN PRN Patient Comments: Take 1 tablet by mouth every six hours as needed for dry heaves, nausea, vomiting. acetaminophen 500 mg tablet 1,000 mg PO PRN PRN Patient Comments: Take 2 tablet by mouth every six hours as needed for pain magnesium oxide 400 mg (241.3 mg magnesium) tablet 400 mg PO DAILY Patient Comments: TAKE ONE TABLET BY MOUTH TWICE A DAY pantoprazole 40 mg tablet,delayed release (DR/EC) 40 mg PO DAILY Patient Comments: TAKE ONE TABLET BY MOUTH EVERY DAY oxycodone 5 mg tablet 5 mg PO PRN PRN (Reason: Moderate Pain (Scale Score 5-6)) Patient Comments: TAKE ONE TABLET BY MOUTH EVERY 4 HOURS NEEDED FOR MODERATE PAIN Eliquis 5 mg tablet 5 mg PO BID Hold Instructions: Resume on 05/04/23. Patient Comments: TAKE ONE TABLET BY MOUTH TWICE A DAY fentanyl 12 mcg/hr patch 72 hour 1 patch transdermal Q72H Patient Comments: APPLY 1 PATCH TO CLEAN, DRY SKIN FOR 72 HOURS THEN REMOVE, DISPOSE OF PROPERLY AND APPLY A NEW PATCH ON A DIFFERENT, CLEAN DRY SKIN SITE fentanyl 25 mcg/hr patch 72 hour 1 patch transdermal Q72H Patient Comments: APPLY 1 PATCH TO CLEAN, DRY SKIN FOR 72 HOURS THEN REMOVE, DISPOSE OF PROPERLY AND APPLY A NEW PATCH ON A DIFFERENT, CLEAN DRY SKIN SITE mirtazapine 15 mg tablet 15 mg PO ONCE Patient Comments: TAKE ONE TABLET BY MOUTH EVERY DAY vancomycin 125 mg capsule See Rx Instructions .ROUTE .COMPLEX Patient Comments: TAKE ONE CAPSULE BY MOUTH TWICE A DAY FOR 7 DAYS, THEN DECREASE TO TAKE ONE CAPSULE BY MOUTH EVERY DAY FOR 7 DAYS, THEN TAKE ONE CAPSULE BY Rx Instructions: view directions; oxycodone 10 mg tablet 10 mg PO Q4H PRN Patient Comments: TAKE ONE TABLET BY MOUTH EVERY 4 HOURS NEEDED FOR PAIN, MAX DAILY DOSE 50 MG lorazepam 0.5 mg tablet 0.5 mg PO Q8H Patient Comments: TAKE ONE TABLET BY MOUTH EVERY 8 HOURS NEEDED FOR ANXIETY Calcium 600 1 tab PO 1XD Patient Comments: one tab daily dronabinol 2.5 mg capsule 2.5 mg PO BID Rx Instructions: administer before lunch and evening meal/dinner multivitamin Tablet 1 tab PO DAILY Discharge Instructions Stand Alone Forms: Nursing Discharge Form Referrals: France Boyd MD [ [facility] STAFF PHYSICIAN] - () Sid Rubio [Primary Care Provider] - (Please call on Sunday and set up a hospital follow up within 7 days.) Activity:: Activity as Tolerated Equipment/Supplies:: No Equipment Needed Diet:: As Tolerated Discharge Orders Discharge Orders: Discharge Order (Routine); Ordered 08/18/23 Ordered By: Amber Lagos Other Ambulatory Orders: Complete Blood Count w/Diff (Routine) Timeframe: [id number] Facility: [facility] - Location: Laboratory Outpatient - [facility] Ordered By: Amber Lagos Discharge Data Discharge Date/Time-TO BE ENTERED AT DEPARTURE: 08/18/23 17:54 DS: Summary Time Spent with Patient providing and/or coordinating discharge services: Greater than 30 minutes Status at Discharge Functional status at discharge: independent ambulation Overall status at discharge: patient is progressing back to baseline Mental Status: mental status grossly normal Speech and Movement: speech and movement normal Mood: congruent mood Affect: normal affect Quality:SDOH Health Related Social Needs: No Data to Display Exam Narrative Exam Narrative: Constitutional Frail appearing patient in bed comfortable and cooperative during the interview. Without acute distress HENMT: Facial structures intact with gaunted appearance Neuro:alert and oriented to self, person, place time and situation. No neurological focal deficit, PERRLA Chest:Chest is symmetrical and normal appearance Resp: Normal respiratory pattern, speaks in full sentences, unlabored breathing, clear lung bilaterally Cardio: regular rhythm, S1, S2, no murmur, capillary refill<3 sec., bilateral radial and dorsalis pedis pulses are positive, palpable GI: Abdomen is not distended, soft and non tender, bowel sounds are present : Negative Costovertebral angle tenderness, no bladder distension Back/spine/Pelvis: No back tenderness, normal alignment Integumentary: No skin lesions or rash Extremities: strength 5/5 to bilateral lower and upper extremities Psych: RASS 0, congruent mood and normal affect. Psych Mental Status: mental status grossly normal Speech and Movement: speech and movement normal Mood: congruent mood Affect: normal affect DS: Data Vitals/I&O Vitals and I&O: Vital Signs Temperature 37.0 C 08/18/23 15:35 Temperature Source Tympanic 08/18/23 15:35 Pulse 104 H 08/18/23 15:35 Pulse Rhythm Regular 08/18/23 08:00 Pulse 98 H 08/17/23 21:50 Respiratory Rate 16 08/18/23 15:35 Respiratory Effort Normal 08/18/23 08:00 Respiratory Depth Normal 08/18/23 08:00 Respiratory Pattern Normal 08/18/23 08:00 Blood Pressure 103/62 08/18/23 15:35 Blood Pressure Mean 73 08/17/23 21:46 Blood Pressure Position Supine 08/17/23 16:00 Pulse Oximetry 96 08/18/23 15:35 Oxygen Delivery Method Room Air 08/18/23 15:35 Oxygen Flow Rate 0 08/18/23 15:35 Pain Level 0 08/18/23 15:35 Comment 72 08/18/23 10:05 Intake & Output 08/17/23 08/18/23 08/18/23 23:59 11:59 23:59 Intake Total 1060 / 1060 Balance 1060 / 1060 Weight 73.7 kg 73.5 kg Intake: IV 1060 / 1060 Other: Urine Appearance Clear Clear Data Completed and Pending Labs on day of discharge: Labs from last 24 hours 08/18/23 08/17/23 08/17/23 06:00 21:13 19:14 WBC 4.00 L RBC 3.51 L Hgb 8.4 L D Hct 27.1 L MCV 77 L MCH 23.9 L MCHC 31.0 L RDW 21.0 H Plt Count 171 MPV 10.2 Immature Gran % Neutrophils % Lymphocytes % Monocytes % Eosinophils % Basophils % Nucleated RBC % Absolute Neutrophils Absolute Lymphocytes Absolute Monocytes Absolute Eosinophils Absolute Basophils RBC Morphology Hypochromasia Poikilocytosis Anisocytosis Microcytosis PT 12.6 H 12.9 H INR 1.3 H 1.3 H APTT 31.3 Sodium 140 Potassium 3.6 Chloride 107 Carbon Dioxide 25.6 Anion Gap 7.4 BUN 9 Creatinine 0.9 Est GFR (CKD-EPI 2020) 72.73 Glucose 75 Calcium 7.8 L Magnesium 1.9 Total Bilirubin 1.0 AST 92 H ALT 38 Alkaline Phosphatase 808 H Troponin I < 50 Total Protein 6.1 L Albumin 1.8 L 08/17/23 16:25 WBC 7.81 RBC 4.55 Hgb 10.6 L Hct 35.0 L MCV 77 L MCH 23.3 L MCHC 30.3 L RDW 20.9 H Plt Count 282 MPV 9.7 Immature Gran % 0.9 Neutrophils % 70.0 Lymphocytes % 16.3 Monocytes % 9.7 Eosinophils % 1.8 Basophils % 1.3 Nucleated RBC % 0.0 Absolute Neutrophils 5.47 Absolute Lymphocytes 1.27 Absolute Monocytes 0.76 Absolute Eosinophils 0.14 Absolute Basophils 0.10 RBC Morphology See Below Hypochromasia 1+ Poikilocytosis 1+ Anisocytosis 2+ Microcytosis 1+ PT INR APTT Sodium 138 Potassium 3.9 Chloride 104 Carbon Dioxide 22.7 Anion Gap 11.3 H BUN 9 Creatinine 1.0 Est GFR (CKD-EPI 2020) 64.09 Glucose 111 H Calcium 8.4 L Magnesium 1.8 Total Bilirubin 1.5 H AST 126 H ALT 52 Alkaline Phosphatase 1111 H Troponin I < 50 Total Protein 7.6 Albumin 2.4 L 08/18/23 14:00 Paracentesis Body Fluid Culture - Pending 08/18/23 14:00 Paracentesis Anaerobic Culture - Pending 08/17/23 17:48 Blood Blood Culture - Pending 08/17/23 16:25 Blood Blood Culture - Pending Preliminary micro results at discharge 08/18/23 14:00 Body Fluid Culture - Pending Paracentesis 08/18/23 14:00 Anaerobic Culture - Pending Paracentesis 08/17/23 17:48 Blood Culture - Pending Blood 08/17/23 16:25 Blood Culture - Pending Blood PFSH All Active Problems (Updated 08/19/23 @ 00:06 by GRISELDA POTTS) Dyspnea (Acute) Ascites (Acute) Pancreatic cancer (Acute) C. difficile colitis (Acute) Nausea vomiting and diarrhea (Acute) Bacteremia (Acute) Ascites (Acute) Encounter for infusaport central venous catheter insertion (Acute) Anticoagulant long-term use (Acute) Elevated LFTs (Acute) Anemia (Chronic) Medical History Ascending cholangitis Gram-negative bacteremia Chronic GERD Multiple sclerosis Depression Port-A-Cath in place Primary pancreatic cancer Superior mesenteric vein thrombosis Surgical History History of biliary stent insertion History of insertion of tunneled central venous catheter (CVC) with port (~04/2023) S/P cholecystectomy Open cholecystectomy S/P laparoscopy Diagnostic laparoscopy for staging of pancreatic cancer Social History Smoking/Tobacco Use Status: Never Smoking risk assessment performed?: Yes Alcohol Intake: former Drug use: Never Substance use type: does not use Housing: house Do you feel safe at home: Yes Do you feel safe in your relationship?: Yes Additional Social history: lives with mother in mobile home Time Spent with Patient Time Spent with Patient: 70-84 minutes4 Time was spent: preparing to see the patient(eg.review tests), obtaining and/or reviewing separately otained hiistory, ordering medications,tests, procedures, referring, communicating with other health critical care nurse, indepentently interpreting results, counseling the patient and care coordination
== END 2023-08-18 17:54 | disposition home or self-care (01) | DRG 435 ==
LOC: ER 22:07 → MS 22:11
PROVIDERS: Admitting Provider Family Medicine; Emergency Provider Emergency Medicine; PCP Internal Medicine; Visit Provider Family Medicine
DX: C25.0 Malignant neoplasm of head of pancreas (principal); K55.059 Acute (reversible) ischemia of intestine, part and extent unspecified; R18.0 Malignant ascites; E46 Unspecified protein-calorie malnutrition; D84.821 Immunodeficiency due to drugs; D69.6 Thrombocytopenia, unspecified; Z79.01 Long term (current) use of anticoagulants; Z66 Do not resuscitate; R06.00 Dyspnea, unspecified; G62.0 Drug-induced polyneuropathy; T45.1X5A Adverse effect of antineoplastic and immunosuppressive drugs, initial encounter; Z95.828 Presence of other vascular implants and grafts; F32.A Depression, unspecified; G35 Multiple sclerosis; Z68.31 Body mass index [BMI] 31.0-31.9, adult; R63.4 Abnormal weight loss
CPT/HCPCS: 49082; 00123; 36415; 71275; 74177; 80053; 85027; 87040; 93005; 96361; 96374; 96375; 96376; 99291; 83605; 83735; 84484; 85025; 85610; 85730; 87070; 87075; 87205; 93010; 99223; 99239; J1885; J2060; J3490

== ENCOUNTER 2023-08-28 17:38 | Emergency (ER) | payer MEDICAID, SELFPAY ==
[2023-08-28 17:48] VITALS: BP 109/61; PULSE 122; RESP 16; TEMP 37; O2SAT 97
--- NOTE | 2023-08-28 18:30 | RT.EKG_ITS ---
APPROVED REPORT Exam: Resting ECG Reason for Exam: tachycardia Patient Location: E HR:107 bpm ECG Measurements Heart Rate 107 AXIS WV 129 P 28 QRSd 103 QRS 120 QT 363 T -2 QTc 483 Conclusion Sinus tachycardia...rate> 99 Right axis deviation...QRS axis ( 91,269) Low voltage, precordial leads...precordial leads <1.0mV no st segment or t wave abnormalities to suggest occlusive AR
--- NOTE | 2023-08-28 18:30 | DI.CT_ITS ---
Exam(s) CT CHEST PE CTA EXAM: CT CHEST PE CTA CLINICAL HISTORY: tachycardia, anxiety. TECHNIQUE: Imaging Protocol: Axial CT angiography was performed with multi-slice acquisition and mu lti-planar and/or 3D reconstructions. CONTRAST MATERIAL: Intravenous: Omnipaque 350 contrast volume:100 mL COMPARISON: CT CT CHEST W from 03/06/[address] ABDOMEN PELVIS W from 07/10/[address] CHEST PE ABD PELVIS W from 08/17/2023 FINDINGS: Tracheobronchial tree: Patent where visualized. Pulmonary parenchyma: No consolidation or dominant measurable mass. No architectural distortion. Calc ified granuloma are present. Pulmonary Arteries: No evidence of filling defect to suggest pulmonary emboli. Mediastinum and Arcelia: No dominant adenopathy or fluid collection. The esophagus is unremarkable. Visualized thyroid gland: Unremarkable. Pleura: No effusion or pneumothorax. Heart: The heart is not dilated. No coronary artery calcifications are seen. No pericardial effusion. Aorta: Thoracic aorta non-dilated. No evidence of dissection. Minimal atherosclerotic calcification. Upper abdomen: Compared to the prior examination there has been a significant increase in the abdomi nal ascites. There is a biliary stent in place. Pneumobilia is present. The liver has a nodular co ntour suspicious for hepatic cirrhosis. Tubes, Catheters, and Lines: The patient has an Dbigtq-L-Wcri type catheter in the left chest wall. Soft tissues: Unremarkable. Bones: Within normal limits for the patient's age. IMPRESSION: 1. No evidence of pulmonary embolism, thoracic aortic dissection or aneurysm. 2. Increase in the abdominal ascites since the CT scan of the abdomen and pelvis from 07/10/2023. 3. No acute pulmonary process. RADIATION DOSE DELIVERED: 307.38mGy.cm Total DLP DATA REPOSITORY: All CT scans at this facility are submitted to the National Radiology Data Registry (NRDR) Dose Index Registry (DIR) with the [employer] ([employer]). RADIATION OPTIMIZATION: All CT scans at this facility use at least one of these dose optimization te chniques: automated exposure control; mA and/or kV adjustment per patient size (includes targeted exa ms where dose is matched to clinical indication); or iterative reconstruction.
--- NOTE | 2023-08-28 18:40 | W.ED.GENAD ---
Discharge Plan Disposition Patient Disposition: Home Condition: Good Discharge Details Clinical Impression: Panic Primary Care Provider: Sid Rubio ED Provider: Josefina Olivas Home Meds and New Rx's Prescriptions: Continued Creon 36,000-114,000- 180,000 unit capsule,delayed release(DR/EC) See Rx Instructions PO .COMPLEX Patient Comments: TAKE 3 CAPSULES BY MOUTH DAILY PER MEAL, 1 PER SNACK, MAXIMUM DAILY DOSE = 12 CAPSULES Rx Instructions: 3 caps PO daily per meal, 1 cap/snack orally; max does 12 capsules/day potassium chloride 20 mEq tablet extended release 20 meq PO TID Patient Comments: TAKE ONE TABLET BY MOUTH EVERY MORNING Lactobacillus acidophilus 500 million cell Capsule 1 cell PO DAILY Qty: 30 0RF loperamide 2 mg capsule 2 mg PO PRN PRN Patient Comments: TAKE TWO CAPSULES BY MOUTH EVERY 6 HOURS NEEDED prochlorperazine maleate [Compazine] 10 mg tablet 10 mg PO PRN PRN Patient Comments: Take 1 tablet by mouth every six hours as needed for dry heaves, nausea, vomiting. acetaminophen 500 mg tablet 1,000 mg PO PRN PRN Patient Comments: Take 2 tablet by mouth every six hours as needed for pain magnesium oxide 400 mg (241.3 mg magnesium) tablet 400 mg PO DAILY Patient Comments: TAKE ONE TABLET BY MOUTH TWICE A DAY pantoprazole 40 mg tablet,delayed release (DR/EC) 40 mg PO DAILY Patient Comments: TAKE ONE TABLET BY MOUTH EVERY DAY oxycodone 5 mg tablet 5 mg PO PRN PRN (Reason: Moderate Pain (Scale Score 5-6)) Patient Comments: TAKE ONE TABLET BY MOUTH EVERY 4 HOURS NEEDED FOR MODERATE PAIN Eliquis 5 mg tablet 5 mg PO BID Hold Instructions: Resume on 05/04/23. Patient Comments: TAKE ONE TABLET BY MOUTH TWICE A DAY fentanyl 12 mcg/hr patch 72 hour 1 patch transdermal Q72H Patient Comments: APPLY 1 PATCH TO CLEAN, DRY SKIN FOR 72 HOURS THEN REMOVE, DISPOSE OF PROPERLY AND APPLY A NEW PATCH ON A DIFFERENT, CLEAN DRY SKIN SITE fentanyl 25 mcg/hr patch 72 hour 1 patch transdermal Q72H Patient Comments: APPLY 1 PATCH TO CLEAN, DRY SKIN FOR 72 HOURS THEN REMOVE, DISPOSE OF PROPERLY AND APPLY A NEW PATCH ON A DIFFERENT, CLEAN DRY SKIN SITE mirtazapine 15 mg tablet 15 mg PO ONCE Patient Comments: TAKE ONE TABLET BY MOUTH EVERY DAY vancomycin 125 mg capsule See Rx Instructions .ROUTE .COMPLEX Patient Comments: TAKE ONE CAPSULE BY MOUTH TWICE A DAY FOR 7 DAYS, THEN DECREASE TO TAKE ONE CAPSULE BY MOUTH EVERY DAY FOR 7 DAYS, THEN TAKE ONE CAPSULE BY Rx Instructions: view directions; oxycodone 10 mg tablet 10 mg PO Q4H PRN Patient Comments: TAKE ONE TABLET BY MOUTH EVERY 4 HOURS NEEDED FOR PAIN, MAX DAILY DOSE 50 MG lorazepam 0.5 mg tablet 0.5 mg PO Q8H Patient Comments: TAKE ONE TABLET BY MOUTH EVERY 4 HOURS NEEDED FOR ANXIETY, 15 tabs prescribed today at [facility] Calcium 600 1 tab PO 1XD Patient Comments: one tab daily dronabinol 2.5 mg capsule 2.5 mg PO BID Rx Instructions: administer before lunch and evening meal/dinner multivitamin Tablet 1 tab PO DAILY Discharge Instructions Instructions: Anxiety (ED) Additional Instructions: You can take your home ativan 0.5mg every 4-6 hours as needed for anxiety. Do not mix this with oxycodone. Call your primary care doctor tomorrow to schedule an appointment within the next two days to followup on your visit today. Return to the emergency department for new or worsening symptoms including fever, chest pain, difficulty breathing, feeling like you are going to pass out, or if you have any other concerns. Referrals: Sid Rubio [Primary Care Provider] - [facility] General Mode of arrival: ambulatory. Date/Time Provider Initiated Documentation: 08/28/23 17:39. Limitations to Documentation: no limitations. Information obtained by: patient and family. HPI Narrative: 62yo F with S4 pancreatic cancer presenting for anxiety. Accompanied by her mother. Went to OSH earlier in the day for same, was prescribed course of ativan. Took one 0.5mg tablet at 1630 today initially without improvement. Feels 'panicky' and like her heart is racing. No chest pain or shortness of breath. No abdominal pain, nausea, or vomiting. Not currently on hospice but is considering. She is otherwise in her usual state of health. Related Data Home Medications Medication Instructions Recorded Confirmed acetaminophen 500 mg tablet 1,000 mg PO PRN PRN 09/29/22 08/28/23 apixaban 5 mg tablet (Eliquis) 5 mg PO BID 09/29/22 08/28/23 loperamide 2 mg capsule 2 mg PO PRN PRN 09/29/22 08/28/23 magnesium oxide 400 mg (241.3 mg 400 mg PO DAILY 09/29/22 08/28/23 magnesium) tablet oxycodone 5 mg tablet 5 mg PO PRN PRN Moderate Pain 09/29/22 08/28/23 (Scale Score 5-6) pantoprazole 40 mg tablet,delayed 40 mg PO DAILY 09/29/22 08/28/23 release prochlorperazine maleate 10 mg 10 mg PO PRN PRN 09/29/22 08/28/23 tablet (Compazine) fentanyl 12 mcg/hr transdermal 1 patch transdermal Q72H 05/01/23 08/28/23 patch [id number] See Rx Instructions PO .COMPLEX 07/10/23 08/28/23 36,000-114,000-180,000 unit capsule,delay rel (Creon) potassium chloride 20 mEq 20 meq PO TID 07/11/23 08/28/23 tablet,extended release Lactobacillus acidophilus 500 1 cell (0 x 500 million cell) PO 07/12/23 08/28/23 million cell capsule DAILY #30 caps Calcium 600 1 tab PO 1XD 08/17/23 08/28/23 dronabinol 2.5 mg capsule 2.5 mg PO BID 08/17/23 08/28/23 fentanyl 25 mcg/hr transdermal 1 patch transdermal Q72H 08/17/23 08/28/23 patch lorazepam 0.5 mg tablet 0.5 mg PO Q8H 08/17/23 08/28/23 mirtazapine 15 mg tablet 15 mg PO ONCE 08/17/23 08/28/23 multivitamin 1 tab PO DAILY 08/17/23 08/28/23 oxycodone 10 mg tablet 10 mg PO Q4H PRN 08/17/23 08/28/23 vancomycin 125 mg capsule See Rx Instructions .Route .COMPLEX 08/17/23 08/28/23 Previous Rx's Medication Instructions Recorded Lactobacillus acidophilus 500 1 cell (0 x 500 million cell) PO 07/12/23 million cell capsule DAILY #30 caps Allergies Allergy/AdvReac Type Severity Reaction Status Date / Time bupropion [From Wellbutrin] AdvReac Diarrhea Verified 08/28/23 17:44 codeine AdvReac Diarrhea Verified 08/28/23 17:44 ibuprofen AdvReac Nausea Verified 08/28/23 17:44 Penicillins AdvReac Hives Verified 08/28/23 17:44 Sulfa (Sulfonamide AdvReac Hives Verified 08/28/23 17:44 Antibiotics) topiramate [From Topamax] AdvReac Dizziness/L Verified 08/28/23 17:44 ighthead General Stated Complaint: Anxiety ILEANA: 3 Review of Systems Narrative: see HPI Exam Narrative Exam Narrative: General: Alert, well appearing, well nourished, in no acute distress. Head: Normocephalic, atraumatic Neck: Trachea midline, ?Neck supple. ENT: ?MMM.? Cardiac: ?Tachycardiac, regular,, no murmurs appreciated Resp: No respiratory distress. CTAB. Abd: ?Soft, non-distended, nontender : ?No suprapubic tenderness. No CVA tenderness. Extremities: ?No deformities.? No peripheral edema. Neurologic: GCS 15. ? Moves all extremities freely against gravity Course Vital Signs Vital signs: Vital Signs Temperature 37.0 C 08/28/23 17:48 Pulse 122 H 08/28/23 17:48 Respiratory Rate 16 08/28/23 17:48 Blood Pressure 109/61 08/28/23 17:48 Pulse Oximetry 97 08/28/23 17:48 Temperature 37.0 C 08/28/23 17:48 Temperature Source Temporal Artery Scan 08/28/23 17:48 Pulse 122 H 08/28/23 17:48 Respiratory Rate 16 08/28/23 17:48 Respiratory Effort Normal 08/28/23 18:38 Respiratory Depth Normal 08/28/23 18:38 Respiratory Pattern Normal 08/28/23 18:38 Blood Pressure 109/61 08/28/23 17:48 Blood Pressure Position Sitting 08/28/23 17:48 Pulse Oximetry 97 08/28/23 17:48 Oxygen Delivery Method Room Air 08/28/23 17:48 Oxygen Flow Rate 0 08/28/23 17:48 Pain Level 7 08/28/23 17:48 Medical Decision Making 62yo F with S4 pancreatic cancer presenting for anxiety. Not on hospice currently but has been considering. Arrives accompanied by her mother. Went to OSH earlier in the day for same, was prescribed course of ativan. Took one 0.5mg tablet at 1630 today initially without improvement. Feels 'panicky' and like her heart is racing. On arrival symptoms had started to wane, currently feels 'relaxed'. Tachycardiac to 120's, vital signs otherwise reassuring. EKG sinus tachycardia, no ST segment or T wave abnormalities to suggest occlusive UT. Discussed with patient and family at bedside options for proceeding; this may be anxiety however medical causes also possible and no laboratory or imaging workup done earlier today. Given her advanced cancer not unreasonable to just treat as anxiety however if she wants to pursue further treatment is likely worth evaluting for medical causes including ACS, PE, infection, electrolyte abnormalities, etc. After some discussion patient elected to pursue workup. Labs reviewed as below, CBC reassuring with no leukocytosis and anemia at baseline with Hg 9.2, CMP with hypocalcemia to 7.7 (also at baseline) and elevated AST/ALP (chronic and likely 2/t known cancer) no other significant abnormalities, troponin negative, UA not suggestive of infection. About two hours into ED stay patient with more anxiety; given 1mg PO ativan with good effect. CT independently reviewed, no large saddle embolus on my view, agree with radiology read below. On reassessment she reports feeling much better, requesting discharge home. HR in 110's on my reassessment. With reassuring workup here, appropriate to followup with her PCP tomorrow. Discharged home; discharge instructions and return precautions were reviewed with patient and her mother who verbalized understanding. All questions were answered and they are in full agreement with the plan. Imaging Data Radiologic Study: Imaging: CT Scan Radiologist's impression: IMPRESSION: 1. Negative for acute pulmonary embolism. 2. Stable findings within the upper abdomen as detailed above Lab Data Lab results reviewed: Yes I reviewed the patient's lab results. Labs: Laboratory Tests Range/Units 08/28/23 08/28/23 19:15 19:30 WBC (4.4-10.8) 10^3/uL 5.85 RBC (3.93-5.22) 10^6/uL 3.99 Hgb (11.2-15.7) g/dL 9.2 L Hct (36.0-46.0) % 30.8 L MCV (80-95) fL 77 L MCH (27.0-33.0) pg 23.1 L MCHC (32.0-36.0) % 29.9 L RDW (11.7-14.6) % 21.0 H Plt Count (130-400) 10^3/uL 184 MPV (8.0-11.0) fL 9.3 Immature Gran % % 0.5 Neutrophils % % 71.0 Lymphocytes % % 13.3 Monocytes % % 11.3 Eosinophils % % 2.9 Basophils % % 1.0 Nucleated RBC % (0.0-0.3) % 0.0 Absolute Neutrophils (1.2-6.7) 10^3/uL 4.15 Absolute Lymphocytes (1.2-3.4) 10^3/uL 0.78 L Absolute Monocytes (0.1-0.8) 10^3/uL 0.66 Absolute Eosinophils (0.0-0.7) 10^3/uL 0.17 Absolute Basophils (0.0-0.2) 10^3/uL 0.06 RBC Morphology See Below Hypochromasia 1+ Anisocytosis 2+ Microcytosis 1+ Sodium (136-145) mmol/L 138 Potassium (3.5-5.1) mmol/L 4.1 Chloride (98-107) mmol/L 106 Carbon Dioxide (21.0-32.0) mmol/L 25.4 Anion Gap (3-11) mmol/L 6.6 BUN (7-18) mg/dL 10 Creatinine (0.55-1.02) mg/dL 0.9 Est GFR (CKD-EPI 2020) (mL/min/1.73m2) 72.73 Glucose (74-106) mg/dL 104 Calcium (8.5-10.1) mg/dL 7.7 L Total Bilirubin (0.2-1.0) mg/dL 1.0 AST (15-37) U/L 135 H ALT (14-59) U/L 48 Alkaline Phosphatase (46-116) U/L 966 H Troponin I (< or =60) ng/L < 50 Total Protein (6.4-8.2) g/dL 6.7 Albumin (3.4-5.0) g/dL 2.1 L Urine Color (Yellow) Yellow Urine Clarity (Clear) Cloudy Urine pH (5-8) 5.5 Ur Specific [place] (1.005-1.025) >= 1.030 H Urine Protein (Neg-Trace) mg/dL 30 H Urine Ketones (Negative) mg/dL Trace H Urine Blood (Negative) Negative Urine Nitrite (Negative) Negative Urine Bilirubin (Negative) Small H Urine Urobilinogen (Up to 0.2) mg/dL 0.2 Ur Leukocyte Esterase (Negative) Negative Urine RBC (0-2) HPF Negative Urine WBC (0-5) HPF Negative Ur Epithelial Cells (Negative) HPF Rare Urine Crystals (Negative) HPF Many Amorphous Urine Bacteria (Negative) HPF Negative Urine Casts (Negative) LPF Negative Urine Mucus (Negative) Trace Ur Culture Indicated? No Urine Glucose (Negative) mg/dL Negative Quality:SDOH Health Related Social Needs: No Data to Display PFSH All Active Problems (Updated 08/28/23 @ 21:30 by Josefina Olivas MD) Panic (Acute) Dyspnea (Acute) Ascites (Acute) Pancreatic cancer (Acute) C. difficile colitis (Acute) Nausea vomiting and diarrhea (Acute) Bacteremia (Acute) Ascites (Acute) Encounter for infusaport central venous catheter insertion (Acute) Anticoagulant long-term use (Acute) Elevated LFTs (Acute) Anemia (Chronic) Medical History Bilirubinuria C. difficile diarrhea History of difficult venous access Thrombocytopenia Hypoalbuminemia due to protein-calorie malnutrition Basic learning disability, reading Immunosuppression due to drug therapy Peripheral neuropathy due to chemotherapy Ascending cholangitis Gram-negative bacteremia Chronic GERD Multiple sclerosis Depression Port-A-Cath in place Primary pancreatic cancer Superior mesenteric vein thrombosis Surgical History History of biliary stent insertion History of insertion of tunneled central venous catheter (CVC) with port (~04/2023) S/P cholecystectomy Open cholecystectomy S/P laparoscopy Diagnostic laparoscopy for staging of pancreatic cancer Social History Smoking/Tobacco Use Status: Never Smoking risk assessment performed?: Yes Alcohol Intake: former Drug use: Never Substance use type: does not use Housing: house Do you feel safe at home: Yes Do you feel safe in your relationship?: Yes Additional Social history: lives with mother in mobile home
[2023-08-28 19:21] LABS: Abs Immature Grans 0.03 10^3/uL (0.0-0.06); Absolute Basophil Count 0.06 10^3/uL (0.0-0.2); Absolute Eosinophil Count 0.17 10^3/uL (0.0-0.7); Absolute Lymphocyte Count 0.78 10^3/uL (1.2-3.4); Absolute Monocyte Count 0.66 10^3/uL (0.1-0.8); Absolute Neutrophil Count 4.15 10^3/uL (1.2-6.7); Eosinophils % 2.9 %; HCT 30.8 % (36.0-46.0); HGB 9.2 g/dL (11.2-15.7); Immature Grans % 0.5 %; Lymphocytes % 13.3 %; MCH 23.1 pg (27.0-33.0); MCHC 29.9 % (32.0-36.0); MCV 77 fL (80-95); MPV 9.3 fL (8.0-11.0); Monocytes % 11.3 %; Platelet Count 184 10^3/uL (130-400); RBC 3.99 10^6/uL (3.93-5.22); RDW-SD 58.8 fL; WBC 5.85 10^3/uL (4.4-10.8)
[2023-08-28 19:40] LABS: Bilirubin Small (Negative); Blood Negative (Negative); Glucose Negative (Negative); Ketones Trace mg/dL (Negative); Leukocyte Esterase Negative (Negative); Nitrite Negative (Negative); Specific Gravity >= 1.030 (1.005-1.025); Urobilinogen 0.2 mg/dL (Up to 0.2); pH 5.5 (5-8)
[2023-08-28 19:44] LABS: ALT 48 U/L (14-59); AST 135 U/L (15-37); Albumin 2.1 g/dL (3.4-5.0); Anion Gap 6.6 mmol/L (3-11); Anisocytosis 2+; BUN 10 mg/dL (7-18); CO2 25.4 mmol/L (21.0-32.0); CREATININE 0.9 mg/dL (0.55-1.02); Calcium 7.7 mg/dL (8.5-10.1); Chloride 106 mmol/L (98-107); Diff Comment RBC Morph Reviewed; Estimated GFR 72.73 (mL/min/1.73m2); Glucose 104 mg/dL (74-106); Hypochromasia 1+; Microcytosis 1+; Potassium 4.1 mmol/L (3.5-5.1); Sodium 138 mmol/L (136-145); Total Protein 6.7 g/dL (6.4-8.2); Troponin I < 50 ng/L (< or =60)
[2023-08-28 19:51] LABS: Bacteria Negative HPF (Negative); C & S Indicated? No; Casts Negative LPF (Negative); Clarity Cloudy (Clear); Crystals Many Amorphous HPF (Negative); Epithelial Cells Rare HPF (Negative); Mucus Trace (Negative); RBC Negative HPF (0-2); WBC Negative HPF (0-5)
[2023-08-28] MEDS: Normal Saline - Diluent 50 ML VIAL IJ (20:02)
[2023-08-28] MEDS: Omnipaque 350 MG/ML 100 ML BTL IJ (20:02)
[2023-08-28 20:03] LABS: Alkaline Phosphatase 966 U/L (46-116)
[2023-08-28] MEDS: LORazepam 1 MG TAB PO (20:44)
--- NOTE | 2023-08-28 20:50 | NUR.NOTE ---
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 Pt describes feeling restless, and that movement is the only thing that helps. Discussed distraction techniques and ways to help manage her anxiety, however she reports that nothing has worked except the medication she started today. She is breathing faster than when she arrived, with deeper breaths and appears unable to remain still. She goes from sitting on the bed to pacing in the room to bracing her arms against the bed, and back to sitting on the bed. Facial expression matches her restlessness, with a look of worry.
--- NOTE | 2023-08-28 21:17 | DI.VRAD_ITS ---
PROCEDURE INFORMATION: Exam: CTA Chest With Contrast Exam date and time: 08/28/2023 7:56 PM Age: 62 years old Clinical indication: Other: Tachycardia; Additional info: Tachycardia, anxiety TECHNIQUE: Imaging protocol: Computed tomographic angiography of the chest with contrast. Exam focused on the arteries. 3D rendering (Not supervised by radiologist): MIP and/or 3D reconstructed images were created by the technologist. Contrast material: OMNI 350; Contrast volume: 100 ml; Contrast route: INTRAVENOUS (IV); COMPARISON: CT CHEST PE ABD PELVIS W 08/17/2023 6:24 PM FINDINGS: Pulmonary arteries: Negative for acute pulmonary embolism. Aorta: Unremarkable. No aortic aneurysm. No aortic dissection. Lungs: Unremarkable. No consolidation. No masses. Pleural spaces: Unremarkable. No pneumothorax. No pleural effusion. Heart: Unremarkable. No cardiomegaly. No pericardial effusion. Lymph nodes: Unremarkable. No enlarged lymph nodes. Liver: Hepatic cirrhosis partially visualized. Gallbladder and bile ducts: Stable biliary stent with pneumobilia and ductal dilatation. Pancreas: Pancreatic ductal dilatation partially visualized. Intraperitoneal space: Abdominal ascites partially visualized. Bones/joints: Unremarkable. No acute fracture. Soft tissues: Unremarkable. IMPRESSION: 1. Negative for acute pulmonary embolism. 2. Stable findings within the upper abdomen as detailed above. Dictated and Authenticated by: Lindsay Castellon MD. Ordering:JOSE J Rocha MD
[2023-08-28] MEDS: Heparin 500 UNITS/5 ML SYRINGE (21:55)
[2023-08-28 22:20] VITALS: BP 109/61; PULSE 84; RESP 16; TEMP 37; O2SAT 97
== END 2023-08-28 22:11 | disposition home or self-care (01) ==
PROVIDERS: Emergency Provider Student in an Organized Health Care Education/Training Program; PCP Internal Medicine
DX: F41.0 Panic disorder [episodic paroxysmal anxiety] (principal); C25.9 Malignant neoplasm of pancreas, unspecified
CPT/HCPCS: 36415; 71275; 80053; 93005; 96372; 99285; 81003; 81015; 84484; 85025; 93010; 99283; J1642; J3490